=== PATIENT | male | born 1930 | race Caucasian/White ===

== ENCOUNTER 2016-04-02 06:23 | Inpatient (IN) | payer MEDICARE, OTHER ==
[~2016-04-02] VITALS: Ht 175.3 cm; Wt 109.0 kg
[~2016-04-02 06:23] MED LIST: ALLO300T2 PO; ASCO500C7 PO; CALC-67 PO; CARV3.1260 PO; CYAN500T46 PO; DIGO125T19 PO; FURO40TA4 PO; METO2.5T12 PO; POTA20TA96 PO; TAMS-14 PO; TIOT18CA IH; VITA400C15 PO; WARF5TAB72 PO
[2016-04-02] MEDS ORDERED: ALBUTEROL 0.5% (NEB) 2.5 MG/0.5 ML AMP INH STA ×2 (06:37→08:13)
[2016-04-02] MEDS ORDERED: IPRATROPIUM (NEB) 0.5 MG/2.5 ML AMP INH STA (06:37)
--- NOTE | 2016-04-02 06:47 | ERA ---
ER Documentation Chief Complaint Date/Time DATE: 04/02/16 TIME: 06:40 Chief Complaint gen weakness for 5 days. no trauma no headache,no neuro def. 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 Last week he began having nonspecific flu symptoms with increasing cough and body aches and shortness of breath which became severe this morning with orthopnea and exertional dyspnea. Denies chest pain or palpitations. Mild chronic lower extremity swelling which is not worsening. No calf pain. No abdominal pain, nausea or vomiting. Generalized weakness but no focal weakness or numbness. Denies headache or neck pain. No visual changes, focal weakness or numbness. No fevers or chills. ROS All systems reviewed and are negative except as per history of present illness. Medications Home Meds Reported Medications Allopurinol* (Allopurinol*) 300 Mg Tablet, 300 MG PO DAILY, TAB 11/02/14 Carvedilol* (Carvedilol*) 3.125 Mg Tablet, 3.125 MG PO BID, TAB 11/02/14 Vitamin E* (Vitamin E*) 400 Unit Capsule, 400 UNIT PO DAILY, CAP 11/02/14 Tiotropium [place]* (Spiriva*) 18 Mcg Cap.w.dev, 1 INH IH DAILY, EA 11/02/14 Potassium Chloride* (Potassium Chloride*) 20 Meq Tablet.er, 20 MEQ PO BID, TAB.SA 11/02/14 Metolazone* (Metolazone*) 2.5 Mg Tablet, 2.5 MG PO DAILY, TAB 11/02/14 Furosemide* (Furosemide*) 40 Mg Tablet, 40 MG PO BID, TAB 11/02/14 Tamsulosin Hcl* (Flomax*) 0.4 Mg Cap.er.24h, 0.4 MG PO DAILY, CAP 11/02/14 Digoxin* (Digox*) 125 Mcg Tablet, 0.125 MG PO DAILY, TAB 11/02/14 Warfarin Sodium* (Coumadin*) 5 Mg Tablet, 5 MG PO DAILY, TAB 11/02/14 Cyanocobalamin* (Vitamin B12*) 500 Mcg Tab, 500 MCG PO DAILY, TAB 11/02/14 Calcium Carbonate-Vitamin D3 (Calcium 500 + D Caplet) 1 Tab Tablet, 1 TAB PO DAILY, TAB 11/02/14 Ascorbic Acid* (Vitamin C*) 500 Mg Capsule.sa, 1000 MG PO DAILY, CAP 11/02/14 Allergies Allergies: Coded Allergies: Penicillins (Verified Allergy, Unknown, ITCHING, 11/02/14) Msviuij-Kxw-Mbu Reductase Inhibitor (Verified Allergy, Unknown, MUSCLE ACHES, 11/02/14) PMhx/Soc Reviewed in chart. As per HPI. History of Surgery: Yes (LEFT HIP NAILING ) Anesthesia Reaction: No Hx Neurological Disorder: Yes (NEUROPATHY, SCIATICA) Hx Respiratory Disorders: Yes (COPD) Hx Cardiac Disorders: Yes (HTN, CHF, A-FIB, PVD) Hx Psychiatric Problems: No Hx Miscellaneous Medical Probl: No Hx Alcohol Use: Yes Hx Substance Use: No Hx Tobacco Use: Yes ([id number] smoking history quit 15-20 years ago) Smoking Status: Former smoker FmHx Father of a ruptured aortic aneurysm. Mother: Diabetes. Physical Exam Vitals Vital Signs Date Time Temp Pulse Resp B/P Pulse Ox O2 Delivery O2 Flow Rate FiO2 04/02/16 07:57 95 24 151/99 94 Nasal Cannula 2.0 04/02/16 06:52 90 20 93 Nasal Cannula 3.0 04/02/16 06:30 Nasal Cannula 2 04/02/16 06:28 99.1 88 22 120/80 95 Physical Exam GENERAL: Alert, mild -moderate respiratory distress. SKIN: Warm, dry, no rash, No petechiae. No ecchymoses or bruising. HEAD: Atraumatic NECK: Supple, no tenderness, full range of motion. JVD. EYES: Pupils are equal, round and reactive to light, extraocular movements are intact, Conjunctiva, not injected, sclera anicteric. ENT: Mucous membranes are moist. Pharynx is clear without erythema or exudate. CARDIOVASCULAR: Tachycardic, Irregular rate and rhythm, S1, S2, IV/IV systolic ejection murmur. 1+ peripheral edema. RESPIRATORY: Breath sounds are markedly diminished bilaterally with moderate expiratory wheezing and crackles at the bases. CHEST WALL: No tenderness or deformity. No ecchymosis or bruising GASTROINTESTINAL: Bowel sounds present, nondistended. Soft, nontender, no rebound or guarding. No masses or abnormal pulsations. MUSCULOSKELETAL: Normal ROM, no deformity. No calf swelling or tenderness, NEUROLOGIC: Alert and oriented. CN II-XII intact. No focal neurological deficit observed. Normal speech. LYMPHATICS: No lymphadenopathy. 1+ bilateral lower extremity edema. PSYCHIATRIC: Cooperative. Appropriate mood and affect. Patient does not appear anxious or depressed. Result Diagram: 04/02/16 0635 04/02/16 0635 Results 24 hrs Laboratory Tests Test 04/02/16 06:35 04/02/16 07:20 04/02/16 07:22 Alanine Aminotransferase (ALT/SGPT) 45IU/L Albumin 4.0g/dl Albumin/Globulin Ratio 1.05 Alkaline Phosphatase 68IU/L Anion Gap 16 Aspartate Amino Transf (AST/SGOT) 68IU/L B-Type Natriuretic Peptide 587PG/ML Basophils # 0.010^3/ul Basophils % 0.3% Blood Morphology Comment Blood Urea Nitrogen 61mg/dl Calcium Level 8.8mg/dl Carbon Dioxide Level mmol/L Chloride Level 84mmol/L Cholesterol Level 139mg/dl Cholesterol/HDL Ratio 6.6RATIO Creatine Kinase 89IU/L Creatinine 1.63mg/dl Direct Bilirubin 0.00mg/dl Eosinophils # 0.010^3/ul Eosinophils % 0.5% Folate > 20.0ng/ml Globulin 3.80g/dl Glucose Level 116mg/dl HDL Cholesterol 21mg/dl Hematocrit 50.1% Hemoglobin 16.9g/dl Hemoglobin A1c 6.8% Indirect Bilirubin 0.6mg/dl LDL Cholesterol, Calculated 74mg/dl Lymphocytes # 1.110^3/ul Lymphocytes % 13.7% Magnesium Level 2.2mg/dl Mean Corpuscular Hemoglobin 35.2pg Mean Corpuscular Hemoglobin Concent 33.6g/dl Mean Corpuscular Volume 104.7fl Mean Platelet Volume 9.1fl Monocytes # 0.910^3/ul Monocytes % 10.6% Neutrophils # 6.010^3/ul Neutrophils % 74.9% Nucleated Red Blood Cells # 0.010^3/ul Nucleated Red Blood Cells % 0.0/100WBC Platelet Count 6010^3/UL Potassium Level 3.2mmol/L Red Blood Count 4.7910^6/ul Red Cell Distribution Width 15.9% Sodium Level 139mmol/L Thyroid Stimulating Hormone (TSH) 1.820MIU/L Total Bilirubin 0.6mg/dl Total Protein 7.8g/dl Triglycerides Level 220mg/dl Troponin I 0.092ng/ml Vitamin B12 Level 954pg/ml White Blood Count 8.110^3/ul Digoxin Level 1.2ng/ml INR International Normalized Ratio 1.52 Prothrombin Time 18.4Sec Prothrombin Time Ratio 1.4 Current Medications Medications (Trade) Dose Ordered Sig/Jacqueline Route PRN Reason Start Time Stop Time Status Last Admin Dose Admin Albuterol (Proventil 0.5% (Neb)) 15 mg ONCE STAT INH 04/02/16 06:37 04/02/16 06:38 04/02/16 06:50 Ipratropium [place] (Atrovent 0.02% (Neb)) 1 mg ONCE STAT INH 04/02/16 06:37 04/02/16 06:38 04/02/16 06:50 Methylprednisolone Sodium Succinate (Solu-Medrol) 125 mg ONCE STAT IV 04/02/16 06:37 04/02/16 06:38 04/02/16 06:50 Albuterol (Proventil 0.5% (Neb)) 15 mg ONCE STAT INH 04/02/16 08:13 04/02/16 08:14 04/02/16 08:35 RHYTHM STRIP INTERPRETATION: Time: 06: 45. Atrial fibrillation. Rate 92. Indication: Shortness of breath. EKG: TIME: 06: 34. Atrial fibrillation. Ventricular rate 91. Incomplete right bundle branch block. Q waves in leads V1 through V3. No acute ST segment elevation or depression. EP Interpretation: Abnormal EKG. IMAGING: XR Chest. CLINICAL INDICATION: SOB TECHNIQUE: Portable single view of the chest COMPARISON: 11/02/2014 FINDINGS: Again seen is cardiomegaly and ectatic and calcified aorta. Increased interstitial markings of the lungs are seen. Slight subsegmental atelectasis is seen laterally at the left lung base. No definite acute infiltrate, pleural effusion, or overt congestive heart failure. Degenerative change of the spine is seen. Pulmonary vascularity is top normal. IMPRESSION: Cardiomegaly. Top normal pulmonary vascularity and mild interstitial prominence. RPTAT: [facility]BE Physician Olga Lidia Date Time Electronically viewed and signed by Margarette Goetz Physician on 04/02/2016 08 :04 LE/ Procedures/MDM DOCUMENTS REVIEWED: ED nurse, prior ED, prior records, senior care facility records ED COURSE: Nebulized albuterol 15 mg/Atrovent 1 mg over 1 hour. Solu-Medrol 125mg IV. Potassium chloride 40 mg p.o. REEXAMINATION/REEVALUATION: Time: 08:10. Improved but still dyspneic with decreased breath sounds and expiratory wheezing. 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 Presentation consistent with COPD exacerbation mildly improved with nebulized beta agonists and intravenous corticosteroids. Mild underlying congestive heart failure is also a contributing factor. Chronic atrial fibrillation with controlled rate. He is not adequately anticoagulated as INR is 1.4. No chest pain, ischemic EKG changes or other signs of acute coronary syndrome. Doubt pulmonary embolism. No radiographic evidence of pneumonia or pneumothorax. Acute renal insufficiency with BUN 61/creatinine 1.3 as compared to 18/0.7 on . Thrombocytopenia which is new since his previous admission in October when his platelet count was 163,000 today to 60,000. No evidence of bleeding. Generalized weakness but no focal weakness, numbness, headache or indication for neuroimaging. Patient will be admitted to telemetry for further respiratory care, evaluation and management. Counseled patient and daughter regarding diagnosis, diagnostic results and plan for admission. CALLS/CONSULTS: Time 08:20, Dr. Clayton, Recommends telemetry admission. PATIENT CARE TRANSITIONED: Time: 08:30, Dr. Clayton. CRITICAL CARE TIME: Due to the high probability of sudden clinically significant respiratory, hemodynamic and cardiovascular deterioration, this patient with acute dyspnea secondary to COPD exacerbation and congestive heart failure required multiple, frequent reevaluations of vital signs and response to therapy. Additional critical care time was spent in interpretation of relevant clinical data, review of previous medical records, obtaining supplemental history from family and EMS as well as consultation with the admitting physician Dr. Clayton. TOTAL CRITICAL CARE TIME: 35 minutes not including other separately reportable procedures. Departure Diagnosis: Primary Impression: Acute exacerbation of chronic obstructive pulmonary disease (COPD) Additional Impressions: Acute dyspnea Congestive heart failure (CHF) Qualified Code: I50.9 - Acute on chronic congestive heart failure, unspecified congestive heart failure type Acute renal insufficiency Thrombocytopenia Aortic stenosis Qualified Code: I35.0 - Aortic valve stenosis, unspecified etiology Chronic atrial fibrillation Hypertension Qualified Code: I10 - Essential hypertension Condition: Serious NARCISO SILVA MD Apr 02, 2016 06:47
[2016-04-02] MEDS: METHYLPREDNISOLONE 125 MG INJ IV STA ×2 (06:48→06:50)
[2016-04-02 06:55] LABS: BASOPHILS % 0.3 % (0.0-2.0); EOSINOPHILS % 0.5 % (0.0-7.0); HEMATOCRIT 50.1 % (42.0-52.0); HEMOGLOBIN 16.9 g/dl (14.0-18.0); LYMPHOCYTES # 1.1 10^3/ul (0.8-2.9); LYMPHOCYTES % 13.7 % (15.0-51.0); MEAN CORPUSCULAR HEMOGLOBIN 35.2 pg (29.0-33.0); MEAN CORPUSCULAR HGB CONC 33.6 g/dl (32.0-37.0); MEAN CORPUSCULAR VOLUME 104.7 fl (82.0-101.0); MEAN PLATELET VOLUME 9.1 fl (7.4-10.4); MONOCYTE # 0.9 10^3/ul (0.3-0.9); MONOCYTES % 10.6 % (0.0-11.0); NEUTROPHILS % 74.9 % (39.0-77.0); PLATELET COUNT 60 10^3/UL (140-440); RED BLOOD COUNT 4.79 10^6/ul (4.70-6.10); RED CELL DISTRIBUTION WIDTH 15.9 % (11.5-14.5); UNCORRECTED WBC 8.1 10^3/ul (4.8-10.8); WHITE BLOOD COUNT 8.1 10^3/ul (4.8-10.8)
[2016-04-02 06:58] LABS: CONDITION 1; LH ANALYZER COMMENTS 1
[2016-04-02 07:08] LABS: POTASSIUM 3.2 mmol/L (3.5-5.1)
[2016-04-02 07:10] LABS: ALBUMIN/GLOBULIN RATIO 1.05; BILIRUBIN,INDIRECT 0.6 mg/dl (0-1.1); BILIRUBIN,TOTAL 0.6 mg/dl (0.2-1.3); CREATININE 1.63 mg/dl (0.61-1.24); TOTAL PROTEIN 7.8 g/dl (6.1-8.1)
[2016-04-02 07:11] LABS: CALCIUM 8.8 mg/dl (8.4-10.2)
[2016-04-02 07:23] LABS: TROPONIN-I 0.092 ng/ml (0.00-0.12)
[2016-04-02 07:37] LABS: INR 1.52; PROTIME 18.4 Sec (12.2-14.2); PT RATIO 1.4
--- NOTE | 2016-04-02 08:05 | RADRPT ---
PROCEDURE: XR Chest. CLINICAL INDICATION: SOB TECHNIQUE: Portable single view of the chest COMPARISON: 11/02/2014 FINDINGS: Again seen is cardiomegaly and ectatic and calcified aorta. Increased interstitial markings of the lungs are seen. Slight subsegmental atelectasis is seen laterally at the left lung base. No defini te acute infiltrate, pleural effusion, or overt congestive heart failure. Degenerative change of th e spine is seen. Pulmonary vascularity is top normal. IMPRESSION: Cardiomegaly. Top normal pulmonary vascularity and mild interstitial prominence. RPTAT: [facility]BE Physician Olga Lidia Date Time Electronically viewed and signed by Margarette Goetz Physician on 04/02/2016 08:04 LE/
[2016-04-02] MEDS ORDERED: POTASSIUM CHLORIDE (SR) 20 MEQ TAB PO STA (08:24)
[2016-04-02] MEDS ORDERED: NITROGLYCERIN (SL) 0.4 MG TAB SL PRN (08:30)
[2016-04-02] MEDS ORDERED: ACETAMINOPHEN 325 MG TAB PO PRN ×2 (08:30)
[2016-04-02] MEDS ORDERED: LORAZEPAM 2 MG INJ IV PRN (08:30)
[2016-04-02] MEDS ORDERED: ONDANSETRON 4 MG INJ IV PRN ×2 (08:30)
[2016-04-02] MEDS ORDERED: NACL 0.9% 3 ML SYG IV SCH (08:30)
--- NOTE | 2016-04-02 09:44 | CONS ---
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 Last week he began having nonspecific flu symptoms with increasing cough and body aches and shortness of breath which became severe this morning with orthopnea and exertional dyspnea. Denies chest pain or palpitations. Mild chronic lower extremity swelling which is not worsening. No calf pain. No abdominal pain, nausea or vomiting. Generalized weakness but no focal weakness or numbness. Denies headache or neck pain. No visual changes, focal weakness or numbness. No fevers or chills. the patinet is already improving in the ER as symptoms have improved with breathing treatemnts Social History Smoking Status: Former smoker Exam/Review of Systems Vital Signs Vitals Vital Signs Date Time Temp Pulse Resp B/P Pulse Ox O2 Delivery O2 Flow Rate FiO2 04/02/16 08:36 99 18 94 Nasal Cannula 3.0 04/02/16 07:57 151/99 04/02/16 06:28 99.1 Results Result Diagram: 04/02/16 0635 04/02/16 0635 Results 24 hrs Laboratory Tests Test 04/02/16 06:35 04/02/16 07:20 04/02/16 07:22 Alanine Aminotransferase (ALT/SGPT) 45 Albumin 4.0 Albumin/Globulin Ratio 1.05 Alkaline Phosphatase 68 Anion Gap 16 Aspartate Amino Transf (AST/SGOT) 68 H B-Type Natriuretic Peptide 587 H Basophils # 0.0 Basophils % 0.3 Blood Morphology Comment Blood Urea Nitrogen 61 H Calcium Level 8.8 Carbon Dioxide Level Chloride Level 84 L Creatinine 1.63 H Direct Bilirubin 0.00 Eosinophils # 0.0 Eosinophils % 0.5 Globulin 3.80 H Glucose Level 116 Hematocrit 50.1 # Hemoglobin 16.9 # Indirect Bilirubin 0.6 Lymphocytes # 1.1 Lymphocytes % 13.7 L Mean Corpuscular Hemoglobin 35.2 H Mean Corpuscular Hemoglobin Concent 33.6 Mean Corpuscular Volume 104.7 H Mean Platelet Volume 9.1 Monocytes # 0.9 Monocytes % 10.6 Neutrophils # 6.0 Neutrophils % 74.9 Nucleated Red Blood Cells # 0.0 Nucleated Red Blood Cells % 0.0 Platelet Count 60 #L Potassium Level 3.2 L Red Blood Count 4.79 # Red Cell Distribution Width 15.9 H Sodium Level 139 Total Bilirubin 0.6 Total Protein 7.8 Troponin I 0.092 White Blood Count 8.1 Digoxin Level 1.2 INR International Normalized Ratio 1.52 Prothrombin Time 18.4 H Prothrombin Time Ratio 1.4 Medications Medications Current Medications Lorazepam (Ativan) 0.5 mg Q6H PRN IV ANXIETY; Start 04/02/16 at 08:30; Status UNV Ondansetron HCl (Zofran Inj) 4 mg Q6H PRN IV NAUSEA AND/OR VOMITING; Start 01/06 at 08:30; Status UNV Nitroglycerin (Nitroglycerin (Sl Tab) 0.4 Mg) 1 tab Q5M PRN SL CHEST PAIN; Start 04/02/16 at 08:30; Status UNV Acetaminophen (Tylenol Tab) 650 mg Q6H PRN PO PAIN LEVEL 1-3 OR FEVER; Start at 08:30; Status UNV Morphine Sulfate (morphine) 2 mg Q4H PRN IV PAIN LEVEL 7-10; Start 04/02/16 at 08:30; Status UNV Docusate Sodium (Colace) 100 mg Q12H PRN PO CONSTIPATION; Start 04/02/16 at 08: 30; Status UNV Famotidine (Pepcid) 20 mg Q12 PO ; Start 04/02/16 at 09:00; Status UNV Allopurinol (Zyloprim) 300 mg DAILY PO ; Start 04/02/16 at 09:00; Status UNV Ascorbic Acid (Vitamin C) 1,000 mg DAILY PO ; Start 04/02/16 at 09:00; Status UNV Carvedilol (Coreg) 3.125 mg BID PO ; Start 04/02/16 at 09:00; Status UNV Cyanocobalamin (Vitamin B12) 500 mcg DAILY PO ; Start 04/02/16 at 09:00; Status UNV Digoxin (Digoxin) 0.125 mg DAILY PO ; Start 04/02/16 at 09:00; Status UNV Furosemide (Lasix) 40 mg BID PO ; Start 04/02/16 at 09:00; Status UNV Metolazone (Zaroxolyn) 2.5 mg DAILY PO ; Start 04/02/16 at 09:00; Status UNV Potassium Chloride (Klor-Con 20) 20 meq BID PO ; Start 04/02/16 at 09:00; Status UNV Tamsulosin HCl (Flomax) 0.4 mg DAILY PO ; Start 04/02/16 at 09:00; Status UNV Tiotropium [place] (Spiriva) 1 inh DAILY INH ; Start 04/02/16 at 09:00; Status UNV Vitamin E (Vitamin E) 400 units DAILY PO ; Start 04/02/16 at 09:00; Status UNV Warfarin Sodium (Coumadin) 5 mg DAILY PO ; Start 04/02/16 at 09:00; Status UNV Miscellaneous Information 1 tab DAILY PO ; Start 04/02/16 at 09:00; Status UNV MELIDA FRANKLIN MD Apr 02, 2016 09:44
[2016-04-02 10:46] LABS: CHOL/HDL RATIO 6.6 RATIO; MAGNESIUM 2.2 mg/dl (1.7-2.5)
[2016-04-02 11:09] VITALS: Ht 175.3 cm; Wt 109.0 kg
[2016-04-02 11:10] LABS: THYROID STIMULATING HORMONE 1.82 MIU/L (0.465-4.680)
--- NOTE | 2016-04-02 11:27 | HP ---
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 1. Shortness of breath 2/2 to COPD exacerbation with possible CHF exac - will admit the patient to telemetry for observation - IV steroids, breathing treatments, repeat cxr, mucinex for sputum, if worsening leukocytosis - start antibiotics 2. CHF exacerbation - acute on chronic systolic dysfunction - consult cardiology , hold lasix 2/2 to ARF, check ECHO 3. Acute renal failure - renally adjust medications, avoid nephrotoxins, most likely AIN from dehydration 4. Chronic Afib - continue with coumadin - subtherapeutic - no bridging 2/2 #5 5. Thrombocytopenia - hold lovenox - continue with coumadin 6. Severe - outpatient TAVR 7. PVD - wound care - podiatry if worsening 8. Peripheral neuropathy - continue with gabapentin 9. Obesity - morbid - nutrition consult 10. Prostate CA - monitor at this time 11. Essential hypertension - continue with home medications - ACEI hold, coreg continue 12. Subtherapeutic INR - lc/w coumadin 13. Megaloblastic anemia - check folate/b12 levels 14. GI ppx - pepcid 15. DVT ppx - coumadin answered all of his questions. as per clinical course. 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 He currently [facility]. He states that he has a non-productive cough, feels congested and weak. Denies any nausea/vomiting/diarrhea/constipation, chest pain , loss of consciousness, headaches, urinary/bowel irregularities, fevers/chills or other constitutional symptoms. Where he resides, everyone is sick. ED course: KCl, solu-medrol, breathing treatments, tylenol ROS 14 point review of systems completed, please refer to HPI for any positive findings PMH/Family/Social Past Medical History Chronic AF on coumadin, Severe , COPD, peripheral neuropathy, PVD, Chronic back pain, obesity, prostate CA Medical History: congestive heart failure, coronary artery disease, hypertension Past Surgical History left hip IT band repair Family History Significant Family History: diabetes (grandmother), vascular disease (father from ruptured aneurysm) Social History Alcohol Use: none Smoking Status: Former smoker (40 yr ppd hx) Drug Use: none Exam/Review of Systems Vital Signs Vitals Vital Signs Date Time Temp Pulse Resp B/P Pulse Ox O2 Delivery O2 Flow Rate FiO2 04/02/16 08:36 99 18 94 Nasal Cannula 3.0 04/02/16 07:57 151/99 04/02/16 06:28 99.1 Exam Exam Gen Robinson: mild to moderate respiratory distress, AAOx4 HEENT: NC/AT, PERRLA, EOMI, no pharyngeal erythema, no tonsillar exudates, no lymphadenopathy, no JVD, 1+ bilaterally carotid bruits NECK: supple, no thyromegaly THORAX: symmetrical, no obvious deformities CV: S1S2, RRR, III/ systolic murmur best heard at aortic area radiating bilaterally to carotids Lungs: scattered rhonchi, no wheezing, or crackles appreciated Abd: soft, NT/ND, +BS, no rebound, no guarding, neg HSM EXT: 1+ bilaterally lower extremity edema, no ecchymosis, no clubbing, FROM, PVD noted, with ferritin deposits Neuro: CN II-XII grossly intact, decreased proprioception lower extremities bilaterally Psych: good mentation, alert and oriented, good mood and affect Skin: venous stasis changes noted bilaterally lower extremities, wounds on bilateral feet. Labs Result Diagram: 04/02/16 0635 04/02/16 0635 Medications Medications Current Medications Lorazepam (Ativan) 0.5 mg Q6H PRN IV ANXIETY; Start 04/02/16 at 08:30 Ondansetron HCl (Zofran Inj) 4 mg Q6H PRN IV NAUSEA AND/OR VOMITING; Start 01/06 at 08:30 Nitroglycerin (Nitroglycerin (Sl Tab) 0.4 Mg) 1 tab Q5M PRN SL CHEST PAIN; Start 04/02/16 at 08:30 Acetaminophen (Tylenol Tab) 650 mg Q6H PRN PO PAIN LEVEL 1-3 OR FEVER; Start at 08:30 Morphine Sulfate (morphine) 2 mg Q4H PRN IV PAIN LEVEL 7-10; Start 04/02/16 at 08:30 Docusate Sodium (Colace) 100 mg Q12H PRN PO CONSTIPATION; Start 04/02/16 at 08: 30 Famotidine (Pepcid) 20 mg Q12 PO ; Start 04/02/16 at 09:00 Allopurinol (Zyloprim) 300 mg DAILY PO ; Start 04/02/16 at 09:00 Ascorbic Acid (Vitamin C) 1,000 mg DAILY PO ; Start 04/02/16 at 09:00 Carvedilol (Coreg) 3.125 mg BID PO ; Start 04/02/16 at 09:00 Cyanocobalamin (Vitamin B12) 500 mcg DAILY PO ; Start 04/02/16 at 09:00 Digoxin (Digoxin) 0.125 mg DAILY@13 PO ; Start 04/02/16 at 13:00 Metolazone (Zaroxolyn) 2.5 mg DAILY PO ; Start 04/02/16 at 09:00 Potassium Chloride (Klor-Con 20) 20 meq BID PO ; Start 04/02/16 at 09:00 Tamsulosin HCl (Flomax) 0.4 mg HS PO ; Start 04/02/16 at 21:00 Tiotropium [place] (Spiriva) 1 inh DAILY INH ; Start 04/02/16 at 09:00 Vitamin E (Vitamin E) 400 units DAILY PO ; Start 04/02/16 at 09:00 Warfarin Sodium (Coumadin) 5 mg DAILY@17 PO ; Start 04/02/16 at 17:00 Calcium/Vitamin D ([place]/ Vit-D (500/200)) 1 tab DAILY PO ; Start at 11:30 Procedures Procedures CXR IMPRESSION: Cardiomegaly. Top normal pulmonary vascularity and mild interstitial prominence. KWAME SANDOVAL MD Apr 02, 2016 11:18
[2016-04-02 12:06] VITALS: PULSE 98
[2016-04-02] MEDS: METOLAZONE 2.5 MG TAB PO SCH (12:06)
[2016-04-02] MEDS: POTASSIUM CHLORIDE (SR) 20 MEQ TAB PO SCH ×2 (12:07→21:21)
[2016-04-02] MEDS: ALLOPURINOL 300 MG TAB PO SCH (12:08)
[2016-04-02] MEDS: CALCIUM/VITAMIN D (500/200) TAB PO SCH (12:08)
[2016-04-02] MEDS: ASCORBIC ACID 500 MG TAB PO SCH (12:08)
[2016-04-02] MEDS: CYANOCOBALAMIN 500 MCG TAB PO SCH (12:08)
[2016-04-02] MEDS: FAMOTIDINE 20 MG TAB PO SCH ×2 (12:08→21:21)
[2016-04-02] MEDS: VITAMIN E 400 UNITS CAP PO SCH (12:09)
[2016-04-02] MEDS: TIOTROPIUM 18 MCG CAPSULE INHA DEV INH SCH (12:09)
[2016-04-02] MEDS: GUAIFENESIN/DM (SR) TAB PO SCH ×2 (12:09→21:21)
[2016-04-02 12:19] VITALS: BP 124/70; RESP 18
[2016-04-02] MEDS: DIGOXIN 0.125 MG TAB PO SCH (12:24)
[2016-04-02 12:54] LABS: FOLATE > 20.0 ng/ml (2.8-20.0)
[2016-04-02 15:30] LABS: CK-MB 3.03 ng/ml (0.0-2.4)
[2016-04-02 15:32] LABS: TROPONIN-I 0.052 ng/ml (0.00-0.12)
[2016-04-02] MEDS: morphine 2 MG INJ IV PRN (15:40)
[2016-04-02 16:12] VITALS: BP_SYST 132; BP_SYST 147; BP_DIAS 68; BP_DIAS 84; PULSE 96; RESP 16
[2016-04-02] MEDS: WARFARIN 5 MG TAB PO SCH (17:23)
[2016-04-02] MEDS: FUROSEMIDE 40 MG TAB PO SCH (17:23)
[2016-04-02 20:05] VITALS: PULSE 80
[2016-04-02 20:32] VITALS: BP 111/57; RESP 20
[2016-04-02] MEDS ORDERED: ENOXAPARIN 100 MG/ML SYG SC SCH (21:00)
[2016-04-02] MEDS: TAMSULOSIN (SR) 0.4 MG CAP PO SCH (21:21)
[2016-04-03] VITALS (13 sets, daily range): BP systolic 89–144; BP diastolic 50–67; PULSE 69–104; RESP 18–20
[2016-04-03] MEDS: morphine 2 MG INJ IV PRN ×3 (02:37→20:34)
[2016-04-03] MEDS: FUROSEMIDE 40 MG TAB PO SCH (06:18)
[2016-04-03 07:49] LABS: HEMATOCRIT 46.1 % (42.0-52.0); HEMOGLOBIN 15.8 g/dl (14.0-18.0); LYMPHOCYTES # 0.8 10^3/ul (0.8-2.9); LYMPHOCYTES % 8.5 % (15.0-51.0); MEAN CORPUSCULAR HEMOGLOBIN 35.9 pg (29.0-33.0); MEAN CORPUSCULAR HGB CONC 34.2 g/dl (32.0-37.0); MEAN PLATELET VOLUME 8.6 fl (7.4-10.4); MONOCYTE # 0.8 10^3/ul (0.3-0.9); MONOCYTES % 8.8 % (0.0-11.0); NEUTROPHIL # 7.4 10^3/ul (1.6-7.5); NEUTROPHILS % 82.7 % (39.0-77.0); PLATELET COUNT 41 10^3/UL (140-440); RED BLOOD COUNT 4.39 10^6/ul (4.70-6.10); RED CELL DISTRIBUTION WIDTH 15.9 % (11.5-14.5); UNCORRECTED WBC 8.9 10^3/ul (4.8-10.8); WHITE BLOOD COUNT 8.9 10^3/ul (4.8-10.8)
[2016-04-03 07:52] LABS: POTASSIUM 3.4 mmol/L (3.5-5.1)
[2016-04-03 07:54] LABS: CREATININE 1.19 mg/dl (0.61-1.24)
[2016-04-03 07:55] LABS: CALCIUM 8.5 mg/dl (8.4-10.2); INR 1.74; PROTIME 20.5 Sec (12.2-14.2); PT RATIO 1.6
[2016-04-03 07:56] LABS: PARTIAL THROMBOPLASTIN TIME 31.9 Sec (25.0-35.0)
[2016-04-03 08:08] LABS: CONDITION 1; LH ANALYZER COMMENTS 1
--- NOTE | 2016-04-03 10:08 | RADRPT ---
Echocardiogram Report Patient Name: SYLVIA SALMERON Gender: Male Date: 1930 Study Date: 02-Apr-2016 Program Project Manager: [facility] Location: 5540 Ref. Physician: KWAME SANDOVAL Quality: Technically Difficult Study Procedures: Transthoracic echocardiogram with complete 2D, M-Mode, and doppler examination. Indications: COPD. 2D/M Mode Doppler Measurement Value Normal Ranges Measurement Value Normal Ranges LVIDd 2D 5.7 3.5 - 5.6 cm AMBER Vmax 0.6 cm2 LVIDs 2D 4.7 2.1 - 4.1 cm AMBER VTI 0.5 cm2 FS 2D 18.8 % AV Mean Sam 2.0 m/sec LVPWd 2D 1.2 0.6 - 1.1 cm AV Mean PG 21.0 mmHg IVSd 2D 1.1 0.6 - 1.1 cm AV Peak Sam 3.1 m/sec IVS/LVPW 2D 0.9 AV Peak PG 39.0 mmHg AoR Diam 2D 2.5 2.0 - 3.7 cm AV VTI 55.9 cm LA/Ao 2D 2 0 - 1 LVOT Mean Sam 0.5 m/sec EDV 2D 188.0 cm3 LVOT Mean PG 1.0 mmHg ESV 2D 101.0 cm3 LVOT Peak Sam 0.7 m/sec LA Dimen 2D 5.2 2.3 - 4.0 cm LVOT Peak PG 2.0 mmHg LVOT Diam 1.8 cm LVOT VTI 11.4 cm LVOT Area 2.5 cm2 MV E Peak Sam 1.1 m/sec TR Peak Sam 4.0 m/sec TR Peak PG 63.0 mmHg Findings Left Ventricle: Normal left ventricular cavity size. Left ventricular wall thickness upper limits of normal. Moderate global left ventricular systolic dysfunction. Ejection fraction is visually estimated at 45 %. Abnormal Diastolic Function. Right Ventricle: Not well visualized. Left Atrium: There is mild enlargement of left atrium. Right Atrium: There is mild enlargement of right atrium. Mitral Valve: Mild mitral leaflet calcification. Trace mitral regurgitation. Aortic Valve: Severe aortic stenosis. Aortic valve Max velocity 3.14 m/sec. Max PG 39.00 mmHg. Mean PG 21.00 mmHg. Aortic valve area 0.60 cm2. Aortic cusps appear mildly calcified. Tricuspid Valve: Estimated peak PA systolic pressure 71 mmHg. There is mild to moderate tricuspid regurgitation. Pulmonic Valve: There is trace pulmonic regurgitation. Pericardium: Left pleural effusion seen. Aorta: Normal aortic root. IVC: Dilated IVC without respiratory collapse consistent with elevated right atrial pressure. Conclusions 1.Severe aortic stenosis. Aortic valve Max velocity 3.14 m/sec. Max PG 39.00 mmHg. Mean PG 21.00 mmHg. Aortic valve area 0.60 cm2. Aortic cusps appear mildly calcified. 2.Normal left ventricular cavity size. Left ventricular wall thickness upper limits of normal. Moderate global left ventricular systolic dysfunction. Ejection fraction is visually estimated at 45 %. Abnormal Diastolic Function. Electronically Signed By: Oleksandr Carrington 03-Apr-2016 10:07:10 -0800 Patient Name: SYLVIA SALMERON Study Date: 02-Apr-2016 [id number]
[2016-04-03] MEDS: METOLAZONE 2.5 MG TAB PO SCH (10:29)
[2016-04-03] MEDS: ASCORBIC ACID 500 MG TAB PO SCH (10:29)
[2016-04-03] MEDS: POTASSIUM CHLORIDE (SR) 20 MEQ TAB PO SCH ×3 (10:30→20:33)
[2016-04-03] MEDS: CALCIUM/VITAMIN D (500/200) TAB PO SCH (10:30)
[2016-04-03] MEDS: TIOTROPIUM 18 MCG CAPSULE INHA DEV INH SCH (10:30)
[2016-04-03] MEDS: CYANOCOBALAMIN 500 MCG TAB PO SCH (10:30)
[2016-04-03] MEDS: ALLOPURINOL 300 MG TAB PO SCH (10:30)
[2016-04-03] MEDS: GUAIFENESIN/DM (SR) TAB PO SCH ×2 (10:30→20:32)
[2016-04-03] MEDS: VITAMIN E 400 UNITS CAP PO SCH (10:31)
[2016-04-03] MEDS: FAMOTIDINE 20 MG TAB PO SCH ×2 (10:31→20:32)
[2016-04-03] MEDS: ALBUTEROL/IPRATROPIUM (NEB) 3 ML AMP HHN PRN ×2 (10:42→15:23)
--- NOTE | 2016-04-03 11:03 | PN ---
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 1. Shortness of breath 2/2 to COPD exacerbation with possible CHF exac - Ct chest, IV steroids, consult pulm 2. CHF exacerbation - acute on chronic systolic dysfunction - appreciate cardiology, hold lasix 2/2 to ARF, EF 45%, severe 3. Acute renal failure - renally adjust medications, avoid nephrotoxins, most likely AIN from dehydration - improved 4. Chronic Afib - continue with coumadin - subtherapeutic - no bridging 2/2 #5 5. Thrombocytopenia - hold lovenox - continue with coumadin 6. Severe - outpatient TAVR 7. PVD - wound care - podiatry if worsening 8. Peripheral neuropathy - continue with gabapentin 9. Obesity - morbid - nutrition consult 10. Prostate CA - monitor at this time 11. Essential hypertension - continue with home medications - ACEI hold, coreg continue 12. Subtherapeutic INR - c/w coumadin - increasing PT/INR 13. Megaloblastic anemia - b12/folate normal 14. GI ppx - pepcid 15. DVT ppx - coumadin answered all of his questions. as per clinical course. CT chest this progress note took greater than 40 minutes to complete Subjective 24 Hr Interval Summary Free Text/Dictation Patient is doing ok today. Still complains of generalized weakness and debility. Breathing treatments still given. Spoke to him about the care plan. 20 minutes spent. Exam/Review of Systems Vital Signs Vitals Vital Signs Date Time Temp Pulse Resp B/P Pulse Ox O2 Delivery O2 Flow Rate FiO2 04/03/16 10:45 18 96 Nasal Cannula 3.0 04/03/16 08:20 73 04/03/16 07:54 97.6 89/53 Intake and Output 04/02/16 04/02/16 04/03/16 15:00 23:00 07:00 Intake Total 1130 ml 60 ml Output Total 1000 ml 50 ml Balance 130 ml 10 ml Exam Gen Robinson: mild to moderate respiratory distress, AAOx4 HEENT: NC/AT, PERRLA, EOMI, no pharyngeal erythema, no tonsillar exudates, no lymphadenopathy, no JVD, 1+ bilaterally carotid bruits NECK: supple, no thyromegaly THORAX: symmetrical, no obvious deformities CV: S1S2, RRR, III/ systolic murmur best heard at aortic area radiating bilaterally to carotids Lungs: scattered rhonchi, end expiratory wheezing, or crackles appreciated Abd: soft, NT/ND, +BS, no rebound, no guarding, neg HSM EXT: 1+ bilaterally lower extremity edema, no ecchymosis, no clubbing, FROM, PVD noted, with ferritin deposits Neuro: CN II-XII grossly intact, decreased proprioception lower extremities bilaterally Psych: good mentation, alert and oriented, good mood and affect Skin: venous stasis changes noted bilaterally lower extremities, wounds on bilateral feet. Results Result Diagram: 04/03/16 0650 04/03/16 0650 Results 24 hrs Laboratory Tests Test 04/02/16 14:42 04/03/16 06:50 Creatine Kinase 62 Creatine Kinase Index 4.9 Creatinine Kinase MB (Mass) 3.03 H Troponin I 0.052 Activated Partial Thromboplast Time 31.9 Anion Gap 12 Basophils # 0.0 Basophils % 0.0 Blood Morphology Comment Blood Urea Nitrogen 57 H Calcium Level 8.5 Carbon Dioxide Level 40 H Chloride Level 89 L Creatinine 1.19 Eosinophils # 0.0 Eosinophils % 0.0 Glucose Level 148 Hematocrit 46.1 Hemoglobin 15.8 INR International Normalized Ratio 1.74 Lymphocytes # 0.8 Lymphocytes % 8.5 L Mean Corpuscular Hemoglobin 35.9 H Mean Corpuscular Hemoglobin Concent 34.2 Mean Corpuscular Volume 105.0 H Mean Platelet Volume 8.6 Monocytes # 0.8 Monocytes % 8.8 Neutrophils # 7.4 Neutrophils % 82.7 H Nucleated Red Blood Cells # 0.0 Nucleated Red Blood Cells % 0.0 Platelet Count 41 #L Potassium Level 3.4 L Prealbumin 16.3 L Prothrombin Time 20.5 H Prothrombin Time Ratio 1.6 Red Blood Count 4.39 L Red Cell Distribution Width 15.9 H Sodium Level 138 White Blood Count 8.9 Medications Medications Current Medications Lorazepam (Ativan) 0.5 mg Q6H PRN IV ANXIETY; Start 04/02/16 at 08:30 Ondansetron HCl (Zofran Inj) 4 mg Q6H PRN IV NAUSEA AND/OR VOMITING; Start 01/06 at 08:30 Nitroglycerin (Nitroglycerin (Sl Tab) 0.4 Mg) 1 tab Q5M PRN SL CHEST PAIN; Start 04/02/16 at 08:30 Acetaminophen (Tylenol Tab) 650 mg Q6H PRN PO PAIN LEVEL 1-3 OR FEVER; Start at 08:30 Morphine Sulfate (morphine) 2 mg Q4H PRN IV PAIN LEVEL 7-10 Last administered on 04/03/16 02:37; Admin Dose 2 MG; Start 04/02/16 at 08:30 Docusate Sodium (Colace) 100 mg Q12H PRN PO CONSTIPATION; Start 04/02/16 at 08: 30 Famotidine (Pepcid) 20 mg Q12 PO Last administered on 04/03/16 10:31; Admin Dose 20 MG; Start 04/02/16 at 09:00 Allopurinol (Zyloprim) 300 mg DAILY PO Last administered on 04/03/16 10:30; Admin Dose 300 MG; Start 04/02/16 at 09:00 Ascorbic Acid (Vitamin C) 1,000 mg DAILY PO Last administered on 04/03/16 10: 29; Admin Dose 1,000 MG; Start 04/02/16 at 09:00 Carvedilol (Coreg) 3.125 mg BID PO Last administered on 04/03/16 10:30; Admin Dose 3.125 MG; Start 04/02/16 at 09:00 Cyanocobalamin (Vitamin B12) 500 mcg DAILY PO Last administered on 04/03/16 10 :30; Admin Dose 500 MCG; Start 04/02/16 at 09:00 Digoxin (Digoxin) 0.125 mg DAILY@13 PO ; Start 04/02/16 at 13:00 Metolazone (Zaroxolyn) 2.5 mg DAILY PO Last administered on 04/03/16 10:29; Admin Dose 2.5 MG; Start 04/02/16 at 09:00 Potassium Chloride (Klor-Con 20) 20 meq BID PO Last administered on 04/03/16 10:30; Admin Dose 20 MEQ; Start 04/02/16 at 09:00 Tamsulosin HCl (Flomax) 0.4 mg HS PO Last administered on 04/02/16 21:21; Admin Dose 0.4 MG; Start 04/02/16 at 21:00 Tiotropium [place] (Spiriva) 1 inh DAILY INH Last administered on 04/03/16 10: 30; Admin Dose 1 INH; Start 04/02/16 at 09:00 Vitamin E (Vitamin E) 400 units DAILY PO Last administered on 04/03/16 10:31; Admin Dose 400 UNITS; Start 04/02/16 at 09:00 Warfarin Sodium (Coumadin) 5 mg DAILY@17 PO Last administered on 04/02/16 17: 23; Admin Dose 5 MG; Start 04/02/16 at 17:00 Calcium/Vitamin D (Oyster Shell/ Vit-D (500/200)) 1 tab DAILY PO Last administered on 04/03/16 10:30; Admin Dose 1 TAB; Start 04/02/16 at 11:30 Guaifenesin/ Dextromethorphan (Mucinex Dm) 1 tab BID PO Last administered on 10:30; Admin Dose 1 TAB; Start 04/02/16 at 12:30 Enoxaparin Sodium (Lovenox) 110 mg Q12 SC ; Start 04/03/16 at 11:30 Furosemide (Lasix) 20 mg DAILY IV ; Start 04/04/16 at 09:00; Status UNV Methylprednisolone Sodium Succinate (Solu-Medrol) 60 mg Q8 IV ; Start 04/03/16 at 14:00 Procedures Procedures ECHO Conclusions 1. Severe aortic stenosis. Aortic valve Max velocity 3.14 m/sec. Max PG 39.00 mmHg. Mean PG 21.00 mmHg. Aortic valve area 0.60 cm2. Aortic cusps appear mildly calcified. 2. Normal left ventricular cavity size. Left ventricular wall thickness upper limits of normal. Moderate global left ventricular systolic dysfunction. Ejection fraction is visually estimated at 45 %. Abnormal Diastolic Function. KWAME SANDOVAL MD Apr 03, 2016 11:03
[2016-04-03] MEDS: ENOXAPARIN 60 MG/0.6 ML SYG SC SCH ×2 (11:30→20:35)
[2016-04-03] MEDS: DIGOXIN 0.125 MG TAB PO SCH (13:00)
[2016-04-03] MEDS: DOCUSATE SODIUM 100 MG CAP PO PRN (13:48)
[2016-04-03] MEDS ORDERED: METHYLPREDNISOLONE 125 MG INJ IV SCH (14:00)
[2016-04-03] MEDS ORDERED: MAGNESIUM HYDROXIDE 30ML CUP PO PRN (15:00)
--- NOTE | 2016-04-03 15:20 | PN ---
DATE: 04/03/2016 REASON FOR ADMISSION: Shortness of breath. Dr. Gaines reports that he is feeling slightly better but still short of breath. OBJECTIVE: VITAL SIGNS: Temperature 97.6, pulse 75, blood pressure 89/53, oxygen saturation 96% on 3 liters of nasal cannula. PHYSICAL EXAMINATION: NECK: There is mild jugular venous distention. LUNGS: Decreased breath sounds bilaterally. CARDIAC: Regular rate and rhythm. There is a systolic murmur heard at the base. ABDOMEN: Soft. EXTREMITIES: Reveal 1+ edema. CURRENT MEDICATIONS: 1. Solu-Medrol 2. Lovenox. 3. Flomax. 4. Warfarin 5. Digoxin. 6. Famotidine. 7. Allopurinol. 8. Metolazone. 9. Coreg 3.125 10. Spiriva. IMAGING: X-ray report shows normal pulmonary vasculature and mild interstitial prominence. LABORATORY RESULTS: Reviewed. White count 8.9, hematocrit 46. Sodium 130, potassium 3.4, BUN 57, creatinine 1.1. Troponin negative. ASSESSMENT: 1. Shortness of breath. The patient has multiple contributing possible factors including known sev ere aortic stenosis and cardiomyopathy. Dose of Lasix and Zaroxolyn given. Will hold though given his renal insufficiency and hypokalemia and possible chronic obstructive pulmonary disease exacerbat ion. We will hold those tomorrow until further evaluated. 2. The patient has severe aortic stenosis. Will defer consideration for valve replacement to [facility] scalper operator. 3. The patient had atrial fibrillation. He is anticoagulated with Lovenox and Coumadin. Dictated By: BRADLEY MARIEE/GAUTAM Conf#: [id number] DID#: [id number]
[2016-04-03] MEDS: predniSONE 20 MG TAB PO SCH (16:00)
[2016-04-03] MEDS: CARBOXYMETHYLCELLULOSE 0.5% 0.1 ML OPH BOTH EYES SCH ×2 (18:01→20:32)
[2016-04-03] MEDS: WARFARIN 5 MG TAB PO SCH (18:01)
--- NOTE | 2016-04-03 18:41 | CONS ---
DATE OF ADMISSION: 04/02/2016 DATE OF CONSULTATION: 04/03/2016 CONSULTATION: Pulmonary. 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 He denies any other sick contacts. Denies any hemoptysis. PAST MEDICAL HISTORY: As above. MEDICATIONS: Please see MAR. SOCIAL HISTORY: Former 40 pack tobacco use. No alcohol or illicit drug use. FAMILY HISTORY: Noncontributory. ALLERGIES: NONE. REVIEW OF SYSTEMS: As noted in the HPI. PHYSICAL EXAMINATION: VITAL SIGNS: Heart rate is 99, irregular; blood pressure 151/99, oxygen saturation 95% on 3 liters nasal cannula, temperature is 99.1. HEENT: Normocephalic, atraumatic. NECK: Jugular venous pressures are mildly elevated. CARDIOVASCULAR: Irregularly irregular. S1, S2. A II/ systolic murmur. No rubs. CHEST: Some coarse wheezing bilaterally. ABDOMEN: Obese, nontender. EXTREMITIES: No cyanosis, clubbing, or edema. LABORATORY DATA: BUN today is 57, creatinine 1.19, bicarbonate is 40. INR is 1.74. WBC is 8.9, he moglobin is 15, MCV is 105, platelets are 41. IMPRESSION: 1. Chronic obstructive pulmonary disease exacerbation. 2. Mild heart failure secondary to aortic stenosis. 3. Atrial fibrillation. 4. Thrombocytopenia. 5. Macrocytosis. RECOMMENDATIONS: 1. Continue bronchodilators. 2. Reduce Solu-Medrol to prednisone 60 mg daily. 3. Continue gentle diuresis. Follow creatinine closely. 4. Possibility of TAVR procedure for aortic stenosis as per cardiology. 5. PT, OT evaluation. Mobilize out of bed. Dictated By: RAINER GRANT MD NK/NTS Conf#: [id number] DID#: [id number] CC: NILES GRIFFITHS MD; KWAME SANDOVAL MD;*EndCC*
[2016-04-03] MEDS: TAMSULOSIN (SR) 0.4 MG CAP PO SCH (20:33)
[2016-04-04] VITALS (12 sets, daily range): BP systolic 108–122; BP diastolic 56–73; PULSE 69–82; RESP 16–19
--- NOTE | 2016-04-04 01:15 | RADRPT ---
PROCEDURE: CT Chest without contrast. CLINICAL INDICATION: Dyspnea TECHNIQUE: CT scan of the chest without contrast was performed on a multidetector high-resolution CT scanner. Coronal and sagittal reformatted images were obtained from the axial source images. The total exam CTDI equals 15.1 mGy and the total exam DLP equals 601 mGy-cm. COMPARISON: Radiograph dated 04/02/2016 FINDINGS: There are patchy bibasilar infiltrates with the posterior predominant distribution. This finding may indicate acute bacterial pneumonia or chronic micro aspiration. There is mild changes of centrolobular emphysema in the bilateral upper lung zones. There is no pulmonary infiltrate, pulmonary nodules or mass lesion. There is no evidence of pleural effusion, pneumothorax or pulmonary edema. The central tracheobronchial tree is clear. The mediastinum is unremarkable, without evidence of mass or lymphadenopathy. The thyroid gland is heterogeneous and there may be a 1 cm right thyroid nodule. The vascular structures of the mediastinum are normal in course and caliber. Advanced aortic vascular calcifications and coronary artery calcifications are present. The heart size is large, without pericardial thickening or effusion. The axillary regions, subpectoral regions, and supraclavicular regions are unremarkable and without evidence of adenopathy. Limited imaging of the upper abdomen reveals no acute abnormality. The osseous structures are remarkable for degenerative spondylosis of the spine. No osteolytic or osteoblastic lesion is detected. IMPRESSION: 1. Patchy bibasilar infiltrates with posterior predominance. Findings may represent acute bacteria l pneumonia, acute aspiration or chronic micro aspiration. 2. Mild changes of centrolobular emphysema. 3. Advanced atherosclerotic coronary artery and peripheral vascular disease. 4. Cardiomegaly. 5. Heterogeneous thyroid gland with possible 1 cm nodule in the right lobe of thyroid. Findings ca n be further clarified with ultrasound, if clinically indicated. RPTAT: HLDM .Ash Brock MD, MD Date Time Electronically viewed and signed by .Ash Brock MD, on 04/04/2016 01:14 .M/
[2016-04-04] MEDS: morphine 2 MG INJ IV PRN ×2 (04:12→10:07)
[2016-04-04] MEDS: ALBUTEROL/IPRATROPIUM (NEB) 3 ML AMP HHN PRN (05:39)
[2016-04-04 07:20] LABS: HEMATOCRIT 48.4 % (42.0-52.0); HEMOGLOBIN 16.2 g/dl (14.0-18.0); LYMPHOCYTES # 0.8 10^3/ul (0.8-2.9); MEAN CORPUSCULAR HEMOGLOBIN 35.6 pg (29.0-33.0); MEAN CORPUSCULAR HGB CONC 33.5 g/dl (32.0-37.0); MEAN CORPUSCULAR VOLUME 106.2 fl (82.0-101.0); MEAN PLATELET VOLUME 9.1 fl (7.4-10.4); MONOCYTE # 0.7 10^3/ul (0.3-0.9); NEUTROPHIL # 9.6 10^3/ul (1.6-7.5); PLATELET COUNT 51 10^3/UL (140-440); RED BLOOD COUNT 4.56 10^6/ul (4.70-6.10); RED CELL DISTRIBUTION WIDTH 15.2 % (11.5-14.5); UNCORRECTED WBC 11.1 10^3/ul (4.8-10.8); WHITE BLOOD COUNT 11.1 10^3/ul (4.8-10.8)
[2016-04-04 07:23] LABS: CONDITION 1
[2016-04-04 07:23] LABS: INR 2.42; PROTIME 26.6 Sec (12.2-14.2); PT RATIO 2.1
[2016-04-04 07:24] LABS: LH ANALYZER COMMENTS 1
[2016-04-04 07:24] LABS: PARTIAL THROMBOPLASTIN TIME 32.6 Sec (25.0-35.0)
[2016-04-04 07:35] LABS: POTASSIUM 3.5 mmol/L (3.5-5.1)
[2016-04-04 07:38] LABS: CREATININE 1.14 mg/dl (0.61-1.24)
[2016-04-04 07:39] LABS: CALCIUM 8.6 mg/dl (8.4-10.2)
[2016-04-04] MEDS ORDERED: FUROSEMIDE 20 MG INJ IV SCH (09:00)
[2016-04-04] MEDS: CARBOXYMETHYLCELLULOSE 0.5% 0.1 ML OPH BOTH EYES SCH ×4 (09:00→21:54)
[2016-04-04] MEDS: predniSONE 20 MG TAB PO SCH (09:00)
--- NOTE | 2016-04-04 09:31 | PN ---
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 1. Shortness of breath 2/2 to COPD exacerbation with possible CHF exac - slowly improving. CT chest showed: Patchy bibasilar infiltrates with posterior predominance - r/ o PNA - continue PO steroids, Duoneb's Q4 hrs ATC for now - start IV abx, f/u CV and pulm consult rec's - PT consult 2. CHF exacerbation - acute on chronic systolic + diastolic dysfunction , EF 45% , severe - appreciate cardiology consult - continue to hold lasix 2/2 to ARF 3. Acute renal failure - renally adjust medications, avoid nephrotoxins, most likely AIN from dehydration - improved 4. Chronic Afib - continue with coumadin - INR today = 2.42 continue Coumadin 5 mg Qday - f/u daily INR 5. Thrombocytopenia - still present (plt = 51) - no present bleeding. - cautiously continue with coumadin - monitor plt level daily 6. Severe - for possible outpatient TAVR, f/u CV rec's. 7. PVD - wound care - podiatry if worsening 8. Peripheral neuropathy - continue with gabapentin 9. Obesity - morbid - nutrition consult 10. Prostate CA - monitor at this time 11. Essential hypertension - bp stable - continue with home medications - ACEI hold, coreg continue 13. Megaloblastic anemia - b12/folate normal 14. GI ppx - pepcid 15. DVT ppx - coumadin Problems: Subjective 24 Hr Interval Summary Free Text/Dictation Pt had Duobneb tx today, less SOB this AM. Exam/Review of Systems Vital Signs Vitals Vital Signs Date Time Temp Pulse Resp B/P Pulse Ox O2 Delivery O2 Flow Rate FiO2 04/04/16 08:02 79 04/04/16 07:45 97.9 16 109/73 92 04/04/16 07:27 Nasal Cannula 2.0 Intake and Output 04/03/16 04/03/16 04/04/16 15:00 23:00 07:00 Intake Total 700 ml 240 ml Output Total 1200 ml 800 ml Balance -500 ml -560 ml Exam Gen Robinson: NAD, AAOx4 HEENT: NC/AT, PERRLA, EOMI NECK: supple, no thyromegaly THORAX: symmetrical, no obvious deformities CV: S1S2, RRR, III/ systolic murmur best heard at aortic area radiating bilaterally to carotids Lungs: scattered rhonchi, + end expiratory wheezing R>L Abd: soft, NT/ND, +BS, no rebound, no guarding, neg HSM EXT: 1+ bilaterally lower extremity edema, no ecchymosis, no clubbing, FROM, PVD noted, with ferritin deposits Neuro: CN II-XII grossly intact, decreased proprioception lower extremities bilaterally Psych: good mentation, alert and oriented, good mood and affect Skin: venous stasis changes noted bilaterally lower extremities, wounds on bilateral feet. Results Result Diagram: 04/04/16 0551 04/04/16 0551 Results 24 hrs Laboratory Tests Test 04/04/16 05:21 04/04/16 05:51 Activated Partial Thromboplast Time 32.6 INR International Normalized Ratio 2.42 Prothrombin Time 26.6 #H Prothrombin Time Ratio 2.1 Anion Gap 14 Basophils # 0.0 Basophils % 0.0 Blood Morphology Comment Blood Urea Nitrogen 62 H Calcium Level 8.6 Carbon Dioxide Level 42 *H Chloride Level 87 L Creatinine 1.14 Eosinophils # 0.0 Eosinophils % 0.0 Glucose Level 148 Hematocrit 48.4 Hemoglobin 16.2 Lymphocytes # 0.8 Lymphocytes % 7.0 L Mean Corpuscular Hemoglobin 35.6 H Mean Corpuscular Hemoglobin Concent 33.5 Mean Corpuscular Volume 106.2 H Mean Platelet Volume 9.1 Monocytes # 0.7 Monocytes % 6.0 Neutrophils # 9.6 H Neutrophils % 87.0 H Nucleated Red Blood Cells # 0.0 Nucleated Red Blood Cells % 0.0 Platelet Count 51 #L Potassium Level 3.5 Red Blood Count 4.56 L Red Cell Distribution Width 15.2 H Sodium Level 139 White Blood Count 11.1 #H Medications Medications Current Medications Lorazepam (Ativan) 0.5 mg Q6H PRN IV ANXIETY; Start 04/02/16 at 08:30 Ondansetron HCl (Zofran Inj) 4 mg Q6H PRN IV NAUSEA AND/OR VOMITING; Start 01/06 at 08:30 Nitroglycerin (Nitroglycerin (Sl Tab) 0.4 Mg) 1 tab Q5M PRN SL CHEST PAIN; Start 04/02/16 at 08:30 Acetaminophen (Tylenol Tab) 650 mg Q6H PRN PO PAIN LEVEL 1-3 OR FEVER; Start at 08:30 Morphine Sulfate (morphine) 2 mg Q4H PRN IV PAIN LEVEL 7-10 Last administered on 04/04/16 04:12; Admin Dose 2 MG; Start 04/02/16 at 08:30 Docusate Sodium (Colace) 100 mg Q12H PRN PO CONSTIPATION Last administered on 13:48; Admin Dose 100 MG; Start 04/02/16 at 08:30 Famotidine (Pepcid) 20 mg Q12 PO Last administered on 04/03/16 20:32; Admin Dose 20 MG; Start 04/02/16 at 09:00 Allopurinol (Zyloprim) 300 mg DAILY PO Last administered on 04/03/16 10:30; Admin Dose 300 MG; Start 04/02/16 at 09:00 Ascorbic Acid (Vitamin C) 1,000 mg DAILY PO Last administered on 04/03/16 10: 29; Admin Dose 1,000 MG; Start 04/02/16 at 09:00 Carvedilol (Coreg) 3.125 mg BID PO Last administered on 04/03/16 20:35; Admin Dose 3.125 MG; Start 04/02/16 at 09:00 Cyanocobalamin (Vitamin B12) 500 mcg DAILY PO Last administered on 04/03/16 10 :30; Admin Dose 500 MCG; Start 04/02/16 at 09:00 Digoxin (Digoxin) 0.125 mg DAILY@13 PO ; Start 04/02/16 at 13:00 Potassium Chloride (Klor-Con 20) 20 meq BID PO Last administered on 04/03/16 20:33; Admin Dose 20 MEQ; Start 04/02/16 at 09:00 Tamsulosin HCl (Flomax) 0.4 mg HS PO Last administered on 04/03/16 20:33; Admin Dose 0.4 MG; Start 04/02/16 at 21:00 Tiotropium [place] (Spiriva) 1 inh DAILY INH Last administered on 04/03/16 10: 30; Admin Dose 1 INH; Start 04/02/16 at 09:00 Vitamin E (Vitamin E) 400 units DAILY PO Last administered on 04/03/16 10:31; Admin Dose 400 UNITS; Start 04/02/16 at 09:00 Warfarin Sodium (Coumadin) 5 mg DAILY@17 PO Last administered on 04/03/16 18: 01; Admin Dose 5 MG; Start 04/02/16 at 17:00 Calcium/Vitamin D (Oyster Shell/ Vit-D (500/200)) 1 tab DAILY PO Last administered on 04/03/16 10:30; Admin Dose 1 TAB; Start 04/02/16 at 11:30 Guaifenesin/ Dextromethorphan (Mucinex Dm) 1 tab BID PO Last administered on 20:32; Admin Dose 1 TAB; Start 04/02/16 at 12:30 Eye Lubricant (Refresh Plus) 1 drop QID BOTH EYES Last administered on 20:32; Admin Dose 1 DROP; Start 04/03/16 at 17:00 Magnesium Hydroxide (Milk Of Mag) 30 ml BID PRN PO CONSTIPATION Last administered on 04/03/16 18:02; Admin Dose 30 ML; Start 04/03/16 at 15:00 Prednisone 60 mg 60 mg DAILY PO ; Start 04/03/16 at 16:00 Levofloxacin/ Dextrose (Levaquin 750 Mg/ D5W 150 ml (Pmx)) 150 ml @ 100 mls/hr Q24H IVPB ; Start 04/04/16 at 10:30 Procedures Procedures A. 2D ECHO (04/02/16): Conclusions 1. Severe aortic stenosis. Aortic valve Max velocity 3.14 m/sec. Max PG 39.00 mmHg. Mean PG 21.00 mmHg. Aortic valve area 0.60 cm2. Aortic cusps appear mildly calcified. 2. Normal left ventricular cavity size. Left ventricular wall thickness upper limits of normal. Moderate global left ventricular systolic dysfunction. Ejection fraction is visually estimated at 45 %. Abnormal Diastolic Function. B. CT chest (04/03/16): IMPRESSION: 1. Patchy bibasilar infiltrates with posterior predominance. Findings may represent acute bacterial pneumonia, acute aspiration or chronic micro aspiration. 2. Mild changes of centrolobular emphysema. 3. Advanced atherosclerotic coronary artery and peripheral vascular disease. 4. Cardiomegaly. 5. Heterogeneous thyroid gland with possible 1 cm nodule in the right lobe of thyroid. Findings can be further clarified with ultrasound, if clinically indicated. CHINMAY OMALLEY. Apr 04, 2016 09:31
[2016-04-04] MEDS: POTASSIUM CHLORIDE (SR) 20 MEQ TAB PO SCH ×3 (10:03→21:56)
[2016-04-04] MEDS: VITAMIN E 400 UNITS CAP PO SCH (10:03)
[2016-04-04] MEDS: ALLOPURINOL 300 MG TAB PO SCH (10:04)
[2016-04-04] MEDS: ASCORBIC ACID 500 MG TAB PO SCH (10:04)
[2016-04-04] MEDS: CYANOCOBALAMIN 500 MCG TAB PO SCH (10:04)
[2016-04-04] MEDS: FAMOTIDINE 20 MG TAB PO SCH ×2 (10:04→21:55)
[2016-04-04] MEDS: CALCIUM/VITAMIN D (500/200) TAB PO SCH (10:06)
[2016-04-04] MEDS: TIOTROPIUM 18 MCG CAPSULE INHA DEV INH SCH (10:06)
[2016-04-04] MEDS: GUAIFENESIN/DM (SR) TAB PO SCH ×2 (10:22→21:55)
[2016-04-04] MEDS: LEVOFLOXACIN 750MG/D5W (PMX) 150 ML IVPB SCH (11:11)
--- NOTE | 2016-04-04 12:28 | PN ---
DATE: 04/04/2016 SUBJECTIVE: The patient remains stable this morning. He has mild shortness of breath, but denies a ny fever or chills. He is still on 5 L nasal cannula. Normally at a baseline of 3 L. PHYSICAL EXAMINATION: VITAL SIGNS: Temperature 98, pulse 79, blood pressure 109/73, O2 saturation 96% on 2 L nasal cannul a. NECK: Supple. No JVD or lymphadenopathy. CARDIAC: S1, S2, no added sounds or murmurs. CHEST: Diminished air entry bilaterally. ABDOMEN: Soft, nontender. No guarding or rebound. EXTREMITIES: No cyanosis, clubbing, edema. NEUROLOGIC: Generalized weakness, but no focal deficits. LABORATORY DATA: White count 11.1, hemoglobin 16.2, platelets of 51. BUN 62, creatinine 1.14, bica rbonate was 42. IMPRESSION AND PLAN: 1. Chronic obstructive pulmonary disease with exacerbation. 2. Acute hypoxemic respiratory failure. 3. Congestive cardiac failure secondary to significantly severe aortic stenosis. 4. Renal insufficiency. 5. Thrombocytopenia. PLAN: 1. Continue steroid taper. 2. Continue bronchodilators. 3. Continue supplemental O2. 4. Would hold off on diuretics as present given rising BUN and creatinine. 5. Continue anticoagulation as tolerated. 6. Monitor platelet count for now. Dictated By: NILES ROMERO/GAUTAM Conf#: [id number] DID#: [id number]
[2016-04-04] MEDS: DIGOXIN 0.125 MG TAB PO SCH (13:00)
[2016-04-04] MEDS: ALBUTEROL/IPRATROPIUM (NEB) 3 ML AMP HHN SCH ×4 (13:11→20:53)
[2016-04-04] MEDS: WARFARIN 5 MG TAB PO SCH (18:03)
--- NOTE | 2016-04-04 21:33 | PN ---
DATE: 04/04/2016 SUBJECTIVE: Discussed with the staff. Rhythm strip was reviewed. Remains in atrial fibrillation. Heart rate has been remaining stable. Denies any chest pain or pressure to me. He does feel tight ness in his chest though which is improved with a breathing treatment. His breathing is improved wi th breathing treatment only. ____ when lying flat. No PND, orthopnea at this point. MEDICATIONS: Reviewed as per medical reconciliation, personally reviewed. PHYSICAL EXAMINATION: VITAL SIGNS: Temperature 98.1, heart rate of 79, blood pressure 108/58, respiratory rate of 18, sat urating 93%. HEENT: Normocephalic, atraumatic. Pupils are equal. CARDIOVASCULAR: Irregularly irregular and distant heart sounds. Systolic ejection murmur. PULMONARY: Mild rhonchi and wheezes, diffuse. GASTROINTESTINAL: Soft, nontender. EXTREMITIES: Trivial edema. NEUROLOGIC: Awake ____. PSYCHIATRIC: Appeared to be calm and pleasant. LABORATORY: Sodium 139, potassium 3.5, BUN of 62, creatinine 1.14, glucose of 148. TSH 1.8. IMAGIN. Chest x-ray from the was personally reviewed which showed cardiomegaly. 2. CT of the chest from the showed patchy bilateral infiltrates with a posterior prominence, m ay represent a bacterial pneumonia, acute aspiration or chronic microaspiration. ASSESSMENT AND PLAN: 1. Chronic obstructive pulmonary disease exacerbation. 2. Possible pneumonia. 3. Severe aortic stenosis. 4. History of congestive heart failure, appeared to be stable, chronic secondary to diastolic dysfu nction and valvular heart disease. 5. Renal insufficiency. 6. Thrombocytopenia. 7. Atrial fibrillation. RECOMMENDATIONS: INR is currently therapeutic. Coumadin to be adjusted and monitored daily includi ng the INR level. I will discontinue the carvedilol and switch him to Cardizem given his severe pul monary disease. Antibiotic and pulmonary workup as per Internal Medicine and Pulmonary. Will consi porfirio giving him a Diamox dose if more diuresis is needed tomorrow. Dictated By: UZIEL MAGALLANES/GAUTAM Conf#: [id number] DID#: [id number] CC: CHINMAY OMALLEY;*EndCC*
[2016-04-04] MEDS: TAMSULOSIN (SR) 0.4 MG CAP PO SCH (21:55)
[2016-04-04] MEDS: DILTIAZEM 30 MG TAB PO SCH (21:57)
[2016-04-05] VITALS (12 sets, daily range): BP systolic 107–115; BP diastolic 55–59; PULSE 90–105; RESP 16–18
[2016-04-05] MEDS: morphine 2 MG INJ IV PRN (00:32)
[2016-04-05] MEDS: ALBUTEROL/IPRATROPIUM (NEB) 3 ML AMP HHN SCH ×6 (00:43→21:17)
[2016-04-05 07:59] LABS: EOSINOPHILS % 0.3 % (0.0-7.0); HEMATOCRIT 49.1 % (42.0-52.0); HEMOGLOBIN 16.5 g/dl (14.0-18.0); LYMPHOCYTES # 1.1 10^3/ul (0.8-2.9); LYMPHOCYTES % 7.8 % (15.0-51.0); MEAN CORPUSCULAR HEMOGLOBIN 35.4 pg (29.0-33.0); MEAN CORPUSCULAR HGB CONC 33.6 g/dl (32.0-37.0); MEAN CORPUSCULAR VOLUME 105.3 fl (82.0-101.0); MEAN PLATELET VOLUME 9.1 fl (7.4-10.4); MONOCYTE # 1.2 10^3/ul (0.3-0.9); MONOCYTES % 8.5 % (0.0-11.0); NEUTROPHIL # 11.8 10^3/ul (1.6-7.5); NEUTROPHILS % 83.4 % (39.0-77.0); RED BLOOD COUNT 4.67 10^6/ul (4.70-6.10); RED CELL DISTRIBUTION WIDTH 15.6 % (11.5-14.5); UNCORRECTED WBC 14.2 10^3/ul (4.8-10.8); WHITE BLOOD COUNT 14.2 10^3/ul (4.8-10.8)
[2016-04-05 08:06] LABS: CONDITION 1; LH ANALYZER COMMENTS 1; MAGNESIUM 2.2 mg/dl (1.7-2.5); PLATELET COUNT 68 10^3/UL (140-440)
[2016-04-05 08:07] LABS: INR 3.06; PARTIAL THROMBOPLASTIN TIME 33.7 Sec (25.0-35.0); PROTIME 32.1 Sec (12.2-14.2); PT RATIO 2.5
[2016-04-05 08:12] LABS: ALBUMIN 3.2 g/dl (3.3-4.9)
[2016-04-05 08:15] LABS: BILIRUBIN,INDIRECT 0.7 mg/dl (0-1.1); BILIRUBIN,TOTAL 0.7 mg/dl (0.2-1.3); CREATININE 0.9 mg/dl (0.61-1.24)
[2016-04-05 08:16] LABS: ALBUMIN/GLOBULIN RATIO 0.96; CALCIUM 8.6 mg/dl (8.4-10.2); TOTAL PROTEIN 6.5 g/dl (6.1-8.1)
[2016-04-05 08:36] LABS: THYROID STIMULATING HORMONE 1.12 MIU/L (0.465-4.680)
[2016-04-05] MEDS: FAMOTIDINE 20 MG TAB PO SCH ×2 (09:00→10:14)
[2016-04-05] MEDS: VITAMIN E 400 UNITS CAP PO SCH ×2 (09:00→10:15)
[2016-04-05] MEDS: ASCORBIC ACID 500 MG TAB PO SCH ×2 (09:00→10:14)
[2016-04-05] MEDS: predniSONE 20 MG TAB PO SCH ×2 (09:00→10:14)
[2016-04-05] MEDS: ALLOPURINOL 300 MG TAB PO SCH ×2 (09:00→10:14)
[2016-04-05] MEDS: GUAIFENESIN/DM (SR) TAB PO SCH ×3 (09:00→20:47)
[2016-04-05] MEDS: CARBOXYMETHYLCELLULOSE 0.5% 0.1 ML OPH BOTH EYES SCH ×4 (09:00→20:44)
[2016-04-05] MEDS: POTASSIUM CHLORIDE (SR) 20 MEQ TAB PO SCH ×3 (09:00→20:48)
[2016-04-05] MEDS: CYANOCOBALAMIN 500 MCG TAB PO SCH ×2 (09:00→10:15)
[2016-04-05] MEDS: CALCIUM/VITAMIN D (500/200) TAB PO SCH ×2 (09:00→10:15)
[2016-04-05] MEDS: TIOTROPIUM 18 MCG CAPSULE INHA DEV INH SCH (10:16)
[2016-04-05] MEDS: DILTIAZEM 30 MG TAB PO SCH ×3 (10:16→20:46)
[2016-04-05] MEDS: LEVOFLOXACIN 750MG/D5W (PMX) 150 ML IVPB SCH (10:23)
[2016-04-05] MEDS ORDERED: ONDANSETRON 4 MG INJ IV PRN (13:00)
[2016-04-05] MEDS: DIGOXIN 0.125 MG TAB PO SCH (13:00)
[2016-04-05] MEDS ORDERED: POTASSIUM CHLORIDE (SR) 20 MEQ TAB PO STA (13:40)
[2016-04-05] MEDS ORDERED: TRIMETHOBENZAMIDE 100 MG/ML VIAL IM PRN (14:00)
--- NOTE | 2016-04-05 14:10 | PN ---
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 1. Shortness of breath 2/2 to COPD exacerbation with possible CHF exac - slowly improving. CT chest showed: Patchy bibasilar infiltrates with posterior predominance - r/o PNA - continue PO steroids, Duoneb's Q4 hrs ATC for now - continue IV abx (Levaquin), f/u CV and pulm consult rec's - PT consult 2. CHF exacerbation - acute on chronic systolic + diastolic dysfunction , EF 45% , severe - appreciate cardiology consult BNP = 1600 today. - continue to hold lasix 2/2 to ARF - per CV, continue Digoxin, Cardizem PO meds for now. - consider diamox? 3. Acute renal failure - renally adjust medications, avoid nephrotoxins, most likely AIN from dehydration - improved 4. Chronic Afib - continue with coumadin - INR today = 3.06 continue Coumadin 4 mg Qday - f/u daily INR 5. Thrombocytopenia - still present (plt = 51 -> 68) - no present bleeding. - cautiously continue with coumadin - monitor plt level daily 6. Severe - for possible outpatient TAVR, f/u CV rec's. 7. PVD - wound care - podiatry if worsening 8. Peripheral neuropathy - continue with gabapentin 9. Obesity - morbid - nutrition consult 10. Prostate CA - monitor at this time 11. Essential hypertension - bp stable - continue with home medications - ACEI hold, coreg continue 13. Megaloblastic anemia - b12/folate normal 14. GI ppx - pepcid 15. DVT ppx - coumadin 14. n/v - will get GI consult, and increase zofran freq, add Tigan prn. Problems: Subjective 24 Hr Interval Summary Free Text/Dictation Pt with nausea this AM. Exam/Review of Systems Vital Signs Vitals Vital Signs Date Time Temp Pulse Resp B/P Pulse Ox O2 Delivery O2 Flow Rate FiO2 04/05/16 13:26 109 18 89 Nasal Cannula 3.0 04/05/16 11:45 98.3 107/59 Intake and Output 04/04/16 04/04/16 04/05/16 15:00 23:00 07:00 Intake Total 840 ml Output Total 1200 ml Balance -360 ml Exam Gen Robinson: NAD, AAOx4 HEENT: NC/AT, PERRLA, EOMI NECK: supple, no thyromegaly THORAX: symmetrical, no obvious deformities CV: S1S2, RRR, III/ systolic murmur best heard at aortic area radiating bilaterally to carotids Lungs: scattered rhonchi, + end expiratory wheezing R>L Abd: soft, NT/ND, +BS, no rebound, no guarding, neg HSM EXT: 1+ bilaterally lower extremity edema, no ecchymosis, no clubbing, FROM, PVD noted, with ferritin deposits Neuro: CN II-XII grossly intact, decreased proprioception lower extremities bilaterally Psych: good mentation, alert and oriented, good mood and affect Skin: venous stasis changes noted bilaterally lower extremities, wounds on bilateral feet. Results Result Diagram: 04/05/16 0650 04/05/16 0650 Results 24 hrs Laboratory Tests Test 04/05/16 06:50 Activated Partial Thromboplast Time 33.7 Alanine Aminotransferase (ALT/SGPT) 45 Albumin 3.2 L Albumin/Globulin Ratio 0.96 Alkaline Phosphatase 62 Anion Gap 12 Aspartate Amino Transf (AST/SGOT) 43 B-Type Natriuretic Peptide 1630 H Basophils # 0.0 Basophils % 0.0 Blood Morphology Comment Blood Urea Nitrogen 43 #H Calcium Level 8.6 Carbon Dioxide Level 42 *H Chloride Level 87 L Creatinine 0.90 Digoxin Level 0.7 L Direct Bilirubin 0.00 Eosinophils # 0.0 Eosinophils % 0.3 Free Thyroxine 1.69 Globulin 3.30 H Glucose Level 103 # Hematocrit 49.1 Hemoglobin 16.5 INR International Normalized Ratio 3.06 Indirect Bilirubin 0.7 Lymphocytes # 1.1 Lymphocytes % 7.8 L Magnesium Level 2.2 Mean Corpuscular Hemoglobin 35.4 H Mean Corpuscular Hemoglobin Concent 33.6 Mean Corpuscular Volume 105.3 H Mean Platelet Volume 9.1 Monocytes # 1.2 H Monocytes % 8.5 Neutrophils # 11.8 H Neutrophils % 83.4 H Nucleated Red Blood Cells # 0.0 Nucleated Red Blood Cells % 0.0 Platelet Count 68 #L Potassium Level 3.0 L Prothrombin Time 32.1 #H Prothrombin Time Ratio 2.5 Red Blood Count 4.67 L Red Cell Distribution Width 15.6 H Sodium Level 138 Thyroid Stimulating Hormone (TSH) 1.120 Total Bilirubin 0.7 Total Protein 6.5 White Blood Count 14.2 #H Medications Medications Current Medications Lorazepam (Ativan) 0.5 mg Q6H PRN IV ANXIETY; Start 04/02/16 at 08:30 Nitroglycerin (Nitroglycerin (Sl Tab) 0.4 Mg) 1 tab Q5M PRN SL CHEST PAIN; Start 04/02/16 at 08:30 Acetaminophen (Tylenol Tab) 650 mg Q6H PRN PO PAIN LEVEL 1-3 OR FEVER; Start at 08:30 Morphine Sulfate (morphine) 2 mg Q4H PRN IV PAIN LEVEL 7-10 Last administered on 04/05/16 00:32; Admin Dose 2 MG; Start 04/02/16 at 08:30 Docusate Sodium (Colace) 100 mg Q12H PRN PO CONSTIPATION Last administered on 13:48; Admin Dose 100 MG; Start 04/02/16 at 08:30 Allopurinol (Zyloprim) 300 mg DAILY PO Last administered on 04/04/16 10:04; Admin Dose 300 MG; Start 04/02/16 at 09:00 Ascorbic Acid (Vitamin C) 1,000 mg DAILY PO Last administered on 04/04/16 10: 04; Admin Dose 1,000 MG; Start 04/02/16 at 09:00 Cyanocobalamin (Vitamin B12) 500 mcg DAILY PO Last administered on 04/04/16 10 :04; Admin Dose 500 MCG; Start 04/02/16 at 09:00 Digoxin (Digoxin) 0.125 mg DAILY@13 PO ; Start 04/02/16 at 13:00 Potassium Chloride (Klor-Con 20) 20 meq BID PO Last administered on 04/04/16 21:56; Admin Dose 20 MEQ; Start 04/02/16 at 09:00 Tamsulosin HCl (Flomax) 0.4 mg HS PO Last administered on 04/04/16 21:55; Admin Dose 0.4 MG; Start 04/02/16 at 21:00 Tiotropium [place] (Spiriva) 1 inh DAILY INH Last administered on 04/05/16 10: 16; Admin Dose 1 INH; Start 04/02/16 at 09:00 Vitamin E (Vitamin E) 400 units DAILY PO Last administered on 04/04/16 10:03; Admin Dose 400 UNITS; Start 04/02/16 at 09:00 Warfarin Sodium (Coumadin) 5 mg DAILY@17 PO Last administered on 04/04/16 18: 03; Admin Dose 5 MG; Start 04/02/16 at 17:00; Status Future hold Calcium/Vitamin D (Oyster [place]/ Vit-D (500/200)) 1 tab DAILY PO Last administered on 04/04/16 10:06; Admin Dose 1 TAB; Start 04/02/16 at 11:30 Guaifenesin/ Dextromethorphan (Mucinex Dm) 1 tab BID PO Last administered on 21:55; Admin Dose 1 TAB; Start 04/02/16 at 12:30 Eye Lubricant (Refresh Plus) 1 drop QID BOTH EYES Last administered on 12:39; Admin Dose 1 DROP; Start 04/03/16 at 17:00 Prednisone 60 mg 60 mg DAILY PO ; Start 04/03/16 at 16:00 Levofloxacin/ Dextrose (Levaquin 750 Mg/ D5W 150 ml (Pmx)) 150 ml @ 100 mls/hr Q24H IVPB Last administered on 04/05/16 10:23; Admin Dose 100 MLS/HR; Start at 10:30 Diltiazem HCl (Cardizem) 30 mg TID PO Last administered on 04/05/16 10:16; Admin Dose 30 MG; Start 04/04/16 at 21:00 Ondansetron HCl (Zofran Inj) 4 mg Q4H PRN IV NAUSEA AND/OR VOMITING Last administered on 04/05/16 12:47; Admin Dose 4 MG; Start 04/05/16 at 13:00 Trimethobenzamide HCl 200 mg 200 mg Q6H PRN IM NAUSEA AND/OR VOMITING; Start at 14:00 Potassium Chloride (KCl 40 MEQ/250 ML NS) 250 ml @ 62.5 mls/hr Q4H IVPB ; Start 04/05/16 at 14:30; Stop 04/05/16 at 22:29 Pantoprazole (Protonix Iv) 40 mg BID@06,18 IV ; Start 04/05/16 at 18:00 Magnesium Hydroxide (Milk Of Mag) 30 ml BID PO ; Start 04/05/16 at 14:00 Fenofibrate (Tricor) 48 mg DAILY PO ; Start 04/06/16 at 09:00; Status UNCHINMAY MOYER Apr 05, 2016 14:10
[2016-04-05] MEDS: MAGNESIUM HYDROXIDE 30ML CUP PO SCH ×2 (14:13→20:45)
[2016-04-05 14:40] LABS: AADO2 Arterial 95.4 mmHg (7.0-24.0); Allen Test ACCEPTAB; Arterial Base Excess 10.3 mmol/L (-3.0-3); Arterial COHb 0.9 % (0.0-3.0); Arterial Fraction of Oxyhgb 90.1 % (93.0-99.0); Arterial HCO3 36.4 mmol/L (22.0-26.0); Arterial MetHb 0.2 % (0.0-1.5); Arterial Total Hemglobin 17.5 g/dl (12.0-18.0); MODE NASAL CANNULA
--- NOTE | 2016-04-05 14:43 | RADRPT ---
Vent Rate: 112 bpm RR Interval: 0 msec NC Interval: 0 msec QRS Duration: 94 msec QT Interval: 324 msec QTC Interval: 442 msec P-R-T [place]: 0 - 23 - 93 degrees Atrial fibrillation with rapid ventricular response Low voltage QRS Incomplete right bundle branch block Cannot rule out Anterior infarct , age undetermined Marked ST abnormality, possible inferior subendocardial injury Abnormal ECG Electronically Signed By: Allan Arias [id number]
--- NOTE | 2016-04-05 15:14 | PN ---
DATE: 04/05/2016 SUBJECTIVE: The patient overall remains stable. Still has some shortness of breath on exertion, O2 sats hovering around 90% on 3 L nasal cannula. NECK: Supple. No JVD or lymphadenopathy. CARDIAC: S1, S2, no added sounds or murmurs. CHEST: Diminished air entry bilaterally. ABDOMEN: Soft, nontender. No guarding or rebound. EXTREMITIES: No cyanosis, clubbing, edema. NEUROLOGIC: Generalized weakness. LABORATORY DATA: White count 13.2, hemoglobin 16.5, platelets of 68. BUN 43, creatinine 0.9. INR 2.06. IMPRESSION AND PLAN: 1. Chronic obstructive pulmonary disease with exacerbation. 2. Acute on chronic hypoxemic respiratory failure. 3. Thrombocytopenia. 4. Severe aortic stenosis. PLAN: 1. Continue bronchodilators. 2. Continue steroids. 3. Continue physical therapy. 4. Decrease FIO2 as tolerated. 5. Consider [place] and/or acute rehabilitation evaluation. Dictated By: NILES ROMERO/GAUTAM Conf#: [id number] DID#: [id number]
[2016-04-05] MEDS: POTASSIUM CHLORIDE 250 ML IVPB SCH ×2 (15:31→22:26)
[2016-04-05 17:00] LABS: ADD UMIC YES; URINE BILIRUBIN (Dip) NEGATIVE (NEGATIVE); URINE BLOOD (Dip) NEGATIVE (NEGATIVE); URINE COLOR YELLOW (YELLOW); URINE GLUCOSE (Dip) NEGATIVE (NEGATIVE); URINE KETONES (Dip) NEGATIVE (NEGATIVE); URINE LEUKOCYTE ESTERASE (Dip) NEGATIVE (NEGATIVE); URINE NITRITE (Dip) NEGATIVE (NEGATIVE); URINE TOTAL PROTEIN (Dip) TRACE (NEGATIVE); URINE UROBILINOGEN (Dip) 0.2 E.U./dL (0.1-1.0)
[2016-04-05] MEDS ORDERED: DIGOXIN 500 MCG INJ IV ONE (17:00)
[2016-04-05] MEDS ORDERED: WARFARIN 2 MG TAB PO SCH (17:00)
[2016-04-05 17:14] LABS: SQUAMOUS EPITHELIAL CELL,UR RARE; URINE RBCS 0-2 /HPF (0)
--- NOTE | 2016-04-05 17:25 | PN ---
DATE: 04/05/2016 CARDIOLOGY FOLLOWUP SUBJECTIVE: Discussed with the staff. Rhythm strip was reviewed. The patient remains in atrial fi brillation. Heart rate has remained stable. The patient has nausea, vomiting, has been refusing al l his medication including digoxin. His breathing has improved though. MEDICATIONS: Reviewed. PHYSICAL EXAMINATION: VITAL SIGNS: Temperature 98.2, heart rate of 83 to 109, blood pressure 107/59, respiration rate of 16, saturating 89%. HEENT: Normocephalic, atraumatic. Pupils are equal. CARDIOVASCULAR: Irregularly irregular. Systolic ejection murmur. PULMONARY: With mild rhonchi, diffuse. GASTROINTESTINAL: Soft, nontender. EXTREMITIES: Trivial edema. NEUROLOGIC: Awake, responds appropriately. PSYCHIATRIC: Appears to be calm. LABORATORY: Sodium 138, potassium 3, BUN of 43, creatinine 0.9, glucose of 103. Troponin 0.034. A lbumin is 3.2. I's and O's shows 840 in and 1200 out. ASSESSMENT AND PLAN: 1. Chronic obstructive pulmonary disease. 2. Possible pneumonia. 3. Aortic stenosis. 4. Atrial fibrillation. 5. Congestive heart failure. 6. Renal insufficiency. 7. Thrombocytopenia. RECOMMENDATIONS: ____ Coumadin is being adjusted. INR is currently therapeutic. Will continue wit h the Cardizem. I will give one dose of IV digoxin now the patient is unable to take p.o. Digoxin. Continue to monitor on telemetry. Pulmonary care to be continued. Dictated By: UZIEL STOKES MD AV/NTS Conf#: [id number] DID#: [id number] CC: CHINMAY OMALLEY; KWAME SANDOVAL MD;*End*
[2016-04-05] MEDS: PANTOPRAZOLE 40 MG INJ IV SCH (17:32)
[2016-04-05] MEDS ORDERED: SALINE 0.65% 45 ML NAS SPRAY NASAL PRN (18:00)
[2016-04-05] MEDS: TAMSULOSIN (SR) 0.4 MG CAP PO SCH (20:47)
[2016-04-06] VITALS (12 sets, daily range): BP systolic 114–131; BP diastolic 57–72; PULSE 74–105; RESP 18
[2016-04-06] MEDS: ALBUTEROL/IPRATROPIUM (NEB) 3 ML AMP HHN SCH ×6 (01:06→21:45)
[2016-04-06] MEDS: PANTOPRAZOLE 40 MG INJ IV SCH (05:21)
[2016-04-06 07:24] LABS: BASOPHILS % 0.1 % (0.0-2.0); EOSINOPHILS % 0.3 % (0.0-7.0); HEMATOCRIT 46.6 % (42.0-52.0); HEMOGLOBIN 15.7 g/dl (14.0-18.0); LYMPHOCYTES # 0.7 10^3/ul (0.8-2.9); LYMPHOCYTES % 4.5 % (15.0-51.0); MEAN CORPUSCULAR HEMOGLOBIN 35.6 pg (29.0-33.0); MEAN CORPUSCULAR HGB CONC 33.7 g/dl (32.0-37.0); MEAN CORPUSCULAR VOLUME 105.5 fl (82.0-101.0); MEAN PLATELET VOLUME 9.3 fl (7.4-10.4); MONOCYTE # 1.4 10^3/ul (0.3-0.9); MONOCYTES % 8.3 % (0.0-11.0); NEUTROPHIL # 14.1 10^3/ul (1.6-7.5); NEUTROPHILS % 86.8 % (39.0-77.0); PLATELET COUNT 88 10^3/UL (140-440); RED BLOOD COUNT 4.42 10^6/ul (4.70-6.10); RED CELL DISTRIBUTION WIDTH 15.9 % (11.5-14.5); UNCORRECTED WBC 16.3 10^3/ul (4.8-10.8); WHITE BLOOD COUNT 16.3 10^3/ul (4.8-10.8)
[2016-04-06 07:29] LABS: CONDITION 1; LH ANALYZER COMMENTS 1
[2016-04-06 07:38] LABS: INR 3.2; PROTIME 33.2 Sec (12.2-14.2); PT RATIO 2.6
[2016-04-06 07:46] LABS: POTASSIUM 3.7 mmol/L (3.5-5.1)
[2016-04-06 07:49] LABS: ALBUMIN/GLOBULIN RATIO 0.93; BILIRUBIN,INDIRECT 1.1 mg/dl (0-1.1); BILIRUBIN,TOTAL 1.1 mg/dl (0.2-1.3); CALCIUM 8.5 mg/dl (8.4-10.2); CREATININE 1.02 mg/dl (0.61-1.24); TOTAL PROTEIN 6.2 g/dl (6.1-8.1)
[2016-04-06 07:54] LABS: AADO2 Arterial 99.6 mmHg (7.0-24.0); Allen Test ACCEPTAB; Arterial Base Excess 13.8 mmol/L (-3.0-3); Arterial COHb 1.3 % (0.0-3.0); Arterial Fraction of Oxyhgb 89.4 % (93.0-99.0); Arterial HCO3 39.3 mmol/L (22.0-26.0); Arterial MetHb 0.1 % (0.0-1.5); Arterial Total Hemglobin 16.3 g/dl (12.0-18.0); MODE NASAL CANNULA
[2016-04-06] MEDS: predniSONE 20 MG TAB PO SCH (08:53)
[2016-04-06] MEDS: ASCORBIC ACID 500 MG TAB PO SCH (08:54)
[2016-04-06] MEDS: CYANOCOBALAMIN 500 MCG TAB PO SCH (08:54)
[2016-04-06] MEDS: GUAIFENESIN/DM (SR) TAB PO SCH ×2 (08:54→21:34)
[2016-04-06] MEDS: DILTIAZEM 30 MG TAB PO SCH ×4 (08:54→21:34)
[2016-04-06] MEDS: TIOTROPIUM 18 MCG CAPSULE INHA DEV INH SCH (08:54)
[2016-04-06] MEDS: VITAMIN E 400 UNITS CAP PO SCH (08:54)
[2016-04-06] MEDS: MAGNESIUM HYDROXIDE 30ML CUP PO SCH ×2 (08:55→21:34)
[2016-04-06] MEDS: POTASSIUM CHLORIDE (SR) 20 MEQ TAB PO SCH ×2 (08:55→21:33)
[2016-04-06] MEDS: CALCIUM/VITAMIN D (500/200) TAB PO SCH (08:55)
[2016-04-06] MEDS: FENOFIBRATE 48 MG TAB PO SCH (08:55)
--- NOTE | 2016-04-06 10:17 | PN ---
DATE: 04/06/2016 CARDIOLOGY FOLLOWUP SUBJECTIVE: Discussed with the staff. Rhythm strip was reviewed. The patient remains in atrial fi brillation. Heart rate is under good control. His nausea and vomiting has improved. Denies any ch est pain or pressure. The patient's breathing is worse today, appeared to be of congestion of his nasopharynx. No palpitation. MEDICATIONS: As per medical reconciliation, personally reviewed. PHYSICAL EXAMINATION: VITAL SIGNS: Temperature 98.7, heart rate of 70 to 84 after ranging about 70 to 110, respiratory ra te of 20, saturating 96% now, ranging from 80 to 96. Blood pressure 116/57. HEENT: Normocephalic, atraumatic. Pupils are equal. CARDIOVASCULAR: Irregularly irregular. Systolic ejection murmur. PULMONARY: With mild rhonchi and wheezes. GASTROINTESTINAL: Soft, nontender. EXTREMITIES: Trivial edema. NEUROLOGIC: Awake, responds appropriately. PSYCHIATRIC: Appears to be calm now. LABORATORY DATA: WBC of 16.3, hemoglobin 15.7, platelets of 88. Sodium 140, potassium 3.7, BUN of 28, creatinine of 1.02, CO2 is 36. ProBNP of 1640. I's and O's: 12 in, 2550 out. ASSESSMENT AND PLAN: 1. Chronic obstructive pulmonary disease exacerbation, possible pneumonia. 2. Congestive heart failure. 3. Valvular heart disease. 4. Renal insufficiency. 5. Thrombocytopenia. RECOMMENDATIONS: Coumadin is being adjusted by internal medicine. INR is somewhat currently suprat herapeutic. To be adjusted. I will give a dose of Diamox to the patient. Cardizem will be continu ed. Digoxin will be continued for the heart rate control. Follow with pulmonary recommendations. Dictated By: UZIEL STOKES MD AV/NTS Conf#: [id number] DID#: [id number] CC: NILES GRIFFITHS MD;*[facility]*
[2016-04-06] MEDS ORDERED: ACETAZOLAMIDE 500 MG INJ IV ONE (10:30)
[2016-04-06] MEDS: LEVOFLOXACIN 750MG/D5W (PMX) 150 ML IVPB SCH (10:45)
[2016-04-06] MEDS: CARBOXYMETHYLCELLULOSE 0.5% 0.1 ML OPH BOTH EYES SCH ×4 (10:45→21:34)
--- NOTE | 2016-04-06 11:13 | PN ---
DATE: 04/06/2016 SUBJECTIVE: The patient remains stable this morning, awake, alert, comfortable, sitting up in bed. PHYSICAL EXAMINATION: VITAL SIGNS: Temperature 98, pulse is 93, blood pressure 116/57, O2 saturation 96% on 3 L nasal can nula. NECK: Supple. No JVD or lymphadenopathy. CARDIAC: S1, S2, II/ systolic ejection murmur. CHEST: Diminished air entry bilaterally. ABDOMEN: Soft, nontender. No guarding or rebound. EXTREMITIES: No cyanosis, clubbing, edema. NEUROLOGIC: Generalized weakness. LABORATORY DATA: ABG: pH 7.5, pCO2 of 50, PaO2 of 55 on 3 L nasal cannula. White count was 16.3, hemoglobin 15.7, platelets of 88, BUN 28, creatinine 1.02, bicarbonate 36, BNP 1640, INR 3.2. IMPRESSION AND PLAN: 1. Hypoxemic respiratory failure secondary to congestive cardiac failure and chronic obstructive pu lmonary disease exacerbation. 2. 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 3. Significant deconditioning. 4. Congestive cardiac failure in a patient with history of atrial fibrillation. The patient will require: 1. Continue cardiac recommendations. 2. Adjust Coumadin as it is currently supratherapeutic. 3. Continue bronchodilators. 4. Continue steroids at 60 mg daily. 5. Evaluation for acute rehabilitation. Discussed with the patient, who agrees. Dictated By: NILES ROMERO/GAUTAM Conf#: [id number] DID#: [id number]
--- NOTE | 2016-04-06 12:07 | RADRPT ---
PROCEDURE: XR Chest. CLINICAL INDICATION: Shortness of breath. TECHNIQUE: Single frontal view. COMPARISON: 04/02/2016. FINDINGS: There is interstitial disease bilaterally consistent with pulmonary edema, slightly worse than seen previously. Mild atelectasis at the lung bases is also worse than seen previously. The lungs are o therwise clear. The heart is enlarged. There is calcification in the aorta consistent with atherosclerosis. There is no pleural effusion. There is no pneumothorax. IMPRESSION: 1. Worse pulmonary edema and bibasilar atelectasis. 2. Cardiomegaly and atherosclerosis. RPTAT: QQ .Lorenzo Sanford MD, MD Date Time Electronically viewed and signed by .Lorenzo Sanford MD, MD on 04/06/2016 12:06 .R/
[2016-04-06] MEDS: DIGOXIN 0.125 MG TAB PO SCH ×2 (13:00→15:25)
--- NOTE | 2016-04-06 14:44 | PN ---
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 1. Shortness of breath 2/2 to COPD exacerbation with possible CHF exac - slowly improving. CT chest showed: Patchy bibasilar infiltrates with posterior predominance - r/o PNA - continue PO steroids, Duoneb's Q4 hrs ATC for now - continue IV abx (Levaquin), f/u CV and pulm consult rec's - PT consult, goal O2 sats = 88-92% 2. CHF exacerbation - acute on chronic systolic + diastolic dysfunction , EF 45% , severe - appreciate cardiology consult. - continue to hold lasix 2/2 to ARF - per CV, continue Digoxin, Cardizem PO meds for now. - x 1diamox today 3. Acute renal failure - renally adjust medications, avoid nephrotoxins, most likely AIN from dehydration - improved 4. Chronic Afib - on coumadin - INR today = 3.2 - hold Coumadin 5 mg again today - f/u daily INR 5. Thrombocytopenia - still present, but slightly trending up the last 48 hrs ( plt = 51 -> 68 -> 88) - no present bleeding. - monitor plt level daily 6. Severe - seen on ECHO - for possible outpatient TAVR, f/u CV rec's. 7. PVD - wound care - podiatry if worsening 8. Peripheral neuropathy - continue with gabapentin 9. Obesity - morbid - nutrition consult 10. Prostate CA - monitor at this time 11. Essential hypertension - bp stable - continue with home medications - ACEI hold, coreg continue 13. Megaloblastic anemia - b12/folate normal 14. GI ppx - pepcid 15. DVT ppx - SCD's for now 14. n/v -seen by GI, smpts resolved now, refusing EGD now. - continue zofran prn, Tigan prn. Problems: Subjective 24 Hr Interval Summary Free Text/Dictation Less nausea today, seen by GI, pulm, and CV teams, awaiting possible EGD later today. Exam/Review of Systems Vital Signs Vitals Vital Signs Date Time Temp Pulse Resp B/P Pulse Ox O2 Delivery O2 Flow Rate FiO2 04/06/16 14:04 101 24 92 Nasal Cannula 3.0 04/06/16 12:08 98.6 128/57 04/06/16 04:41 21 Intake and Output 04/05/16 04/05/16 04/06/16 15:00 23:00 07:00 Intake Total 750 ml 500 ml Output Total 1350 ml 1200 ml Balance -600 ml -700 ml Exam Gen Robinson: NAD, AAOx4 HEENT: NC/AT, PERRLA, EOMI NECK: supple, no thyromegaly THORAX: symmetrical, no obvious deformities CV: S1S2, RRR, III/ systolic murmur best heard at aortic area radiating bilaterally to carotids Lungs: less rhonchi, less end expiratory wheezing B/L Abd: soft, NT/ND, +BS, no rebound, no guarding, neg HSM EXT: 1+ bilaterally lower extremity edema, no ecchymosis, no clubbing, FROM, PVD noted, with ferritin deposits Neuro: CN II-XII grossly intact, decreased proprioception lower extremities bilaterally Psych: good mentation, alert and oriented, good mood and affect Skin: venous stasis changes noted bilaterally lower extremities, wounds on bilateral feet. Results Result Diagram: 04/06/1663004/06/16 0631 Results 24 hrs Laboratory Tests Test 04/05/16 16:00 04/06/16 06:31 04/06/16 07:00 Urine Bilirubin NEGATIVE Urine Clarity CLEAR Urine Color YELLOW Urine Glucose NEGATIVE Urine Hemoglobin NEGATIVE Urine Ketones NEGATIVE Urine Leukocyte Esterase NEGATIVE Urine Microscopic RBC 0-2 Urine Microscopic WBC 0-2 Urine Nitrite NEGATIVE Urine Specific [place] <=1.005 L Urine Squamous Epithelial Cells RARE Urine Total Protein TRACE Urine Urobilinogen 0.2 E.U./dL Urine pH 6.5 Activated Partial Thromboplast Time 44.0 H Alanine Aminotransferase (ALT/SGPT) 49 Albumin 3.0 L Albumin/Globulin Ratio 0.93 Alkaline Phosphatase 61 Anion Gap 15 Aspartate Amino Transf (AST/SGOT) 37 B-Type Natriuretic Peptide 1640 H Basophils # 0.0 Basophils % 0.1 Blood Morphology Comment Blood Urea Nitrogen 28 #H Calcium Level 8.5 Carbon Dioxide Level 36 H Chloride Level 93 L Creatinine 1.02 Direct Bilirubin 0.00 Eosinophils # 0.0 Eosinophils % 0.3 Globulin 3.20 Glucose Level 136 Hematocrit 46.6 Hemoglobin 15.7 INR International Normalized Ratio 3.20 Indirect Bilirubin 1.1 Lymphocytes # 0.7 L Lymphocytes % 4.5 L Mean Corpuscular Hemoglobin 35.6 H Mean Corpuscular Hemoglobin Concent 33.7 Mean Corpuscular Volume 105.5 H Mean Platelet Volume 9.3 Monocytes # 1.4 H Monocytes % 8.3 Neutrophils # 14.1 H Neutrophils % 86.8 H Nucleated Red Blood Cells # 0.0 Nucleated Red Blood Cells % 0.0 Platelet Count 88 #L Potassium Level 3.7 Prothrombin Time 33.2 H Prothrombin Time Ratio 2.6 Red Blood Count 4.42 L Red Cell Distribution Width 15.9 H Sodium Level 140 Total Bilirubin 1.1 Total Protein 6.2 White Blood Count 16.3 H Arterial Blood HCO3 39.3 H Arterial Blood Base Excess 13.8 H Arterial Blood Oxygen Saturation 90.7 L Corby Test ACCEPTAB Arterial Blood Gas Puncture Site Right Radial Arterial Blood Carboxyhemoglobin 1.3 Arterial Blood Date Drawn 04/06/2016 7:37:02 AM Arterial Blood Methemoglobin 0.1 Arterial Blood pCO2 (Temp correct) 50.5 H Arterial Blood pH (Temp corrected) 7.509 H Arterial Blood pO2 (Temp corrected) 55.0 L Blood Gas A-a O2 Differential 99.6 H Blood Gas Modality NASAL CANNULA Blood Gas Notified Time 04/06/2016 7:54:45 AM Blood Gas Notified Whom JLD Blood Gas Specimen Source Blood arterial Blood Gas Temperature 37.0 FiO2 30.0 Oxyhemoglobin Percent 89.4 L Total Hemoglobin 16.3 Medications Medications Current Medications Lorazepam (Ativan) 0.5 mg Q6H PRN IV ANXIETY; Start 04/02/16 at 08:30 Nitroglycerin (Nitroglycerin (Sl Tab) 0.4 Mg) 1 tab Q5M PRN SL CHEST PAIN; Start 04/02/16 at 08:30 Acetaminophen (Tylenol Tab) 650 mg Q6H PRN PO PAIN LEVEL 1-3 OR FEVER; Start at 08:30 Morphine Sulfate (morphine) 2 mg Q4H PRN IV PAIN LEVEL 7-10 Last administered on 04/05/16 00:32; Admin Dose 2 MG; Start 04/02/16 at 08:30 Docusate Sodium (Colace) 100 mg Q12H PRN PO CONSTIPATION Last administered on 13:48; Admin Dose 100 MG; Start 04/02/16 at 08:30 Allopurinol (Zyloprim) 300 mg DAILY PO Last administered on 04/04/16 10:04; Admin Dose 300 MG; Start 04/02/16 at 09:00; Status Future Hold Ascorbic Acid (Vitamin C) 1,000 mg DAILY PO Last administered on 04/06/16 08: 54; Admin Dose 1,000 MG; Start 04/02/16 at 09:00 Cyanocobalamin (Vitamin B12) 500 mcg DAILY PO Last administered on 04/06/16 08 :54; Admin Dose 500 MCG; Start 04/02/16 at 09:00 Digoxin (Digoxin) 0.125 mg DAILY@13 PO ; Start 04/02/16 at 13:00 Potassium Chloride (Klor-Con 20) 20 meq BID PO Last administered on 04/06/16 08:55; Admin Dose 20 MEQ; Start 04/02/16 at 09:00 Tamsulosin HCl (Flomax) 0.4 mg HS PO Last administered on 04/05/16 20:47; Admin Dose 0.4 MG; Start 04/02/16 at 21:00 Tiotropium [place] (Spiriva) 1 inh DAILY INH Last administered on 04/06/16 08: 54; Admin Dose 1 INH; Start 04/02/16 at 09:00 Vitamin E (Vitamin E) 400 units DAILY PO Last administered on 04/06/16 08:54; Admin Dose 400 UNITS; Start 04/02/16 at 09:00 Calcium/Vitamin D (Oyster Shell/ Vit-D (500/200)) 1 tab DAILY PO Last administered on 04/06/16 08:55; Admin Dose 1 TAB; Start 04/02/16 at 11:30 Guaifenesin/ Dextromethorphan (Mucinex Dm) 1 tab BID PO Last administered on 08:54; Admin Dose 1 TAB; Start 04/02/16 at 12:30 Eye Lubricant (Refresh Plus) 1 drop QID BOTH EYES Last administered on 10:45; Admin Dose 1 DROP; Start 04/03/16 at 17:00 Prednisone 60 mg 60 mg DAILY PO Last administered on 04/06/16 08:53; Admin Dose 60 MG; Start 04/03/16 at 16:00 Levofloxacin/ Dextrose (Levaquin 750 Mg/ D5W 150 ml (Pmx)) 150 ml @ 100 mls/hr Q24H IVPB Last administered on 04/06/16 10:45; Admin Dose 100 MLS/HR; Start at 10:30 Diltiazem HCl (Cardizem) 30 mg TID PO Last administered on 04/06/16 08:54; Admin Dose 30 MG; Start 04/04/16 at 21:00 Ondansetron HCl (Zofran Inj) 4 mg Q4H PRN IV NAUSEA AND/OR VOMITING Last administered on 04/05/16 12:47; Admin Dose 4 MG; Start 04/05/16 at 13:00 Trimethobenzamide HCl (Tigan) 200 mg Q6H PRN IM NAUSEA AND/OR VOMITING; Start 04/05/16 at 14:00 Pantoprazole (Protonix Iv) 40 mg BID@06,18 IV Last administered on 04/06/16 05 :21; Admin Dose 40 MG; Start 04/05/16 at 18:00 Magnesium Hydroxide (Milk Of Mag) 30 ml BID PO Last administered on 04/06/16 08:55; Admin Dose 30 ML; Start 04/05/16 at 14:00 Fenofibrate (Tricor) 48 mg DAILY PO Last administered on 04/06/16 08:55; Admin Dose 48 MG; Start 04/06/16 at 09:00 Warfarin Sodium (Coumadin) 4 mg DAILY@17 PO ; Start 04/05/16 at 17:00; Status Future Hold Sodium Chloride (Deep Sea) 1 spray Q4H PRN NASAL NASAL CONGESTION Last administered on 04/05/16 20:45; Admin Dose 1 SPRAY; Start 04/05/16 at 18:00 CHINMAY OMALLEY Apr 06, 2016 14:44
--- NOTE | 2016-04-06 14:56 | CONS ---
Date/Time of Note Date/Time of Note DATE: 04/06/16 TIME: 14:40 Assessment/Plan Assessment/Plan Additional Assessment/Plan Nausea/Acid reflux * Resolved * Pt declines EGD * GI sign off, available prn Hypertension/congestive heart failure/chronic atrial fibrillation on Coumadin/ severe aortic stenosis * Cardiology following COPD * On 2L NC Peripheral neuropathy Chronic back pain History of prostate CA Consultation Date/Type/Reason Admit Date/Time 04/02/2016, 11:08 am Type of Consultation: GI Reason for Consultation Nausea Hx of Present Illness 85 YO M that was transferred to ED from [facility] facility with complaints of shortness of breath and generalized weakness. During course of hospitalization, pt was experiencing marked abdominal discomfort, nausea and acid reflux. At bedside, pt denies GI complaints and declines EGD evaluation. He feels that symptoms were one time occurrence and he is feeling fine presently. Pt denies abdominal pain, nausea, vomiting, acid reflux, diarrhea, fever and chills. Advised pt that if symptoms return to advise hospitalist. Pt demonstrates understanding. Past Medical History Medical History: congestive heart failure, coronary artery disease, hypertension Social History Alcohol Use: none Smoking Status: Former smoker (40 yr ppd hx) Drug Use: none Exam/Review of Systems Vital Signs Vitals Vital Signs Date Time Temp Pulse Resp B/P Pulse Ox O2 Delivery O2 Flow Rate FiO2 04/06/16 14:04 101 24 92 Nasal Cannula 3.0 04/06/16 12:08 98.6 128/57 04/06/16 04:41 21 Intake and Output 04/05/16 04/05/16 04/06/16 15:00 23:00 07:00 Intake Total 750 ml 500 ml Output Total 1350 ml 1200 ml Balance -600 ml -700 ml Exam Constitutional: alert, obese, oriented, well developed Psych: nl mood/affect Head: normocephalic Eyes: EOMI, nl conjunctiva, nl lids, nl sclera ENMT: nl external ears & nose, nl lips & teeth, nl nasal mucosa & septum Respiratory: normal air movement Cardiovascular: regular rate and rhythm Gastrointestinal: soft Musculoskeletal: nl extremities to inspection Neurological: BUSINESS 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 II-XII intact Results Result Diagram: 04/06/16 0631 04/06/16 0631 Results 24 hrs Laboratory Tests Test 04/05/16 16:00 04/06/16 06:31 04/06/16 07:00 Urine Bilirubin NEGATIVE Urine Clarity CLEAR Urine Color YELLOW Urine Glucose NEGATIVE Urine Hemoglobin NEGATIVE Urine Ketones NEGATIVE Urine Leukocyte Esterase NEGATIVE Urine Microscopic RBC 0-2 Urine Microscopic WBC 0-2 Urine Nitrite NEGATIVE Urine Specific [place] <=1.005 L Urine Squamous Epithelial Cells RARE Urine Total Protein TRACE Urine Urobilinogen 0.2 E.U./dL Urine pH 6.5 Activated Partial Thromboplast Time 44.0 H Alanine Aminotransferase (ALT/SGPT) 49 Albumin 3.0 L Albumin/Globulin Ratio 0.93 Alkaline Phosphatase 61 Anion Gap 15 Aspartate Amino Transf (AST/SGOT) 37 B-Type Natriuretic Peptide 1640 H Basophils # 0.0 Basophils % 0.1 Blood Morphology Comment Blood Urea Nitrogen 28 #H Calcium Level 8.5 Carbon Dioxide Level 36 H Chloride Level 93 L Creatinine 1.02 Direct Bilirubin 0.00 Eosinophils # 0.0 Eosinophils % 0.3 Globulin 3.20 Glucose Level 136 Hematocrit 46.6 Hemoglobin 15.7 INR International Normalized Ratio 3.20 Indirect Bilirubin 1.1 Lymphocytes # 0.7 L Lymphocytes % 4.5 L Mean Corpuscular Hemoglobin 35.6 H Mean Corpuscular Hemoglobin Concent 33.7 Mean Corpuscular Volume 105.5 H Mean Platelet Volume 9.3 Monocytes # 1.4 H Monocytes % 8.3 Neutrophils # 14.1 H Neutrophils % 86.8 H Nucleated Red Blood Cells # 0.0 Nucleated Red Blood Cells % 0.0 Platelet Count 88 #L Potassium Level 3.7 Prothrombin Time 33.2 H Prothrombin Time Ratio 2.6 Red Blood Count 4.42 L Red Cell Distribution Width 15.9 H Sodium Level 140 Total Bilirubin 1.1 Total Protein 6.2 White Blood Count 16.3 H Arterial Blood HCO3 39.3 H Arterial Blood Base Excess 13.8 H Arterial Blood Oxygen Saturation 90.7 L Corby Test ACCEPTAB Arterial Blood Gas Puncture Site Right Radial Arterial Blood Carboxyhemoglobin 1.3 Arterial Blood Date Drawn 04/06/2016 7:37:02 AM Arterial Blood Methemoglobin 0.1 Arterial Blood pCO2 (Temp correct) 50.5 H Arterial Blood pH (Temp corrected) 7.509 H Arterial Blood pO2 (Temp corrected) 55.0 L Blood Gas A-a O2 Differential 99.6 H Blood Gas Modality NASAL CANNULA Blood Gas Notified Time 04/06/2016 7:54:45 AM Blood Gas Notified Whom JLD Blood Gas Specimen Source Blood arterial Blood Gas Temperature 37.0 FiO2 30.0 Oxyhemoglobin Percent 89.4 L Total Hemoglobin 16.3 Medications Medications Current Medications Lorazepam (Ativan) 0.5 mg Q6H PRN IV ANXIETY; Start 04/02/16 at 08:30 Nitroglycerin (Nitroglycerin (Sl Tab) 0.4 Mg) 1 tab Q5M PRN SL CHEST PAIN; Start 04/02/16 at 08:30 Acetaminophen (Tylenol Tab) 650 mg Q6H PRN PO PAIN LEVEL 1-3 OR FEVER; Start at 08:30 Morphine Sulfate (morphine) 2 mg Q4H PRN IV PAIN LEVEL 7-10 Last administered on 04/05/16 00:32; Admin Dose 2 MG; Start 04/02/16 at 08:30 Docusate Sodium (Colace) 100 mg Q12H PRN PO CONSTIPATION Last administered on 13:48; Admin Dose 100 MG; Start 04/02/16 at 08:30 Allopurinol (Zyloprim) 300 mg DAILY PO Last administered on 04/04/16 10:04; Admin Dose 300 MG; Start 04/02/16 at 09:00; Status Future Hold Ascorbic Acid (Vitamin C) 1,000 mg DAILY PO Last administered on 04/06/16 08: 54; Admin Dose 1,000 MG; Start 04/02/16 at 09:00 Cyanocobalamin (Vitamin B12) 500 mcg DAILY PO Last administered on 04/06/16 08 :54; Admin Dose 500 MCG; Start 04/02/16 at 09:00 Digoxin (Digoxin) 0.125 mg DAILY@13 PO ; Start 04/02/16 at 13:00 Potassium Chloride (Klor-Con 20) 20 meq BID PO Last administered on 04/06/16 08:55; Admin Dose 20 MEQ; Start 04/02/16 at 09:00 Tamsulosin HCl (Flomax) 0.4 mg HS PO Last administered on 04/05/16 20:47; Admin Dose 0.4 MG; Start 04/02/16 at 21:00 Tiotropium [place] (Spiriva) 1 inh DAILY INH Last administered on 04/06/16 08: 54; Admin Dose 1 INH; Start 04/02/16 at 09:00 Vitamin E (Vitamin E) 400 units DAILY PO Last administered on 04/06/16 08:54; Admin Dose 400 UNITS; Start 04/02/16 at 09:00 Calcium/Vitamin D (Oyster Shell/ Vit-D (500/200)) 1 tab DAILY PO Last administered on 04/06/16 08:55; Admin Dose 1 TAB; Start 04/02/16 at 11:30 Guaifenesin/ Dextromethorphan (Mucinex Dm) 1 tab BID PO Last administered on 08:54; Admin Dose 1 TAB; Start 04/02/16 at 12:30 Eye Lubricant (Refresh Plus) 1 drop QID BOTH EYES Last administered on 10:45; Admin Dose 1 DROP; Start 04/03/16 at 17:00 Prednisone 60 mg 60 mg DAILY PO Last administered on 04/06/16 08:53; Admin Dose 60 MG; Start 04/03/16 at 16:00 Levofloxacin/ Dextrose (Levaquin 750 Mg/ D5W 150 ml (Pmx)) 150 ml @ 100 mls/hr Q24H IVPB Last administered on 04/06/16 10:45; Admin Dose 100 MLS/HR; Start at 10:30 Diltiazem HCl (Cardizem) 30 mg TID PO Last administered on 04/06/16 08:54; Admin Dose 30 MG; Start 04/04/16 at 21:00 Ondansetron HCl (Zofran Inj) 4 mg Q4H PRN IV NAUSEA AND/OR VOMITING Last administered on 04/05/16 12:47; Admin Dose 4 MG; Start 04/05/16 at 13:00 Trimethobenzamide HCl (Tigan) 200 mg Q6H PRN IM NAUSEA AND/OR VOMITING; Start 04/05/16 at 14:00 Pantoprazole (Protonix Iv) 40 mg BID@06,18 IV Last administered on 04/06/16 05 :21; Admin Dose 40 MG; Start 04/05/16 at 18:00 Magnesium Hydroxide (Milk Of Mag) 30 ml BID PO Last administered on 04/06/16 08:55; Admin Dose 30 ML; Start 04/05/16 at 14:00 Fenofibrate (Tricor) 48 mg DAILY PO Last administered on 04/06/16 08:55; Admin Dose 48 MG; Start 04/06/16 at 09:00 Warfarin Sodium (Coumadin) 4 mg DAILY@17 PO ; Start 04/05/16 at 17:00; Status Future Hold Sodium Chloride ([place]) 1 spray Q4H PRN NASAL NASAL CONGESTION Last administered on 04/05/16 20:45; Admin Dose 1 SPRAY; Start 04/05/16 at 18:00 JAELYN PAGAN MD Apr 06, 2016 14:53
[2016-04-06] MEDS: PANTOPRAZOLE (EC) 40 MG TAB PO SCH (17:27)
[2016-04-06] MEDS: TAMSULOSIN (SR) 0.4 MG CAP PO SCH (21:33)
[2016-04-07] VITALS (11 sets, daily range): BP systolic 101–125; BP diastolic 58–69; PULSE 67–84; RESP 16–21
[2016-04-07] MEDS: ALBUTEROL/IPRATROPIUM (NEB) 3 ML AMP HHN SCH ×6 (00:33→21:01)
[2016-04-07] MEDS: PANTOPRAZOLE (EC) 40 MG TAB PO SCH ×2 (07:01→17:45)
[2016-04-07 08:20] LABS: BASOPHILS % 0.2 % (0.0-2.0); EOSINOPHILS # 0.1 10^3/ul (0.0-0.5); EOSINOPHILS % 0.5 % (0.0-7.0); HEMATOCRIT 44.3 % (42.0-52.0); HEMOGLOBIN 14.7 g/dl (14.0-18.0); LYMPHOCYTES # 0.8 10^3/ul (0.8-2.9); LYMPHOCYTES % 4.9 % (15.0-51.0); MEAN CORPUSCULAR HEMOGLOBIN 35.1 pg (29.0-33.0); MEAN CORPUSCULAR HGB CONC 33.2 g/dl (32.0-37.0); MEAN PLATELET VOLUME 9.3 fl (7.4-10.4); MONOCYTE # 1.2 10^3/ul (0.3-0.9); MONOCYTES % 7.8 % (0.0-11.0); NEUTROPHIL # 13.5 10^3/ul (1.6-7.5); NEUTROPHILS % 86.6 % (39.0-77.0); PLATELET COUNT 132 10^3/UL (140-440); RED BLOOD COUNT 4.18 10^6/ul (4.70-6.10); RED CELL DISTRIBUTION WIDTH 15.9 % (11.5-14.5); UNCORRECTED WBC 15.6 10^3/ul (4.8-10.8); WHITE BLOOD COUNT 15.6 10^3/ul (4.8-10.8)
[2016-04-07 08:21] LABS: CONDITION 1; LH ANALYZER COMMENTS 1
[2016-04-07 08:26] LABS: ALBUMIN 2.9 g/dl (3.3-4.9)
[2016-04-07 08:27] LABS: POTASSIUM 3.2 mmol/L (3.5-5.1)
[2016-04-07 08:29] LABS: ALBUMIN/GLOBULIN RATIO 0.85; BILIRUBIN,INDIRECT 0.8 mg/dl (0-1.1); BILIRUBIN,TOTAL 0.8 mg/dl (0.2-1.3); CALCIUM 8.4 mg/dl (8.4-10.2); CREATININE 1.2 mg/dl (0.61-1.24); TOTAL PROTEIN 6.3 g/dl (6.1-8.1)
[2016-04-07 08:30] LABS: INR 2.87; MAGNESIUM 2.9 mg/dl (1.7-2.5); PROTIME 30.5 Sec (12.2-14.2); PT RATIO 2.4
[2016-04-07 08:31] LABS: PARTIAL THROMBOPLASTIN TIME 51.5 Sec (25.0-35.0)
[2016-04-07] MEDS: TIOTROPIUM 18 MCG CAPSULE INHA DEV INH SCH (09:00)
--- NOTE | 2016-04-07 09:19 | PN ---
DATE: 04/07/2016 CARDIOLOGY FOLLOWUP PROGRESS NOTE SUBJECTIVE: Discussed with the staff. Rhythm strip was reviewed. The patient remains in atrial fi brillation. Heart rate is much better controlled. No chest pain or pressure. Breathing has improv ed now. MEDICATIONS: Reviewed as per medical reconciliation, was personally reviewed. PHYSICAL EXAMINATION: VITAL SIGNS: Temperature 97.4, heart rate of 84, blood pressure of 103/58, respiratory rate of 16. HEENT: Normocephalic, atraumatic. Pupils are equal. CARDIOVASCULAR: Irregularly irregular. Systolic murmur. PULMONARY: With no wheezes heard. GASTROINTESTINAL: Soft, nontender. EXTREMITIES: Trivial edema. NEUROLOGIC: Awake, responds appropriately. PSYCHIATRIC: Appears to be calm. LABORATORY: WBC of 15.6, hemoglobin 14.7, platelets of 132. Chemistry is still pending. Chest x-r ay showed increased pulmonary vascular congestion. I's and O's shows 1150 in and 1700 out. ASSESSMENT AND PLAN: 1. Chronic obstructive pulmonary disease exacerbation, possible pneumonia. 2. Congestive heart failure. 3. Renal failure. 4. Atrial fibrillation, chronic. 5. Thrombocytopenia. 6. Aortic stenosis. 7. Peripheral vascular disease. 8. Obesity. 9. History of prostate carcinoma. 10. Hypertension, under control. 11. Anemia. 12. Nausea and vomiting which has improved now. RECOMMENDATIONS: I will follow up the labs including a PT/INR and adjust the Coumadin. I will give another dose of Diamox today. Mild electrolytes, heart rate under good control. Digoxin level emely l be checked tomorrow as well. Follow up on the chemistry and correct electrolytes as needed. Dictated By: UZIEL MAGALLANES/GAUTAM Conf#: [id number] DID#: [id number] CC: CHINMAY OMALLEY;*EndCC*
[2016-04-07] MEDS: VITAMIN E 400 UNITS CAP PO SCH (09:53)
[2016-04-07] MEDS: CARBOXYMETHYLCELLULOSE 0.5% 0.1 ML OPH BOTH EYES SCH ×4 (09:53→21:00)
[2016-04-07] MEDS: predniSONE 20 MG TAB PO SCH (09:54)
[2016-04-07] MEDS: CALCIUM/VITAMIN D (500/200) TAB PO SCH (09:54)
[2016-04-07] MEDS: POTASSIUM CHLORIDE (SR) 20 MEQ TAB PO SCH (09:54)
[2016-04-07] MEDS: FENOFIBRATE 48 MG TAB PO SCH (09:54)
[2016-04-07] MEDS: ASCORBIC ACID 500 MG TAB PO SCH (09:54)
[2016-04-07] MEDS: MAGNESIUM HYDROXIDE 30ML CUP PO SCH ×2 (09:54→22:51)
[2016-04-07] MEDS: GUAIFENESIN/DM (SR) TAB PO SCH ×2 (09:54→22:51)
[2016-04-07] MEDS: CYANOCOBALAMIN 500 MCG TAB PO SCH (09:54)
[2016-04-07] MEDS: DILTIAZEM 30 MG TAB PO SCH ×3 (09:55→22:51)
[2016-04-07] MEDS ORDERED: ACETAZOLAMIDE 500 MG INJ IV ONE (10:00)
[2016-04-07] MEDS: LEVOFLOXACIN 750MG/D5W (PMX) 150 ML IVPB SCH (10:41)
--- NOTE | 2016-04-07 12:44 | PN ---
DATE: 04/07/2016 SUBJECTIVE: The patient remains stable this morning, mild shortness of breath on exertion, still flynn s limited mobility. VITAL SIGNS: Temperature 97, pulse 94, blood pressure 125/68, O2 saturation 96% on 4 liters. NECK: Supple. No JVD or lymphadenopathy. CARDIAC: S1, S2, no added sounds or murmurs. CHEST: Diminished air entry bilaterally. ABDOMEN: Soft, nontender. No guarding or rebound. EXTREMITIES: No cyanosis, clubbing, edema. NEUROLOGIC: Grossly intact. No focal deficits. LABORATORY DATA: White count 15.6, hemoglobin 14.7, platelets of 132. BUN 26, creatinine 1.2. INR was 2.87. IMPRESSION AND PLAN: 1. Congestive cardiac failure, slowly improving. 2. Chronic obstructive pulmonary disease with acute exacerbation. 3. Gastroesophageal reflux, treated with PPI. 4. Decreased mobility, continues physical therapy. 5. History of chronic atrial fibrillation, therapeutic with anticoagulation. PLAN: 1. Continue physical therapy. 2. Continue to decrease steroids. . 3. Continue O2. 4. Consider transfer to correction facility for continuing therapy, if patient is not a candid ate for acute rehabilitation unit. Dictated By: NILES ROMERO/GAUTAM Conf#: [id number] DID#: [id number]
[2016-04-07] MEDS: DIGOXIN 0.125 MG TAB PO SCH (12:58)
[2016-04-07] MEDS ORDERED: POTASSIUM CHLORIDE (SR) 20 MEQ TAB PO STA (13:36)
[2016-04-07] MEDS ORDERED: FUROSEMIDE 40 MG INJ IM ONE (14:00)
[2016-04-07] MEDS ORDERED: FUROSEMIDE 20 MG INJ IV ONE (14:00)
[2016-04-07] MEDS ORDERED: POTASSIUM CHLORIDE 20 MEQ POWDER FOR ORAL SOLN PO ONE (14:15)
--- NOTE | 2016-04-07 14:18 | PN ---
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 1. Shortness of breath 2/2 to COPD exacerbation with possible CHF exac - slowly improving, although slightly increased today. CT chest showed: Patchy bibasilar infiltrates with posterior predominance - r/o PNA - continue PO steroids (taper down), Duoneb's Q4 hrs ATC for now - continue IV abx (Levaquin), f/u CV and pulm consult rec's - PT consult, goal O2 sats = 88-92% - Lasix 20 mg IV x 1 dose 2. CHF exacerbation - acute on chronic systolic + diastolic dysfunction , EF 45% , severe - appreciate cardiology consult. - again, will give lasix 20 mg IV x 1 cautiously today - per CV, continue Digoxin, Cardizem PO meds for now. - x 1diamox today 3. Acute renal failure - renally adjust medications, avoid nephrotoxins, most likely AIN from dehydration - improved 4. Chronic Afib - on coumadin - INR today = 2.87 - hold Coumadin 5 mg again today, may resume tomorrow. - f/u daily INR 5. Thrombocytopenia - still present, but slightly trending up the last 72 hrs ( plt = 51 -> 68 -> 88 -> 130) - no present bleeding. - monitor plt level daily 6. Severe - seen on ECHO - for possible outpatient TAVR, f/u CV rec's. 7. PVD - wound care - podiatry if worsening 8. Peripheral neuropathy - continue with gabapentin 9. Obesity - morbid - nutrition consult 10. Prostate CA - monitor at this time 11. Essential hypertension - bp stable - continue with home medications - ACEI hold, coreg continue 13. Megaloblastic anemia - b12/folate normal 14. GI ppx - pepcid 15. DVT ppx - SCD's for now 14. n/v -seen by GI, smpts resolved now, refusing EGD now. - continue zofran prn, Tigan prn. Problems: Subjective 24 Hr Interval Summary Free Text/Dictation Pt having some SOB. Worked with PT yesterday. Seen by pulm and CV team today. Exam/Review of Systems Vital Signs Vitals Vital Signs Date Time Temp Pulse Resp B/P Pulse Ox O2 Delivery O2 Flow Rate FiO2 04/07/16 12:39 97.7 83 18 116/69 90 04/07/16 10:04 Nasal Cannula 4.0 04/06/16 04:41 21 Intake and Output 04/06/16 04/06/16 04/07/16 15:00 23:00 07:00 Intake Total 150 ml 700 ml 300 ml Output Total 900 ml 800 ml Balance 150 ml -200 ml -500 ml Exam Gen Robinson: NAD, AAOx4 HEENT: NC/AT, PERRLA, EOMI NECK: supple, no thyromegaly THORAX: symmetrical, no obvious deformities CV: S1S2, RRR, III/ systolic murmur best heard at aortic area radiating bilaterally to carotids Lungs: less rhonchi, less end expiratory wheezing B/L Abd: soft, NT/ND, +BS, no rebound, no guarding, neg HSM EXT: trace bilaterally lower extremity edema, no ecchymosis, no clubbing, FROM, PVD noted, with ferritin deposits Neuro: CN II-XII grossly intact, decreased proprioception lower extremities bilaterally Psych: good mentation, alert and oriented, good mood and affect Skin: venous stasis changes noted bilaterally lower extremities, wounds on bilateral feet. Results Result Diagram: 04/07/1665404/07/16 06 Results 24 hrs Laboratory Tests Test 04/07/16 06:55 Activated Partial Thromboplast Time 51.5 H Alanine Aminotransferase (ALT/SGPT) 39 Albumin 2.9 L Albumin/Globulin Ratio 0.85 Alkaline Phosphatase 66 Anion Gap 11 Aspartate Amino Transf (AST/SGOT) 26 B-Type Natriuretic Peptide 3280 H Basophils # 0.0 Basophils % 0.2 Blood Morphology Comment Blood Urea Nitrogen 26 H Calcium Level 8.4 Carbon Dioxide Level 37 H Chloride Level 94 L Creatinine 1.20 Digoxin Level 0.9 L Direct Bilirubin 0.00 Eosinophils # 0.1 Eosinophils % 0.5 Globulin 3.40 H Glucose Level 116 Hematocrit 44.3 Hemoglobin 14.7 INR International Normalized Ratio 2.87 Indirect Bilirubin 0.8 Lymphocytes # 0.8 Lymphocytes % 4.9 L Magnesium Level 2.9 H Mean Corpuscular Hemoglobin 35.1 H Mean Corpuscular Hemoglobin Concent 33.2 Mean Corpuscular Volume 106.0 H Mean Platelet Volume 9.3 Monocytes # 1.2 H Monocytes % 7.8 Neutrophils # 13.5 H Neutrophils % 86.6 H Nucleated Red Blood Cells # 0.0 Nucleated Red Blood Cells % 0.0 Platelet Count 132 #L Potassium Level 3.2 L Prothrombin Time 30.5 H Prothrombin Time Ratio 2.4 Red Blood Count 4.18 L Red Cell Distribution Width 15.9 H Sodium Level 139 Total Bilirubin 0.8 Total Protein 6.3 White Blood Count 15.6 H Medications Medications Current Medications Lorazepam (Ativan) 0.5 mg Q6H PRN IV ANXIETY; Start 04/02/16 at 08:30 Nitroglycerin (Nitroglycerin (Sl Tab) 0.4 Mg) 1 tab Q5M PRN SL CHEST PAIN; Start 04/02/16 at 08:30 Acetaminophen (Tylenol Tab) 650 mg Q6H PRN PO PAIN LEVEL 1-3 OR FEVER; Start at 08:30 Morphine Sulfate (morphine) 2 mg Q4H PRN IV PAIN LEVEL 7-10 Last administered on 04/05/16 00:32; Admin Dose 2 MG; Start 04/02/16 at 08:30 Docusate Sodium (Colace) 100 mg Q12H PRN PO CONSTIPATION Last administered on 13:48; Admin Dose 100 MG; Start 04/02/16 at 08:30 Allopurinol (Zyloprim) 300 mg DAILY PO Last administered on 04/04/16 10:04; Admin Dose 300 MG; Start 04/02/16 at 09:00; Status Future Hold Ascorbic Acid (Vitamin C) 1,000 mg DAILY PO Last administered on 04/07/16 09: 54; Admin Dose 1,000 MG; Start 04/02/16 at 09:00 Cyanocobalamin (Vitamin B12) 500 mcg DAILY PO Last administered on 04/07/16 09 :54; Admin Dose 500 MCG; Start 04/02/16 at 09:00 Digoxin (Digoxin) 0.125 mg DAILY@13 PO Last administered on 04/07/16 12:58; Admin Dose 0.125 MG; Start 04/02/16 at 13:00 Tamsulosin HCl (Flomax) 0.4 mg HS PO Last administered on 04/06/16 21:33; Admin Dose 0.4 MG; Start 04/02/16 at 21:00 Tiotropium [place] (Spiriva) 1 inh DAILY INH Last administered on 04/06/16 08: 54; Admin Dose 1 INH; Start 04/02/16 at 09:00 Vitamin E (Vitamin E) 400 units DAILY PO Last administered on 04/07/16 09:53; Admin Dose 400 UNITS; Start 04/02/16 at 09:00 Calcium/Vitamin D (Oyster Shell/ Vit-D (500/200)) 1 tab DAILY PO Last administered on 04/07/16 09:54; Admin Dose 1 TAB; Start 04/02/16 at 11:30 Guaifenesin/ Dextromethorphan (Mucinex Dm) 1 tab BID PO Last administered on 09:54; Admin Dose 1 TAB; Start 04/02/16 at 12:30 Eye Lubricant 1 drop 1 drop QID BOTH EYES Last administered on 04/07/16 09:53 ; Admin Dose 1 DROP; Start 04/03/16 at 17:00 Levofloxacin/ Dextrose (Levaquin 750 Mg/ D5W 150 ml (Pmx)) 150 ml @ 100 mls/hr Q24H IVPB Last administered on 04/07/16 10:41; Admin Dose 100 MLS/HR; Start at 10:30 Diltiazem HCl (Cardizem) 30 mg TID PO Last administered on 04/07/16 12:58; Admin Dose 30 MG; Start 04/04/16 at 21:00 Ondansetron HCl (Zofran Inj) 4 mg Q4H PRN IV NAUSEA AND/OR VOMITING Last administered on 04/05/16 12:47; Admin Dose 4 MG; Start 04/05/16 at 13:00 Trimethobenzamide HCl (Tigan) 200 mg Q6H PRN IM NAUSEA AND/OR VOMITING; Start 04/05/16 at 14:00 Magnesium Hydroxide (Milk Of Mag) 30 ml BID PO Last administered on 04/07/16 09:54; Admin Dose 30 ML; Start 04/05/16 at 14:00 Fenofibrate (Tricor) 48 mg DAILY PO Last administered on 04/07/16 09:54; Admin Dose 48 MG; Start 04/06/16 at 09:00 Warfarin Sodium (Coumadin) 4 mg DAILY@17 PO ; Start 04/05/16 at 17:00; Status Future Hold Sodium Chloride (Deep Sea) 1 spray Q4H PRN NASAL NASAL CONGESTION Last administered on 04/05/16 20:45; Admin Dose 1 SPRAY; Start 04/05/16 at 18:00 Pantoprazole (Protonix Tab) 40 mg BID@06,18 PO Last administered on 04/07/16 07:01; Admin Dose 40 MG; Start 04/06/16 at 18:00 Prednisone (Prednisone) 40 mg DAILY PO ; Start 04/08/16 at 09:00 Potassium Chloride (Potassium Chloride Pwd/Soln) 40 meq ONCE ONCE PO ; Start at 14:00; Stop 04/07/16 at 14:01; Status UNV Potassium Chloride (Potassium Chloride Pwd/Soln) 20 meq BID PO ; Start 04/07/16 at 21:00; Status UNV CHINMAY OMALLEY Apr 07, 2016 14:18
[2016-04-07] MEDS: TAMSULOSIN (SR) 0.4 MG CAP PO SCH (22:51)
[2016-04-07] MEDS: POTASSIUM CHLORIDE 20 MEQ POWDER FOR ORAL SOLN PO SCH (22:52)
[2016-04-08] VITALS (12 sets, daily range): BP systolic 99–112; BP diastolic 55–68; PULSE 72–95; RESP 16–18
[2016-04-08] MEDS: ALBUTEROL/IPRATROPIUM (NEB) 3 ML AMP HHN SCH ×6 (00:11→21:21)
[2016-04-08] MEDS: PANTOPRAZOLE (EC) 40 MG TAB PO SCH ×2 (06:41→18:12)
--- NOTE | 2016-04-08 07:46 | RADRPT ---
PROCEDURE: XR Chest. CLINICAL INDICATION: Congestive heart failure and shortness of breath TECHNIQUE: Portable single view of the chest COMPARISON: 04/06 FINDINGS: Cardiomegaly and ectatic and calcified aorta are again seen. Stable mild pulmonary vascular congest ion and slight bibasilar atelectasis. No definite infiltrate or effusion. Degenerative change of t he spine. IMPRESSION: No significant interval change. Bibasilar atelectasis. Cardiomegaly. Aortic atherosclerosis. . RPTAT: HLBE Margarette Goetz Physician Date Time Electronically viewed and signed by Margarette Goetz, Physician on 04/08/2016 07:45 LE/
[2016-04-08 08:02] LABS: INR 2.24
[2016-04-08 08:07] LABS: BASOPHILS % 0.2 % (0.0-2.0); EOSINOPHILS % 0.3 % (0.0-7.0); HEMATOCRIT 45.6 % (42.0-52.0); HEMOGLOBIN 15.2 g/dl (14.0-18.0); LYMPHOCYTES # 0.6 10^3/ul (0.8-2.9); LYMPHOCYTES % 3.3 % (15.0-51.0); MEAN CORPUSCULAR HEMOGLOBIN 35.1 pg (29.0-33.0); MEAN CORPUSCULAR HGB CONC 33.3 g/dl (32.0-37.0); MEAN CORPUSCULAR VOLUME 105.6 fl (82.0-101.0); MEAN PLATELET VOLUME 8.6 fl (7.4-10.4); MONOCYTE # 1.5 10^3/ul (0.3-0.9); MONOCYTES % 8.2 % (0.0-11.0); NEUTROPHIL # 15.7 10^3/ul (1.6-7.5); PLATELET COUNT 212 10^3/UL (140-440); RED BLOOD COUNT 4.32 10^6/ul (4.70-6.10); RED CELL DISTRIBUTION WIDTH 15.9 % (11.5-14.5); UNCORRECTED WBC 17.8 10^3/ul (4.8-10.8); WHITE BLOOD COUNT 17.8 10^3/ul (4.8-10.8)
[2016-04-08 08:12] LABS: ALBUMIN 3.1 g/dl (3.3-4.9)
[2016-04-08 08:13] LABS: POTASSIUM 3.4 mmol/L (3.5-5.1)
[2016-04-08 08:15] LABS: BILIRUBIN,INDIRECT 0.7 mg/dl (0-1.1); BILIRUBIN,TOTAL 0.7 mg/dl (0.2-1.3); CREATININE 1.22 mg/dl (0.61-1.24)
[2016-04-08 08:16] LABS: ALBUMIN/GLOBULIN RATIO 0.83; CALCIUM 8.5 mg/dl (8.4-10.2); MAGNESIUM 2.8 mg/dl (1.7-2.5); TOTAL PROTEIN 6.8 g/dl (6.1-8.1)
[2016-04-08 08:22] LABS: CONDITION 1; LH ANALYZER COMMENTS 1
[2016-04-08] MEDS: MAGNESIUM HYDROXIDE 30ML CUP PO SCH ×2 (09:00→20:52)
[2016-04-08] MEDS: CARBOXYMETHYLCELLULOSE 0.5% 0.1 ML OPH BOTH EYES SCH ×4 (09:00→20:55)
[2016-04-08] MEDS ORDERED: predniSONE 20 MG TAB PO SCH (09:00)
[2016-04-08] MEDS: GUAIFENESIN/DM (SR) TAB PO SCH ×2 (09:22→20:50)
[2016-04-08] MEDS: ASCORBIC ACID 500 MG TAB PO SCH (09:23)
[2016-04-08] MEDS: CYANOCOBALAMIN 500 MCG TAB PO SCH (09:23)
[2016-04-08] MEDS: TIOTROPIUM 18 MCG CAPSULE INHA DEV INH SCH (09:23)
[2016-04-08] MEDS: VITAMIN E 400 UNITS CAP PO SCH (09:23)
[2016-04-08] MEDS: FENOFIBRATE 48 MG TAB PO SCH (09:31)
[2016-04-08] MEDS: POTASSIUM CHLORIDE 20 MEQ POWDER FOR ORAL SOLN PO SCH ×2 (09:31→20:51)
[2016-04-08] MEDS: DILTIAZEM 30 MG TAB PO SCH ×3 (09:32→20:52)
[2016-04-08] MEDS: CALCIUM/VITAMIN D (500/200) TAB PO SCH (09:40)
[2016-04-08] MEDS: LEVOFLOXACIN 750MG/D5W (PMX) 150 ML IVPB SCH (10:37)
[2016-04-08] MEDS ORDERED: NA PHOSPHATE/BIPHOS 133 ML ENEMA PR ONE (11:00)
--- NOTE | 2016-04-08 12:23 | CONS ---
Date/Time of Note Date/Time of Note DATE: 04/08/16 TIME: 12:21 Assessment/Plan Assessment/Plan Additional Assessment/Plan Chest x-ray was reviewed from today which is showing bibasilar changes which appear chronic in nature. Next Assessment and recommendations; next 1. Patient admitted for COPD and CHF exacerbation with improved clinical improvement. Next 2. Mild epigastric discomfort possibly steroid-induced. 3. Chronic atrial fibrillation. Patient on anticoagulation. 4. Obesity. 5. Likely underlying sleep apnea. Decrease prednisone to 10 mg twice daily. Continue current treatment. Patient is going to have a KUB x-ray for evaluation of epigastric discomfort. Sleep study is recommended on outpatient basis. Consultation Date/Type/Reason Admit Date/Time Apr 03, 2016 at 18:49 Initial Consult Date Type of Consultation: Pulmonary 24 HR Interval Summary Free Text/Dictation Patient condition is stable. But does complain of indigestion and epigastric discomfort. Denies any nausea vomiting. According him shortness of breath is markedly improved. Denies any wheezing, cough, chest pain. General examination; elderly male currently in no distress. Exam/Review of Systems Vital Signs Vitals Vital Signs Date Time Temp Pulse Resp B/P Pulse Ox O2 Delivery O2 Flow Rate FiO2 04/08/16 11:57 98.0 90 17 111/61 93 04/08/16 08:37 Nasal Cannula 3.0 04/06/16 04:41 21 Intake and Output 04/07/16 04/07/16 04/08/16 15:00 23:00 07:00 Intake Total 900 ml 300 ml Output Total 300 ml 250 ml 250 ml Balance -300 ml 650 ml 50 ml Exam HEENT examination; supple neck, no JVD. No lymphadenopathy. No thyromegaly. Pupils are small bilaterally. Pharynx is clear. Chest examination; diminished breath sounds bilaterally without any added sounds. S1-S2 audible, irregular rhythm. No murmurs. Abdomen examination; there is mild epigastric tenderness. No masses felt abdomen is protuberant. Extremity examination trace peripheral edema. GROOVER AND TURNER examination; no focal deficit. Results Result Diagram: 04/08/16 0713 04/08/16 0713 Results 24 hrs Laboratory Tests Test 04/08/16 07:13 Alanine Aminotransferase (ALT/SGPT) 43 Albumin 3.1 L Albumin/Globulin Ratio 0.83 Alkaline Phosphatase 67 Anion Gap 13 Aspartate Amino Transf (AST/SGOT) 30 Basophils # 0.0 Basophils % 0.2 Blood Morphology Comment Blood Urea Nitrogen 31 H Calcium Level 8.5 Carbon Dioxide Level 31 Chloride Level 97 Creatinine 1.22 Digoxin Level 0.8 L Direct Bilirubin 0.00 Eosinophils # 0.0 Eosinophils % 0.3 Globulin 3.70 H Glucose Level 134 Hematocrit 45.6 Hemoglobin 15.2 INR International Normalized Ratio 2.24 Indirect Bilirubin 0.7 Lymphocytes # 0.6 L Lymphocytes % 3.3 L Magnesium Level 2.8 H Mean Corpuscular Hemoglobin 35.1 H Mean Corpuscular Hemoglobin Concent 33.3 Mean Corpuscular Volume 105.6 H Mean Platelet Volume 8.6 Monocytes # 1.5 H Monocytes % 8.2 Neutrophils # 15.7 H Neutrophils % 88.0 H Nucleated Red Blood Cells # 0.0 Nucleated Red Blood Cells % 0.0 Platelet Count 212 # Potassium Level 3.4 L Prothrombin Time 25.0 H Prothrombin Time Ratio 2.0 Red Blood Count 4.32 L Red Cell Distribution Width 15.9 H Sodium Level 138 Total Bilirubin 0.7 Total Protein 6.8 White Blood Count 17.8 H Medications Medications Current Medications Lorazepam (Ativan) 0.5 mg Q6H PRN IV ANXIETY; Start 04/02/16 at 08:30 Nitroglycerin (Nitroglycerin (Sl Tab) 0.4 Mg) 1 tab Q5M PRN SL CHEST PAIN; Start 04/02/16 at 08:30 Acetaminophen (Tylenol Tab) 650 mg Q6H PRN PO PAIN LEVEL 1-3 OR FEVER; Start at 08:30 Morphine Sulfate (morphine) 2 mg Q4H PRN IV PAIN LEVEL 7-10 Last administered on 04/05/16 00:32; Admin Dose 2 MG; Start 04/02/16 at 08:30 Docusate Sodium (Colace) 100 mg Q12H PRN PO CONSTIPATION Last administered on 13:48; Admin Dose 100 MG; Start 04/02/16 at 08:30 Allopurinol (Zyloprim) 300 mg DAILY PO Last administered on 04/04/16 10:04; Admin Dose 300 MG; Start 04/02/16 at 09:00; Status Future Hold Ascorbic Acid (Vitamin C) 1,000 mg DAILY PO Last administered on 04/08/16 09: 23; Admin Dose 1,000 MG; Start 04/02/16 at 09:00 Cyanocobalamin (Vitamin B12) 500 mcg DAILY PO Last administered on 04/08/16 09 :23; Admin Dose 500 MCG; Start 04/02/16 at 09:00 Digoxin (Digoxin) 0.125 mg DAILY@13 PO Last administered on 04/07/16 12:58; Admin Dose 0.125 MG; Start 04/02/16 at 13:00 Tamsulosin HCl (Flomax) 0.4 mg HS PO Last administered on 04/07/16 22:51; Admin Dose 0.4 MG; Start 04/02/16 at 21:00 Tiotropium [place] (Spiriva) 1 inh DAILY INH Last administered on 04/08/16 09: 23; Admin Dose 1 INH; Start 04/02/16 at 09:00 Vitamin E (Vitamin E) 400 units DAILY PO Last administered on 04/08/16 09:23; Admin Dose 400 UNITS; Start 04/02/16 at 09:00 Calcium/Vitamin D (Oyster Shell/ Vit-D (500/200)) 1 tab DAILY PO Last administered on 04/08/16 09:40; Admin Dose 1 TAB; Start 04/02/16 at 11:30 Guaifenesin/ Dextromethorphan (Mucinex Dm) 1 tab BID PO Last administered on 09:22; Admin Dose 1 TAB; Start 04/02/16 at 12:30 Eye Lubricant 1 drop 1 drop QID BOTH EYES Last administered on 04/07/16 21:00 ; Admin Dose 1 DROP; Start 04/03/16 at 17:00 Levofloxacin/ Dextrose (Levaquin 750 Mg/ D5W 150 ml (Pmx)) 150 ml @ 100 mls/hr Q24H IVPB Last administered on 04/08/16 10:37; Admin Dose 100 MLS/HR; Start at 10:30 Diltiazem HCl (Cardizem) 30 mg TID PO Last administered on 04/08/16 09:32; Admin Dose 30 MG; Start 04/04/16 at 21:00 Ondansetron HCl (Zofran Inj) 4 mg Q4H PRN IV NAUSEA AND/OR VOMITING Last administered on 04/05/16 12:47; Admin Dose 4 MG; Start 04/05/16 at 13:00 Trimethobenzamide HCl (Tigan) 200 mg Q6H PRN IM NAUSEA AND/OR VOMITING; Start 04/05/16 at 14:00 Magnesium Hydroxide (Milk Of Mag) 30 ml BID PO Last administered on 04/07/16 22:51; Admin Dose 30 ML; Start 04/05/16 at 14:00 Fenofibrate (Tricor) 48 mg DAILY PO Last administered on 04/08/16 09:31; Admin Dose 48 MG; Start 04/06/16 at 09:00 Warfarin Sodium (Coumadin) 4 mg DAILY@17 PO ; Start 04/05/16 at 17:00; Status Future Hold Sodium Chloride (Deep Sea) 1 spray Q4H PRN NASAL NASAL CONGESTION Last administered on 04/05/16 20:45; Admin Dose 1 SPRAY; Start 04/05/16 at 18:00 Pantoprazole (Protonix Tab) 40 mg BID@06,18 PO Last administered on 04/08/16 06:41; Admin Dose 40 MG; Start 04/06/16 at 18:00 Prednisone (Prednisone) 40 mg DAILY PO Last administered on 04/08/16 09:33; Admin Dose 40 MG; Start 04/08/16 at 09:00 Potassium Chloride (Potassium Chloride Pwd/Soln) 20 meq BID PO Last administered on 04/08/16 09:31; Admin Dose 20 MEQ; Start 04/07/16 at 21:00 Warfarin Sodium (Coumadin) 5 mg DAILY@17 PO ; Start 04/08/16 at 17:00; Status DYLAN BEAL Apr 08, 2016 12:23
--- NOTE | 2016-04-08 12:37 | PN ---
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 1. Shortness of breath 2/2 to COPD exacerbation with possible CHF exac - slowly improving, although slightly increased today. CT chest showed: Patchy bibasilar infiltrates with posterior predominance - r/o PNA - continue PO steroids (taper down), Duoneb's Q4 hrs ATC for now - continue IV abx (Levaquin), f/u CV and pulm consult rec's - PT consult, goal O2 sats = 88-92% 2. CHF exacerbation - acute on chronic systolic + diastolic dysfunction , EF 45% , severe - appreciate cardiology consult. - per CV, continue Digoxin, Cardizem PO meds for now. 3. Acute renal failure - renally adjust medications, avoid nephrotoxins, most likely AIN from dehydration - improved 4. Chronic Afib - on coumadin - INR today = 2.42 - restart Coumadin 5 mg today - f/u daily INR 5. Thrombocytopenia - still present, but slightly trending up the last 72 hrs ( plt = 51 -> 68 -> 88 -> 130 -> 200)) - no present bleeding. - monitor plt level daily 6. Severe - seen on ECHO - for possible outpatient TAVR, f/u CV rec's. 7. PVD - wound care - podiatry if worsening 8. Peripheral neuropathy - continue with gabapentin 9. Obesity - morbid - nutrition consult 10. Prostate CA - monitor at this time 11. Essential hypertension - bp stable - continue with home medications - ACEI hold, coreg continue 13. Megaloblastic anemia - b12/folate normal 14. GI ppx - pepcid 15. DVT ppx - SCD's for now 14. n/v -seen by GI, smpts resolved now, refusing EGD now. - continue zofran prn, Tigan prn. 15. Dispo: to SNF in 24 hrs if KUB nL. Problems: Subjective 24 Hr Interval Summary Free Text/Dictation Pt has some complaints of indigestion. Less SOB. Exam/Review of Systems Vital Signs Vitals Vital Signs Date Time Temp Pulse Resp B/P Pulse Ox O2 Delivery O2 Flow Rate FiO2 04/08/16 11:57 98.0 90 17 111/61 93 04/08/16 08:37 Nasal Cannula 3.0 04/06/16 04:41 21 Intake and Output 04/07/16 04/07/16 04/08/16 14:59 22:59 06:59 Intake Total 900 ml 300 ml Output Total 300 ml 250 ml 250 ml Balance -300 ml 650 ml 50 ml Exam Gen Robinson: NAD, AAOx4 HEENT: NC/AT, PERRLA, EOMI NECK: supple, no thyromegaly THORAX: symmetrical, no obvious deformities CV: S1S2, RRR, III/ systolic murmur best heard at aortic area radiating bilaterally to carotids Lungs: less rhonchi, less end expiratory wheezing B/L Abd: soft, NT/ND, +BS, no rebound, no guarding, neg HSM EXT: trace bilaterally lower extremity edema, no ecchymosis, no clubbing, FROM, PVD noted, with ferritin deposits Neuro: CN II-XII grossly intact, decreased proprioception lower extremities bilaterally Psych: good mentation, alert and oriented, good mood and affect Skin: venous stasis changes noted bilaterally lower extremities, wounds on bilateral feet. Results Result Diagram: 04/08/1671204/08/16712 Results 24 hrs Laboratory Tests Test 04/08/16 07:13 Alanine Aminotransferase (ALT/SGPT) 43 Albumin 3.1 L Albumin/Globulin Ratio 0.83 Alkaline Phosphatase 67 Anion Gap 13 Aspartate Amino Transf (AST/SGOT) 30 Basophils # 0.0 Basophils % 0.2 Blood Morphology Comment Blood Urea Nitrogen 31 H Calcium Level 8.5 Carbon Dioxide Level 31 Chloride Level 97 Creatinine 1.22 Digoxin Level 0.8 L Direct Bilirubin 0.00 Eosinophils # 0.0 Eosinophils % 0.3 Globulin 3.70 H Glucose Level 134 Hematocrit 45.6 Hemoglobin 15.2 INR International Normalized Ratio 2.24 Indirect Bilirubin 0.7 Lymphocytes # 0.6 L Lymphocytes % 3.3 L Magnesium Level 2.8 H Mean Corpuscular Hemoglobin 35.1 H Mean Corpuscular Hemoglobin Concent 33.3 Mean Corpuscular Volume 105.6 H Mean Platelet Volume 8.6 Monocytes # 1.5 H Monocytes % 8.2 Neutrophils # 15.7 H Neutrophils % 88.0 H Nucleated Red Blood Cells # 0.0 Nucleated Red Blood Cells % 0.0 Platelet Count 212 # Potassium Level 3.4 L Prothrombin Time 25.0 H Prothrombin Time Ratio 2.0 Red Blood Count 4.32 L Red Cell Distribution Width 15.9 H Sodium Level 138 Total Bilirubin 0.7 Total Protein 6.8 White Blood Count 17.8 H Medications Medications Current Medications Lorazepam (Ativan) 0.5 mg Q6H PRN IV ANXIETY; Start 04/02/16 at 08:30 Nitroglycerin (Nitroglycerin (Sl Tab) 0.4 Mg) 1 tab Q5M PRN SL CHEST PAIN; Start 04/02/16 at 08:30 Acetaminophen (Tylenol Tab) 650 mg Q6H PRN PO PAIN LEVEL 1-3 OR FEVER; Start at 08:30 Morphine Sulfate (morphine) 2 mg Q4H PRN IV PAIN LEVEL 7-10 Last administered on 04/05/16 00:32; Admin Dose 2 MG; Start 04/02/16 at 08:30 Docusate Sodium (Colace) 100 mg Q12H PRN PO CONSTIPATION Last administered on 13:48; Admin Dose 100 MG; Start 04/02/16 at 08:30 Allopurinol (Zyloprim) 300 mg DAILY PO Last administered on 04/04/16 10:04; Admin Dose 300 MG; Start 04/02/16 at 09:00; Status Future Hold Ascorbic Acid (Vitamin C) 1,000 mg DAILY PO Last administered on 04/08/16 09: 23; Admin Dose 1,000 MG; Start 04/02/16 at 09:00 Cyanocobalamin (Vitamin B12) 500 mcg DAILY PO Last administered on 04/08/16 09 :23; Admin Dose 500 MCG; Start 04/02/16 at 09:00 Digoxin (Digoxin) 0.125 mg DAILY@13 PO Last administered on 04/07/16 12:58; Admin Dose 0.125 MG; Start 04/02/16 at 13:00 Tamsulosin HCl (Flomax) 0.4 mg HS PO Last administered on 04/07/16 22:51; Admin Dose 0.4 MG; Start 04/02/16 at 21:00 Tiotropium [place] (Spiriva) 1 inh DAILY INH Last administered on 04/08/16 09: 23; Admin Dose 1 INH; Start 04/02/16 at 09:00 Vitamin E (Vitamin E) 400 units DAILY PO Last administered on 04/08/16 09:23; Admin Dose 400 UNITS; Start 04/02/16 at 09:00 Calcium/Vitamin D (Oyster Shell/ Vit-D (500/200)) 1 tab DAILY PO Last administered on 04/08/16 09:40; Admin Dose 1 TAB; Start 04/02/16 at 11:30 Guaifenesin/ Dextromethorphan (Mucinex Dm) 1 tab BID PO Last administered on 09:22; Admin Dose 1 TAB; Start 04/02/16 at 12:30 Eye Lubricant 1 drop 1 drop QID BOTH EYES Last administered on 04/07/16 21:00 ; Admin Dose 1 DROP; Start 04/03/16 at 17:00 Levofloxacin/ Dextrose (Levaquin 750 Mg/ D5W 150 ml (Pmx)) 150 ml @ 100 mls/hr Q24H IVPB Last administered on 04/08/16 10:37; Admin Dose 100 MLS/HR; Start at 10:30 Diltiazem HCl (Cardizem) 30 mg TID PO Last administered on 04/08/16 09:32; Admin Dose 30 MG; Start 04/04/16 at 21:00 Ondansetron HCl (Zofran Inj) 4 mg Q4H PRN IV NAUSEA AND/OR VOMITING Last administered on 04/05/16 12:47; Admin Dose 4 MG; Start 04/05/16 at 13:00 Trimethobenzamide HCl (Tigan) 200 mg Q6H PRN IM NAUSEA AND/OR VOMITING; Start 04/05/16 at 14:00 Magnesium Hydroxide (Milk Of Mag) 30 ml BID PO Last administered on 04/07/16 22:51; Admin Dose 30 ML; Start 04/05/16 at 14:00 Fenofibrate (Tricor) 48 mg DAILY PO Last administered on 04/08/16 09:31; Admin Dose 48 MG; Start 04/06/16 at 09:00 Warfarin Sodium (Coumadin) 4 mg DAILY@17 PO ; Start 04/05/16 at 17:00; Status Future Hold Sodium Chloride (Deep Sea) 1 spray Q4H PRN NASAL NASAL CONGESTION Last administered on 04/05/16 20:45; Admin Dose 1 SPRAY; Start 04/05/16 at 18:00 Pantoprazole (Protonix Tab) 40 mg BID@,18 PO Last administered on 04/08/16 06:41; Admin Dose 40 MG; Start 04/06/16 at 18:00 Prednisone (Prednisone) 40 mg DAILY PO Last administered on 04/08/16 09:33; Admin Dose 40 MG; Start 04/08/16 at 09:00 Potassium Chloride (Potassium Chloride Pwd/Soln) 20 meq BID PO Last administered on 04/08/16 09:31; Admin Dose 20 MEQ; Start 04/07/16 at 21:00 Warfarin Sodium (Coumadin) 5 mg DAILY@17 PO ; Start 04/08/16 at 17:00; Status CHINMAY MARTINEZ Apr 08, 2016 12:20
[2016-04-08] MEDS: DIGOXIN 0.125 MG TAB PO SCH (13:00)
[2016-04-08] MEDS: WARFARIN 5 MG TAB PO SCH (18:12)
--- NOTE | 2016-04-08 20:00 | RADRPT ---
PROCEDURE: XR Abdomen. CLINICAL INDICATION: Rule out impaction TECHNIQUE: Two views of the abdomen are available for review. COMPARISON: None. FINDINGS: There is moderate to marked gastric distension with air. No significant of stool is seen. No air dilated bowel loops are seen. Intramedullary elizabeth and screw in the visualized upper left femur. Concepcion vation of left hemidiaphragm with left lower lung volume loss and possible infiltrate. Likely right basilar atelectasis. Degenerative changes in thoracolumbar spine. Arterial calcification left upp er and mid abdomen. Calcification in abdominal aorta. IMPRESSION: Moderate to marked gastric distension with air. Please see above. RPTAT: HJES .Arias Galvan MD, MD Date Time Electronically viewed and signed by .Arias Galvan MD, on 04/08/2016 20:00 .S/
[2016-04-08] MEDS: TAMSULOSIN (SR) 0.4 MG CAP PO SCH (20:50)
[2016-04-09] VITALS (12 sets, daily range): BP systolic 95–117; BP diastolic 58–86; PULSE 88–102; RESP 16–19
[2016-04-09] MEDS: ALBUTEROL/IPRATROPIUM (NEB) 3 ML AMP HHN SCH ×6 (00:47→20:15)
[2016-04-09] MEDS: PANTOPRAZOLE (EC) 40 MG TAB PO SCH ×2 (05:34→18:24)
[2016-04-09 07:11] LABS: BASOPHILS % 0.3 % (0.0-2.0); EOSINOPHILS # 0.1 10^3/ul (0.0-0.5); EOSINOPHILS % 0.3 % (0.0-7.0); HEMATOCRIT 47.1 % (42.0-52.0); HEMOGLOBIN 15.8 g/dl (14.0-18.0); LYMPHOCYTES # 0.8 10^3/ul (0.8-2.9); LYMPHOCYTES % 4.1 % (15.0-51.0); MEAN CORPUSCULAR HEMOGLOBIN 35.1 pg (29.0-33.0); MEAN CORPUSCULAR HGB CONC 33.5 g/dl (32.0-37.0); MEAN PLATELET VOLUME 8.8 fl (7.4-10.4); MONOCYTE # 2.3 10^3/ul (0.3-0.9); MONOCYTES % 12.1 % (0.0-11.0); NEUTROPHIL # 15.7 10^3/ul (1.6-7.5); NEUTROPHILS % 83.2 % (39.0-77.0); PLATELET COUNT 231 10^3/UL (140-440); RED BLOOD COUNT 4.49 10^6/ul (4.70-6.10); RED CELL DISTRIBUTION WIDTH 15.9 % (11.5-14.5); UNCORRECTED WBC 18.9 10^3/ul (4.8-10.8); WHITE BLOOD COUNT 18.9 10^3/ul (4.8-10.8)
[2016-04-09 07:14] LABS: CONDITION 1; LH ANALYZER COMMENTS 1
[2016-04-09 07:25] LABS: INR 2.05; PARTIAL THROMBOPLASTIN TIME 31.1 Sec (25.0-35.0); PROTIME 23.3 Sec (12.2-14.2); PT RATIO 1.8
[2016-04-09 07:30] LABS: POTASSIUM 3.2 mmol/L (3.5-5.1)
[2016-04-09 07:33] LABS: CREATININE 1.09 mg/dl (0.61-1.24)
[2016-04-09 07:34] LABS: CALCIUM 8.9 mg/dl (8.4-10.2); MAGNESIUM 2.6 mg/dl (1.7-2.5); PHOSPHORUS 2.3 mg/dl (2.5-4.9)
[2016-04-09] MEDS: FENOFIBRATE 48 MG TAB PO SCH (09:00)
[2016-04-09] MEDS: CYANOCOBALAMIN 500 MCG TAB PO SCH (09:00)
[2016-04-09] MEDS: ASCORBIC ACID 500 MG TAB PO SCH (09:00)
[2016-04-09] MEDS: DILTIAZEM 30 MG TAB PO SCH ×3 (09:00→22:38)
[2016-04-09] MEDS: MAGNESIUM HYDROXIDE 30ML CUP PO SCH ×2 (09:00→22:36)
[2016-04-09] MEDS: TIOTROPIUM 18 MCG CAPSULE INHA DEV INH SCH (09:00)
[2016-04-09] MEDS: VITAMIN E 400 UNITS CAP PO SCH (09:00)
[2016-04-09] MEDS: CALCIUM/VITAMIN D (500/200) TAB PO SCH (09:00)
[2016-04-09] MEDS: predniSONE 20 MG TAB PO SCH (09:00)
[2016-04-09] MEDS: CARBOXYMETHYLCELLULOSE 0.5% 0.1 ML OPH BOTH EYES SCH ×4 (09:00→22:36)
[2016-04-09] MEDS: GUAIFENESIN/DM (SR) TAB PO SCH ×2 (09:00→21:00)
[2016-04-09] MEDS: POTASSIUM CHLORIDE 20 MEQ POWDER FOR ORAL SOLN PO SCH ×2 (09:00→22:37)
--- NOTE | 2016-04-09 09:57 | PN ---
DATE: 04/08/2016 CARDIOLOGY FOLLOWUP SUBJECTIVE: Discussed with the patient's daughter, discussed with Dr. Omalley. Discussed with the sta ff. Rhythm strip was reviewed. The patient remains in atrial fibrillation, heart rate under good c ontrol. shortness of breath. No chest pain or pressure. No palpitation. He complains of abd ominal pain his reflux. MEDICATIONS: Reviewed, which include: 1. Prednisone. 2. Coumadin. 3. Potassium. 4. Protonix. 5. Tricor. 6. . 7. Milk of magnesia. 8. Zofran p.r.n. 9. Cardizem, refused. 10. Digoxin which patient refused again. PHYSICAL EXAMINATION: VITAL SIGNS: Temperature 98, heart rate of 79, blood pressure , respiration rate of 18, satura ting 92%. HEENT: Normocephalic, atraumatic. Pupils are equal. CARDIOVASCULAR: Irregularly irregular. Systolic ejection murmur. PULMONARY: With crackles at the base. GASTROINTESTINAL: Soft, nontender. EXTREMITIES: Positive edema. NEUROLOGIC: Awake and alert. PSYCHIATRIC: Anxious. . LABORATORY: WBC of 17.8, hemoglobin of 15.2, platelets of 220. Digoxin level is 0.8. Sodium 138, potassium 3.4, BUN of 31, creatinine 1.22, glucose 134. Albumin is 3.1. INR is 2.24. Chest x-ray shows no significant change. Bilateral atelectasis. There is mild pulmonary vascular congestion. I 's and O's is in and 800 out. ASSESSMENT AND PLAN: 1. Congestive heart failure. 2. Aortic stenosis. 3. Severe chronic obstructive pulmonary disease. 4. Pneumonia. 5. Thrombocytopenia. 6. Peripheral vascular disease. 7. History of prostate carcinoma. 8. Hypertension. 9. Abdominal discomfort. 10. Anemia. RECOMMENDATIONS: We will continue with the current cardiac care. The patient is over the pas t days. I will decrease the digoxin to every other day now that his heart rate has remained s table. Dictated By: UZIEL STOKES MD AV/GAUTAM Conf#: [id number] DID#: [id number] CC: CHINMAY OMALLEY;*[facility]*
[2016-04-09] MEDS: LEVOFLOXACIN 750MG/D5W (PMX) 150 ML IVPB SCH (10:30)
--- NOTE | 2016-04-09 13:42 | PN ---
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 1. Shortness of breath 2/2 to COPD exacerbation with possible CHF exac - slowly improving, although slightly increased today. CT chest showed: Patchy bibasilar infiltrates with posterior predominance - r/o PNA - continue PO steroids (taper down), Duoneb's Q4 hrs ATC for now - continue IV abx (Levaquin), f/u CV and pulm consult rec's - PT consult, goal O2 sats = 88-92% 2. CHF exacerbation - acute on chronic systolic + diastolic dysfunction , EF 45% , severe - appreciate cardiology consult. - per CV, continue Digoxin, Cardizem PO meds for now. 3. Acute renal failure - renally adjust medications, avoid nephrotoxins, most likely AIN from dehydration - improved 4. Chronic Afib - on coumadin - INR today = 2.05 - continue Coumadin 5 mg today - f/u daily INR 5. Thrombocytopenia - still present, but slightly trending up the last 72 hrs ( plt = 51 -> 68 -> 88 -> 130 -> 200 -> 212) - no present bleeding. - monitor plt level daily 6. Severe - seen on ECHO - for possible outpatient TAVR, f/u CV rec's. 7. PVD - wound care - podiatry if worsening 8. Peripheral neuropathy - continue with gabapentin 9. Obesity - morbid - nutrition consult 10. Prostate CA - monitor at this time 11. Essential hypertension - bp stable - continue with home medications - ACEI hold, coreg continue 13. Megaloblastic anemia - b12/folate normal 14. GI ppx - pepcid 15. DVT ppx - SCD's for now 14. n/v -seen by GI, smpts resolved now, refusing EGD now. - continue zofran prn, Tigan prn. 15. Dispo: to SNF in 24 hrs if no arrythmias and SOb improved Problems: Subjective 24 Hr Interval Summary Free Text/Dictation Pt has less SOB and nausea. Exam/Review of Systems Vital Signs Vitals Vital Signs Date Time Temp Pulse Resp B/P Pulse Ox O2 Delivery O2 Flow Rate FiO2 04/09/16 12:49 101 18 95 Nasal Cannula 3.0 04/09/16 11:56 97.5 95/60 04/06/16 04:41 21 Intake and Output 04/08/16 04/08/16 04/09/16 15:00 23:00 07:00 Intake Total 420 ml 300 ml Output Total 450 ml 1200 ml Balance -30 ml -900 ml Exam Gen Robinson: NAD, AAOx4 HEENT: NC/AT, PERRLA, EOMI NECK: supple, no thyromegaly THORAX: symmetrical, no obvious deformities CV: S1S2, RRR, III/ systolic murmur best heard at aortic area radiating bilaterally to carotids Lungs: less rhonchi, less end expiratory wheezing B/L Abd: soft, NT/ND, +BS, no rebound, no guarding, neg HSM EXT: trace bilaterally lower extremity edema, no ecchymosis, no clubbing, FROM, PVD noted, with ferritin deposits Neuro: CN II-XII grossly intact, decreased proprioception lower extremities bilaterally Psych: good mentation, alert and oriented, good mood and affect Skin: venous stasis changes noted bilaterally lower extremities, wounds on bilateral feet. Results Result Diagram: 04/09/1644 04/09/16 0544 Results 24 hrs Laboratory Tests Test 04/09/16 05:44 Activated Partial Thromboplast Time 31.1 Anion Gap 14 Basophils # 0.0 Basophils % 0.3 Blood Morphology Comment Blood Urea Nitrogen 29 H Calcium Level 8.9 Carbon Dioxide Level 28 Chloride Level 101 Creatinine 1.09 Eosinophils # 0.1 Eosinophils % 0.3 Glucose Level 130 Hematocrit 47.1 Hemoglobin 15.8 INR International Normalized Ratio 2.05 Lymphocytes # 0.8 Lymphocytes % 4.1 L Magnesium Level 2.6 H Mean Corpuscular Hemoglobin 35.1 H Mean Corpuscular Hemoglobin Concent 33.5 Mean Corpuscular Volume 105.0 H Mean Platelet Volume 8.8 Monocytes # 2.3 H Monocytes % 12.1 H Neutrophils # 15.7 H Neutrophils % 83.2 H Nucleated Red Blood Cells # 0.0 Nucleated Red Blood Cells % 0.0 Phosphorus Level 2.3 L Platelet Count 231 Potassium Level 3.2 L Prothrombin Time 23.3 H Prothrombin Time Ratio 1.8 Red Blood Count 4.49 L Red Cell Distribution Width 15.9 H Sodium Level 140 White Blood Count 18.9 H Medications Medications Current Medications Lorazepam (Ativan) 0.5 mg Q6H PRN IV ANXIETY; Start 04/02/16 at 08:30 Nitroglycerin (Nitroglycerin (Sl Tab) 0.4 Mg) 1 tab Q5M PRN SL CHEST PAIN; Start 04/02/16 at 08:30 Acetaminophen (Tylenol Tab) 650 mg Q6H PRN PO PAIN LEVEL 1-3 OR FEVER; Start at 08:30 Morphine Sulfate (morphine) 2 mg Q4H PRN IV PAIN LEVEL 7-10 Last administered on 04/05/16 00:32; Admin Dose 2 MG; Start 04/02/16 at 08:30 Docusate Sodium (Colace) 100 mg Q12H PRN PO CONSTIPATION Last administered on 13:48; Admin Dose 100 MG; Start 04/02/16 at 08:30 Allopurinol (Zyloprim) 300 mg DAILY PO Last administered on 04/04/16 10:04; Admin Dose 300 MG; Start 04/02/16 at 09:00; Status Future Hold Ascorbic Acid (Vitamin C) 1,000 mg DAILY PO Last administered on 04/09/16 09: 00; Admin Dose 1,000 MG; Start 04/02/16 at 09:00 Cyanocobalamin (Vitamin B12) 500 mcg DAILY PO Last administered on 04/09/16 09 :00; Admin Dose 500 MCG; Start 04/02/16 at 09:00 Tamsulosin HCl (Flomax) 0.4 mg HS PO Last administered on 04/08/16 20:50; Admin Dose 0.4 MG; Start 04/02/16 at 21:00 Tiotropium [place] (Spiriva) 1 inh DAILY INH Last administered on 04/09/16 09: 00; Admin Dose 1 INH; Start 04/02/16 at 09:00 Vitamin E (Vitamin E) 400 units DAILY PO Last administered on 04/09/16 09:00; Admin Dose 400 UNITS; Start 04/02/16 at 09:00 Calcium/Vitamin D (Oyster Shell/ Vit-D (500/200)) 1 tab DAILY PO Last administered on 04/09/16 09:00; Admin Dose 1 TAB; Start 04/02/16 at 11:30 Guaifenesin/ Dextromethorphan (Mucinex Dm) 1 tab BID PO Last administered on 09:00; Admin Dose 1 TAB; Start 04/02/16 at 12:30 Eye Lubricant 1 drop 1 drop QID BOTH EYES Last administered on 04/09/16 09:00 ; Admin Dose 1 DROP; Start 04/03/16 at 17:00 Levofloxacin/ Dextrose (Levaquin 750 Mg/ D5W 150 ml (Pmx)) 150 ml @ 100 mls/hr Q24H IVPB Last administered on 04/08/16 10:37; Admin Dose 100 MLS/HR; Start at 10:30 Diltiazem HCl (Cardizem) 30 mg TID PO Last administered on 04/08/16 09:32; Admin Dose 30 MG; Start 04/04/16 at 21:00 Ondansetron HCl (Zofran Inj) 4 mg Q4H PRN IV NAUSEA AND/OR VOMITING Last administered on 04/05/16 12:47; Admin Dose 4 MG; Start 04/05/16 at 13:00 Trimethobenzamide HCl (Tigan) 200 mg Q6H PRN IM NAUSEA AND/OR VOMITING; Start 04/05/16 at 14:00 Magnesium Hydroxide (Milk Of Mag) 30 ml BID PO Last administered on 04/09/16 09:00; Admin Dose 30 ML; Start 04/05/16 at 14:00 Fenofibrate (Tricor) 48 mg DAILY PO Last administered on 04/09/16 09:00; Admin Dose 48 MG; Start 04/06/16 at 09:00 Sodium Chloride (Deep Sea) 1 spray Q4H PRN NASAL NASAL CONGESTION Last administered on 04/05/16 20:45; Admin Dose 1 SPRAY; Start 04/05/16 at 18:00 Pantoprazole (Protonix Tab) 40 mg BID@06,18 PO Last administered on 04/09/16 05:34; Admin Dose 40 MG; Start 04/06/16 at 18:00 Potassium Chloride (Potassium Chloride Pwd/Soln) 20 meq BID PO Last administered on 04/09/16 09:00; Admin Dose 20 MEQ; Start 04/07/16 at 21:00 Warfarin Sodium (Coumadin) 5 mg DAILY@17 PO Last administered on 04/08/16 18: 12; Admin Dose 5 MG; Start 04/08/16 at 17:00 Prednisone (Prednisone) 20 mg DAILY PO Last administered on 04/09/16 09:00; Admin Dose 20 MG; Start 04/09/16 at 09:00 Digoxin 0.125 mg 0.125 mg Q2D PO ; Start 04/09/16 at 13:00 Potassium Phosphate/Sodium Chloride (K Phos (Meq)/NS) 254.5455 ml @ 63.636 m... ONCE ONCE IVPB ; Start 04/09/16 at 14:00; Stop 04/09/16 at 17:59 CHINMAY OMALLEY Apr 09, 2016 13:42
[2016-04-09] MEDS ORDERED: FUROSEMIDE 20 MG INJ IV ONE (14:00)
[2016-04-09] MEDS ORDERED: POTASSIUM PHOSPHATE 20 MEQ in SOD CHLORIDE 0.9% 250 ML IVPB ONE (14:00)
[2016-04-09] MEDS: DIGOXIN 0.125 MG TAB PO SCH (15:15)
[2016-04-09] MEDS: WARFARIN 5 MG TAB PO SCH (17:00)
--- NOTE | 2016-04-09 17:30 | PN ---
DATE: 04/09/2016 CARDIOLOGY FOLLOWUP SUBJECTIVE: Discussed with the staff. Rhythm strip was reviewed. The patient remains in atrial fi brillation. Heart rate overall has been stable. He had a run of nonsustained VT; apparently, he di d not feel it. Denies any palpitations to me. His breathing has remained stable. MEDICATIONS: Reviewed, include: 1. Digoxin 0.125 every other day. 2. Prednisone. 3. Coumadin. 4. Potassium 20 b.i.d. 5. Zofran. 6. Cardizem 30 t.i.d. PHYSICAL EXAMINATION: VITAL SIGNS: Temperature 97.5, heart rate of 100, blood pressure 96/60, respiration rate of 18, sat urating 95%. HEENT: Normocephalic, atraumatic. Pupils equal, round. CARDIOVASCULAR: Irregularly irregular. Systolic ejection murmur. PULMONARY: With minimal rhonchi at the base, no wheezes. GASTROINTESTINAL: Soft, nontender. EXTREMITIES: Positive edema lower extremity. NEUROLOGIC: Awake, responds appropriately. PSYCHIATRIC: Appears to be calm. LABORATORY: WBC of 18.9, hemoglobin 15.8, platelets of 231. Sodium 140, potassium 3.2, BUN of 29, creatinine 1.09, glucose 130. Mag is 2.6. INR is 2.05. I's and O's shows 720 in and ____ out. ASSESSMENT AND PLAN: 1. Chronic obstructive pulmonary disease exacerbation. 2. Congestive heart failure secondary to diastolic dysfunction and aortic stenosis. 3. Aortic stenosis, appeared to be severe. 4. Renal failure. 5. Atrial fibrillation, chronic. 6. Thrombocytopenia. 7. Peripheral vascular disease. 8. Nonsustained ventricular tachycardia. RECOMMENDATIONS: We will continue with the current cardiac care. Coumadin will be continued and ad justed as needed. Heart rate currently stable on the current regimen. Dictated By: UZIEL MAGALLANES/GAUTAM Conf#: [id number] DID#: [id number] CC: CHINMAY OMALLEY;*[facility]*
--- NOTE | 2016-04-09 19:10 | CONS ---
Date/Time of Note Date/Time of Note DATE: 04/09/16 TIME: 19:09 Consult Date/Type/Reason Admit Date/Time Apr 03, 2016 at 18:49 Initial Consult Date Type of Consultation: Pulmonary Subjective No events. Objective Vital Signs Date Time Temp Pulse Resp B/P Pulse Ox O2 Delivery O2 Flow Rate FiO2 04/09/16 16:52 100 20 96 Nasal Cannula 3.0 04/09/16 16:22 98.4 104/58 04/06/16 04:41 21 Intake and Output 04/08/16 04/08/16 04/09/16 15:00 23:00 07:00 Intake Total 420 ml 300 ml Output Total 450 ml 1200 ml Balance -30 ml -900 ml HEENT: Normocephalic, atraumatic. NECK: Jugular venous pressures are mildly elevated. CARDIOVASCULAR: Irregularly irregular. S1, S2. A II/ systolic murmur. No rubs. CHEST: Some coarse wheezing bilaterally. ABDOMEN: Obese, nontender. EXTREMITIES: No cyanosis, clubbing, or edema. Results/Medications Result Diagram: 04/09/16 0544 04/09/16 0544 Results 24 hrs Laboratory Tests Test 04/09/16 05:44 Activated Partial Thromboplast Time 31.1 Anion Gap 14 Basophils # 0.0 Basophils % 0.3 Blood Morphology Comment Blood Urea Nitrogen 29 H Calcium Level 8.9 Carbon Dioxide Level 28 Chloride Level 101 Creatinine 1.09 Eosinophils # 0.1 Eosinophils % 0.3 Glucose Level 130 Hematocrit 47.1 Hemoglobin 15.8 INR International Normalized Ratio 2.05 Lymphocytes # 0.8 Lymphocytes % 4.1 L Magnesium Level 2.6 H Mean Corpuscular Hemoglobin 35.1 H Mean Corpuscular Hemoglobin Concent 33.5 Mean Corpuscular Volume 105.0 H Mean Platelet Volume 8.8 Monocytes # 2.3 H Monocytes % 12.1 H Neutrophils # 15.7 H Neutrophils % 83.2 H Nucleated Red Blood Cells # 0.0 Nucleated Red Blood Cells % 0.0 Phosphorus Level 2.3 L Platelet Count 231 Potassium Level 3.2 L Prothrombin Time 23.3 H Prothrombin Time Ratio 1.8 Red Blood Count 4.49 L Red Cell Distribution Width 15.9 H Sodium Level 140 White Blood Count 18.9 H Medications Current Medications Lorazepam (Ativan) 0.5 mg Q6H PRN IV ANXIETY; Start 04/02/16 at 08:30 Nitroglycerin (Nitroglycerin (Sl Tab) 0.4 Mg) 1 tab Q5M PRN SL CHEST PAIN; Start 04/02/16 at 08:30 Acetaminophen (Tylenol Tab) 650 mg Q6H PRN PO PAIN LEVEL 1-3 OR FEVER; Start at 08:30 Morphine Sulfate (morphine) 2 mg Q4H PRN IV PAIN LEVEL 7-10 Last administered on 04/05/16 00:32; Admin Dose 2 MG; Start 04/02/16 at 08:30 Docusate Sodium (Colace) 100 mg Q12H PRN PO CONSTIPATION Last administered on 13:48; Admin Dose 100 MG; Start 04/02/16 at 08:30 Allopurinol (Zyloprim) 300 mg DAILY PO Last administered on 04/04/16 10:04; Admin Dose 300 MG; Start 04/02/16 at 09:00; Status Future Hold Ascorbic Acid (Vitamin C) 1,000 mg DAILY PO Last administered on 04/09/16 09: 00; Admin Dose 1,000 MG; Start 04/02/16 at 09:00 Cyanocobalamin (Vitamin B12) 500 mcg DAILY PO Last administered on 04/09/16 09 :00; Admin Dose 500 MCG; Start 04/02/16 at 09:00 Tamsulosin HCl (Flomax) 0.4 mg HS PO Last administered on 04/08/16 20:50; Admin Dose 0.4 MG; Start 04/02/16 at 21:00 Tiotropium [place] (Spiriva) 1 inh DAILY INH Last administered on 04/09/16 09: 00; Admin Dose 1 INH; Start 04/02/16 at 09:00 Vitamin E (Vitamin E) 400 units DAILY PO Last administered on 04/09/16 09:00; Admin Dose 400 UNITS; Start 04/02/16 at 09:00 Calcium/Vitamin D (Oyster Shell/ Vit-D (500/200)) 1 tab DAILY PO Last administered on 04/09/16 09:00; Admin Dose 1 TAB; Start 04/02/16 at 11:30 Guaifenesin/ Dextromethorphan (Mucinex Dm) 1 tab BID PO Last administered on 09:00; Admin Dose 1 TAB; Start 04/02/16 at 12:30 Eye Lubricant 1 drop 1 drop QID BOTH EYES Last administered on 04/09/16 17:00 ; Admin Dose 1 DROP; Start 04/03/16 at 17:00 Levofloxacin/ Dextrose (Levaquin 750 Mg/ D5W 150 ml (Pmx)) 150 ml @ 100 mls/hr Q24H IVPB Last administered on 04/09/16 10:30; Admin Dose 100 MLS/HR; Start at 10:30 Diltiazem HCl (Cardizem) 30 mg TID PO Last administered on 04/09/16 15:16; Admin Dose 30 MG; Start 04/04/16 at 21:00 Ondansetron HCl (Zofran Inj) 4 mg Q4H PRN IV NAUSEA AND/OR VOMITING Last administered on 04/05/16 12:47; Admin Dose 4 MG; Start 04/05/16 at 13:00 Trimethobenzamide HCl (Tigan) 200 mg Q6H PRN IM NAUSEA AND/OR VOMITING; Start 04/05/16 at 14:00 Magnesium Hydroxide (Milk Of Mag) 30 ml BID PO Last administered on 04/09/16 09:00; Admin Dose 30 ML; Start 04/05/16 at 14:00 Fenofibrate (Tricor) 48 mg DAILY PO Last administered on 04/09/16 09:00; Admin Dose 48 MG; Start 04/06/16 at 09:00 Sodium Chloride (Deep Sea) 1 spray Q4H PRN NASAL NASAL CONGESTION Last administered on 04/05/16 20:45; Admin Dose 1 SPRAY; Start 04/05/16 at 18:00 Pantoprazole (Protonix Tab) 40 mg BID@06,18 PO Last administered on 04/09/16 18:24; Admin Dose 40 MG; Start 04/06/16 at 18:00 Potassium Chloride (Potassium Chloride Pwd/Soln) 20 meq BID PO Last administered on 04/09/16 09:00; Admin Dose 20 MEQ; Start 04/07/16 at 21:00 Warfarin Sodium (Coumadin) 5 mg DAILY@17 PO Last administered on 04/09/16 17: 00; Admin Dose 5 MG; Start 04/08/16 at 17:00 Prednisone (Prednisone) 20 mg DAILY PO Last administered on 04/09/16 09:00; Admin Dose 20 MG; Start 04/09/16 at 09:00 Digoxin (Digoxin) 0.125 mg Q2D PO Last administered on 04/09/16 15:15; Admin Dose 0.125 MG; Start 04/09/16 at 13:00 Assessment/Plan Additional Assessment/Plan IMPRESSION: 1. Chronic obstructive pulmonary disease exacerbation. 2. 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 3. Atrial fibrillation. 4. Thrombocytopenia. 5. Macrocytosis. RECOMMENDATIONS: 1. Continue bronchodilators. 2. CS taper 3. Continue gentle diuresis 4. PT/OT RAINER GRANT MD Apr 09, 2016 19:10
[2016-04-09] MEDS: TAMSULOSIN (SR) 0.4 MG CAP PO SCH (22:36)
[2016-04-10] VITALS (12 sets, daily range): BP systolic 94–114; BP diastolic 53–67; PULSE 75–100; RESP 17–19
[2016-04-10] MEDS: ALBUTEROL/IPRATROPIUM (NEB) 3 ML AMP HHN SCH ×6 (00:44→22:26)
[2016-04-10] MEDS: PANTOPRAZOLE (EC) 40 MG TAB PO SCH ×2 (05:30→17:31)
[2016-04-10] MEDS: MAGNESIUM HYDROXIDE 30ML CUP PO SCH ×2 (09:00→21:13)
[2016-04-10] MEDS: predniSONE 20 MG TAB PO SCH (09:24)
[2016-04-10] MEDS: ASCORBIC ACID 500 MG TAB PO SCH (09:24)
[2016-04-10] MEDS: TIOTROPIUM 18 MCG CAPSULE INHA DEV INH SCH (09:24)
[2016-04-10] MEDS: POTASSIUM CHLORIDE 20 MEQ POWDER FOR ORAL SOLN PO SCH ×2 (09:24→21:13)
[2016-04-10] MEDS: GUAIFENESIN/DM (SR) TAB PO SCH ×2 (09:25→21:12)
[2016-04-10] MEDS: FENOFIBRATE 48 MG TAB PO SCH (09:25)
[2016-04-10] MEDS: CARBOXYMETHYLCELLULOSE 0.5% 0.1 ML OPH BOTH EYES SCH ×4 (09:25→21:13)
[2016-04-10] MEDS: CALCIUM/VITAMIN D (500/200) TAB PO SCH (09:25)
[2016-04-10] MEDS: DILTIAZEM 30 MG TAB PO SCH ×3 (09:25→21:13)
[2016-04-10] MEDS: CYANOCOBALAMIN 500 MCG TAB PO SCH (09:26)
[2016-04-10] MEDS: DOCUSATE SODIUM 100 MG CAP PO PRN (09:30)
[2016-04-10] MEDS: LEVOFLOXACIN 750MG/D5W (PMX) 150 ML IVPB SCH (09:30)
[2016-04-10] MEDS: VITAMIN E 400 UNITS CAP PO SCH (09:42)
--- NOTE | 2016-04-10 10:27 | RADRPT ---
PROCEDURE: XR Chest AP portable CLINICAL INDICATION: Short of breath, CHF TECHNIQUE: An AP portable radiograph of the chest was submitted. COMPARISON: 04/08/2016 FINDINGS: Support Hardware: None Cardiovascular: The heart remains mildly enlarged and aorta appears atherosclerotic while the pirifo rm plantar vasculature is upper normal. Lung George: Subsegmental atelectasis is again seen at both lung bases. Pleural Spaces: The left costophrenic angle is blunted suspicious for a small left pleural fluid acc umulation. Osseous Structures: The osseous structures appear intact. Soft Tissues: The soft tissues appear generous. IMPRESSION: 1. Mild cardiomegaly with atherosclerotic changes to the aorta but the pulmonary vasculature upper normal. 2. Subsegmental atelectasis is again seen at both lung bases with suspicion of a small left pleural fluid accumulation. Physician Esmer Date Time Electronically viewed and signed by Edouard Huston Physician on 04/10/2016 10:27 /
--- NOTE | 2016-04-10 14:30 | PN ---
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 1. Shortness of breath 2/2 to COPD exacerbation with possible CHF exac - slowly improving,. CT chest earlier this admission showed: Patchy bibasilar infiltrates with posterior predominance - r/o PNA - continue PO steroids (taper down), Duoneb's Q4 hrs ATC for now - continue IV abx (Levaquin), f/u CV and pulm consult rec's - PT consult, goal O2 sats = 88-92% 2. CHF exacerbation - acute on chronic systolic + diastolic dysfunction , EF 45% , severe - appreciate cardiology consult. - per CV, continue Digoxin, Cardizem PO meds for now. 3. Acute renal failure - renally adjust medications, avoid nephrotoxins, most likely AIN from dehydration - improved 4. Chronic Afib - on coumadin - INR yesterday = 2.05, today's is pending - continue Coumadin 5 mg - f/u daily INR today 5. Thrombocytopenia - trending up the last 96 hrs (plt = 51 -> 68 -> 88 -> 130 - > 200 -> 212) - no present bleeding. - monitor plt level daily 6. Severe - seen on ECHO - for possible outpatient TAVR, f/u CV rec's. 7. PVD - wound care - podiatry if worsening 8. Peripheral neuropathy - continue with gabapentin 9. Obesity - morbid - nutrition consult 10. Prostate CA - monitor at this time 11. Essential hypertension - bp stable - continue with home medications - ACEI hold, coreg continue 13. Megaloblastic anemia - b12/folate normal 14. GI ppx - pepcid 15. DVT ppx - SCD's for now 14. n/v - no symptoms presently, pt was seen by GI earlier, refusing EGD now. - continue zofran prn, Tigan prn. 15. Dispo: to SNF in 24 hrs if no arrythmias and SOB improved Problems: Subjective 24 Hr Interval Summary Free Text/Dictation Pt still feels weak overall, but no new SOB or nausea. Pt had a brief episode of afib w/RVR last night, but asymptomatic, resolved. Exam/Review of Systems Vital Signs Vitals Vital Signs Date Time Temp Pulse Resp B/P Pulse Ox O2 Delivery O2 Flow Rate FiO2 04/10/16 12:10 92 04/10/16 11:47 98.3 19 104/60 93 04/10/16 10:00 Nasal Cannula 2.0 Intake and Output 04/09/16 04/09/16 04/10/16 15:00 23:00 07:00 Intake Total 100 ml 800 ml 350 ml Output Total 1800 ml 300 ml Balance 100 ml -1000 ml 50 ml Exam Gen Robinson: NAD, AAOx4 HEENT: NC/AT, PERRLA, EOMI NECK: supple, no thyromegaly THORAX: symmetrical, no obvious deformities CV: S1S2, RRR, III/ systolic murmur best heard at aortic area radiating bilaterally to carotids Lungs: less rhonchi, less end expiratory wheezing B/L Abd: soft, NT/ND, +BS, no rebound, no guarding, neg HSM EXT: trace bilaterally lower extremity edema, no ecchymosis, no clubbing, FROM, PVD noted, with ferritin deposits Neuro: CN II-XII grossly intact, decreased proprioception lower extremities bilaterally Psych: good mentation, alert and oriented, good mood and affect Skin: venous stasis changes noted bilaterally lower extremities, wounds on bilateral feet. Results Result Diagram: 04/09/1644 04/09/1644 Medications Medications Current Medications Lorazepam (Ativan) 0.5 mg Q6H PRN IV ANXIETY; Start 04/02/16 at 08:30 Nitroglycerin (Nitroglycerin (Sl Tab) 0.4 Mg) 1 tab Q5M PRN SL CHEST PAIN; Start 04/02/16 at 08:30 Acetaminophen (Tylenol Tab) 650 mg Q6H PRN PO PAIN LEVEL 1-3 OR FEVER; Start at 08:30 Morphine Sulfate (morphine) 2 mg Q4H PRN IV PAIN LEVEL 7-10 Last administered on 04/05/16 00:32; Admin Dose 2 MG; Start 04/02/16 at 08:30 Docusate Sodium (Colace) 100 mg Q12H PRN PO CONSTIPATION Last administered on 09:30; Admin Dose 100 MG; Start 04/02/16 at 08:30 Allopurinol (Zyloprim) 300 mg DAILY PO Last administered on 04/04/16 10:04; Admin Dose 300 MG; Start 04/02/16 at 09:00; Status Future Hold Ascorbic Acid (Vitamin C) 1,000 mg DAILY PO Last administered on 04/10/16 09: 24; Admin Dose 1,000 MG; Start 04/02/16 at 09:00 Cyanocobalamin (Vitamin B12) 500 mcg DAILY PO Last administered on 04/10/16 09 :26; Admin Dose 500 MCG; Start 04/02/16 at 09:00 Tamsulosin HCl (Flomax) 0.4 mg HS PO Last administered on 04/09/16 22:36; Admin Dose 0.4 MG; Start 04/02/16 at 21:00 Tiotropium [place] (Spiriva) 1 inh DAILY INH Last administered on 04/10/16 09: 24; Admin Dose 1 INH; Start 04/02/16 at 09:00 Vitamin E (Vitamin E) 400 units DAILY PO Last administered on 04/10/16 09:42; Admin Dose 400 UNITS; Start 04/02/16 at 09:00 Calcium/Vitamin D (Oyster Shell/ Vit-D (500/200)) 1 tab DAILY PO Last administered on 04/10/16 09:25; Admin Dose 1 TAB; Start 04/02/16 at 11:30 Guaifenesin/ Dextromethorphan (Mucinex Dm) 1 tab BID PO Last administered on 09:25; Admin Dose 1 TAB; Start 04/02/16 at 12:30 Eye Lubricant 1 drop 1 drop QID BOTH EYES Last administered on 04/10/16 09:25 ; Admin Dose 1 DROP; Start 04/03/16 at 17:00 Levofloxacin/ Dextrose (Levaquin 750 Mg/ D5W 150 ml (Pmx)) 150 ml @ 100 mls/hr Q24H IVPB Last administered on 04/10/16 09:30; Admin Dose 100 MLS/HR; Start at 10:30 Diltiazem HCl (Cardizem) 30 mg TID PO Last administered on 04/10/16 09:25; Admin Dose 30 MG; Start 04/04/16 at 21:00 Ondansetron HCl (Zofran Inj) 4 mg Q4H PRN IV NAUSEA AND/OR VOMITING Last administered on 04/05/16 12:47; Admin Dose 4 MG; Start 04/05/16 at 13:00 Trimethobenzamide HCl (Tigan) 200 mg Q6H PRN IM NAUSEA AND/OR VOMITING; Start 04/05/16 at 14:00 Magnesium Hydroxide (Milk Of Mag) 30 ml BID PO Last administered on 04/09/16 22:36; Admin Dose 30 ML; Start 04/05/16 at 14:00 Fenofibrate (Tricor) 48 mg DAILY PO Last administered on 04/10/16 09:25; Admin Dose 48 MG; Start 04/06/16 at 09:00 Sodium Chloride (Deep Sea) 1 spray Q4H PRN NASAL NASAL CONGESTION Last administered on 04/05/16 20:45; Admin Dose 1 SPRAY; Start 04/05/16 at 18:00 Pantoprazole (Protonix Tab) 40 mg BID@,18 PO Last administered on 04/10/16 05:30; Admin Dose 40 MG; Start 04/06/16 at 18:00 Potassium Chloride (Potassium Chloride Pwd/Soln) 20 meq BID PO Last administered on 04/10/16 09:24; Admin Dose 20 MEQ; Start 04/07/16 at 21:00 Warfarin Sodium (Coumadin) 5 mg DAILY@17 PO Last administered on 04/09/16 17: 00; Admin Dose 5 MG; Start 04/08/16 at 17:00 Digoxin (Digoxin) 0.125 mg Q2D PO Last administered on 04/09/16 15:15; Admin Dose 0.125 MG; Start 04/09/16 at 13:00 Prednisone (Prednisone) 10 mg DAILY PO ; Start 04/11/16 at 09:00; Stop 04/12/16 at 09:05 CHINMAY OMALLEY Apr 10, 2016 14:30
[2016-04-10 14:33] LABS: HEMATOCRIT 45.4 % (42.0-52.0); HEMOGLOBIN 15.2 g/dl (14.0-18.0); MEAN CORPUSCULAR HEMOGLOBIN 35.1 pg (29.0-33.0); MEAN CORPUSCULAR HGB CONC 33.4 g/dl (32.0-37.0); MEAN CORPUSCULAR VOLUME 104.9 fl (82.0-101.0); PLATELET COUNT 225 10^3/UL (140-440); RED BLOOD COUNT 4.32 10^6/ul (4.70-6.10); RED CELL DISTRIBUTION WIDTH 15.7 % (11.5-14.5); UNCORRECTED WBC 17.5 10^3/ul (4.8-10.8); WHITE BLOOD COUNT 17.5 10^3/ul (4.8-10.8)
[2016-04-10 14:39] LABS: CONDITION 1; LH ANALYZER COMMENTS 1; SUSPECT 1
[2016-04-10 14:41] LABS: INR 2.26; PROTIME 25.2 Sec (12.2-14.2)
[2016-04-10 14:43] LABS: POTASSIUM 4.2 mmol/L (3.5-5.1)
[2016-04-10 14:45] LABS: CREATININE 0.93 mg/dl (0.61-1.24)
[2016-04-10 14:46] LABS: CALCIUM 8.6 mg/dl (8.4-10.2)
[2016-04-10] MEDS: WARFARIN 5 MG TAB PO SCH (17:31)
--- NOTE | 2016-04-10 18:03 | CONS ---
Date/Time of Note Date/Time of Note DATE: 04/10/16 TIME: 18:01 Consult Date/Type/Reason Admit Date/Time Apr 03, 2016 at 18:49 Type of Consultation: Pulmonary Subjective Run of afib with RVR overnight. Weak in general. Objective Vital Signs Date Time Temp Pulse Resp B/P Pulse Ox O2 Delivery O2 Flow Rate FiO2 04/10/16 16:11 87 04/10/16 16:00 98.4 17 114/59 93 04/10/16 10:00 Nasal Cannula 2.0 Intake and Output 04/09/16 04/09/16 04/10/16 15:00 23:00 07:00 Intake Total 100 ml 800 ml 350 ml Output Total 1800 ml 300 ml Balance 100 ml -1000 ml 50 ml NECK: Jugular venous pressures are mildly elevated. CARDIOVASCULAR: Irregularly irregular. S1, S2. A II/ systolic murmur. No rubs. CHEST: Some coarse wheezing bilaterally. ABDOMEN: Obese, nontender. EXTREMITIES: No cyanosis, clubbing, or edema. Results/Medications Result Diagram: 04/10/16 1420 04/10/16 1420 Results 24 hrs Laboratory Tests Test 04/10/16 14:20 Anion Gap 11 Basophils # Pending Basophils % Pending Blood Morphology Comment Blood Urea Nitrogen 33 H Calcium Level 8.6 Carbon Dioxide Level 29 Chloride Level 101 Creatinine 0.93 Eosinophils # Pending Eosinophils % Pending Glucose Level 155 Hematocrit 45.4 Hemoglobin 15.2 INR International Normalized Ratio 2.26 Lymphocytes # Pending Lymphocytes % Pending Mean Corpuscular Hemoglobin 35.1 H Mean Corpuscular Hemoglobin Concent 33.4 Mean Corpuscular Volume 104.9 H Mean Platelet Volume 8.0 Monocytes # Pending Monocytes % Pending Neutrophils # Pending Neutrophils % Pending Nucleated Red Blood Cells # Pending Nucleated Red Blood Cells % Pending Platelet Count 225 Potassium Level 4.2 Prothrombin Time 25.2 H Prothrombin Time Ratio 2.0 Red Blood Count 4.32 L Red Cell Distribution Width 15.7 H Sodium Level 137 White Blood Count 17.5 H Medications Current Medications Lorazepam (Ativan) 0.5 mg Q6H PRN IV ANXIETY; Start 04/02/16 at 08:30 Nitroglycerin (Nitroglycerin (Sl Tab) 0.4 Mg) 1 tab Q5M PRN SL CHEST PAIN; Start 04/02/16 at 08:30 Acetaminophen (Tylenol Tab) 650 mg Q6H PRN PO PAIN LEVEL 1-3 OR FEVER; Start at 08:30 Morphine Sulfate (morphine) 2 mg Q4H PRN IV PAIN LEVEL 7-10 Last administered on 04/05/16 00:32; Admin Dose 2 MG; Start 04/02/16 at 08:30 Docusate Sodium (Colace) 100 mg Q12H PRN PO CONSTIPATION Last administered on 09:30; Admin Dose 100 MG; Start 04/02/16 at 08:30 Allopurinol (Zyloprim) 300 mg DAILY PO Last administered on 04/04/16 10:04; Admin Dose 300 MG; Start 04/02/16 at 09:00; Status Future Hold Ascorbic Acid (Vitamin C) 1,000 mg DAILY PO Last administered on 04/10/16 09: 24; Admin Dose 1,000 MG; Start 04/02/16 at 09:00 Cyanocobalamin (Vitamin B12) 500 mcg DAILY PO Last administered on 04/10/16 09 :26; Admin Dose 500 MCG; Start 04/02/16 at 09:00 Tamsulosin HCl (Flomax) 0.4 mg HS PO Last administered on 04/09/16 22:36; Admin Dose 0.4 MG; Start 04/02/16 at 21:00 Tiotropium [place] (Spiriva) 1 inh DAILY INH Last administered on 04/10/16 09: 24; Admin Dose 1 INH; Start 04/02/16 at 09:00 Vitamin E (Vitamin E) 400 units DAILY PO Last administered on 04/10/16 09:42; Admin Dose 400 UNITS; Start 04/02/16 at 09:00 Calcium/Vitamin D (Oyster Shell/ Vit-D (500/200)) 1 tab DAILY PO Last administered on 04/10/16 09:25; Admin Dose 1 TAB; Start 04/02/16 at 11:30 Guaifenesin/ Dextromethorphan (Mucinex Dm) 1 tab BID PO Last administered on 09:25; Admin Dose 1 TAB; Start 04/02/16 at 12:30 Eye Lubricant 1 drop 1 drop QID BOTH EYES Last administered on 04/10/16 17:31 ; Admin Dose 1 DROP; Start 04/03/16 at 17:00 Levofloxacin/ Dextrose (Levaquin 750 Mg/ D5W 150 ml (Pmx)) 150 ml @ 100 mls/hr Q24H IVPB Last administered on 04/10/16 09:30; Admin Dose 100 MLS/HR; Start at 10:30 Diltiazem HCl (Cardizem) 30 mg TID PO Last administered on 04/10/16 14:37; Admin Dose 30 MG; Start 04/04/16 at 21:00 Ondansetron HCl (Zofran Inj) 4 mg Q4H PRN IV NAUSEA AND/OR VOMITING Last administered on 04/05/16 12:47; Admin Dose 4 MG; Start 04/05/16 at 13:00 Trimethobenzamide HCl (Tigan) 200 mg Q6H PRN IM NAUSEA AND/OR VOMITING; Start 04/05/16 at 14:00 Magnesium Hydroxide (Milk Of Mag) 30 ml BID PO Last administered on 04/09/16 22:36; Admin Dose 30 ML; Start 04/05/16 at 14:00 Fenofibrate (Tricor) 48 mg DAILY PO Last administered on 04/10/16 09:25; Admin Dose 48 MG; Start 04/06/16 at 09:00 Sodium Chloride (Deep Sea) 1 spray Q4H PRN NASAL NASAL CONGESTION Last administered on 04/05/16 20:45; Admin Dose 1 SPRAY; Start 04/05/16 at 18:00 Pantoprazole (Protonix Tab) 40 mg BID@06,18 PO Last administered on 04/10/16 17:31; Admin Dose 40 MG; Start 04/06/16 at 18:00 Potassium Chloride (Potassium Chloride Pwd/Soln) 20 meq BID PO Last administered on 04/10/16 09:24; Admin Dose 20 MEQ; Start 04/07/16 at 21:00 Warfarin Sodium (Coumadin) 5 mg DAILY@17 PO Last administered on 04/10/16 17: 31; Admin Dose 5 MG; Start 04/08/16 at 17:00 Digoxin (Digoxin) 0.125 mg Q2D PO Last administered on 04/09/16 15:15; Admin Dose 0.125 MG; Start 04/09/16 at 13:00 Prednisone (Prednisone) 10 mg DAILY PO ; Start 04/11/16 at 09:00; Stop 04/12/16 at 09:05 Furosemide (Lasix) 20 mg ONCE ONCE IV ; Start 04/11/16 at 05:00; Stop 04/11/16 at 05:01 Assessment/Plan Additional Assessment/Plan IMPRESSION: 1. Chronic obstructive pulmonary disease exacerbation. 2. 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 3. Atrial fibrillation. 4. Thrombocytopenia. 5. Macrocytosis. RECOMMENDATIONS: 1. Continue bronchodilators. 2. CS taper 2. PT/OT/Rehab RAINER GRANT MD Apr 10, 2016 18:03
[2016-04-10 20:29] LABS: LYMPHOCYTES # 1.2 10^3/ul (0.8-2.9); MONOCYTE # 1.4 10^3/ul (0.3-0.9); NEUTROPHIL # 14.7 10^3/ul (1.6-7.5)
[2016-04-10] MEDS: TAMSULOSIN (SR) 0.4 MG CAP PO SCH (21:12)
[2016-04-11] VITALS (9 sets, daily range): BP systolic 93–113; BP diastolic 54–89; PULSE 83–92; RESP 17–19
[2016-04-11] MEDS: ALBUTEROL/IPRATROPIUM (NEB) 3 ML AMP HHN SCH ×4 (02:55→12:15)
[2016-04-11] MEDS ORDERED: FUROSEMIDE 20 MG INJ IV ONE (05:00)
[2016-04-11] MEDS: PANTOPRAZOLE (EC) 40 MG TAB PO SCH (05:54)
--- NOTE | 2016-04-11 06:43 | PN ---
DATE: CARDIOLOGY FOLLOWUP SUBJECTIVE: Discussed with the staff. Rhythm strip was reviewed. The patient ____ shortness of b reath. Remains in atrial fibrillation. Heart rate remained stable. No more V-tach noted. MEDICATIONS: Reviewed. PHYSICAL EXAMINATION: VITAL SIGNS: Temperature 98.4, heart rate of 80, blood pressure 140/59, respiration 17. HEENT: Normocephalic, atraumatic. Pupils are equal. CARDIOVASCULAR: Regular ____ , systolic ejection murmur. PULMONARY: With crackles at the base. GASTROINTESTINAL: Soft, obese, nontender. EXTREMITIES: Positive edema. NEUROLOGIC: Awake and alert. PSYCHIATRIC: Appears to be calm and pleasant. LABORATORY: WBC of 13.15, hemoglobin of 15.2, platelets of 225. Sodium 137, potassium 4.2, BUN of 33, creatinine 0.192, glucose 155. INR is 2.26. Chest x-ray from today shows mild cardiomegaly ____ changes, ____ normal. ASSESSMENT AND PLAN: 1. Atrial fibrillation, heart rate controlled. 2. Chronic obstructive pulmonary disease. 3. Congestive heart failure secondary to aortic stenosis. 4. ____ . 5. Thrombocytopenia. RECOMMENDATIONS: We will continue with physical therapy as tolerated. Coumadin will be continued a nd adjusted as needed. Digoxin at a low dose will be continued. Heart rate currently stable. Diur etics will be given p.r.n. as well. ____ pulmonary recommendations. Dictated By: UZIEL MAGALLANES/GAUTAM Conf#: [id number] DID#: [id number] CC: CHINMAY OMALLEY;*End*
[2016-04-11 06:56] LABS: INR 2.33; PROTIME 25.8 Sec (12.2-14.2)
[2016-04-11 07:09] LABS: POTASSIUM 3.7 mmol/L (3.5-5.1)
[2016-04-11 07:10] LABS: BASOPHIL # 0.1 10^3/ul (0.0-0.1); BASOPHILS % 0.3 % (0.0-2.0); EOSINOPHILS # 0.1 10^3/ul (0.0-0.5); EOSINOPHILS % 0.8 % (0.0-7.0); HEMATOCRIT 42.8 % (42.0-52.0); HEMOGLOBIN 14.6 g/dl (14.0-18.0); LYMPHOCYTES # 1.9 10^3/ul (0.8-2.9); MEAN CORPUSCULAR HEMOGLOBIN 35.9 pg (29.0-33.0); MEAN CORPUSCULAR HGB CONC 34.2 g/dl (32.0-37.0); MEAN CORPUSCULAR VOLUME 105.2 fl (82.0-101.0); MEAN PLATELET VOLUME 8.2 fl (7.4-10.4); MONOCYTE # 1.7 10^3/ul (0.3-0.9); MONOCYTES % 11.5 % (0.0-11.0); NEUTROPHIL # 10.9 10^3/ul (1.6-7.5); NEUTROPHILS % 74.4 % (39.0-77.0); PLATELET COUNT 246 10^3/UL (140-440); RED BLOOD COUNT 4.07 10^6/ul (4.70-6.10); RED CELL DISTRIBUTION WIDTH 16.1 % (11.5-14.5); UNCORRECTED WBC 14.6 10^3/ul (4.8-10.8); WHITE BLOOD COUNT 14.6 10^3/ul (4.8-10.8)
[2016-04-11 07:12] LABS: CALCIUM 8.5 mg/dl (8.4-10.2); CONDITION 1; CREATININE 0.96 mg/dl (0.61-1.24); LH ANALYZER COMMENTS 1
[2016-04-11] MEDS: POTASSIUM CHLORIDE 20 MEQ POWDER FOR ORAL SOLN PO SCH (08:45)
[2016-04-11] MEDS: MAGNESIUM HYDROXIDE 30ML CUP PO SCH (08:45)
[2016-04-11] MEDS: TIOTROPIUM 18 MCG CAPSULE INHA DEV INH SCH (08:46)
[2016-04-11] MEDS: VITAMIN E 400 UNITS CAP PO SCH (08:46)
[2016-04-11] MEDS: DILTIAZEM 30 MG TAB PO SCH ×2 (08:46→12:52)
[2016-04-11] MEDS: CYANOCOBALAMIN 500 MCG TAB PO SCH (08:46)
[2016-04-11] MEDS: ASCORBIC ACID 500 MG TAB PO SCH (08:46)
[2016-04-11] MEDS: FENOFIBRATE 48 MG TAB PO SCH (08:46)
[2016-04-11] MEDS: GUAIFENESIN/DM (SR) TAB PO SCH (08:46)
[2016-04-11] MEDS: CALCIUM/VITAMIN D (500/200) TAB PO SCH (08:46)
[2016-04-11] MEDS: CARBOXYMETHYLCELLULOSE 0.5% 0.1 ML OPH BOTH EYES SCH ×2 (08:49→13:04)
[2016-04-11] MEDS ORDERED: predniSONE 10 MG TAB PO SCH (09:00)
[2016-04-11] MEDS: LEVOFLOXACIN 750MG/D5W (PMX) 150 ML IVPB SCH (10:48)
[2016-04-11] MEDS: DIGOXIN 0.125 MG TAB PO SCH (13:04)
[2016-04-11] MEDS ORDERED: DIGO125T19 PO (14:14)
[2016-04-11] MEDS ORDERED: DILT30TA30 PO (14:14)
[2016-04-11] MEDS ORDERED: PRED10TA PO (14:14)
[2016-04-11] MEDS ORDERED: POTA20TA96 PO (14:14)
[2016-04-11] MEDS ORDERED: FENO48TA4 PO (14:14)
[2016-04-11] MEDS ORDERED: LEVO750T25 PO (14:14)
[2016-04-11] MEDS ORDERED: DOCU-216 PO (14:14)
[2016-04-11] MEDS ORDERED: FURO40TA4 PO (14:14)
--- NOTE | 2016-04-11 14:15 | PDOCDIS ---
Discharge Instructions DIAGNOSIS Discharge Diagnosis: COPD / CHF CONDITION Patient Condition: Stable HOME CARE INSTRUCTIONS: Special Diet: cardiac OTHER ORDERS: Other Orders: * Please note Medication changes * Closely monitor potassium levels and renal function. CARO GASTELUM Apr 11, 2016 14:15
--- NOTE | 2016-04-11 14:26 | CONS ---
Date/Time of Note Date/Time of Note DATE: 04/11/16 TIME: 14:24 Assessment/Plan Assessment/Plan Additional Assessment/Plan Assessment recommendations; 1. Patient admitted for COPD exacerbation with clinical improvement. 2. Chronic atrial fibrillation. Continue current treatment patient responding well to the current treatment regimen. Consultation Date/Type/Reason Admit Date/Time Apr 03, 2016 at 18:49 Type of Consultation: Pulmonary 24 HR Interval Summary Free Text/Dictation Patient condition is stable. Patient is resting comfortably. Denies any further epigastric pain. Denies any chest pain. Has any shortness of breath. Any cough or sputum production. General examination; elderly male currently in no distress. Awake and alert. Exam/Review of Systems Vital Signs Vitals Vital Signs Date Time Temp Pulse Resp B/P Pulse Ox O2 Delivery O2 Flow Rate FiO2 04/11/16 12:24 83 04/11/16 12:16 18 96 Nasal Cannula 2.0 04/11/16 12:01 98.1 95/62 Intake and Output 04/10/16 04/10/16 04/11/16 15:00 23:00 07:00 Intake Total 800 ml 650 ml Output Total 1100 ml 600 ml Balance -300 ml 50 ml Exam HEENT examination; supple neck, no JVD. No lymphadenopathy. Pharynx is clear. Pupils are small bilaterally. Chest examination; diminished but clear breath sounds bilaterally. S1-S2 audible. Irregular rhythm. Abdomen examination; soft, no organomegaly. Nontender. Bowel sounds audible. Extremity examination; no peripheral edema. [employer] examination; no focal deficit Results Result Diagram: 04/11/16 0630 04/11/16 0630 Results 24 hrs Laboratory Tests Test 04/11/16 06:30 Anion Gap 11 Basophils # 0.1 Basophils % 0.3 Blood Morphology Comment Blood Urea Nitrogen 31 H Calcium Level 8.5 Carbon Dioxide Level 31 Chloride Level 100 Creatinine 0.96 Eosinophils # 0.1 Eosinophils % 0.8 Glucose Level 101 # Hematocrit 42.8 Hemoglobin 14.6 INR International Normalized Ratio 2.33 Lymphocytes # 1.9 Lymphocytes % 13.0 L Mean Corpuscular Hemoglobin 35.9 H Mean Corpuscular Hemoglobin Concent 34.2 Mean Corpuscular Volume 105.2 H Mean Platelet Volume 8.2 Monocytes # 1.7 H Monocytes % 11.5 H Neutrophils # 10.9 H Neutrophils % 74.4 Nucleated Red Blood Cells # 0.0 Nucleated Red Blood Cells % 0.0 Platelet Count 246 Potassium Level 3.7 Prothrombin Time 25.8 H Prothrombin Time Ratio 2.0 Red Blood Count 4.07 L Red Cell Distribution Width 16.1 H Sodium Level 138 White Blood Count 14.6 H Medications Medications Current Medications Lorazepam (Ativan) 0.5 mg Q6H PRN IV ANXIETY; Start 04/02/16 at 08:30 Nitroglycerin (Nitroglycerin (Sl Tab) 0.4 Mg) 1 tab Q5M PRN SL CHEST PAIN; Start 04/02/16 at 08:30 Acetaminophen (Tylenol Tab) 650 mg Q6H PRN PO PAIN LEVEL 1-3 OR FEVER; Start at 08:30 Morphine Sulfate (morphine) 2 mg Q4H PRN IV PAIN LEVEL 7-10 Last administered on 04/05/16 00:32; Admin Dose 2 MG; Start 04/02/16 at 08:30 Docusate Sodium (Colace) 100 mg Q12H PRN PO CONSTIPATION Last administered on 09:30; Admin Dose 100 MG; Start 04/02/16 at 08:30 Allopurinol (Zyloprim) 300 mg DAILY PO Last administered on 04/04/16 10:04; Admin Dose 300 MG; Start 04/02/16 at 09:00; Status Future Hold Ascorbic Acid (Vitamin C) 1,000 mg DAILY PO Last administered on 04/11/16 08: 46; Admin Dose 1,000 MG; Start 04/02/16 at 09:00 Cyanocobalamin (Vitamin B12) 500 mcg DAILY PO Last administered on 04/11/16 08 :46; Admin Dose 500 MCG; Start 04/02/16 at 09:00 Tamsulosin HCl (Flomax) 0.4 mg HS PO Last administered on 04/10/16 21:12; Admin Dose 0.4 MG; Start 04/02/16 at 21:00 Tiotropium [place] (Spiriva) 1 inh DAILY INH Last administered on 04/11/16 08: 46; Admin Dose 1 INH; Start 04/02/16 at 09:00 Vitamin E (Vitamin E) 400 units DAILY PO Last administered on 04/11/16 08:46; Admin Dose 400 UNITS; Start 04/02/16 at 09:00 Calcium/Vitamin D (Oyster Shell/ Vit-D (500/200)) 1 tab DAILY PO Last administered on 04/11/16 08:46; Admin Dose 1 TAB; Start 04/02/16 at 11:30 Guaifenesin/ Dextromethorphan (Mucinex Dm) 1 tab BID PO Last administered on 08:46; Admin Dose 1 TAB; Start 04/02/16 at 12:30 Eye Lubricant 1 drop 1 drop QID BOTH EYES Last administered on 04/11/16 13:04 ; Admin Dose 1 DROP; Start 04/03/16 at 17:00 Levofloxacin/ Dextrose (Levaquin 750 Mg/ D5W 150 ml (Pmx)) 150 ml @ 100 mls/hr Q24H IVPB Last administered on 04/11/16 10:48; Admin Dose 100 MLS/HR; Start at 10:30 Diltiazem HCl (Cardizem) 30 mg TID PO Last administered on 04/11/16 08:46; Admin Dose 30 MG; Start 04/04/16 at 21:00 Ondansetron HCl (Zofran Inj) 4 mg Q4H PRN IV NAUSEA AND/OR VOMITING Last administered on 04/05/16 12:47; Admin Dose 4 MG; Start 04/05/16 at 13:00 Trimethobenzamide HCl (Tigan) 200 mg Q6H PRN IM NAUSEA AND/OR VOMITING; Start 04/05/16 at 14:00 Magnesium Hydroxide (Milk Of Mag) 30 ml BID PO Last administered on 04/11/16 08:45; Admin Dose 30 ML; Start 04/05/16 at 14:00 Fenofibrate (Tricor) 48 mg DAILY PO Last administered on 04/11/16 08:46; Admin Dose 48 MG; Start 04/06/16 at 09:00 Sodium Chloride (Deep Sea) 1 spray Q4H PRN NASAL NASAL CONGESTION Last administered on 04/05/16 20:45; Admin Dose 1 SPRAY; Start 04/05/16 at 18:00 Pantoprazole (Protonix Tab) 40 mg BID@06,18 PO Last administered on 04/11/16 05:54; Admin Dose 40 MG; Start 04/06/16 at 18:00 Potassium Chloride (Potassium Chloride Pwd/Soln) 20 meq BID PO Last administered on 04/11/16 08:45; Admin Dose 20 MEQ; Start 04/07/16 at 21:00 Warfarin Sodium (Coumadin) 5 mg DAILY@17 PO Last administered on 04/10/16 17: 31; Admin Dose 5 MG; Start 04/08/16 at 17:00 Digoxin (Digoxin) 0.125 mg Q2D PO Last administered on 04/11/16 13:04; Admin Dose 0.125 MG; Start 04/09/16 at 13:00 Prednisone (Prednisone) 10 mg DAILY PO Last administered on 04/11/16 08:46; Admin Dose 10 MG; Start 04/11/16 at 09:00; Stop 04/12/16 at 09:05 DYLAN FARR Apr 11, 2016 14:26
--- NOTE | 2016-04-12 05:18 | DS ---
DATE OF ADMISSION: 04/03/2016 DATE OF DISCHARGE: 04/11/2016 PRESENTING COMPLAINT: Shortness of breath x1 week. ADMISSION DIAGNOSES 1. Shortness of breath secondary to chronic obstructive pulmonary disease exacerbation with possibl e congestive heart failure exacerbation. 2. Acute renal failure. 3. Chronic atrial fibrillation with subtherapeutic INR. 4. Thrombocytopenia. 5. Severe aortic stenosis. 6. Peripheral vascular disease. 7. Peripheral neuropathy. 8. Obesity. 9. Prostate cancer. 10. Essential hypertension. 11. Megaloblastic anemia. CONSULTS ON THE CASE: 1. Dr. Oleksandr Carrington. 2. Dr. Darell Gant. 3. Dr. Alex Heredia. INTERVENTIONS: 1. 2D echo was done 04/02/2016 showed severe aortic stenosis with ejection fraction of 45% and abno rmal diastolic dysfunction as well as a moderate global left ventricular systolic dysfunction. The patient also underwent chest x-ray 04/02/2016 showed cardiomegaly with upper limit of normal pulmona ry vascularity and mild interstitial prominence. 2. He had a CT of the chest 04/03/2016 showed patchy bibasilar infiltrates which could represent ac cassy bacterial pneumonia, aspiration versus chronic micro aspiration with mild changes of centrolobul ar emphysema, advanced atherosclerosis, peripheral vascular disease, cardiomegaly, a thyroid g land with possible 1 cm nodule in the right lobe of the thyroid. The patient also had further chest x-ray as well as an abdominal x-ray that all of which showed similar findings, but no new acute con cerning finding. HOSPITALIZATION COURSE: Full details are available in chart for review. In summary, this patient w as [facility] a [facility] because of shortness of breath and was admitted with t he diagnosis summarized above. He was managed with cardiology as well as pulmonary assistance and w as started on intravenous steroids and bronchodilator therapy as well as gentle diuresis. Cardiolog y was following throughout his hospitalization. 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 There was concern for probable underlying sleep apnea as well and the patient was recommended to have an outpatient stress test. He did well over time with combination of antibiotic therapy, stero id therapy, bronchodilator as well as gentle diuresis. As of today, he has been cleared from the [facility]. He continues to have reduced air entry, but clear breath sounds withou t crackles or wheezes. He is stable on oxygen via nasal cannula at 2 liters a minute and is going t o be discharged back to the [facility] for further care. Again, outpatient recommenda tions include 1. Sleep study. 2. Probable cardiothoracic surgical evaluation for valvular replacement, FINAL DIAGNOSES: An 85-year-old male status post 1. Required, with shortness of breath and managed for congestive heart failure exacerbation, diasto lic and systolic, acute on chronic, now resolved. 2. Chronic obstructive pulmonary disease exacerbation, significantly improved. 3. Severe aortic stenosis, likely contributing to #1. 4. Outpatient management for chronic atrial fibrillation, rate controlled and therapeutic on Coumad in therapy. 5. Acute renal failure likely secondary to resolved, medication induced. 6. Chronic peripheral vascular disease with atherosclerosis and associated peripheral neuropathy, s table on gabapentin therapy. 7. Morbid obesity status post nutrition review. 8. History of prostate cancer, stable at this time. 9. Essential hypertension, controlled. 10. 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 DISPOSITION: Back to [facility] facility. ACTIVITY: As tolerated. 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 DISCHARGE MEDICATIONS: 1. Cardizem 30 p.o. t.i.d. 2. Colace 100 p.o. q.12. 3. Fenofibrate 48 mg p.o. daily in the place of a statin as THE PATIENT IS ALLERGIC TO PENICILLIN A ND STATIN. 4. Levaquin 750 daily for 5 days. 5. Potassium chloride 20 mEq p.o. daily. 6. Prednisone 10 mg daily for 7 days. 7. Allopurinol 300 daily. 8. Vitamin C 1 gram daily. 9. Calcium with vitamin D 1 tab daily. 10. Vitamin B12 500 mcg daily. 11. Metolazone 2.5 mg daily. 12. Flomax 0.4 daily. 13. Spiriva 18 mcg daily. 14. Vitamin E 400 daily. 15. Coumadin 5 mg daily. 16. Digoxin 0.125 mg daily. 17. Lasix 40 p.o. daily. 18. Coreg was stopped because of the propensity to cause COPD exacerbation. Overall time spent on discharge coordination and planning has been more than half an hour. Dictated By: CARO GASTELUM MD BA/NTS Conf#: [id number] DID#: [id number] CC: KWAME SANDOVAL MD;*EndCC*
== END 2016-04-11 15:50 | DRG 291 ==
LOC: E/R 06:23 → MS4 08:23 → OBSVTOIN 04-03 18:49
PROVIDERS: ADMIT Student in an Organized Health Care Education/Training Program; ATTEND Student in an Organized Health Care Education/Training Program
DX: I11.0 Hypertensive heart disease with heart failure (principal); J18.9 Pneumonia, unspecified organism; J96.21 Acute and chronic respiratory failure with hypoxia; N17.9 Acute kidney failure, unspecified; D69.6 Thrombocytopenia, unspecified; D53.1 Other megaloblastic anemias, not elsewhere classified; I48.91 Unspecified atrial fibrillation; I35.0 Nonrheumatic aortic (valve) stenosis; I47.1 Supraventricular tachycardia; J43.2 Centrilobular emphysema; I50.43 Acute on chronic combined systolic (congestive) and diastolic (congestive) heart failure; Z79.02 Long term (current) use of antithrombotics/antiplatelets; Z87.891 Personal history of nicotine dependence; I45.10 Unspecified right bundle-branch block; Z85.46 Personal history of malignant neoplasm of prostate; I73.9 Peripheral vascular disease, unspecified; E66.9 Obesity, unspecified; Z68.35 Body mass index [BMI] 35.0-35.9, adult; R79.1 Abnormal coagulation profile; K21.9 Gastro-esophageal reflux disease without esophagitis
CPT/HCPCS: 36415; 36600; 71010; 71250; 74000; 80048; 80053; 80061; 80162; 81001; 81003; 82550; 82553; 82607; 82746; 82803; 83036; 83735; 83880; 83921; 84100; 84134; 84439; 84443; 84484; 85025; 85610; 85730; 87040; 87081; 87086; 87400; 93005; 93306; 94640; 94644; 94645; 96374; 97116; 97163; 97530; G0378; J1120; J1940; C9113; J1650; J1956; J2270; J2405; J2930; J3480; J7050; J7512

== ENCOUNTER 2017-01-03 20:49 | Inpatient (IN) | payer MEDICARE, OTHER ==
[~2017-01-03] VITALS: Ht 175.3 cm; Wt 122.7 kg
[~2017-01-03 20:49] MED LIST changes: -CARV3.1260 PO; +DILT30TA30 PO; +DOCU-216 PO; +FENO48TA4 PO; +LEVO750T25 PO; +PRED10TA PO
[2017-01-03] MEDS ORDERED: VANCOMYCIN 1 GM (PMX) 250 ML IVPB STA (21:32)
[2017-01-03] MEDS ORDERED: CEFEPIME 2GM/50 ML (PMX) 50 ML IVPB STA (21:32)
[2017-01-03] MEDS ORDERED: SODIUM CHLORIDE 0.9% 1L BAG IV* STA (21:32)
[2017-01-03] MEDS ORDERED: IPRATROPIUM (NEB) 0.5 MG/2.5 ML AMP NEB STA (21:32)
[2017-01-03] MEDS ORDERED: ALBUTEROL 0.5% (NEB) 2.5 MG/0.5 ML AMP INH STA (21:32)
[2017-01-03] MEDS ORDERED: METHYLPREDNISOLONE 125 MG INJ IV STA (21:32)
[2017-01-03] MEDS ORDERED: LORAZEPAM 2 MG INJ ONE (21:43)
[2017-01-03] MEDS ORDERED: LORAZEPAM 2 MG INJ IV ONE (22:00)
[2017-01-03 22:15] LABS: ABNORMAL IP MESSAGE 1; BASOPHIL # 0.1 10^3/ul (0.0-0.1); BASOPHILS % 0.4 % (0.0-2.0); EOSINOPHILS # 0.1 10^3/ul (0.0-0.5); EOSINOPHILS % 0.6 % (0.0-7.0); HEMOGLOBIN 14.8 g/dl (14.0-18.0); LYMPHOCYTES # 1.3 10^3/ul (0.8-2.9); LYMPHOCYTES % 7.1 % (15.0-51.0); MEAN CORPUSCULAR HEMOGLOBIN 33.6 pg (29.0-33.0); MEAN CORPUSCULAR HGB CONC 32.9 g/dl (32.0-37.0); MEAN PLATELET VOLUME 9.6 fl (7.4-10.4); MONOCYTES % 10.5 % (0.0-11.0); NEUTROPHIL # 15.2 10^3/ul (1.6-7.5); NEUTROPHILS % 80.7 % (39.0-77.0); PLATELET COUNT 144 10^3/UL (140-415); POSITIVE DIFF @See below; RED BLOOD COUNT 4.41 10^6/ul (4.70-6.10); RED CELL DISTRIBUTION WIDTH 15.3 % (11.5-14.5); WHITE BLOOD COUNT 18.8 10^3/ul (4.8-10.8)
--- NOTE | 2017-01-03 22:23 | RADRPT ---
PROCEDURE: XR Chest. CLINICAL INDICATION: Possible Sepsis, respiratory failure TECHNIQUE: Single frontal view of the chest was obtained. COMPARISON: 04/10/2016 FINDINGS: The cardiomediastinal silhouette is moderately enlarged. Pulmonary vasculature is prominent and mil dly indistinct. There is moderate aortic calcification.. There is no focal consolidation identified . The patients chin partially obscures the lung apices.. No signs of pleural fluid or pneumothorax are seen. The osseous structures and soft tissues are unre markable. IMPRESSION: 1. Moderate cardiomegaly. 2. Pulmonary vascular congestion and probable mild edema. 3. Moderate aortic calcification. RPTAT: HBST .Efra Macdonald MD, MD Date Time Electronically viewed and signed by .Efra aMcdonald MD, on 01/03/2017 22:22 .T/
[2017-01-03 22:24] LABS: AADO2 Arterial 191.4 mmHg (7.0-24.0); Allen Test ACCEPTAB; Arterial Base Excess 11.2 mmol/L (-3.0-3); Arterial COHb 1.5 % (0.0-3.0); Arterial Fraction of Oxyhgb 96.3 % (93.0-99.0); Arterial HCO3 38.9 mmol/L (22.0-26.0); Arterial MetHb 0.1 % (0.0-1.5); Arterial Total Hemglobin 15.8 g/dl (12.0-18.0); MODE AEROSOL MASK
[2017-01-03 22:31] LABS: INR 1.87; PROTIME 21.7 Sec (12.2-14.2); PT RATIO 1.7
[2017-01-03 22:57] LABS: ALBUMIN 3.9 g/dl (3.3-4.9); ALBUMIN/GLOBULIN RATIO 1.02; BILIRUBIN,INDIRECT 0.9 mg/dl (0-1.1); BILIRUBIN,TOTAL 0.9 mg/dl (0.2-1.3); CALCIUM 9.2 mg/dl (8.4-10.2); CREATININE 1.26 mg/dl (0.61-1.24); POTASSIUM 3.8 mmol/L (3.5-5.1); TOTAL PROTEIN 7.7 g/dl (6.1-8.1)
[2017-01-03 23:09] LABS: TROPONIN-I 0.043 ng/ml (0.00-0.12)
--- NOTE | 2017-01-03 23:27 | ERD ---
ER Documentation Chief Complaint Chief Complaint WORSENING SOB TODAY; + FLU LIKE SX'S X "DAYS" HPI 86 year old male with a history of HTN, CHF, CPD, AFib on Digoxin and coumadin presenting to the ED with worsening dyspnea over the past week. He states he recently had his flu shot, then started to feel ill afterwards. Symptoms started as cold like symtpoms 1 week ago, but have progressively worsened. He denies fevers, but endorses chills. No worsening leg swelling from his baseline. Otherwise history is limited due to respiratory distress. ROS Limited due to respiratory distress. Medications Home Meds Active Scripts Levofloxacin* (Levaquin*) 750 Mg Tablet, 750 MG PO DAILY for 5 Days, TAB Prov:CARO GASTELUM . 04/11/16 Prednisone* (Prednisone*) 10 Mg Tab, 10 MG PO DAILY for 7 Days, TAB Prov:[facility] . 04/11/16 Fenofibrate Nanocrystallized* (Fenofibrate*) 48 Mg Tablet, 48 MG PO DAILY for 30 Days, TAB Prov:[facility] . 04/11/16 Docusate Sodium (Dok) 100 Mg Capsule, 100 MG PO Q12H for 30 Days, CAP Prov:[facility] . 04/11/16 Diltiazem Hcl* (Cardizem*) 30 Mg Tablet, 30 MG PO TID for 30 Days, TAB Prov:[facility] . 04/11/16 Potassium Chloride* (Potassium Chloride*) 20 Meq Tablet.er, 20 MEQ PO DAILY for 30 Days, TAB.SA Prov:CARO GASTELUM . 04/11/16 Potassium Chloride* (Potassium Chloride*) 20 Meq Tablet.er, 20 MEQ PO DAILY for 30 Days, TAB.SA Prov:CARO GASTELUM . 04/11/16 Furosemide* (Furosemide*) 40 Mg Tablet, 40 MG PO DAILY for 30 Days, TAB Prov:[facility] . 04/11/16 Digoxin* (Digox*) 125 Mcg Tablet, 0.125 MG PO Q48H for 30 Days, TAB Prov:NIRAVCARO . 04/11/16 Reported Medications Folic Acid* (Folic Acid*) 1 Mg Tablet, 1 MG PO DAILY, TAB 01/04/17 Cranberry Extract (Cranberry) 500 Mg Capsule, 500 MG PO BID, CAP 01/04/17 Carvedilol* (Carvedilol*) 3.125 Mg Tablet, 3.125 MG PO Q12H, #60 TAB 01/04/17 Allopurinol* (Allopurinol*) 300 Mg Tablet, 300 MG PO DAILY, TAB 11/02/14 Vitamin E* (Vitamin E*) 400 Unit Capsule, 400 UNIT PO DAILY, CAP 11/02/14 Tiotropium [place]* (Spiriva*) 18 Mcg Cap.w.dev, 1 INH IH DAILY, EA 11/02/14 Metolazone* (Metolazone*) 2.5 Mg Tablet, 2.5 MG PO DAILY, TAB 11/02/14 Tamsulosin Hcl* (Flomax*) 0.4 Mg Cap.er.24h, 0.4 MG PO DAILY, CAP 11/02/14 Warfarin Sodium* (Coumadin*) 5 Mg Tablet, 5 MG PO DAILY, TAB 11/02/14 Cyanocobalamin* (Vitamin B12*) 500 Mcg Tab, 500 MCG PO DAILY, TAB 11/02/14 Calcium Carbonate-Vitamin D3 (Calcium 500 + D Caplet) 1 Tab Tablet, 1 TAB PO DAILY, TAB 11/02/14 Ascorbic Acid* (Vitamin C*) 500 Mg Capsule.sa, 1000 MG PO DAILY, CAP 11/02/14 Allergies Allergies: Coded Allergies: Penicillins (Unverified Allergy, Unknown, ITCHING, 01/03/17) Rraatdl-Eqa-Vnb Reductase Inhibitor (Unverified Allergy, Unknown, MUSCLE ACHES, 01/03/17) PMhx/Soc History of Surgery: No Anesthesia Reaction: No Hx Neurological Disorder: No Hx Respiratory Disorders: Yes (COPD) Hx Cardiac Disorders: Yes (HTN) Hx Psychiatric Problems: Yes Hx Miscellaneous Medical Probl: Yes (htn, CHF,severe ,COPD,neuropathy,PVD, prostate ca,obesity) Hx Alcohol Use: No Hx Substance Use: No Hx Tobacco Use: No Smoking Status: Former smoker FmHx Family History: No coronary disease Physical Exam Vitals Vital Signs Date Time Temp Pulse Resp B/P Pulse Ox O2 Delivery O2 Flow Rate FiO2 01/03/17 22:59 92 18 121/74 97 01/03/17 21:54 86 24 96 Nasal Cannula 3.0 01/03/17 21:10 Nasal Cannula 3.0 01/03/17 21:01 98.4 99 23 134/78 94 Physical Exam Const: Appears very uncomfortable, speaking in short 2 word sentences, not diaphoretic, ill appearing Head: Atraumatic Eyes: Normal Conjunctiva ENT: Normal External Ears, Nose and Mouth. Dry mucous membranes Neck: Full range of motion..~ No meningismus. No JVD Resp: Diminished breath sounds bilaterally with mild end expiratory wheezing, no crackles or rhonchi Cardio: Regular rate, irregular rhythm, no murmurs Abd: Soft, non tender, distended. Normal bowel sounds Skin: No petechiae or rashes. Back: No midline or flank tenderness Ext: No cyanosis, 1+ bilateral lower extremity edema, chronic Neur: Awake and alert Psych: Normal Mood and Affect Result Diagram: 01/03/17220501/03/172205 Results 24 hrs Laboratory Tests Test 01/03/17 21:32 01/03/17 22:05 01/03/17 22:06 01/04/17 00:04 Blood Gas Specimen Source Blood arterial Arterial Blood Date Drawn 01/03/2017 10:10:34 PM Arterial Blood pH (Temp corrected) 7.411 Arterial Blood pCO2 (Temp correct) 62.6mmhg Arterial Blood pO2 (Temp corrected) 116.5mmHG Arterial Blood HCO3 38.9mmol/L Arterial Blood Base Excess 11.2mmol/L Arterial Blood Oxygen Saturation 97.9mmHG Corby Test ACCEPTAB Arterial Blood Gas Puncture Site Right Radial Arterial Blood Carboxyhemoglobin 1.5% Arterial Blood Methemoglobin 0.1% Blood Gas A-a O2 Differential 191.4mmHg Oxyhemoglobin Percent 96.3% Total Hemoglobin 15.8g/dl Blood Gas Temperature 37.0C Blood Gas Modality AEROSOL MASK FiO2 53.0% Blood Gas Notified Whom AA Blood Gas Notified Time 01/03/2017 10:23:38 PM Prothrombin Time 21.7Sec Prothrombin Time Ratio 1.7 INR International Normalized Ratio 1.87 Activated Partial Thromboplast Time 34.0Sec Lactic Acid Level 1.8mmol/L 1.2mmol/L White Blood Count 18.810^3/ul Red Blood Count 4.4110^6/ul Hemoglobin 14.8g/dl Hematocrit 45.0% Mean Corpuscular Volume 102.0fl Mean Corpuscular Hemoglobin 33.6pg Mean Corpuscular Hemoglobin Concent 32.9g/dl Red Cell Distribution Width 15.3% Platelet Count 00819^3/UL Mean Platelet Volume 9.6fl Neutrophils % 80.7% Lymphocytes % 7.1% Monocytes % 10.5% Eosinophils % 0.6% Basophils % 0.4% Nucleated Red Blood Cells % 0.0/100WBC Neutrophils # 15.210^3/ul Lymphocytes # 1.310^3/ul Monocytes # 2.010^3/ul Eosinophils # 0.110^3/ul Basophils # 0.110^3/ul Nucleated Red Blood Cells # 0.010^3/ul Sodium Level 139mmol/L Potassium Level 3.8mmol/L Chloride Level 94mmol/L Carbon Dioxide Level 35mmol/L Anion Gap 14 Blood Urea Nitrogen 29mg/dl Creatinine 1.26mg/dl Glucose Level 145mg/dl Calcium Level 9.2mg/dl Total Bilirubin 0.9mg/dl Direct Bilirubin 0.00mg/dl Indirect Bilirubin 0.9mg/dl Aspartate Amino Transf (AST/SGOT) 23IU/L Alanine Aminotransferase (ALT/SGPT) 20IU/L Alkaline Phosphatase 57IU/L Troponin I 0.043ng/ml Pending Total Protein 7.7g/dl Albumin 3.9g/dl Globulin 3.80g/dl Albumin/Globulin Ratio 1.02 Creatine Kinase 32IU/L Creatine Kinase Index Pending Creatinine Kinase MB (Mass) Pending B-Type Natriuretic Peptide 1830PG/ML Current Medications Medications (Trade) Dose Ordered Sig/Jacqueline Route PRN Reason Start Time Stop Time Status Last Admin Dose Admin Lorazepam (Ativan) 0.5 mg ONCE ONCE IV 01/03/17 22:00 01/03/17 22:01 DC 01/03/17 21:46 Lorazepam (Ativan) 2 mg STK-MED ONCE .ROUTE 01/03/17 21:43 01/03/17 21:44 DC Sodium Chloride 500 ml 500 ml BOLUS OVER 2 HOURS STAT IV* 01/03/17 21:32 01/03/17 21:45 DC 01/03/17 22:11 Vancomycin HCl 250 ml @ 125 mls/hr ONCE STAT IVPB 01/03/17 21:32 01/03/17 23:31 DC 01/04/17 00:20 Cefepime HCl (Maxipime 2gm/50 ml (Pmx)) 50 ml @ 100 mls/hr ONCE STAT IVPB 01/03/17 21:32 01/03/17 22:01 DC 01/03/17 22:11 Ipratropium [place] (Atrovent 0.02% (Neb)) 0.5 mg ONCE STAT NEB 01/03/17 21:32 01/03/17 21:46 DC 01/03/17 21:54 Albuterol (Proventil 0.5% (Neb)) 10 mg ONCE STAT INH 01/03/17 21:32 01/03/17 21:46 DC 01/03/17 21:54 Methylprednisolone Sodium Succinate (Solu-Medrol) 125 mg ONCE STAT IV 01/03/17 21:32 01/03/17 21:46 DC 01/03/17 21:56 Ondansetron HCl (Zofran Inj) 4 mg ER BRIDGE PRN IV NAUSEA AND/OR VOMITING 01/04/17 00:00 01/04/17 23:59 Acetaminophen (Tylenol Tab) 650 mg ER BRIDGE PRN PO MILD PAIN/FEVER 01/04/17 00:00 01/04/17 23:59 IV Flush (NS 3 ml) 3 ml PER PROTOCOL IV 01/04/17 00:00 Ondansetron HCl (Zofran Inj) 4 mg Q6H PRN IV NAUSEA AND/OR VOMITING 01/04/17 00:00 Allopurinol (Zyloprim) 300 mg DAILY PO 01/04/17 09:00 UNV Digoxin (Digoxin) 0.125 mg Q48H PO 01/04/17 00:00 01/04/17 00:33 Diltiazem HCl (Cardizem) 30 mg TID PO 01/04/17 09:00 UNV Docusate Sodium (Colace) 100 mg Q12H PO 01/04/17 00:00 01/04/17 00:32 Fenofibrate (Tricor) 48 mg DAILY PO 01/04/17 09:00 UNV Furosemide (Lasix) 40 mg DAILY PO 01/04/17 09:00 UNV Metolazone (Zaroxolyn) 2.5 mg DAILY PO 01/04/17 09:00 UNV Potassium Chloride (Klor-Con 20) 20 meq DAILY PO 01/04/17 09:00 UNV Tamsulosin HCl (Flomax) 0.4 mg DAILY PO 01/04/17 09:00 UNV Tiotropium [place] (Spiriva) 1 inh DAILY INH 01/04/17 09:00 UNV Warfarin Sodium (Coumadin) 5 mg DAILY PO 01/04/17 09:00 UNV Miscellaneous Information 1 tab DAILY PO 01/04/17 09:00 UNV Warfarin Sodium (Coumadin) 10 mg NOW ONCE PO 01/04/17 00:00 01/04/17 00:13 DC 01/04/17 00:32 Albuterol/ Ipratropium (Duoneb) 3 ml Q4H RESP THERAPY PRN HHN SHORTNESS OF BREATH 01/04/17 00:00 Procedures/MDM Patient is presenting with acute respiratory failure with hypoxia on room air Rate/Rhythm: A. fib at 80 bpm QRS, ST, T-waves: [No changes consistent w/ acute ischemia] Impression: [No evidence of ischemia or arrhythmia] Imaging Chest x-ray IMPRESSION: 1. Moderate cardiomegaly. 2. Pulmonary vascular congestion and probable mild edema. 3. Moderate aortic calcification. .Efra Macdonald MD, MD Date Time Electronically viewed and signed by .Efra Macdonald MD, MD on 01/03/2017 22:22 Labs CBC: Leukocytosis BMP: elevated BUN and creatinine, elevated CO2 Liver function tests normal Lactate within normal limits Troponin within normal limits INR 1.8 [facility] Patient is presenting with signs of sepsis and acute respiratory failure with hypoxia on room air. Given his history, I have a concern for possible pneumonia versus flu. Also the differential is acute CHF exacerbation and COPD exacerbation. I have a lower suspicion for acute coronary syndrome, however this remains on the differential. Albuterol Med-Neb was given with mild improvement of his symptoms. Septic workup was initiated and broad-spectrum antibiotics were given. I have a low risk for pulmonary embolism. Patient's infectious symptoms have not stabilized and the patient is at risk of rapid decompensation. The patient will be admitted for careful hydration, antibiotic therapy, and infectious source control. Severe Sepsis Assessment: Infectious Source: Pulmonary End organ damage indicated by: Acute Resp Failure (sat < 92% w/o oxygen) INR > 1.5 Severe Sepsis Managment: Blood Cultures X 2 before broad spectrum antibiotics initiated within 3 hours of recognition. 30 ml/kg NS bolus full bolus not given as the patient appears fluid overloaded and this would likely worsen his condition Initial Lactate: normal Repeat Lactate not indicated as initial < 2.0 Critical Care: Time: 35 bili 0. minutes Treatments/Evaluations: Emergent fluid management, while maintaining close respiratory support. Immediate broad spectrum antibiotic therapy. Simultaneous assessment for possible sources in order to direct therapy. Consideration for invasive and chemical support to prevent respiratory or cardiac collapse. Septic Shock Assessment: No SI Hypotension (SBP < 90 or 40 mmHg drop, MAP < 65): No Lactic acid > 4.0 No Accepting Care Team: Current data and ongoing care discussed. Time: Time of admission Primary Provider: Raymond Consulting: none Outstanding Data: none Departure Diagnosis: Primary Impression: Acute respiratory failure with hypoxia Additional Impressions: Flu-like symptoms Sepsis Sepsis type: sepsis due to unspecified organism Qualified Code: A41.9 - Sepsis, due to unspecified organism COPD exacerbation FIDEL (acute kidney injury) Condition: Serious MARILU UBTLER MD Jan 03, 2017 23:27
[2017-01-04] VITALS (7 sets, daily range): BP systolic 98–122; BP diastolic 54–84; PULSE 88–103; RESP 22–24; TEMP 98.4; Ht 175.3 cm; Wt 122.7 kg
[2017-01-04] MEDS ORDERED: WARFARIN 10 MG TAB PO ONE
[2017-01-04] MEDS ORDERED: NACL 0.9% 3 ML SYG IV SCH
[2017-01-04] MEDS ORDERED: ALBUTEROL/IPRATROPIUM (NEB) 3 ML AMP HHN PRN
[2017-01-04] MEDS ORDERED: ACETAMINOPHEN 325 MG TAB PO PRN
[2017-01-04] MEDS ORDERED: ONDANSETRON 4 MG INJ IV PRN ×2
[2017-01-04] MEDS ORDERED: DIGOXIN 0.125 MG TAB PO SCH
[2017-01-04] MEDS ORDERED: CRAN500C5 PO (00:07)
[2017-01-04] MEDS ORDERED: FOLI-49 PO (00:07)
[2017-01-04] MEDS ORDERED: CARV3.1260 PO (00:07)
[2017-01-04] MEDS: DOCUSATE SODIUM 100 MG CAP PO SCH ×3 (00:32→23:45)
[2017-01-04 01:06] LABS: TROPONIN-I 0.051 ng/ml (0.00-0.12)
[2017-01-04 01:18] LABS: CK-MB 1.52 ng/ml (0.0-2.4)
[2017-01-04 05:53] LABS: BASOPHIL # 0.1 10^3/ul (0.0-0.1); BASOPHILS % 0.3 % (0.0-2.0); HEMATOCRIT 43.1 % (42.0-52.0); HEMOGLOBIN 14.3 g/dl (14.0-18.0); LYMPHOCYTES # 0.7 10^3/ul (0.8-2.9); LYMPHOCYTES % 3.6 % (15.0-51.0); MEAN CORPUSCULAR HGB CONC 33.2 g/dl (32.0-37.0); MEAN CORPUSCULAR VOLUME 102.4 fl (82.0-101.0); MEAN PLATELET VOLUME 10.1 fl (7.4-10.4); MONOCYTE # 0.5 10^3/ul (0.3-0.9); MONOCYTES % 2.7 % (0.0-11.0); NEUTROPHIL # 17.7 10^3/ul (1.6-7.5); NEUTROPHILS % 92.7 % (39.0-77.0); PLATELET COUNT 156 10^3/UL (140-415); RED BLOOD COUNT 4.21 10^6/ul (4.70-6.10); RED CELL DISTRIBUTION WIDTH 15.4 % (11.5-14.5); WHITE BLOOD COUNT 19.1 10^3/ul (4.8-10.8)
[2017-01-04 06:05] LABS: INR 1.89; PROTIME 21.9 Sec (12.2-14.2); PT RATIO 1.7
[2017-01-04 06:29] LABS: ALBUMIN 3.2 g/dl (3.3-4.9); ALBUMIN/GLOBULIN RATIO 0.88; BILIRUBIN,INDIRECT 0.6 mg/dl (0-1.1); BILIRUBIN,TOTAL 0.6 mg/dl (0.2-1.3); CALCIUM 8.8 mg/dl (8.4-10.2); CREATININE 1.23 mg/dl (0.61-1.24); MAGNESIUM 1.9 mg/dl (1.7-2.5); POTASSIUM 3.8 mmol/L (3.5-5.1); TOTAL PROTEIN 6.8 g/dl (6.1-8.1)
[2017-01-04 06:44] LABS: TROPONIN-I 0.035 ng/ml (0.00-0.12)
[2017-01-04 06:47] LABS: CK-MB 1.74 ng/ml (0.0-2.4)
[2017-01-04 06:55] LABS: THYROID STIMULATING HORMONE 0.897 MIU/L (0.465-4.680)
[2017-01-04] MEDS ORDERED: FUROSEMIDE 40 MG INJ IV ONE (09:00)
[2017-01-04] MEDS ORDERED: FUROSEMIDE 40 MG TAB PO SCH (09:00)
--- NOTE | 2017-01-04 09:04 | HP ---
Date/Time of Note Date/Time of Note DATE: 01/04/17 TIME: 08:42 Assessment/Plan VTE Prophylaxis VTE Prophylaxis Intervention: other (Coumadin) Lines/Catheters Urinary Cath still in place: Yes Reason Cath still needed: other (indicate) (Clinical illness) Assessment/Plan Chief Complaint/Hosp Course This is a 86 female being admitted to the telemetry floor for: #1 shortness of breath: likely multifactorial, secondary to respiratory infection versus COPD versus CHF exacerbation. The current time chest x-ray does show evidence of vascular congestion and he does have rales on his exam. Patient however also has an elevated white blood cell count which I am unsure of at this time if it is a true elevated white blood cell count or secondary to possible prednisone use which the patient does not know why he is on, he is also afebrile. Will check a CRP level. Will give a dose of Lasix 40 mg IV 1. Will check an echocardiogram and a BNP. As he is currently afebrile I will hold off on continue antibiotics at this time though he did receive vancomycin cefepime in the ED and Levaquin was on his med rec as he may have been on that as an outpatient. Will provide as needed breathing treatments. Will order a chest CT to further assist in evaluation and to assess for any underlying respiratory infection such as pneumonia. Fluid restriction of 800 cc strict I' s and O's. #2 CHF: patient may be an exacerbation at this time secondary to his pulmonary vascular congestion, will continue patient's home medications and provide Lasix and check an echocardiogram. Check BMP level. Consider cardiology consultation. #3 chronic atrial fibrillation: EKG shows A. fib. At the current time patient' s INR level appears to be slightly subtherapeutic. Will double his dose of Coumadin today by giving him 10 mg. And check his INR daily. If he does not achieve therapeutic levels fast enough he may need Lovenox bridging, though the patient is currently thrombocytopenic. #4 acute renal failure - renally adjust medications, avoid nephrotoxins, continue monitor renal function. #5 COPD: We will continue patient's home inhalers as well as prn breathing nebs. #6 thrombocytopenia - hold lovenox - continue with coumadin #7 severe -check echocardiogram. #8 PVD - wound care - podiatry if worsening #9 peripheral neuropathy - continue with gabapentin #10 obesity - morbid, check hemoglobin A1c #11 Prostate CA - monitor at this time #12 essential hypertension -resume patient's home medications #13 subtherapeutic INR -continue with Coumadin for now we will double the dose today to 10 mg. Check INR daily and adjust dosage accordingly. #14 prediabetes: Patient's hemoglobin A1c during his previous admission was 6.8. Will repeat hemoglobin A1c. DVT GI prophylaxis: Coumadin, Protonix Further treatment strategy will be implemented as per the clinical course Patient does state that he has an advanced directive and his CODE STATUS is DNR. Problems: HPI/ROS Admit Date/Time Admit Date/Time Jan 03, 2017 at 23:46 Hx of Present Illness Chief complaint: Shortness of breath 3 days This is a 86 year old male with a history of HTN, CHF, CPD, AFib on Digoxin and coumadin is in a assisted living facility presenting to the ED with worsening dyspnea over the past 3 days. He states he recently had his flu shot, then started to feel ill afterwards. Symptoms started as cold like symtpoms 3 days ago, but have progressively worsened. He denies fevers, but endorses chills. No worsening leg swelling from his baseline. Otherwise history is limited due to respiratory distress. He does state that he is around people who are always sick at the assisted living facility. Patient has bilateral lower extremities wrapped in Yahir bandages and he states that if he does not do that than the lower extremity swelling. Of note patient did discuss his CODE STATUS with me and he states that he is a DNR and he has advanced directives. Allergies: Penicillin, statin Medications: See FEDERICO MAGUIRE Const: As per HPI Eyes : No pain discharge or redness or change in visual acuity ENT: No pain, sore throat, congestion, congestion, dysphagia or discharge Respiratory: As per HPI Cardiovascular: No chest pain, palpitation, PND, or edema GI : no change in appetite, abdominal pain, nausea, vomiting, diarrhea, constipation, or change in the color his stool Genitourinary: No dysuria, hematuria, flank pain , discharge or CVA tenderness Musculoskeletal: No joint pain, back pain, neck pain, restricted range of motion in neck or joints Skin: No rash, bruising or hives Neuro: No headache, dizziness, syncope, seizure, focal weakness Endocrine: No polyuria, polydipsia, temperature intolerance Psych: No hallucination, depression, anxiety or suicidal ideation PMH/Family/Social Past Medical History Chronic AF on coumadin, Severe , COPD, peripheral neuropathy, PVD, Chronic back pain, obesity, prostate CA coronary artery disease, hypertension Past Surgical History eft hip IT band repair Family History Significant Family History: other ( diabetes (grandmother), vascular disease ( father from ruptured aneurysm)) Social History Alcohol Use: none Smoking Status: Former smoker Drug Use: none Exam/Review of Systems Vital Signs Vitals Vital Signs Date Time Temp Pulse Resp B/P Pulse Ox O2 Delivery O2 Flow Rate FiO2 01/04/17 06:30 97.8 88 22 122/84 91 Nasal Cannula 01/04/17 06:30 3.0 Exam Exam General: Patient is sitting in bed in no acute distress HEENT: Atraumatic, normocephalic. The pupils are equal, round and reactive. Extraocular motor are intact Neck: Supple with full range of motion. No rigidity or meningismus Chest: Nontender Lungs: Coarse breath sounds bilaterally, mild rails at the lung bases Heart: Normal S1-S2, Regular rhythm and rate. No murmur, S3, or S4 Abdomen: Soft , nontender, nondistended , bowel sounds are present. No guarding no rebound tenderness , No masses or organomegaly. No costovertebral temporal angle mass Extremities: Lateral lower extremities and Yahir bandage wrap Neurologic: Normal mental status, speech normal, cranial nerves II through XII are intact, motor and sensory are intact, no focal weakness Additional Comments PROCEDURE: XR Chest. CLINICAL INDICATION: Possible Sepsis, respiratory failure TECHNIQUE: Single frontal view of the chest was obtained. COMPARISON: 04/10/2016 FINDINGS: The cardiomediastinal silhouette is moderately enlarged. Pulmonary vasculature is prominent and mildly indistinct. There is moderate aortic calcification.. There is no focal consolidation identified. The patients chin partially obscures the lung apices.. No signs of pleural fluid or pneumothorax are seen. The osseous structures and soft tissues are unremarkable. IMPRESSION: 1. Moderate cardiomegaly. 2. Pulmonary vascular congestion and probable mild edema. 3. Moderate aortic calcification. RPTAT: HBST .Efra Macdonald MD, Date Time Electronically viewed and signed by .Efra Macdonald MD, on 01/03/2017 22:22 .T/ CC: MARILU BUTLER MD Rate/Rhythm: A. fib at 80 bpm QRS, ST, T-waves: [No changes consistent w/ acute ischemia] Impression: [No evidence of ischemia or arrhythmia] Labs Result Diagram: 01/04/1752801/04/17529 Medications Medications Current Medications Ondansetron HCl (Zofran Inj) 4 mg Q6H PRN IV NAUSEA AND/OR VOMITING; Start at 00:00 Allopurinol (Zyloprim) 300 mg DAILY PO ; Start 01/04/17 at 09:00 Digoxin (Digoxin) 0.125 mg Q48H PO Last administered on 01/04/17 00:33; Admin Dose 0.125 MG; Start 01/04/17 at 00:00 Diltiazem HCl (Cardizem) 30 mg TID PO ; Start 01/04/17 at 09:00 Docusate Sodium (Colace) 100 mg Q12H PO Last administered on 01/04/17 00:32; Admin Dose 100 MG; Start 01/04/17 at 00:00 Fenofibrate (Tricor) 48 mg DAILY PO ; Start 01/04/17 at 09:00 Furosemide (Lasix) 40 mg DAILY PO ; Start 01/04/17 at 09:00 Metolazone (Zaroxolyn) 2.5 mg DAILY PO ; Start 01/04/17 at 09:00 Potassium Chloride (Klor-Con 20) 20 meq DAILY PO ; Start 01/04/17 at 09:00 Tamsulosin HCl (Flomax) 0.4 mg DAILY@21 PO ; Start 01/04/17 at 21:00 Tiotropium [place] (Spiriva) 1 inh DAILY INH ; Start 01/04/17 at 09:00 Warfarin Sodium (Coumadin) 5 mg DAILY@17 PO ; Start 01/04/17 at 17:00 Calcium/Vitamin D (Oyster Shell/ Vit-D (500/200)) 1 tab DAILY PO ; Start at 09:00 ANN GRIGSBY Jan 04, 2017 08:57
--- NOTE | 2017-01-04 09:50 | RADRPT ---
PROCEDURE: US Lower extremity Venous. CLINICAL INDICATION: Shortness of breath. TECHNIQUE: Multiple sonographic images of the bilateral lower extremity deep venous system was obt ained utilizing grayscale, color-flow, compressive sonography and doppler imaging with augmentation. The images were reviewed on a PACS workstation. COMPARISON: None. FINDINGS: There is normal compressibility and flow within the bilateral common femoral, femoral , calf and pop liteal veins. RPTAT: KK IMPRESSION: No sonographic evidence for deep venous thrombosis. Carla Fenton Physician Date Time Electronically viewed and signed by Carla Fenton Physician on 01/04/2017 09:50 [place]/
--- NOTE | 2017-01-04 10:19 | RADRPT ---
PROCEDURE: CT Chest without contrast. CLINICAL INDICATION: Shortness of breath TECHNIQUE: CT scan of the chest without contrast was performed on a multidetector high-resolution CT scanner. Coronal and sagittal reformatted images were obtained from the axial source images. The total exam CTDI equals 17 mGy and the total exam DLP equals 685 mGy-cm. One or more of the followi ng dose reduction techniques were used: Automated exposure control, Adjustment of the mA and/or kV a ccording to patient size, and/or use of iterative reconstruction technique. DICOM images are availab le. COMPARISON: Chest CT 04/03/2016 FINDINGS: Multinodular thyroid gland extending substernally is similar in appearance to 04/03/2016 Lung emphysematous changes. Patchy bibasilar opacities with peripheral interlobular septal thickening is increased in the right lower lobe and decreased in the left lower lobe when compared to prior. Now seen is a right posterio r lung base 1.5 x 2.2 cm pulmonary nodule. Coronary arterial and aortic atherosclerosis. Cardiomegaly. No mediastinal or hilar lymphadenopathy. No significant pleural or pericardial effusion. Hypoattenuation of the liver. Degenerative changes to the thoracic spine are seen. IMPRESSION: Emphysema. Patchy bibasilar opacities with peripheral interlobular septal thickening is increased in the right lower lobe and decreased in the left lower lobe when compared to prior which could be due to post in fection/post inflammatory change. Now seen is a right posterior lung base 1.5 x 2.2 cm pulmonary nod ule. Recommend 3 month follow-up imaging as warranted. RPTAT: AA .Celestine Hayes MD, Date Time Electronically viewed and signed by .Celestine Hayes MD, MD on 01/04/2017 10:18 .T/
[2017-01-04] MEDS: POTASSIUM CHLORIDE (SR) 20 MEQ TAB PO SCH (11:01)
[2017-01-04] MEDS: TIOTROPIUM 18 MCG CAPSULE INHA DEV INH SCH (11:03)
[2017-01-04] MEDS: ALLOPURINOL 300 MG TAB PO SCH (11:04)
[2017-01-04] MEDS: DILTIAZEM 30 MG TAB PO SCH ×3 (11:05→21:32)
[2017-01-04] MEDS: METOLAZONE 2.5 MG TAB PO SCH (11:05)
[2017-01-04] MEDS: FENOFIBRATE 48 MG TAB PO SCH (11:06)
[2017-01-04 13:50] LABS: ADD UMIC YES; UR ASCORBIC ACID 40 mg/dL (NEGATIVE); UR BACTERIA FEW /HPF (NONE SEEN); UR BILIRUBIN (Dip) NEGATIVE (NEGATIVE); UR BLOOD (Dip) 2+ mg/dL (NEGATIVE); UR CLARITY CLEAR (CLEAR); UR COLOR YELLOW (YELLOW); UR GLUCOSE (Dip) 1+ mg/dL (NEGATIVE); UR KETONES (Dip) NEGATIVE (NEGATIVE); UR LEUKOCYTE ESTERASE (Dip) NEGATIVE Leu/ul (NEGATIVE); UR NITRITE (Dip) NEGATIVE (NEGATIVE); UR RBC 110 /HPF (0-5); UR SPECIFIC GRAVITY (Dip) 1.016 (1.003-1.030); UR TOTAL PROTEIN (Dip) 1+ mg/dl (NEGATIVE); UR UROBILINOGEN (Dip) NEGATIVE (NEGATIVE)
[2017-01-04] MEDS ORDERED: VANCOMYCIN IV PER PHARMACY XX SCH (14:00)
[2017-01-04] MEDS: ALBUTEROL/IPRATROPIUM (NEB) 3 ML AMP HHN SCH ×2 (14:11→20:52)
[2017-01-04] MEDS ORDERED: VANCOMYCIN 1.25 GM in SOD CHLORIDE 0.9% 250 ML IVPB SCH (15:30)
--- NOTE | 2017-01-04 15:31 | RADRPT ---
Echocardiogram Report Patient Name: SYLVIA SALMERON Gender: Male Date: 1930 Study Date: 04-Jan-2017 Developmental Mathematics Instructor: Ramesh Grey [facility] Location: [facility] Ref. Physician: ANN GRIGSBY Quality: Adequate Procedures: Transthoracic echocardiogram with complete 2D, M-Mode, and doppler examination. Indications: Hypoxia. 2D/M Mode Doppler Measurement Value Normal Ranges Measurement Value Normal Ranges LVIDd 2D 4.6 3.5 - 5.6 cm AMBER Vmax 0.8 cm2 LVIDs 2D 3.3 2.1 - 4.1 cm AMBER VTI 0.8 cm2 LVPWd 2D 1.2 0.6 - 1.1 cm AV Mean Sam 3.1 m/sec IVSd 2D 1.1 0.6 - 1.1 cm AV Mean PG 44.3 mmHg AoR Diam 2D 2.8 2.0 - 3.7 cm AV Peak Sam 4.2 m/sec EDV 2D 99.5 cm3 AV Peak PG 71.2 mmHg ESV 2D 35.9 cm3 AV VTI 86.8 cm LA Dimen 2D 4.6 2.3 - 4.0 cm LVOT Mean Sam 0.7 m/sec LVOT Diam 2.1 cm LVOT Mean PG 2.3 mmHg LVOT Peak Sam 1.0 m/sec LVOT Peak PG 4.3 mmHg LVOT VTI 17.4 cm TR Peak Sam 3.9 m/sec TR Peak PG 61.8 mmHg RVSP 72.0 mmHg Findings Left Ventricle: Lower limits of normal systolic function. Normal left ventricular cavity size. Mild concentric left ventricular hypertrophy. Ejection fraction is visually estimated at 50 %. Right Ventricle: Moderate enlargement of right ventricle. Mild right ventricular hypokinesis. Left Atrium: There is moderate enlargement of left atrium. Right Atrium: There is severe enlargement of right atrium. Mitral Valve: Mitral valve leaflets appear mildly thickened. Mild mitral annular calcification. Trace mitral regurgitation. Aortic Valve: Severe aortic stenosis. Aortic valve Max velocity 4.22 m/sec. Max PG 71.20 mmHg. Mean PG 44.30 mmHg. Aortic valve area 0.70 cm2. Aortic cusps appear severely calcified. Mild aortic valve regurgitation. Tricuspid Valve: Right ventricular systolic pressure is consistent with severe pulmonary hypertension. Estimated peak PA systolic pressure 76 mmHg. Tricuspid valve appears mildly thickened. There is moderate tricuspid regurgitation. Pulmonic Valve: Normal pulmonic valve appearance. Pericardium: Normal pericardium with no significant pericardial effusion. Aorta: Normal aortic root. IVC: Dilated IVC without respiratory collapse consistent with elevated right atrial pressure. Conclusions 1.Lower limits of normal systolic function. Normal left ventricular cavity size. Mild concentric left ventricular hypertrophy. Ejection fraction is visually estimated at 50 %. 2.Moderate enlargement of right ventricle. Mild right ventricular hypokinesis. 3.Severe aortic stenosis. Aortic valve Max velocity 4.22 m/sec. Max PG 71.20 mmHg. Mean PG 44.30 mmHg. Aortic valve area 0.70 cm2. Aortic cusps appear severely calcified. Mild aortic valve regurgitation. 4.Moderate tricuspid regurgitation. 5.Moderate left and severe right atrial enlargement. 6.Right ventricular systolic pressure is consistent with severe pulmonary hypertension. Estimated peak PA systolic pressure 76 mmHg based on RA pressure of 15 mmHg. Electronically Signed By: Joe Sagastume 04-Jan-2017 15:30:33 -0800 Patient Name: SYLVIA SALMERON Study Date: 04-Jan-2017 [id number]
--- NOTE | 2017-01-04 15:58 | CONS ---
Date/Time of Note Date/Time of Note DATE: 01/04/17 TIME: 15:50 Assessment/Plan Assessment/Plan Chief Complaint/Hosp Course Acute on chronic respiratory failure: Likely multifactorial. 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 Needs gentle diuresis Chronic afib: rates controlled. 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 The pt notes that one week ago he received a flu shot and thinks that he may have a viral illness since. He has chronic severe orthopnea and generally sleeps sitting up. Does not know if he has worsening leg edema. No chest pain. He has been presented options in the past including TAVR for his but is not interested. per HPI Past Medical History per HPI Social History Alcohol Use: none Smoking Status: Former smoker Drug Use: none Exam/Review of Systems Vital Signs Vitals Vital Signs Date Time Temp Pulse Resp B/P Pulse Ox O2 Delivery O2 Flow Rate FiO2 01/04/17 14:13 89 20 96 Nasal Cannula 3.0 01/04/17 06:30 97.8 122/84 Exam Constitutional: alert, oriented Psych: nl mood/affect, no complaints Head: atraumatic, normocephalic Eyes: nl conjunctiva ENMT: nl external ears & nose Neck: jvd (10cm) Respiratory: crackles/rales, diminished breath sounds, No clear to auscultation Cardiovascular: edema (1+), irregular rhythm, systolic murmur (3/6 late peaking EB), No regular rate and rhythm (IRIR) Gastrointestinal: non-tender, soft, No distended Extremities: other (venous stasis disease ) Neurological: nl mental status, nl speech Skin: other (wounds ) Results Result Diagram: 01/04/17 0529 01/04/17 0530 Results 24 hrs Laboratory Tests Test 01/03/17 21:32 01/03/17 22:05 01/03/17 22:06 01/04/17 00:04 Blood Gas Specimen Source Blood arterial Arterial Blood Date Drawn 01/03/2017 10:10:34 PM Arterial Blood pH (Temp corrected) 7.411 Arterial Blood pCO2 (Temp correct) 62.6 H Arterial Blood pO2 (Temp corrected) 116.5 H Arterial Blood HCO3 38.9 H Arterial Blood Base Excess 11.2 H Arterial Blood Oxygen Saturation 97.9 [place]by Test ACCEPTAB Arterial Blood Gas Puncture Site Right Radial Arterial Blood Carboxyhemoglobin 1.5 Arterial Blood Methemoglobin 0.1 Blood Gas A-a O2 Differential 191.4 H Oxyhemoglobin Percent 96.3 Total Hemoglobin 15.8 Blood Gas Temperature 37.0 Blood Gas Modality AEROSOL MASK FiO2 53.0 Blood Gas Notified Whom AA Blood Gas Notified Time 01/03/2017 10:23:38 PM Prothrombin Time 21.7 H Prothrombin Time Ratio 1.7 INR International Normalized Ratio 1.87 Activated Partial Thromboplast Time 34.0 Lactic Acid Level 1.8 1.2 White Blood Count 18.8 #H Red Blood Count 4.41 L Hemoglobin 14.8 Hematocrit 45.0 Mean Corpuscular Volume 102.0 H Mean Corpuscular Hemoglobin 33.6 H Mean Corpuscular Hemoglobin Concent 32.9 Red Cell Distribution Width 15.3 H Platelet Count 144 Mean Platelet Volume 9.6 Neutrophils % 80.7 H Lymphocytes % 7.1 L Monocytes % 10.5 Eosinophils % 0.6 Basophils % 0.4 Nucleated Red Blood Cells % 0.0 Neutrophils # 15.2 H Lymphocytes # 1.3 Monocytes # 2.0 H Eosinophils # 0.1 Basophils # 0.1 Nucleated Red Blood Cells # 0.0 Sodium Level 139 Potassium Level 3.8 Chloride Level 94 L Carbon Dioxide Level 35 H Anion Gap 14 Blood Urea Nitrogen 29 H Creatinine 1.26 H Glucose Level 145 Calcium Level 9.2 Total Bilirubin 0.9 Direct Bilirubin 0.00 Indirect Bilirubin 0.9 Aspartate Amino Transf (AST/SGOT) 23 Alanine Aminotransferase (ALT/SGPT) 20 Alkaline Phosphatase 57 Troponin I 0.043 0.051 Total Protein 7.7 Albumin 3.9 Globulin 3.80 H Albumin/Globulin Ratio 1.02 Creatine Kinase 32 Creatine Kinase Index 4.8 Creatinine Kinase MB (Mass) 1.52 B-Type Natriuretic Peptide 1830 H Test 01/04/17 03:30 01/04/17 04:32 01/04/17 05:29 01/04/17 05:30 Lactic Acid Level 1.3 Bedside Glucose 189 White Blood Count 19.1 H Red Blood Count 4.21 L Hemoglobin 14.3 Hematocrit 43.1 Mean Corpuscular Volume 102.4 H Mean Corpuscular Hemoglobin 34.0 H Mean Corpuscular Hemoglobin Concent 33.2 Red Cell Distribution Width 15.4 H Platelet Count 156 Mean Platelet Volume 10.1 Neutrophils % 92.7 H Lymphocytes % 3.6 L Monocytes % 2.7 Eosinophils % 0.0 Basophils % 0.3 Nucleated Red Blood Cells % 0.0 Neutrophils # 17.7 H Lymphocytes # 0.7 L Monocytes # 0.5 Eosinophils # 0.0 Basophils # 0.1 Nucleated Red Blood Cells # 0.0 Prothrombin Time 21.9 H Prothrombin Time Ratio 1.7 INR International Normalized Ratio 1.89 Sodium Level 141 Potassium Level 3.8 Chloride Level 97 Carbon Dioxide Level 36 H Anion Gap 12 Blood Urea Nitrogen 32 H Creatinine 1.23 Glucose Level 194 Calcium Level 8.8 Magnesium Level 1.9 Total Bilirubin 0.6 Direct Bilirubin 0.00 Indirect Bilirubin 0.6 Aspartate Amino Transf (AST/SGOT) 21 Alanine Aminotransferase (ALT/SGPT) 28 Alkaline Phosphatase 54 Creatine Kinase 27 Creatine Kinase Index 6.4 Creatinine Kinase MB (Mass) 1.74 Troponin I 0.035 Total Protein 6.8 Albumin 3.2 L Globulin 3.60 H Albumin/Globulin Ratio 0.88 Thyroid Stimulating Hormone (TSH) 0.897 Test 01/04/17 07:12 01/04/17 10:27 01/04/17 12:20 01/04/17 13:50 Bedside Glucose 189 194 Hemoglobin A1c 6.4 H C-Reactive Protein 22.5 H Thyroid Stimulating Hormone (TSH) 1.180 Urine Color YELLOW Urine Clarity CLEAR Urine pH 6.0 Urine Specific [place] 1.016 Urine Ketones NEGATIVE Urine Nitrite NEGATIVE Urine Bilirubin NEGATIVE Urine Urobilinogen NEGATIVE Urine Leukocyte Esterase NEGATIVE Urine Microscopic RBC 110 H Urine Microscopic WBC 5 Urine Bacteria FEW A Urine Hemoglobin 2+ H Urine Glucose 1+ H Urine Total Protein 1+ H Medications Medications Current Medications Ondansetron HCl (Zofran Inj) 4 mg Q6H PRN IV NAUSEA AND/OR VOMITING; Start at 00:00 Allopurinol (Zyloprim) 300 mg DAILY PO Last administered on 01/04/17 11:04; Admin Dose 300 MG; Start 01/04/17 at 09:00 Digoxin (Digoxin) 0.125 mg Q48H PO Last administered on 01/04/17 00:33; Admin Dose 0.125 MG; Start 01/04/17 at 00:00 Diltiazem HCl (Cardizem) 30 mg TID PO Last administered on 01/04/17 11:05; Admin Dose 30 MG; Start 01/04/17 at 09:00 Docusate Sodium (Colace) 100 mg Q12H PO Last administered on 01/04/17 00:32; Admin Dose 100 MG; Start 01/04/17 at 00:00 Fenofibrate (Tricor) 48 mg DAILY PO Last administered on 01/04/17 11:06; Admin Dose 48 MG; Start 01/04/17 at 09:00 Furosemide (Lasix) 40 mg DAILY PO ; Start 01/04/17 at 09:00 Metolazone (Zaroxolyn) 2.5 mg DAILY PO Last administered on 01/04/17 11:05; Admin Dose 2.5 MG; Start 01/04/17 at 09:00 Potassium Chloride (Klor-Con 20) 20 meq DAILY PO Last administered on 11:01; Admin Dose 20 MEQ; Start 01/04/17 at 09:00 Tamsulosin HCl (Flomax) 0.4 mg DAILY@21 PO ; Start 01/04/17 at 21:00 Tiotropium [place] (Spiriva) 1 inh DAILY INH Last administered on 01/04/17 11 :03; Admin Dose 1 INH; Start 01/04/17 at 09:00 Calcium/Vitamin D 1 tab 1 tab DAILY PO ; Start 01/04/17 at 09:00 Cefepime HCl 50 ml @ 100 mls/hr Q12 IVPB ; Start 01/04/17 at 14:00 Vancomycin HCl 1.25 gm/Sodium Chloride 250 ml @ 83.333 mls/ hr ONCE IVPB ; Start 01/04/17 at 15:30; Stop 01/04/17 at 18:29 Vancomycin HCl/ Sodium Chloride (Vancocin/NS) 250 ml @ 83.333 mls/ hr Q24H IVPB ; Start 01/05/17 at 16:00 CASH DAVALOS Jan 04, 2017 15:58
[2017-01-04] MEDS: CEFEPIME 2GM/50 ML (PMX) 50 ML IVPB SCH ×2 (16:09→21:32)
--- NOTE | 2017-01-04 16:16 | PN ---
Date/Time of Note Date/Time of Note DATE: 01/04/17 TIME: 15:52 Assessment/Plan VTE Prophylaxis VTE Prophylaxis Intervention: other Lines/Catheters IV Catheter Type (from Nrs): Saline Lock Urinary Cath still in place: Yes Reason Cath still needed: skin wounds contaminated by urine Assessment/Plan Assessment/Plan 1. SOB secondary to pneumonia vs CHF exacerbation. - CXR shows evidence of vascular congestion and given IV Lasix in ED - CT scan chest performed this am showed no pleural effusions but does show patchy bibasilar opacities with peripheral interlobular septal thickening is increased in the right lower lobe and decreased in the left lower lobe when compared to prior. Now seen is a right posterior lung base 1.5 x 2.2 cm pulmonary nodule. - IV antibiotics started - ECHO performed and shows EF 60%, severe pulmonary hypertension, severe - Continue on empiric antibiotics - Pulmonology consultation placed and recommendations appreciated. 2. Acute on chronic diastolic HF - Cardiology consulted and appreciated recommendations - Lasix on board - BNP 1800s 3. Pneumonia - Bronchodilators - Antiobitcs on board 4. Chronic atrial fibrillation - Continue on Coumadin. INR subtherapeutic - Rate controlled 5. Aortic Stenosis - most likely contributing to SOB 6. acute renal failure- resolving - Renally adjust medications, avoid nephrotoxins, continue monitor renal function. 7. COPD - bronchodilators - no wheezing appreciated 8. PVD - wound care - podiatry if worsening 9. peripheral neuropathy - continue with gabapentin 10. obesity 11. Prostate CA 12. HTN - stable - continue home medications 13. Pulmonary nodule - Will need follow up in 3 months 14. Disposition - Continue monitoring - Patient agreed to BIPAP if needed but remains DNR/DNI Subjective 24 Hr Interval Summary Free Text/Dictation Patient still experiencing shortness of breath but denies any chest pain, palpitations, nausea, vomiting, or abdominal issues. Exam/Review of Systems Vital Signs Vitals Vital Signs Date Time Temp Pulse Resp B/P Pulse Ox O2 Delivery O2 Flow Rate FiO2 01/04/17 15:49 103 24 98/54 92 Nasal Cannula 01/04/17 14:13 3.0 01/04/17 06:30 97.8 Exam General: Mild respiratory distress, awake and alert HEENT: NC/AT, EOM intact, PERRL, cyanosis of bottom lip Neck: Supple with full range of motion. Lungs: Coarse breath sounds bilaterally, mild rails at the lung bases Heart: Normal S1-S2, Regular rhythm and rate. No murmur, S3, or S4 Abdomen: Soft , nontender, nondistended , bowel sounds are present. No guarding no rebound tenderness , Extremities: Lateral lower extremities with wrapping bilaterally, pedal edema Neurologic: Normal mental status, speech normal, cranial nerves II through XII are intact, motor and sensory are intact, no focal weakness Skin: dry skin lower extremities, pulses intact Results Result Diagram: 01/04/17 0529 01/04/17 0530 Results 24 hrs Laboratory Tests Test 01/03/17 21:32 01/03/17 22:05 01/03/17 22:06 01/04/17 00:04 Blood Gas Specimen Source Blood arterial Arterial Blood Date Drawn 01/03/2017 10:10:34 PM Arterial Blood pH (Temp corrected) 7.411 Arterial Blood pCO2 (Temp correct) 62.6 H Arterial Blood pO2 (Temp corrected) 116.5 H Arterial Blood HCO3 38.9 H Arterial Blood Base Excess 11.2 H Arterial Blood Oxygen Saturation 97.9 [place] Test ACCEPTAB Arterial Blood Gas Puncture Site Right Radial Arterial Blood Carboxyhemoglobin 1.5 Arterial Blood Methemoglobin 0.1 Blood Gas A-a O2 Differential 191.4 H Oxyhemoglobin Percent 96.3 Total Hemoglobin 15.8 Blood Gas Temperature 37.0 Blood Gas Modality AEROSOL MASK FiO2 53.0 Blood Gas Notified Whom AA Blood Gas Notified Time 01/03/2017 10:23:38 PM Prothrombin Time 21.7 H Prothrombin Time Ratio 1.7 INR International Normalized Ratio 1.87 Activated Partial Thromboplast Time 34.0 Lactic Acid Level 1.8 1.2 White Blood Count 18.8 #H Red Blood Count 4.41 L Hemoglobin 14.8 Hematocrit 45.0 Mean Corpuscular Volume 102.0 H Mean Corpuscular Hemoglobin 33.6 H Mean Corpuscular Hemoglobin Concent 32.9 Red Cell Distribution Width 15.3 H Platelet Count 144 Mean Platelet Volume 9.6 Neutrophils % 80.7 H Lymphocytes % 7.1 L Monocytes % 10.5 Eosinophils % 0.6 Basophils % 0.4 Nucleated Red Blood Cells % 0.0 Neutrophils # 15.2 H Lymphocytes # 1.3 Monocytes # 2.0 H Eosinophils # 0.1 Basophils # 0.1 Nucleated Red Blood Cells # 0.0 Sodium Level 139 Potassium Level 3.8 Chloride Level 94 L Carbon Dioxide Level 35 H Anion Gap 14 Blood Urea Nitrogen 29 H Creatinine 1.26 H Glucose Level 145 Calcium Level 9.2 Total Bilirubin 0.9 Direct Bilirubin 0.00 Indirect Bilirubin 0.9 Aspartate Amino Transf (AST/SGOT) 23 Alanine Aminotransferase (ALT/SGPT) 20 Alkaline Phosphatase 57 Troponin I 0.043 0.051 Total Protein 7.7 Albumin 3.9 Globulin 3.80 H Albumin/Globulin Ratio 1.02 Creatine Kinase 32 Creatine Kinase Index 4.8 Creatinine Kinase MB (Mass) 1.52 B-Type Natriuretic Peptide 1830 H Test 01/04/17 03:30 01/04/17 04:32 01/04/17 05:29 01/04/17 05:30 Lactic Acid Level 1.3 Bedside Glucose 189 White Blood Count 19.1 H Red Blood Count 4.21 L Hemoglobin 14.3 Hematocrit 43.1 Mean Corpuscular Volume 102.4 H Mean Corpuscular Hemoglobin 34.0 H Mean Corpuscular Hemoglobin Concent 33.2 Red Cell Distribution Width 15.4 H Platelet Count 156 Mean Platelet Volume 10.1 Neutrophils % 92.7 H Lymphocytes % 3.6 L Monocytes % 2.7 Eosinophils % 0.0 Basophils % 0.3 Nucleated Red Blood Cells % 0.0 Neutrophils # 17.7 H Lymphocytes # 0.7 L Monocytes # 0.5 Eosinophils # 0.0 Basophils # 0.1 Nucleated Red Blood Cells # 0.0 Prothrombin Time 21.9 H Prothrombin Time Ratio 1.7 INR International Normalized Ratio 1.89 Sodium Level 141 Potassium Level 3.8 Chloride Level 97 Carbon Dioxide Level 36 H Anion Gap 12 Blood Urea Nitrogen 32 H Creatinine 1.23 Glucose Level 194 Calcium Level 8.8 Magnesium Level 1.9 Total Bilirubin 0.6 Direct Bilirubin 0.00 Indirect Bilirubin 0.6 Aspartate Amino Transf (AST/SGOT) 21 Alanine Aminotransferase (ALT/SGPT) 28 Alkaline Phosphatase 54 Creatine Kinase 27 Creatine Kinase Index 6.4 Creatinine Kinase MB (Mass) 1.74 Troponin I 0.035 Total Protein 6.8 Albumin 3.2 L Globulin 3.60 H Albumin/Globulin Ratio 0.88 Thyroid Stimulating Hormone (TSH) 0.897 Test 01/04/17 07:12 01/04/17 10:27 01/04/17 12:20 01/04/17 13:50 Bedside Glucose 189 194 Hemoglobin A1c 6.4 H C-Reactive Protein 22.5 H Thyroid Stimulating Hormone (TSH) 1.180 Urine Color YELLOW Urine Clarity CLEAR Urine pH 6.0 Urine Specific [place] 1.016 Urine Ketones NEGATIVE Urine Nitrite NEGATIVE Urine Bilirubin NEGATIVE Urine Urobilinogen NEGATIVE Urine Leukocyte Esterase NEGATIVE Urine Microscopic RBC 110 H Urine Microscopic WBC 5 Urine Bacteria FEW A Urine Hemoglobin 2+ H Urine Glucose 1+ H Urine Total Protein 1+ H Medications Medications Current Medications Ondansetron HCl (Zofran Inj) 4 mg Q6H PRN IV NAUSEA AND/OR VOMITING; Start at 00:00 Allopurinol (Zyloprim) 300 mg DAILY PO Last administered on 01/04/17 11:04; Admin Dose 300 MG; Start 01/04/17 at 09:00 Diltiazem HCl (Cardizem) 30 mg TID PO Last administered on 01/04/17 11:05; Admin Dose 30 MG; Start 01/04/17 at 09:00 Docusate Sodium (Colace) 100 mg Q12H PO Last administered on 01/04/17 00:32; Admin Dose 100 MG; Start 01/04/17 at 00:00 Fenofibrate (Tricor) 48 mg DAILY PO Last administered on 01/04/17 11:06; Admin Dose 48 MG; Start 01/04/17 at 09:00 Metolazone (Zaroxolyn) 2.5 mg DAILY PO Last administered on 01/04/17 11:05; Admin Dose 2.5 MG; Start 01/04/17 at 09:00 Potassium Chloride (Klor-Con 20) 20 meq DAILY PO Last administered on 11:01; Admin Dose 20 MEQ; Start 01/04/17 at 09:00 Tamsulosin HCl (Flomax) 0.4 mg DAILY@21 PO ; Start 01/04/17 at 21:00 Tiotropium [place] (Spiriva) 1 inh DAILY INH Last administered on 01/04/17 11 :03; Admin Dose 1 INH; Start 01/04/17 at 09:00 Calcium/Vitamin D 1 tab 1 tab DAILY PO ; Start 01/04/17 at 09:00 Cefepime HCl 50 ml @ 100 mls/hr Q12 IVPB ; Start 11/15/17 at 14:00 Vancomycin HCl 1.25 gm/Sodium Chloride 250 ml @ 83.333 mls/ hr ONCE IVPB ; Start 01/04/17 at 15:30; Stop 01/04/17 at 18:29 Vancomycin HCl/ Sodium Chloride (Vancocin/NS) 250 ml @ 83.333 mls/ hr Q24H IVPB ; Start 01/05/17 at 16:00 Digoxin (Digoxin) 0.125 mg DAILY PO ; Start 01/05/17 at 09:00; Status UNV FERNANDO COSTA MD Jan 04, 2017 16:16
[2017-01-04] MEDS ORDERED: WARFARIN 5 MG TAB PO SCH (17:00)
[2017-01-04] MEDS: ALBUTEROL 0.083% (NEB) 2.5 MG/3 ML AMP HHN PRN (17:08)
[2017-01-04] MEDS: CALCIUM/VITAMIN D (500/200) TAB PO SCH (17:46)
[2017-01-04] MEDS: FUROSEMIDE 40 MG INJ IV SCH (21:31)
[2017-01-04] MEDS: TAMSULOSIN (SR) 0.4 MG CAP PO SCH (21:32)
[2017-01-05] VITALS (11 sets, daily range): BP systolic 110–131; BP diastolic 56–80; PULSE 74–134; RESP 17–21
[2017-01-05] MEDS: ALBUTEROL/IPRATROPIUM (NEB) 3 ML AMP HHN SCH ×6 (01:58→20:00)
[2017-01-05] MEDS ORDERED: PENDING SANTYL ORDER FOR WOUND CARE XX PRN (04:30)
[2017-01-05] MEDS: FUROSEMIDE 40 MG INJ IV SCH (06:07)
[2017-01-05 07:21] LABS: ABNORMAL IP MESSAGE 1; BASOPHILS % 0.1 % (0.0-2.0); EOSINOPHILS % 0.1 % (0.0-7.0); HEMATOCRIT 42.2 % (42.0-52.0); HEMOGLOBIN 14.1 g/dl (14.0-18.0); LYMPHOCYTES % 5.1 % (15.0-51.0); MEAN CORPUSCULAR HEMOGLOBIN 33.7 pg (29.0-33.0); MEAN CORPUSCULAR HGB CONC 33.4 g/dl (32.0-37.0); MEAN PLATELET VOLUME 10.3 fl (7.4-10.4); MONOCYTE # 1.6 10^3/ul (0.3-0.9); MONOCYTES % 7.9 % (0.0-11.0); NEUTROPHIL # 17.1 10^3/ul (1.6-7.5); NEUTROPHILS % 85.6 % (39.0-77.0); PLATELET COUNT 180 10^3/UL (140-415); POSITIVE DIFF @See below; RED BLOOD COUNT 4.18 10^6/ul (4.70-6.10); RED CELL DISTRIBUTION WIDTH 15.3 % (11.5-14.5)
[2017-01-05 07:47] LABS: INR 2.94; PROTIME 31.1 Sec (12.2-14.2); PT RATIO 2.4
[2017-01-05 08:20] LABS: ALBUMIN 3.4 g/dl (3.3-4.9); CALCIUM 9.2 mg/dl (8.4-10.2); CREATININE 1.6 mg/dl (0.61-1.24); MAGNESIUM 1.9 mg/dl (1.7-2.5); PHOSPHORUS 3.6 mg/dl (2.5-4.9)
[2017-01-05 08:27] LABS: POTASSIUM 2.9 mmol/L (3.5-5.1)
[2017-01-05] MEDS: DILTIAZEM 30 MG TAB PO SCH ×3 (09:18→21:34)
[2017-01-05] MEDS: FENOFIBRATE 48 MG TAB PO SCH (09:19)
[2017-01-05] MEDS: METOLAZONE 2.5 MG TAB PO SCH (09:19)
[2017-01-05] MEDS: ALLOPURINOL 300 MG TAB PO SCH (09:19)
[2017-01-05] MEDS: POTASSIUM CHLORIDE (SR) 20 MEQ TAB PO SCH (09:19)
[2017-01-05] MEDS: CALCIUM/VITAMIN D (500/200) TAB PO SCH (09:19)
[2017-01-05] MEDS ORDERED: POTASSIUM CHLORIDE (SR) 20 MEQ TAB PO STA (09:49)
--- NOTE | 2017-01-05 10:49 | PN ---
Date/Time of Note Date/Time of Note DATE: 01/05/17 TIME: 10:49 Assessment/Plan VTE Prophylaxis VTE Prophylaxis Intervention: other Lines/Catheters IV [facility] Type [facility]from [facility] Saline Lock Urinary Cath still in place: No Assessment/Plan Assessment/Plan 1. SOB secondary to pneumonia vs CHF exacerbation- improving - Patient continued on IV antibiotics and bronchodilators - Pulmonology on board and recommendations appreciated. Patient has tracheobronchitis and will need to follow up as outpatient once discharged - Cardiology on board and appreciate consultation. Adjustments made to diuretics - CT scan chest performed this am showed no pleural effusions but does show patchy bibasilar opacities with peripheral interlobular septal thickening is increased in the right lower lobe and decreased in the left lower lobe when compared to prior. Now seen is a right posterior lung base 1.5 x 2.2 cm pulmonary nodule. - ECHO performed and shows EF 60%, severe pulmonary hypertension, severe 2. Acute on chronic diastolic HF - Cardiology consulted and appreciated recommendations - On Bumex BID - BNP 1800s 3. Tracheobronchitis - Bronchodilators - Antibiotics on board 4. Chronic atrial fibrillation - On digoxin and Cardizem - Rate controlled - INR therapeutic 5. Aortic Stenosis - most likely contributing to SOB 6. acute renal failure- stable - Renally adjust medications, avoid nephrotoxins, continue monitor renal function. 7. COPD - bronchodilators - no wheezing appreciated 8. PVD - wound care 9. peripheral neuropathy - continue with gabapentin 10. obesity 11. Prostate CA 12. HTN - stable - continue home medications 13. Pulmonary nodule - Will need follow up in 3 months 14. Disposition - Continue current management and will discharge in next 24-48 hours when medically stable Subjective 24 Hr Interval Summary Free Text/Dictation Patient states hes doing okay this am and still experiencing coughing with no sputum productive. No acute overnight events and no new complaints. On home O2 Exam/Review of Systems Vital Signs Vitals Vital Signs Date Time Temp Pulse Resp B/P Pulse Ox O2 Delivery O2 Flow Rate FiO2 01/05/17 08:38 108 18 92 Nasal Cannula 3.5 01/05/17 07:36 98.2 120/67 01/05/17 01:59 21 Intake and Output 01/04/17 01/04/17 01/05/17 15:00 23:00 07:00 Intake Total 240 ml Output Total 800 ml 700 ml 1000 ml Balance -800 ml -700 ml -760 ml Exam General: Awake and alert. No acute distress but having coughing spells after deep inspiration HEENT: NC/AT, EOM intact, PERRL, cyanosis of bottom lip Neck: Supple with full range of motion. Lungs: Coarse breath sounds bilaterally, mild rails at the lung bases Heart: Normal S1-S2, Regular rhythm and rate. No murmur, S3, or S4 Abdomen: Soft , nontender, nondistended , bowel sounds are present. No guarding no rebound tenderness , Extremities: Lateral lower extremities with wrapping bilaterally, pedal edema Neurologic: Normal mental status, speech normal, cranial nerves II through XII are intact, motor and sensory are intact, no focal weakness Skin: dry skin lower extremities, pulses intact Results Result Diagram: 01/05/17 0632 01/05/17 0631 Results 24 hrs Laboratory Tests Test 01/04/17 12:20 01/04/17 13:50 01/04/17 17:43 01/05/17 06:31 Urine Color YELLOW Urine Clarity CLEAR Urine pH 6.0 Urine Specific [place] 1.016 Urine Ketones NEGATIVE Urine Nitrite NEGATIVE Urine Bilirubin NEGATIVE Urine Urobilinogen NEGATIVE Urine Leukocyte Esterase NEGATIVE Urine Microscopic RBC 110 H Urine Microscopic WBC 5 Urine Bacteria FEW A Urine Hemoglobin 2+ H Urine Glucose 1+ H Urine Total Protein 1+ H Bedside Glucose 194 183 Prothrombin Time 31.1 #H Prothrombin Time Ratio 2.4 INR International Normalized Ratio 2.94 Sodium Level 141 Potassium Level 2.9 *L Chloride Level 96 L Carbon Dioxide Level 37 H Anion Gap 11 Blood Urea Nitrogen 56 H Creatinine 1.60 H Glucose Level 153 Calcium Level 9.2 Phosphorus Level 3.6 Magnesium Level 1.9 Albumin 3.4 Digoxin Level 0.6 L Test 01/05/17 06:32 White Blood Count 20.0 H Red Blood Count 4.18 L Hemoglobin 14.1 Hematocrit 42.2 Mean Corpuscular Volume 101.0 Mean Corpuscular Hemoglobin 33.7 H Mean Corpuscular Hemoglobin Concent 33.4 Red Cell Distribution Width 15.3 H Platelet Count 180 Mean Platelet Volume 10.3 Neutrophils % 85.6 H Lymphocytes % 5.1 L Monocytes % 7.9 Eosinophils % 0.1 Basophils % 0.1 Nucleated Red Blood Cells % 0.0 Neutrophils # 17.1 H Lymphocytes # 1.0 Monocytes # 1.6 H Eosinophils # 0.0 Basophils # 0.0 Nucleated Red Blood Cells # 0.0 Medications Medications Current Medications Ondansetron HCl (Zofran Inj) 4 mg Q6H PRN IV NAUSEA AND/OR VOMITING; Start at 00:00 Allopurinol (Zyloprim) 300 mg DAILY PO Last administered on 01/05/17 09:19; Admin Dose 300 MG; Start 01/04/17 at 09:00 Diltiazem HCl (Cardizem) 30 mg TID PO Last administered on 01/05/17 09:18; Admin Dose 30 MG; Start 01/04/17 at 09:00 Docusate Sodium (Colace) 100 mg Q12H PO Last administered on 01/04/17 16:10; Admin Dose 100 MG; Start 01/04/17 at 00:00 Fenofibrate (Tricor) 48 mg DAILY PO Last administered on 01/05/17 09:19; Admin Dose 48 MG; Start 01/04/17 at 09:00 Metolazone (Zaroxolyn) 2.5 mg DAILY PO Last administered on 01/05/17 09:19; Admin Dose 2.5 MG; Start 01/04/17 at 09:00 Potassium Chloride (Klor-Con 20) 20 meq DAILY PO Last administered on 09:19; Admin Dose 20 MEQ; Start 01/04/17 at 09:00 Tamsulosin HCl (Flomax) 0.4 mg DAILY@21 PO Last administered on 01/04/17 21: 32; Admin Dose 0.4 MG; Start 01/04/17 at 21:00 Tiotropium [place] (Spiriva) 1 inh DAILY INH Last administered on 01/04/17 11 :03; Admin Dose 1 INH; Start 01/04/17 at 09:00 Calcium/Vitamin D (Oyster Shell/ Vit-D (500/200)) 1 tab DAILY PO Last administered on 01/05/17 09:19; Admin Dose 1 TAB; Start 01/04/17 at 09:00 Digoxin (Digoxin) 0.125 mg DAILY@13 PO ; Start 01/05/17 at 13:00 Miscellaneous Information This patient flynn... PRN PRN XX WOUND CARE; Start at 04:30 Vancomycin HCl 250 ml @ 125 mls/hr Q24H IVPB ; Start 01/05/17 at 22:00 Cefepime HCl (Maxipime 2gm/50 ml (Pmx)) 50 ml @ 100 mls/hr Q24H IVPB ; Start 01/05/17 at 21:00 Potassium Chloride (Klor-Con 20) 40 meq 1300 ONCE PO ; Start 01/05/17 at 13:00 ; Stop 01/05/17 at 13:01 Warfarin Sodium (Coumadin) 5 mg DAILY@17 PO ; Start 01/05/17 at 17:00 Sodium Chloride ([place]) 2 spray BID NASAL ; Start 01/05/17 at 11:00 FERNANDO COSTA MD Jan 05, 2017 10:49
[2017-01-05] MEDS: DIGOXIN 0.125 MG TAB PO SCH (12:07)
[2017-01-05] MEDS: DOCUSATE SODIUM 100 MG CAP PO SCH (12:09)
--- NOTE | 2017-01-05 12:30 | CONS ---
Date/Time of Note Date/Time of Note DATE: 01/05/17 TIME: 12:28 Assessment/Plan Assessment/Plan Chief Complaint/Hosp Course Acute on chronic respiratory failure: Likely multifactorial. 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 Improved with diuresis but Cr worse today Chronic afib: rates controlled. On coumadin Severe : not interested in anything invasive Severe pulm HTN with right heart failure: PAP 70s by echo COPD with possible exacerbation Neuropathy/functional quadriplegia -change to bumex 1mg PO BID for better absorption with right heart failure/TR -digoxin 125mcg daily -continue diltiazem -continue coumadin -COPD management per primary Problems: Consultation Date/Type/Reason Admit Date/Time Jan 03, 2017 at 23:46 Initial Consult Date 01/04/17 Type of Consultation: Cardiology Referring Provider: FERNANDO COSTA MD 24 HR Interval Summary Free Text/Dictation No o/n events. Feels better but still SOB. Exam/Review of Systems Vital Signs Vitals Vital Signs Date Time Temp Pulse Resp B/P Pulse Ox O2 Delivery O2 Flow Rate FiO2 01/05/17 12:07 122 01/05/17 11:54 98.0 18 110/56 94 01/05/17 08:38 Nasal Cannula 3.5 01/05/17 01:59 21 Intake and Output 01/04/17 01/04/17 01/05/17 15:00 23:00 07:00 Intake Total 240 ml Output Total 800 ml 700 ml 1000 ml Balance -800 ml -700 ml -760 ml Exam Constitutional: alert, oriented Psych: nl mood/affect, no complaints Head: atraumatic, normocephalic Neck: jvd (8cm, V-wave) Respiratory: crackles/rales, wheezing, No clear to auscultation Cardiovascular: edema (trace), No regular rate and rhythm (IRIR) Neurological: nl mental status, nl speech Results Result Diagram: 01/05/17 0632 01/05/17 0631 Results 24 hrs Laboratory Tests Test 01/04/17 13:50 01/04/17 17:43 01/05/17 06:31 01/05/17 06:32 Bedside Glucose 194 183 Prothrombin Time 31.1 #H Prothrombin Time Ratio 2.4 INR International Normalized Ratio 2.94 Sodium Level 141 Potassium Level 2.9 *L Chloride Level 96 L Carbon Dioxide Level 37 H Anion Gap 11 Blood Urea Nitrogen 56 H Creatinine 1.60 H Glucose Level 153 Calcium Level 9.2 Phosphorus Level 3.6 Magnesium Level 1.9 Albumin 3.4 Digoxin Level 0.6 L White Blood Count 20.0 H Red Blood Count 4.18 L Hemoglobin 14.1 Hematocrit 42.2 Mean Corpuscular Volume 101.0 Mean Corpuscular Hemoglobin 33.7 H Mean Corpuscular Hemoglobin Concent 33.4 Red Cell Distribution Width 15.3 H Platelet Count 180 Mean Platelet Volume 10.3 Neutrophils % 85.6 H Lymphocytes % 5.1 L Monocytes % 7.9 Eosinophils % 0.1 Basophils % 0.1 Nucleated Red Blood Cells % 0.0 Neutrophils # 17.1 H Lymphocytes # 1.0 Monocytes # 1.6 H Eosinophils # 0.0 Basophils # 0.0 Nucleated Red Blood Cells # 0.0 Medications Medications Current Medications Ondansetron HCl (Zofran Inj) 4 mg Q6H PRN IV NAUSEA AND/OR VOMITING; Start at 00:00 Allopurinol (Zyloprim) 300 mg DAILY PO Last administered on 01/05/17 09:19; Admin Dose 300 MG; Start 01/04/17 at 09:00 Diltiazem HCl (Cardizem) 30 mg TID PO Last administered on 01/05/17 12:09; Admin Dose 30 MG; Start 01/04/17 at 09:00 Docusate Sodium (Colace) 100 mg Q12H PO Last administered on 01/05/17 12:09; Admin Dose 100 MG; Start 01/04/17 at 00:00 Fenofibrate (Tricor) 48 mg DAILY PO Last administered on 01/05/17 09:19; Admin Dose 48 MG; Start 01/04/17 at 09:00 Metolazone (Zaroxolyn) 2.5 mg DAILY PO Last administered on 01/05/17 09:19; Admin Dose 2.5 MG; Start 01/04/17 at 09:00 Potassium Chloride (Klor-Con 20) 20 meq DAILY PO Last administered on 09:19; Admin Dose 20 MEQ; Start 01/04/17 at 09:00 Tamsulosin HCl (Flomax) 0.4 mg DAILY@21 PO Last administered on 01/04/17 21: 32; Admin Dose 0.4 MG; Start 01/04/17 at 21:00 Tiotropium [place] (Spiriva) 1 inh DAILY INH Last administered on 01/04/17 11 :03; Admin Dose 1 INH; Start 01/04/17 at 09:00 Calcium/Vitamin D (Oyster Shell/ Vit-D (500/200)) 1 tab DAILY PO Last administered on 01/05/17 09:19; Admin Dose 1 TAB; Start 01/04/17 at 09:00 Digoxin (Digoxin) 0.125 mg DAILY@13 PO Last administered on 01/05/17 12:07; Admin Dose 0.125 MG; Start 01/05/17 at 13:00 Miscellaneous Information This patient flynn... PRN PRN XX WOUND CARE; Start at 04:30 Vancomycin HCl 250 ml @ 125 mls/hr Q24H IVPB ; Start 01/05/17 at 22:00 Cefepime HCl (Maxipime 2gm/50 ml (Pmx)) 50 ml @ 100 mls/hr Q24H IVPB ; Start 01/05/17 at 21:00 Potassium Chloride (Klor-Con 20) 40 meq 1300 ONCE PO Last administered on 12:08; Admin Dose 40 MEQ; Start 01/05/17 at 13:00; Stop 01/05/17 at 13 :01 Warfarin Sodium (Coumadin) 5 mg DAILY@17 PO ; Start 01/05/17 at 17:00 Sodium Chloride ([place]) 2 spray BID NASAL ; Start 01/05/17 at 11:00 CASH DAVALOS Jan 05, 2017 12:30
[2017-01-05] MEDS ORDERED: POTASSIUM CHLORIDE (SR) 20 MEQ TAB PO ONE (13:00)
--- NOTE | 2017-01-05 14:10 | CONS ---
DATE OF ADMISSION: 01/03/2017 DATE OF CONSULTATION: 01/05/2017 CONSULTATION: Pulmonary. REASON FOR CONSULTATION: Respiratory distress. Thank you, Dr. Parada, for this consultation. HISTORY OF PRESENT ILLNESS: This is an 86-year-old gentleman with history of COPD on home O2, admit dusty with several-day history of increasing cough, congestion, shortness of breath, no orthopnea, no PND, no fever, no chills. No hemoptysis or hematemesis. No sick contacts. On admission, CT chest was performed demonstrated patchy bilateral infiltrates, small nodule right lung base. Lower extrem ity Dopplers were negative for deep vein thrombosis. The patient states he is normally on 2 to 3 li ters supplemental O2 at all times, and has an extensive prior tobacco history. PAST MEDICAL HISTORY: 1. Home O2 dependent COPD. 2. Chronic venous stasis. 3. Severe aortic stenosis on echocardiogram. 4. Pulmonary hypertension. 5. Chronic atrial fibrillation. MEDICATIONS: Per chart. ALLERGIES: NONE. SOCIAL HISTORY: Ex-smoker, no alcohol, no history of drug use. FAMILY HISTORY: Noncontributory. SYSTEMS REVIEW: A 14-point review of systems was negative other than that mentioned above. PHYSICAL EXAMINATION: GENERAL: Elderly-appearing gentleman, awake, alert, oriented, comfortable at rest, talking in full and complete sentences. VITAL SIGNS: Currently afebrile. Pulse is 112, blood pressure 110/56, O2 saturation 96% on 3 L nestor al cannula. NECK: Supple. No JVD or lymphadenopathy. CARDIAC: S1, S2, 2/6 systolic ejection murmur. CHEST: Diminished air entry bilaterally. ABDOMEN: Obese, soft, nontender, no guarding, no rebound. EXTREMITIES: No cyanosis, clubbing or edema. NEUROLOGIC: Generalized weakness. LABORATORY DATA: White count 20, hemoglobin 14.1 and platelets 280. BUN 56, creatinine 1.6, ABG: pH 7.4, pCO2 of 62, PaO2 of 116, bicarbonate was 38. DIAGNOSTIC DATA: EKG shows no acute ischemic changes. IMPRESSION: Acute on chronic hypoxemic respiratory failure, likely secondary to combination of: 1. Mild congestive cardiac failure. 2. Possible tracheobronchitis. 3. Probable chronic obstructive pulmonary disease exacerbation. 4. Healthcare-associated pneumonia. 5. History of severe aortic stenosis. The patient will require 1. Continued bronchodilators. 2. Supplemental O2. 3. Continue anticoagulation. 4. Gentle diuresis. 5. Broad-spectrum antibiotics pending cultures. 6. Deep venous thrombosis and gastrointestinal prophylaxis. Dictated By: NILES ROMERO/GAUTAM Conf#: [id number] DID#: [id number] CC: ANN GRIGSBY MD;*EndCC*
[2017-01-05] MEDS: TIOTROPIUM 18 MCG CAPSULE INHA DEV INH SCH (14:34)
[2017-01-05] MEDS: SALINE 0.65% 45 ML NAS SPRAY NASAL SCH ×2 (14:36→21:58)
[2017-01-05] MEDS ORDERED: VANCOMYCIN 1.5 GM in SOD CHLORIDE 0.9% 250 ML IVPB SCH (16:00)
[2017-01-05] MEDS: WARFARIN 5 MG TAB PO SCH (17:38)
[2017-01-05] MEDS ORDERED: CEFEPIME 2GM/50 ML (PMX) 50 ML IVPB SCH (21:00)
[2017-01-05] MEDS: TAMSULOSIN (SR) 0.4 MG CAP PO SCH (21:34)
[2017-01-05] MEDS ORDERED: VANCOMYCIN 1 GM in NS 250 ML IVPB SCH (22:00)
[2017-01-05] MEDS: ALBUTEROL 0.083% (NEB) 2.5 MG/3 ML AMP HHN PRN (23:31)
[2017-01-06] VITALS (17 sets, daily range): BP systolic 106–136; BP diastolic 56–76; PULSE 98–192; RESP 20–22
[2017-01-06] MEDS: DOCUSATE SODIUM 100 MG CAP PO SCH ×2 (00:19→12:51)
[2017-01-06] MEDS: ALBUTEROL 0.083% (NEB) 2.5 MG/3 ML AMP HHN PRN (04:06)
[2017-01-06] MEDS ORDERED: BUMETANIDE 1 MG TAB PO SCH (06:00)
[2017-01-06 07:53] LABS: ABNORMAL IP MESSAGE 1; BASOPHIL # 0.1 10^3/ul (0.0-0.1); BASOPHILS % 0.3 % (0.0-2.0); EOSINOPHILS # 0.2 10^3/ul (0.0-0.5); EOSINOPHILS % 1.3 % (0.0-7.0); HEMATOCRIT 42.1 % (42.0-52.0); HEMOGLOBIN 13.9 g/dl (14.0-18.0); LYMPHOCYTES # 1.3 10^3/ul (0.8-2.9); LYMPHOCYTES % 8.2 % (15.0-51.0); MEAN CORPUSCULAR HEMOGLOBIN 33.7 pg (29.0-33.0); MEAN CORPUSCULAR VOLUME 101.9 fl (82.0-101.0); MEAN PLATELET VOLUME 10.1 fl (7.4-10.4); MONOCYTE # 1.8 10^3/ul (0.3-0.9); MONOCYTES % 11.3 % (0.0-11.0); NEUTROPHIL # 12.5 10^3/ul (1.6-7.5); NEUTROPHILS % 77.8 % (39.0-77.0); PLATELET COUNT 223 10^3/UL (140-415); POSITIVE DIFF @See below; RED BLOOD COUNT 4.13 10^6/ul (4.70-6.10); RED CELL DISTRIBUTION WIDTH 15.4 % (11.5-14.5)
[2017-01-06] MEDS: ALBUTEROL/IPRATROPIUM (NEB) 3 ML AMP HHN SCH ×4 (08:12→20:20)
[2017-01-06 08:28] LABS: INR 3.33; PROTIME 34.3 Sec (12.2-14.2); PT RATIO 2.7
[2017-01-06 08:36] LABS: ALBUMIN 3.4 g/dl (3.3-4.9); CALCIUM 9.5 mg/dl (8.4-10.2); CREATININE 1.52 mg/dl (0.61-1.24); MAGNESIUM 2.1 mg/dl (1.7-2.5)
--- NOTE | 2017-01-06 08:58 | RADRPT ---
PROCEDURE: XR Chest. CLINICAL INDICATION: Chest pain TECHNIQUE: Single frontal view of the chest was obtained. COMPARISON: CT CHEST 01/04/2017; CR CHEST 04/10/2016 FINDINGS: The heart is within normal limits. The thoracic aorta is calcified. There are bibasilar atelectatic changes. The right lower lobe lung nodule is not well seen on the pl ain film radiograph. There is no pleural effusion or pneumothorax. RPTAT: AA IMPRESSION: Bibasilar atelectatic changes. Right lower lobe lung nodule is not well seen on the plain film radiograph. Calcified aorta consistent with atherosclerotic disease. .Gino Cedeño MD, MD Date Time Electronically viewed and signed by .Gino Cedeño MD, on 01/06/2017 08:57 .S/
[2017-01-06] MEDS: POTASSIUM CHLORIDE (SR) 20 MEQ TAB PO SCH (10:10)
[2017-01-06] MEDS: METOLAZONE 2.5 MG TAB PO SCH (10:10)
[2017-01-06] MEDS: FENOFIBRATE 48 MG TAB PO SCH (10:11)
[2017-01-06] MEDS: TIOTROPIUM 18 MCG CAPSULE INHA DEV INH SCH (10:11)
[2017-01-06] MEDS: DILTIAZEM 30 MG TAB PO SCH ×3 (10:11→21:58)
[2017-01-06] MEDS: SALINE 0.65% 45 ML NAS SPRAY NASAL SCH ×2 (10:11→21:58)
[2017-01-06] MEDS: CALCIUM/VITAMIN D (500/200) TAB PO SCH (10:11)
[2017-01-06] MEDS: ALLOPURINOL 300 MG TAB PO SCH (10:11)
--- NOTE | 2017-01-06 11:00 | CONS ---
Date/Time of Note Date/Time of Note DATE: 01/06/17 TIME: 10:58 Assessment/Plan Assessment/Plan Chief Complaint/Hosp Course Acute on chronic respiratory failure: Likely multifactorial. 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 Improved with diuresis and close to euvolemic Chronic afib: rates controlled. 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 SOB improved. Exam/Review of Systems Vital Signs Vitals Vital Signs Date Time Temp Pulse Resp B/P Pulse Ox O2 Delivery O2 Flow Rate FiO2 01/06/17 08:12 86 20 90 Nasal Cannula 3.0 01/06/17 07:50 97.9 134/69 01/05/17 01:59 21 Intake and Output 01/05/17 01/05/17 01/06/17 15:00 23:00 07:00 Intake Total 450 ml 250 ml Output Total 1650 ml 1450 ml Balance -1200 ml -1200 ml Exam Constitutional: alert, oriented Psych: nl mood/affect, no complaints Head: atraumatic, normocephalic Neck: jvd (8cm), supple Respiratory: crackles/rales, diminished breath sounds, No clear to auscultation Cardiovascular: systolic murmur (3/6 EB), No edema, No regular rate and rhythm Gastrointestinal: non-tender, soft Neurological: nl mental status, nl speech Results Result Diagram: 01/06/1770401/06/17704 Results 24 hrs Laboratory Tests Test 01/06/17 07:05 White Blood Count 16.0 H Red Blood Count 4.13 L Hemoglobin 13.9 L Hematocrit 42.1 Mean Corpuscular Volume 101.9 H Mean Corpuscular Hemoglobin 33.7 H Mean Corpuscular Hemoglobin Concent 33.0 Red Cell Distribution Width 15.4 H Platelet Count 223 # Mean Platelet Volume 10.1 Neutrophils % 77.8 H Lymphocytes % 8.2 L Monocytes % 11.3 H Eosinophils % 1.3 Basophils % 0.3 Nucleated Red Blood Cells % 0.0 Neutrophils # 12.5 H Lymphocytes # 1.3 Monocytes # 1.8 H Eosinophils # 0.2 Basophils # 0.1 Nucleated Red Blood Cells # 0.0 Prothrombin Time 34.3 H Prothrombin Time Ratio 2.7 INR International Normalized Ratio 3.33 Sodium Level 142 Potassium Level 3.0 L Chloride Level 96 L Carbon Dioxide Level Anion Gap 10 Blood Urea Nitrogen 65 H Creatinine 1.52 H Glucose Level 124 Calcium Level 9.5 Phosphorus Level 3.0 Magnesium Level 2.1 Albumin 3.4 Medications Medications Current Medications Ondansetron HCl (Zofran Inj) 4 mg Q6H PRN IV NAUSEA AND/OR VOMITING; Start at 00:00 Allopurinol (Zyloprim) 300 mg DAILY PO Last administered on 01/06/17 10:11; Admin Dose 300 MG; Start 01/04/17 at 09:00 Diltiazem HCl (Cardizem) 30 mg TID PO Last administered on 01/06/17 10:11; Admin Dose 30 MG; Start 01/04/17 at 09:00 Docusate Sodium (Colace) 100 mg Q12H PO Last administered on 01/06/17 00:19; Admin Dose 100 MG; Start 01/04/17 at 00:00 Fenofibrate (Tricor) 48 mg DAILY PO Last administered on 01/06/17 10:11; Admin Dose 48 MG; Start 01/04/17 at 09:00 Metolazone (Zaroxolyn) 2.5 mg DAILY PO Last administered on 01/06/17 10:10; Admin Dose 2.5 MG; Start 01/04/17 at 09:00 Potassium Chloride (Klor-Con 20) 20 meq DAILY PO Last administered on 10:10; Admin Dose 20 MEQ; Start 01/04/17 at 09:00 Tamsulosin HCl (Flomax) 0.4 mg DAILY@21 PO Last administered on 11/16/17at 21: 34; Admin Dose 0.4 MG; Start 01/04/17 at 21:00 Tiotropium [place] (Spiriva) 1 inh DAILY INH Last administered on 01/06/17 10 :11; Admin Dose 1 INH; Start 01/04/17 at 09:00 Calcium/Vitamin D (Oyster Shell/ Vit-D (500/200)) 1 tab DAILY PO Last administered on 01/06/17 10:11; Admin Dose 1 TAB; Start 01/04/17 at 09:00 Digoxin (Digoxin) 0.125 mg DAILY@13 PO Last administered on 01/05/17 12:07; Admin Dose 0.125 MG; Start 01/05/17 at 13:00 Miscellaneous Information (Pending [facility] Order For Wound Care) This patient flynn... PRN PRN XX WOUND CARE; Start 01/05/17 at 04:30 Warfarin Sodium (Coumadin) 5 mg DAILY@17 PO Last administered on 01/05/17 17: 38; Admin Dose 5 MG; Start 01/05/17 at 17:00 Sodium Chloride (Deep Sea) 2 spray BID NASAL Last administered on 01/06/17 10 :11; Admin Dose 2 SPRAY; Start 01/05/17 at 11:00 Potassium Chloride (Klor-Con 20) 40 meq ONCE ONCE PO ; Start 01/06/17 at 12:00 ; Stop 01/06/17 at 12:01 CASH DAVALOS Jan 06, 2017 11:00
[2017-01-06] MEDS ORDERED: HYDROCODONE/APAP (10/325) TAB PO PRN (12:00)
[2017-01-06] MEDS ORDERED: POTASSIUM CHLORIDE (SR) 20 MEQ TAB PO ONE (12:00)
[2017-01-06] MEDS: DIGOXIN 0.125 MG TAB PO SCH (12:53)
[2017-01-06] MEDS ORDERED: GELATIN COMPRESSED 100CM SPONGE TOP ONE (14:00)
--- NOTE | 2017-01-06 16:14 | CONS ---
Date/Time of Note Date/Time of Note DATE: 01/06/17 TIME: 16:11 Consult Date/Type/Reason Admit Date/Time Jan 03, 2017 at 23:46 Initial Consult Date 01/04/17 Type of Consultation: Pulm Ordering Provider: FERNANDO COSTA MD Subjective Patient comfortable this morning. Objective Vital Signs Date Time Temp Pulse Resp B/P Pulse Ox O2 Delivery O2 Flow Rate FiO2 01/06/17 16:04 98.2 116 20 106/64 94 01/06/17 13:29 Nasal Cannula 3.0 01/05/17 01:59 21 Intake and Output 01/05/17 01/05/17 01/06/17 14:59 22:59 06:59 Intake Total 450 ml Output Total 1650 ml Balance -1200 ml Exam PHYSICAL EXAMINATION: GENERAL: Elderly-appearing gentleman, awake, alert, oriented, comfortable at rest, talking in full and complete sentences. VITAL SIGNS: NECK: Supple. No JVD or lymphadenopathy. CARDIAC: S1, S2, 2/6 systolic ejection murmur. CHEST: Diminished air entry bilaterally. ABDOMEN: Obese, soft, nontender, no guarding, no rebound. EXTREMITIES: No cyanosis, clubbing or edema. NEUROLOGIC: Generalized weakness. Results/Medications Result Diagram: 01/06/17 0705 01/06/17 0705 Results 24 hrs Laboratory Tests Test 01/06/17 07:05 White Blood Count 16.0 H Red Blood Count 4.13 L Hemoglobin 13.9 L Hematocrit 42.1 Mean Corpuscular Volume 101.9 H Mean Corpuscular Hemoglobin 33.7 H Mean Corpuscular Hemoglobin Concent 33.0 Red Cell Distribution Width 15.4 H Platelet Count 223 # Mean Platelet Volume 10.1 Neutrophils % 77.8 H Lymphocytes % 8.2 L Monocytes % 11.3 H Eosinophils % 1.3 Basophils % 0.3 Nucleated Red Blood Cells % 0.0 Neutrophils # 12.5 H Lymphocytes # 1.3 Monocytes # 1.8 H Eosinophils # 0.2 Basophils # 0.1 Nucleated Red Blood Cells # 0.0 Prothrombin Time 34.3 H Prothrombin Time Ratio 2.7 INR International Normalized Ratio 3.33 Sodium Level 142 Potassium Level 3.0 L Chloride Level 96 L Carbon Dioxide Level Anion Gap 10 Blood Urea Nitrogen 65 H Creatinine 1.52 H Glucose Level 124 Calcium Level 9.5 Phosphorus Level 3.0 Magnesium Level 2.1 Albumin 3.4 Medications Current Medications Ondansetron HCl (Zofran Inj) 4 mg Q6H PRN IV NAUSEA AND/OR VOMITING; Start at 00:00 Allopurinol (Zyloprim) 300 mg DAILY PO Last administered on 01/06/17 10:11; Admin Dose 300 MG; Start 01/04/17 at 09:00 Diltiazem HCl (Cardizem) 30 mg TID PO Last administered on 01/06/17 12:54; Admin Dose 30 MG; Start 01/04/17 at 09:00 Docusate Sodium (Colace) 100 mg Q12H PO Last administered on 01/06/17 12:51; Admin Dose 100 MG; Start 01/04/17 at 00:00 Fenofibrate (Tricor) 48 mg DAILY PO Last administered on 01/06/17 10:11; Admin Dose 48 MG; Start 01/04/17 at 09:00 Metolazone (Zaroxolyn) 2.5 mg DAILY PO Last administered on 01/06/17 10:10; Admin Dose 2.5 MG; Start 01/04/17 at 09:00 Potassium Chloride (Klor-Con 20) 20 meq DAILY PO Last administered on 10:10; Admin Dose 20 MEQ; Start 01/04/17 at 09:00 Tamsulosin HCl (Flomax) 0.4 mg DAILY@21 PO Last administered on 01/05/17 21: 34; Admin Dose 0.4 MG; Start 01/04/17 at 21:00 Tiotropium [place] (Spiriva) 1 inh DAILY INH Last administered on 01/06/17 10 :11; Admin Dose 1 INH; Start 01/04/17 at 09:00 Calcium/Vitamin D (Oyster Shell/ Vit-D (500/200)) 1 tab DAILY PO Last administered on 01/06/17 10:11; Admin Dose 1 TAB; Start 01/04/17 at 09:00 Digoxin (Digoxin) 0.125 mg DAILY@13 PO Last administered on 01/06/17 12:53; Admin Dose 0.125 MG; Start 01/05/17 at 13:00 [facility]iscellaneous Information [facility] This patient flynn... PRN PRN XX WOUND CARE; Start 01/05/17 at 04:30 Warfarin Sodium (Coumadin) 5 mg DAILY@17 PO Last administered on 01/05/17t 17: 38; Admin Dose 5 MG; Start 01/05/17 at 17:00 Sodium Chloride (Deep Sea) 2 spray BID NASAL Last administered on 01/06/17t 10 :11; Admin Dose 2 SPRAY; Start 01/05/17 at 11:00 Bumetanide (Bumex) 1 mg DAILY PO ; Start 01/07/17 at 09:00 Acetaminophen/ Hydrocodone Bitart ([place] (5/325)) 1 tab Q4H PRN PO PAIN LEVEL 4 -6; Start 01/06/17 at 12:00 Acetaminophen/ Hydrocodone Bitart ([place] (10/325)) 1 tab Q4H PRN PO SEVERE PAIN LEVEL 7-10; Start 01/06/17 at 12:00 Trazodone HCl (Desyrel) 50 mg HS PO ; Start 01/06/17 at 21:00 Assessment/Plan Chief Complaint/Hosp Course IMPRESSION: Acute on chronic hypoxemic respiratory failure, likely secondary to combination of: 1. Mild congestive cardiac failure. 2. Possible tracheobronchitis. 3. Probable chronic obstructive pulmonary disease exacerbation. 4. Healthcare-associated pneumonia. 5. History of severe aortic stenosis. The patient will require 1. Continued bronchodilators. 2. Supplemental O2. 3. Continue anticoagulation. 4. Gentle diuresis. 5. Broad-spectrum antibiotics pending cultures. 6. Deep venous thrombosis and gastrointestinal prophylaxis. Continue current level of care Problems: NIL[facility] GRIFFITHS [facility] Jan 06, 2017 16:14
[2017-01-06] MEDS: HYDROCODONE/APAP (5/325) TAB PO PRN (17:12)
[2017-01-06] MEDS: SALINE 0.65% NAS 14.1 GM TUBE NASAL SCH ×3 (18:00→21:58)
--- NOTE | 2017-01-06 19:17 | PN ---
Date/Time of Note Date/Time of Note DATE: 01/06/17 TIME: 19:13 Assessment/Plan VTE Prophylaxis VTE Prophylaxis Intervention: other Lines/Catheters IV Catheter Type (from Nrs): Saline Lock Urinary Cath still in place: Yes Reason Cath still needed: other (indicate) (respiratory distress) Assessment/Plan Assessment/Plan 1. SOB secondary to pneumonia vs CHF exacerbation- improving - Patient continued on IV antibiotics and bronchodilators - Pulmonology on board and recommendations appreciated. Patient has tracheobronchitis and will need to follow up as outpatient once discharged - Cardiology on board and appreciate consultation. Adjustments made to diuretics - CT scan chest performed this am showed no pleural effusions but does show patchy bibasilar opacities with peripheral interlobular septal thickening is increased in the right lower lobe and decreased in the left lower lobe when compared to prior. Now seen is a right posterior lung base 1.5 x 2.2 cm pulmonary nodule. - ECHO performed and shows EF 60%, severe pulmonary hypertension, severe 2. Acute on chronic diastolic HF - Cardiology consulted and appreciated recommendations - On Bumex PO daily - BNP 1800s 3. Tracheobronchitis - Bronchodilators - Antibiotics on board 4. Chronic atrial fibrillation - On digoxin and Cardizem - Rate controlled - INR supratherapeutic and will hold dose tonight. Check INR in am 5. Aortic Stenosis - most likely contributing to SOB 6. acute renal failure- stable - Renally adjust medications, avoid nephrotoxins, continue monitor renal function. 7. COPD - bronchodilators - no wheezing appreciated 8. PVD - wound care 9. peripheral neuropathy - continue with gabapentin 10. obesity 11. Prostate CA 12. HTN - stable - continue home medications 13. Pulmonary nodule - Will need follow up in 3 months 14. Insomnia - Will try Trazodone and titrate up dose as needed 15. Disposition - Once respiratory status back to baseline d/c back to SNF Subjective 24 Hr Interval Summary Free Text/Dictation Patient still experiencing respiratory distress but slightly improved since admission. Also complaining about nasal dryness. Exam/Review of Systems Vital Signs Vitals Vital Signs Date Time Temp Pulse Resp B/P Pulse Ox O2 Delivery O2 Flow Rate FiO2 01/06/17 17:38 114 20 93 Nasal Cannula 3.0 01/06/17 16:04 98.2 106/64 01/05/17 01:59 21 Intake and Output 01/05/17 01/05/17 01/06/17 15:00 23:00 07:00 Intake Total 450 ml 250 ml Output Total 1650 ml 1450 ml Balance -1200 ml -1200 ml Exam General: Awake and alert. No acute distress HEENT: NC/AT, EOM intact, PERRL, cyanosis of bottom lip Neck: Supple with full range of motion. Lungs: Diminished breath sounds, mild rails at the lung bases Heart: Normal S1-S2, Regular rhythm and rate. No murmur, S3, or S4 Abdomen: Soft , nontender, nondistended , bowel sounds are present. No guarding no rebound tenderness , Extremities: Lateral lower extremities with wrapping bilaterally, pedal edema Neurologic: Normal mental status, speech normal, cranial nerves II through XII are intact, motor and sensory are intact, no focal weakness Skin: dry skin lower extremities, pulses intact Results Result Diagram: 01/06/1770401/06/17 07 Results 24 hrs Laboratory Tests Test 01/06/17 07:05 White Blood Count 16.0 H Red Blood Count 4.13 L Hemoglobin 13.9 L Hematocrit 42.1 Mean Corpuscular Volume 101.9 H Mean Corpuscular Hemoglobin 33.7 H Mean Corpuscular Hemoglobin Concent 33.0 Red Cell Distribution Width 15.4 H Platelet Count 223 # Mean Platelet Volume 10.1 Neutrophils % 77.8 H Lymphocytes % 8.2 L Monocytes % 11.3 H Eosinophils % 1.3 Basophils % 0.3 Nucleated Red Blood Cells % 0.0 Neutrophils # 12.5 H Lymphocytes # 1.3 Monocytes # 1.8 H Eosinophils # 0.2 Basophils # 0.1 Nucleated Red Blood Cells # 0.0 Prothrombin Time 34.3 H Prothrombin Time Ratio 2.7 INR International Normalized Ratio 3.33 Sodium Level 142 Potassium Level 3.0 L Chloride Level 96 L Carbon Dioxide Level Anion Gap 10 Blood Urea Nitrogen 65 H Creatinine 1.52 H Glucose Level 124 Calcium Level 9.5 Phosphorus Level 3.0 Magnesium Level 2.1 Albumin 3.4 Medications Medications Current Medications Ondansetron HCl (Zofran Inj) 4 mg Q6H PRN IV NAUSEA AND/OR VOMITING; Start at 00:00 Allopurinol (Zyloprim) 300 mg DAILY PO Last administered on 01/06/17t 10:11; Admin Dose 300 MG; Start 01/04/17 at 09:00 Diltiazem HCl (Cardizem) 30 mg TID PO Last administered on 01/06/17 12:54; Admin Dose 30 MG; Start 01/04/17 at 09:00 Docusate Sodium (Colace) 100 mg Q12H PO Last administered on 01/06/17 12:51; Admin Dose 100 MG; Start 01/04/17 at 00:00 Fenofibrate (Tricor) 48 mg DAILY PO Last administered on 01/06/17 10:11; Admin Dose 48 MG; Start 01/04/17 at 09:00 Metolazone (Zaroxolyn) 2.5 mg DAILY PO Last administered on 01/06/17 10:10; Admin Dose 2.5 MG; Start 01/04/17 at 09:00 Potassium Chloride (Klor-Con 20) 20 meq DAILY PO Last administered on 10:10; Admin Dose 20 MEQ; Start 01/04/17 at 09:00 Tamsulosin HCl (Flomax) 0.4 mg DAILY@21 PO Last administered on 01/05/17 21: 34; Admin Dose 0.4 MG; Start 01/04/17 at 21:00 Tiotropium [place] (Spiriva) 1 inh DAILY INH Last administered on 01/06/17 10 :11; Admin Dose 1 INH; Start 01/04/17 at 09:00 Calcium/Vitamin D (Oyster Shell/ Vit-D (500/200)) 1 tab DAILY PO Last administered on 01/06/17 10:11; Admin Dose 1 TAB; Start 01/04/17 at 09:00 Digoxin (Digoxin) 0.125 mg DAILY@13 PO Last administered on 01/06/17 12:53; Admin Dose 0.125 MG; Start 01/05/17 at 13:00 Miscellaneous Information (Pending [facility] Order For Wound Care) This patient flynn... PRN PRN XX WOUND CARE; Start 01/05/17 at 04:30 Warfarin Sodium (Coumadin) 5 mg DAILY@17 PO Last administered on 01/05/17 17: 38; Admin Dose 5 MG; Start 01/05/17 at 17:00; Status Future Hold Sodium Chloride (Deep Sea) 2 spray BID NASAL Last administered on 01/06/17 10 :11; Admin Dose 2 SPRAY; Start 01/05/17 at 11:00 Bumetanide (Bumex) 1 mg DAILY PO ; Start 01/07/17 at 09:00 Acetaminophen/ Hydrocodone Bitart ([place] (5/325)) 1 tab Q4H PRN PO PAIN LEVEL 4 -6 Last administered on 01/06/17 17:12; Admin Dose 1 TAB; Start 01/06/17 at 12:00 Acetaminophen/ Hydrocodone Bitart ([place] (10/325)) 1 tab Q4H PRN PO SEVERE PAIN LEVEL 7-10; Start 01/06/17 at 12:00 Trazodone HCl (Desyrel) 50 mg HS PO ; Start 01/06/17 at 21:00 FERNANDO COSTA MD Jan 06, 2017 19:17
[2017-01-06] MEDS: TAMSULOSIN (SR) 0.4 MG CAP PO SCH (21:57)
[2017-01-06] MEDS: traZODone 50 MG TAB PO SCH (21:58)
[2017-01-07] VITALS (12 sets, daily range): BP systolic 102–134; BP diastolic 58–85; PULSE 85–110; RESP 17–20
[2017-01-07] MEDS: ALBUTEROL 0.083% (NEB) 2.5 MG/3 ML AMP HHN PRN ×2 (00:31→04:33)
[2017-01-07] MEDS: DOCUSATE SODIUM 100 MG CAP PO SCH ×3 (01:18→20:59)
[2017-01-07 08:14] LABS: ABNORMAL IP MESSAGE 1; BASOPHIL # 0.1 10^3/ul (0.0-0.1); BASOPHILS % 0.6 % (0.0-2.0); EOSINOPHILS # 0.4 10^3/ul (0.0-0.5); EOSINOPHILS % 2.7 % (0.0-7.0); HEMATOCRIT 42.7 % (42.0-52.0); HEMOGLOBIN 14.1 g/dl (14.0-18.0); LYMPHOCYTES # 1.5 10^3/ul (0.8-2.9); LYMPHOCYTES % 10.2 % (15.0-51.0); MEAN CORPUSCULAR HEMOGLOBIN 33.7 pg (29.0-33.0); MEAN CORPUSCULAR VOLUME 102.2 fl (82.0-101.0); MEAN PLATELET VOLUME 10.2 fl (7.4-10.4); MONOCYTE # 1.8 10^3/ul (0.3-0.9); MONOCYTES % 12.5 % (0.0-11.0); NEUTROPHIL # 10.2 10^3/ul (1.6-7.5); NEUTROPHILS % 71.6 % (39.0-77.0); PLATELET COUNT 225 10^3/UL (140-415); POSITIVE DIFF @See below; RED BLOOD COUNT 4.18 10^6/ul (4.70-6.10); RED CELL DISTRIBUTION WIDTH 15.6 % (11.5-14.5); WHITE BLOOD COUNT 14.2 10^3/ul (4.8-10.8)
[2017-01-07] MEDS: ALBUTEROL/IPRATROPIUM (NEB) 3 ML AMP HHN SCH ×4 (08:14→20:27)
[2017-01-07 08:43] LABS: INR 2.85; PROTIME 30.3 Sec (12.2-14.2); PT RATIO 2.4
[2017-01-07 08:44] LABS: ALBUMIN 3.3 g/dl (3.3-4.9); CALCIUM 9.8 mg/dl (8.4-10.2); CREATININE 1.43 mg/dl (0.61-1.24); MAGNESIUM 2.1 mg/dl (1.7-2.5); POTASSIUM 3.2 mmol/L (3.5-5.1)
[2017-01-07] MEDS: BUMETANIDE 1 MG TAB PO SCH (09:33)
[2017-01-07] MEDS: METOLAZONE 2.5 MG TAB PO SCH (09:33)
[2017-01-07] MEDS: DILTIAZEM 30 MG TAB PO SCH ×3 (09:33→20:48)
[2017-01-07] MEDS: ALLOPURINOL 300 MG TAB PO SCH (09:34)
[2017-01-07] MEDS: TIOTROPIUM 18 MCG CAPSULE INHA DEV INH SCH (09:34)
[2017-01-07] MEDS: FENOFIBRATE 48 MG TAB PO SCH (09:34)
[2017-01-07] MEDS: CALCIUM/VITAMIN D (500/200) TAB PO SCH (09:34)
[2017-01-07] MEDS: POTASSIUM CHLORIDE (SR) 20 MEQ TAB PO SCH ×2 (09:34→13:02)
[2017-01-07] MEDS: SALINE 0.65% 45 ML NAS SPRAY NASAL SCH ×2 (09:35→20:49)
[2017-01-07] MEDS: SALINE 0.65% NAS 14.1 GM TUBE NASAL SCH ×5 (09:35→20:48)
--- NOTE | 2017-01-07 09:52 | CONS ---
Date/Time of Note Date/Time of Note DATE: 01/07/17 TIME: 09:50 Assessment/Plan Assessment/Plan Additional Assessment/Plan Assessment and recommendations; 1. Patient admitted with CHF exacerbation with interval improvement. 2. Underlying severe aortic stenosis. 3. Morbid obesity. 4. BPH. 5. COPD. 6. Possibly some element of tracheal bronchitis, clinically improved. Continue current treatment. Consider removing Bernstein catheter. Consultation Date/Type/Reason Admit Date/Time Jan 03, 2017 at 23:46 Initial Consult Date 01/04/17 Type of Consultation: Pulm Referring Provider: FERNANDO COSTA MD 24 HR Interval Summary Free Text/Dictation Patient's condition is stable. Sitting on the edge of the bed eating breakfast. Denies any chest pain. Complains of dyspnea on exertion. General exam; elderly male, morbidly obese, awake and alert. Currently in no distress. Exam/Review of Systems Vital Signs Vitals Vital Signs Date Time Temp Pulse Resp B/P Pulse Ox O2 Delivery O2 Flow Rate FiO2 01/07/17 08:37 95 01/07/17 08:24 Nasal Cannula 4.0 01/07/17 08:19 19 93 01/07/17 07:33 98.2 120/70 01/05/17 01:59 21 Intake and Output 01/06/17 01/06/17 01/07/17 15:00 23:00 07:00 Intake Total 400 ml 550 ml Output Total 2400 ml 950 ml Balance -2000 ml -400 ml Exam HEENT exam; supple neck. No lymphadenopathy. Midline trachea. No thyromegaly. Patient has fair dentition. Pupils are small bilaterally. Chest exam; diminished breath sounds bilaterally. Grade 2/6 murmur best heard at aortic area. Regular rhythm. Abdomen exam; soft, protuberant. No organomegaly. Bowel sounds audible. Nontender. Extremity exam; trace peripheral edema. 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 Results Result Diagram: 01/07/17 0652 01/07/17 0652 Results 24 hrs Laboratory Tests Test 01/07/17 06:52 White Blood Count 14.2 H Red Blood Count 4.18 L Hemoglobin 14.1 Hematocrit 42.7 Mean Corpuscular Volume 102.2 H Mean Corpuscular Hemoglobin 33.7 H Mean Corpuscular Hemoglobin Concent 33.0 Red Cell Distribution Width 15.6 H Platelet Count 225 Mean Platelet Volume 10.2 Neutrophils % 71.6 Lymphocytes % 10.2 L Monocytes % 12.5 H Eosinophils % 2.7 Basophils % 0.6 Nucleated Red Blood Cells % 0.0 Neutrophils # 10.2 H Lymphocytes # 1.5 Monocytes # 1.8 H Eosinophils # 0.4 Basophils # 0.1 Nucleated Red Blood Cells # 0.0 Prothrombin Time 30.3 H Prothrombin Time Ratio 2.4 INR International Normalized Ratio 2.85 Sodium Level 145 H Potassium Level 3.2 L Chloride Level 97 Carbon Dioxide Level Pending Anion Gap 11 Blood Urea Nitrogen 57 H Creatinine 1.43 H Glucose Level 129 Calcium Level 9.8 Phosphorus Level 3.0 Magnesium Level 2.1 Albumin 3.3 Medications Medications Current Medications Ondansetron HCl (Zofran Inj) 4 mg Q6H PRN IV NAUSEA AND/OR VOMITING; Start at 00:00 Allopurinol (Zyloprim) 300 mg DAILY PO Last administered on 01/07/17 09:34; Admin Dose 300 MG; Start 01/04/17 at 09:00 Diltiazem HCl (Cardizem) 30 mg TID PO Last administered on 01/07/17 09:33; Admin Dose 30 MG; Start 01/04/17 at 09:00 Docusate Sodium (Colace) 100 mg Q12H PO Last administered on 01/07/17 01:18; Admin Dose 100 MG; Start 01/04/17 at 00:00 Fenofibrate (Tricor) 48 mg DAILY PO Last administered on 01/07/17 09:34; Admin Dose 48 MG; Start 01/04/17 at 09:00 Metolazone (Zaroxolyn) 2.5 mg DAILY PO Last administered on 01/07/17 09:33; Admin Dose 2.5 MG; Start 01/04/17 at 09:00 Potassium Chloride (Klor-Con 20) 20 meq DAILY PO Last administered on 09:34; Admin Dose 20 MEQ; Start 01/04/17 at 09:00 Tamsulosin HCl (Flomax) 0.4 mg DAILY@21 PO Last administered on 01/06/17 21: 57; Admin Dose 0.4 MG; Start 01/04/17 at 21:00 Tiotropium [place] (Spiriva) 1 inh DAILY INH Last administered on 01/07/17 09 :34; Admin Dose 1 INH; Start 01/04/17 at 09:00 Calcium/Vitamin D ([place]yster Shell/ Vit-D (500/200)) 1 tab DAILY PO Last administered on 01/07/17 09:34; Admin Dose 1 TAB; Start 01/04/17 at 09:00 Digoxin (Digoxin) 0.125 mg DAILY@13 PO Last administered on 01/06/17 12:53; Admin Dose 0.125 MG; Start 01/05/17 at 13:00 Miscellaneous Information ([facility] This patient flynn... PRN PRN XX WOUND CARE; Start 01/05/17 at 04:30 Warfarin Sodium (Coumadin) 5 mg DAILY@17 PO Last administered on 01/05/17 17: 38; Admin Dose 5 MG; Start 01/05/17 at 17:00; Status Future Hold Sodium Chloride ([place]) 2 spray BID NASAL Last administered on 01/07/17 09 :35; Admin Dose 2 SPRAY; Start 01/05/17 at 11:00 Bumetanide (Bumex) 1 mg DAILY PO Last administered on 01/07/17 09:33; Admin Dose 1 MG; Start 01/07/17 at 09:00 Acetaminophen/ Hydrocodone Bitart ([place] (5/325)) 1 tab Q4H PRN PO PAIN LEVEL 4 -6 Last administered on 01/06/17 17:12; Admin Dose 1 TAB; Start 01/06/17 at 12:00 Acetaminophen/ Hydrocodone Bitart ([place] (10/325)) 1 tab Q4H PRN PO SEVERE PAIN LEVEL 7-10; Start 01/06/17 at 12:00 Trazodone HCl (Desyrel) 50 mg HS PO Last administered on 01/06/17 21:58; Admin Dose 50 MG; Start 01/06/17 at 21:00 DYLAN FARR Jan 07, 2017 09:52
--- NOTE | 2017-01-07 10:32 | CONS ---
Date/Time of Note Date/Time of Note DATE: 01/07/17 TIME: : Assessment/Plan Assessment/Plan Chief Complaint/Hosp Course renal consult This is a 86 year old male with a history of HTN, CHF, CPD, AFib on Digoxin and coumadin is in a assisted living facility presenting to the ED with worsening dyspnea over the past 3 days. He states he recently had his flu shot, then started to feel ill afterwards. No worsening leg swelling from his baseline. Otherwise history is limited due to respiratory distress. He does state that he is around people who are always sick at the assisted living facility. Patient has bilateral lower extremities wrapped in Yahir bandages. He has history of severe and chf. since admission he has been on bumex and metolozone with good uop He has renal failure, multiple electrolyte abnormalities and contraction alkalemia Allergies: Penicillin, statin Medications: See FEDERICO MAGUIRE Const: As per HPI Eyes : No pain discharge or redness or change in visual acuity ENT: No pain, sore throat, congestion, congestion, dysphagia or discharge Respiratory: As per HPI Cardiovascular: No chest pain, palpitation, PND, or edema GI : no change in appetite, abdominal pain, nausea, vomiting, diarrhea, constipation, or change in the color his stool Genitourinary: No dysuria, hematuria, flank pain , discharge or CVA tenderness Musculoskeletal: No joint pain, back pain, neck pain, restricted range of motion in neck or joints Skin: No rash, bruising or hives Neuro: No headache, dizziness, syncope, seizure, focal weakness Endocrine: No polyuria, polydipsia, temperature intolerance Psych: No hallucination, depression, anxiety or suicidal ideation PMH/Family/Social Past Medical History Chronic AF on coumadin, Severe , COPD, peripheral neuropathy, PVD, Chronic back pain, obesity, prostate CA coronary artery disease, hypertension Past Surgical History eft hip IT band repair Family History Significant Family History: other ( diabetes (grandmother), vascular disease ( father from ruptured aneurysm)) Social History Alcohol Use: none Smoking Status: Former smoker Drug Use: none Exam General: Patient is sitting in bed in no acute distress HEENT: Atraumatic, normocephalic. The pupils are equal, round and reactive. Extraocular motor are intact Neck: Supple with full range of motion. No rigidity or meningismus Chest: Nontender Lungs: Coarse breath sounds bilaterally, mild rails at the lung bases Heart: Normal S1-S2, Regular rhythm and rate. No murmur, S3, or S4 Abdomen: Soft , nontender, nondistended , bowel sounds are present. No guarding no rebound tenderness , No masses or organomegaly. No costovertebral temporal angle mass Extremities: Lateral lower extremities and Yahir bandage wrap Neurologic: Normal mental status, speech normal, cranial nerves II through XII are intact, motor and sensory are intact, no focal weakness Impression and plan: #1 Renal failure: due to hemodynamic effects of diuresis and renal hypoperfusion due to . he also has hypernatremia and contraction alkalosis. will send off urine studies. will hold metolozone for now. continue bumex. will give kcl for alkalosis and hypok #2 shortness of breath: likely multifactorial, secondary to respiratory infection versus COPD versus CHF exacerbation. chest ct and cxr reviewed. s/p diuresis. levoquin iv per IM (starting today) #3 heart failure: will benefit from acei or arb once his renal function is stable #3 chronic atrial fibrillation: EKG shows A. fib. continue AC #5 COPD: We will continue patient's home inhalers as well as prn breathing nebs. #6 thrombocytopenia - #7 severe - #8 PVD - wound care - #9 peripheral neuropathy - continue with gabapentin #10 obesity - #11 Prostate CA - monitor at this time #12 essential hypertension Problems: Consultation Date/Type/Reason Admit Date/Time Jan 03, 2017 at 23:46 Psychological: nl mood/affect, no complaints Social History Alcohol Use: none Smoking Status: Former smoker Drug Use: none Exam/Review of Systems Vital Signs Vitals Vital Signs Date Time Temp Pulse Resp B/P Pulse Ox O2 Delivery O2 Flow Rate FiO2 01/07/17 08:37 95 01/07/17 08:24 Nasal Cannula 4.0 01/07/17 08:19 19 93 01/07/17 07:33 98.2 120/70 01/05/17 01:59 21 Intake and Output 01/06/17 01/06/17 01/07/17 15:00 23:00 07:00 Intake Total 400 ml 550 ml Output Total 2400 ml 950 ml Balance -2000 ml -400 ml Results Result Diagram: 01/07/17 0652 01/07/17 0652 Results 24 hrs Laboratory Tests Test 01/07/17 06:52 White Blood Count 14.2 H Red Blood Count 4.18 L Hemoglobin 14.1 Hematocrit 42.7 Mean Corpuscular Volume 102.2 H Mean Corpuscular Hemoglobin 33.7 H Mean Corpuscular Hemoglobin Concent 33.0 Red Cell Distribution Width 15.6 H Platelet Count 225 Mean Platelet Volume 10.2 Neutrophils % 71.6 Lymphocytes % 10.2 L Monocytes % 12.5 H Eosinophils % 2.7 Basophils % 0.6 Nucleated Red Blood Cells % 0.0 Neutrophils # 10.2 H Lymphocytes # 1.5 Monocytes # 1.8 H Eosinophils # 0.4 Basophils # 0.1 Nucleated Red Blood Cells # 0.0 Prothrombin Time 30.3 H Prothrombin Time Ratio 2.4 INR International Normalized Ratio 2.85 Sodium Level 145 H Potassium Level 3.2 L Chloride Level 97 Carbon Dioxide Level 39 H Anion Gap 11 Blood Urea Nitrogen 57 H Creatinine 1.43 H Glucose Level 129 Calcium Level 9.8 Phosphorus Level 3.0 Magnesium Level 2.1 Albumin 3.3 Medications Medications Current Medications Ondansetron HCl (Zofran Inj) 4 mg Q6H PRN IV NAUSEA AND/OR VOMITING; Start at 00:00 Allopurinol (Zyloprim) 300 mg DAILY PO Last administered on 01/07/17 09:34; Admin Dose 300 MG; Start 01/04/17 at 09:00 Diltiazem HCl (Cardizem) 30 mg TID PO Last administered on 01/07/17 09:33; Admin Dose 30 MG; Start 01/04/17 at 09:00 Docusate Sodium (Colace) 100 mg Q12H PO Last administered on 01/07/17 01:18; Admin Dose 100 MG; Start 01/04/17 at 00:00 Fenofibrate (Tricor) 48 mg DAILY PO Last administered on 01/07/17 09:34; Admin Dose 48 MG; Start 01/04/17 at 09:00 Metolazone (Zaroxolyn) 2.5 mg DAILY PO Last administered on 01/07/17 09:33; Admin Dose 2.5 MG; Start 01/04/17 at 09:00 Potassium Chloride (Klor-Con 20) 20 meq DAILY PO Last administered on 09:34; Admin Dose 20 MEQ; Start 01/04/17 at 09:00 Tamsulosin HCl (Flomax) 0.4 mg DAILY@21 PO Last administered on 01/06/17 21: 57; Admin Dose 0.4 MG; Start 01/04/17 at 21:00 Tiotropium [place] (Spiriva) 1 inh DAILY INH Last administered on 01/07/17 09 :34; Admin Dose 1 INH; Start 01/04/17 at 09:00 Calcium/Vitamin D (Oyster Shell/ Vit-D (500/200)) 1 tab DAILY PO Last administered on 01/07/17 09:34; Admin Dose 1 TAB; Start 01/04/17 at 09:00 Digoxin (Digoxin) 0.125 mg DAILY@13 PO Last administered on 01/06/17 12:53; Admin Dose 0.125 MG; Start 01/05/17 at 13:00 Miscellaneous Information ([facility]) This patient flynn... PRN PRN XX WOUND CARE; Start 01/05/17 at 04:30 Warfarin Sodium (Coumadin) 5 mg DAILY@17 PO Last administered on 01/05/17 17: 38; Admin Dose 5 MG; Start 01/05/17 at 17:00; Status Future Hold Sodium Chloride (Deep Sea) 2 spray BID NASAL Last administered on 01/07/17 09 :35; Admin Dose 2 SPRAY; Start 01/05/17 at 11:00 Bumetanide (Bumex) 1 mg DAILY PO Last administered on 01/07/17 09:33; Admin Dose 1 MG; Start 01/07/17 at 09:00 Acetaminophen/ Hydrocodone Bitart ([place] (5/325)) 1 tab Q4H PRN PO PAIN LEVEL 4 -6 Last administered on 01/06/17 17:12; Admin Dose 1 TAB; Start 01/06/17 at 12:00 Acetaminophen/ Hydrocodone Bitart ([place] (10/325)) 1 tab Q4H PRN PO SEVERE PAIN LEVEL 7-10; Start 01/06/17 at 12:00 Trazodone HCl (Desyrel) 50 mg HS PO Last administered on 01/06/17 21:58; Admin Dose 50 MG; Start 01/06/17 at 21:00 FRANKI POWER DO Jan 07, 2017 10:32
--- NOTE | 2017-01-07 12:53 | CONS ---
Date/Time of Note Date/Time of Note DATE: 01/07/17 TIME: 12:52 Assessment/Plan Assessment/Plan Chief Complaint/Hosp Course Acute on chronic respiratory failure: Likely multifactorial. 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 Improved with diuresis and now euvolemic Chronic afib: rates controlled. 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 Feels about the same. Exam/Review of Systems Vital Signs Vitals Vital Signs Date Time Temp Pulse Resp B/P Pulse Ox O2 Delivery O2 Flow Rate FiO2 01/07/17 12:40 110 01/07/17 12:02 98.0 17 102/58 95 01/07/17 11:52 Nasal Cannula 4.0 01/05/17 01:59 21 Intake and Output 01/06/17 01/06/17 01/07/17 15:00 23:00 07:00 Intake Total 400 ml 550 ml Output Total 2400 ml 950 ml Balance -2000 ml -400 ml Exam Constitutional: alert, oriented Psych: nl mood/affect, no complaints Head: atraumatic, normocephalic Neck: No jvd (v wave noted) Respiratory: diminished breath sounds, No clear to auscultation Cardiovascular: systolic murmur (3/6 EB), No regular rate and rhythm Gastrointestinal: non-tender, soft Neurological: nl mental status, nl speech Results Result Diagram: 01/07/17 0652 01/07/17 0652 Results 24 hrs Laboratory Tests Test 01/07/17 06:52 White Blood Count 14.2 H Red Blood Count 4.18 L Hemoglobin 14.1 Hematocrit 42.7 Mean Corpuscular Volume 102.2 H Mean Corpuscular Hemoglobin 33.7 H Mean Corpuscular Hemoglobin Concent 33.0 Red Cell Distribution Width 15.6 H Platelet Count 225 Mean Platelet Volume 10.2 Neutrophils % 71.6 Lymphocytes % 10.2 L Monocytes % 12.5 H Eosinophils % 2.7 Basophils % 0.6 Nucleated Red Blood Cells % 0.0 Neutrophils # 10.2 H Lymphocytes # 1.5 Monocytes # 1.8 H Eosinophils # 0.4 Basophils # 0.1 Nucleated Red Blood Cells # 0.0 Prothrombin Time 30.3 H Prothrombin Time Ratio 2.4 INR International Normalized Ratio 2.85 Sodium Level 145 H Potassium Level 3.2 L Chloride Level 97 Carbon Dioxide Level 39 H Anion Gap 11 Blood Urea Nitrogen 57 H Creatinine 1.43 H Glucose Level 129 Calcium Level 9.8 Phosphorus Level 3.0 Magnesium Level 2.1 Albumin 3.3 Medications Medications Current Medications Ondansetron HCl (Zofran Inj) 4 mg Q6H PRN IV NAUSEA AND/OR VOMITING; Start at 00:00 Allopurinol (Zyloprim) 300 mg DAILY PO Last administered on 01/07/17 09:34; Admin Dose 300 MG; Start 01/04/17 at 09:00 Diltiazem HCl (Cardizem) 30 mg TID PO Last administered on 01/07/17 09:33; Admin Dose 30 MG; Start 01/04/17 at 09:00 Docusate Sodium (Colace) 100 mg Q12H PO Last administered on 01/07/17 01:18; Admin Dose 100 MG; Start 01/04/17 at 00:00 Fenofibrate (Tricor) 48 mg DAILY PO Last administered on 01/07/17 09:34; Admin Dose 48 MG; Start 01/04/17 at 09:00 Tamsulosin HCl (Flomax) 0.4 mg DAILY@21 PO Last administered on 01/06/17 21: 57; Admin Dose 0.4 MG; Start 01/04/17 at 21:00 Tiotropium [place] (Spiriva) 1 inh DAILY INH Last administered on 01/07/17 09 :34; Admin Dose 1 INH; Start 01/04/17 at 09:00 Calcium/Vitamin D (Oyster Shell/ Vit-D (500/200)) 1 tab DAILY PO Last administered on 01/07/17 09:34; Admin Dose 1 TAB; Start 01/04/17 at 09:00 Digoxin (Digoxin) 0.125 mg DAILY@13 PO Last administered on 01/06/17 12:53; Admin Dose 0.125 MG; Start 01/05/17 at 13:00 Miscellaneous Information (Pending [facility] Order For Wound Care) This patient flynn... PRN PRN XX WOUND CARE; Start 01/05/17 at 04:30 Warfarin Sodium (Coumadin) 5 mg DAILY@17 PO Last administered on 01/05/17 17: 38; Admin Dose 5 MG; Start 01/05/17 at 17:00; Status Future Hold Sodium Chloride (Deep Sea) 2 spray BID NASAL Last administered on 01/07/17 09 :35; Admin Dose 2 SPRAY; Start 01/05/17 at 11:00 Bumetanide (Bumex) 1 mg DAILY PO Last administered on 01/07/17 09:33; Admin Dose 1 MG; Start 01/07/17 at 09:00 Acetaminophen/ Hydrocodone Bitart ([place] (5/325)) 1 tab Q4H PRN PO PAIN LEVEL 4 -6 Last administered on 01/06/17 17:12; Admin Dose 1 TAB; Start 01/06/17 at 12:00 Acetaminophen/ Hydrocodone Bitart ([place] (10/325)) 1 tab Q4H PRN PO SEVERE PAIN LEVEL 7-10; Start 01/06/17 at 12:00 Trazodone HCl (Desyrel) 50 mg HS PO Last administered on 01/06/17 21:58; Admin Dose 50 MG; Start 01/06/17 at 21:00 Potassium Chloride 40 meq 40 meq DAILY PO ; Start 01/07/17 at 10:30 Ceftriaxone Sodium 50 ml @ 100 mls/hr Q24H IVPB ; Start 01/07/17 at 10:30 Azithromycin (Zithromax 500mg/ NS (Pmx)) 250 ml @ 250 mls/hr Q24H IVPB ; Start 01/07/17 at 11:15 Methylprednisolone Sodium Succinate (Solu-Medrol) 60 mg Q8 IV ; Start 01/07/17 at 11:45 CASH DAVALOS Jan 07, 2017 12:53
[2017-01-07] MEDS: DIGOXIN 0.125 MG TAB PO SCH (13:02)
[2017-01-07] MEDS: METHYLPREDNISOLONE 125 MG INJ IV SCH ×3 (13:02→21:01)
[2017-01-07] MEDS: AZITHROMYCIN 500MG/NS (PMX) 250 ML IVPB SCH (13:03)
[2017-01-07] MEDS: CEFTRIAXONE 1 GM/50 ML (PMX) 50 ML IVPB SCH (13:14)
--- NOTE | 2017-01-07 16:08 | PN ---
Date/Time of Note Date/Time of Note DATE: 01/07/17 TIME: 16:04 Assessment/Plan VTE Prophylaxis VTE Prophylaxis Intervention: other Lines/Catheters IV Catheter Type (from Nrs): Saline Lock Urinary Cath still in place: Yes Reason Cath still needed: urinary retention Assessment/Plan Chief Complaint/Hosp Course Assessment/Plan 1. SOB secondary to pneumonia vs CHF exacerbation, - Patient continued on IV antibiotics and bronchodilators -still increased need of O2 despite clearing of xray, ? COPD involvement, starting steroids - Pulmonology on board and recommendations appreciated. Patient has tracheobronchitis and will need to follow up as outpatient once discharged - Cardiology on board and appreciate consultation. Adjustments made to diuretics - CT scan chest performed this am showed no pleural effusions but does show patchy bibasilar opacities with peripheral interlobular septal thickening is increased in the right lower lobe and decreased in the left lower lobe when compared to prior. Now seen is a right posterior lung base 1.5 x 2.2 cm pulmonary nodule. - ECHO performed and shows EF 60%, severe pulmonary hypertension, severe 2. Acute on chronic diastolic HF - Cardiology consulted and appreciated recommendations - On Bumex PO daily - BNP 1800s 3. Tracheobronchitis - Bronchodilators - Antibiotics on board 4. Chronic atrial fibrillation - On digoxin and Cardizem - Rate controlled - INR therapeutic #hematuria -likely 2/2 to [place] manipulation and supratherapeutic warfarin levels -hold warfarin for now, restart when hematuria subsides -observed clots followed by clear/yellow urine, will monitor closely and if no urine production or continued clots, will start CBI 5. Aortic Stenosis - most likely contributing to SOB 6. acute renal failure- stable - Renally adjust medications, avoid nephrotoxins, continue monitor renal function. -nephro recs appreciated 7. COPD - bronchodilators - will attempt steroids - abx 8. PVD - wound care 9. peripheral neuropathy - continue with gabapentin 10. obesity 11. Prostate CA 12. HTN - stable - continue home medications 13. Pulmonary nodule - Will need follow up in 3 months 14. Insomnia - Will try Trazodone and titrate up dose as needed 15. Disposition - Once respiratory status back to baseline d/c back to SNF Problems: Subjective 24 Hr Interval Summary Free Text/Dictation Unchanged shortness of breath, still fairly severe Exam/Review of Systems Vital Signs Vitals Vital Signs Date Time Temp Pulse Resp B/P Pulse Ox O2 Delivery O2 Flow Rate FiO2 01/07/17 15:41 98.2 86 17 124/70 95 01/07/17 15:05 Nasal Cannula 4.0 01/05/17 01:59 21 Intake and Output 01/06/17 01/06/17 01/07/17 15:00 23:00 07:00 Intake Total 400 ml 550 ml Output Total 2400 ml 950 ml Balance -2000 ml -400 ml Exam General: Awake and alert. No acute distress HEENT: NC/AT, EOM intact, PERRL, cyanosis of bottom lip Neck: Supple with full range of motion. Lungs: Diminished breath sounds, mild rails at the lung bases Heart: Normal S1-S2, Regular rhythm and rate. No murmur, S3, or S4 Abdomen: Soft , nontender, nondistended , bowel sounds are present. No guarding no rebound tenderness , Extremities: Lateral lower extremities with wrapping bilaterally, pedal edema Neurologic: Normal mental status, speech normal, cranial nerves II through XII are intact, motor and sensory are intact, no focal weakness Skin: dry skin lower extremities, pulses intact Results Result Diagram: 01/07/17 0652 01/07/17 0652 Results 24 hrs Laboratory Tests Test 01/07/17 06:52 White Blood Count 14.2 H Red Blood Count 4.18 L Hemoglobin 14.1 Hematocrit 42.7 Mean Corpuscular Volume 102.2 H Mean Corpuscular Hemoglobin 33.7 H Mean Corpuscular Hemoglobin Concent 33.0 Red Cell Distribution Width 15.6 H Platelet Count 225 Mean Platelet Volume 10.2 Neutrophils % 71.6 Lymphocytes % 10.2 L Monocytes % 12.5 H Eosinophils % 2.7 Basophils % 0.6 Nucleated Red Blood Cells % 0.0 Neutrophils # 10.2 H Lymphocytes # 1.5 Monocytes # 1.8 H Eosinophils # 0.4 Basophils # 0.1 Nucleated Red Blood Cells # 0.0 Prothrombin Time 30.3 H Prothrombin Time Ratio 2.4 INR International Normalized Ratio 2.85 Sodium Level 145 H Potassium Level 3.2 L Chloride Level 97 Carbon Dioxide Level 39 H Anion Gap 11 Blood Urea Nitrogen 57 H Creatinine 1.43 H Glucose Level 129 Calcium Level 9.8 Phosphorus Level 3.0 Magnesium Level 2.1 Albumin 3.3 Medications Medications Current Medications Ondansetron HCl (Zofran Inj) 4 mg Q6H PRN IV NAUSEA AND/OR VOMITING; Start at 00:00 Allopurinol (Zyloprim) 300 mg DAILY PO Last administered on 01/07/17 09:34; Admin Dose 300 MG; Start 01/04/17 at 09:00 Diltiazem HCl (Cardizem) 30 mg TID PO Last administered on 01/07/17 13:13; Admin Dose 30 MG; Start 01/04/17 at 09:00 Docusate Sodium (Colace) 100 mg Q12H PO Last administered on 01/07/17 13:03; Admin Dose 100 MG; Start 01/04/17 at 00:00 Fenofibrate (Tricor) 48 mg DAILY PO Last administered on 01/07/17 09:34; Admin Dose 48 MG; Start 01/04/17 at 09:00 Tamsulosin HCl (Flomax) 0.4 mg DAILY@21 PO Last administered on 01/06/17 21: 57; Admin Dose 0.4 MG; Start 01/04/17 at 21:00 Tiotropium [place] (Spiriva) 1 inh DAILY INH Last administered on 01/07/17 09 :34; Admin Dose 1 INH; Start 01/04/17 at 09:00 Calcium/Vitamin D (Oyster Shell/ Vit-D (500/200)) 1 tab DAILY PO Last administered on 01/07/17 09:34; Admin Dose 1 TAB; Start 01/04/17 at 09:00 Digoxin (Digoxin) 0.125 mg DAILY@13 PO Last administered on 01/07/17 13:02; Admin Dose 0.125 MG; Start 01/05/17 at 13:00 Miscellaneous Information (Pending [facility] Order For Wound Care) This patient flynn... PRN PRN XX WOUND CARE; Start 01/05/17 at 04:30 Warfarin Sodium (Coumadin) 5 mg DAILY@17 PO Last administered on 01/05/17 17: 38; Admin Dose 5 MG; Start 01/05/17 at 17:00; Status Future Hold Sodium Chloride ([place]) 2 spray BID NASAL Last administered on 01/07/17 09 :35; Admin Dose 2 SPRAY; Start 01/05/17 at 11:00 Bumetanide (Bumex) 1 mg DAILY PO Last administered on 01/07/17 09:33; Admin Dose 1 MG; Start 01/07/17 at 09:00 Acetaminophen/ Hydrocodone Bitart ([place] (5/325)) 1 tab Q4H PRN PO PAIN LEVEL 4 -6 Last administered on 01/06/17 17:12; Admin Dose 1 TAB; Start 01/06/17 at 12:00 Acetaminophen/ Hydrocodone Bitart ([place] (10/325)) 1 tab Q4H PRN PO SEVERE PAIN LEVEL 7-10; Start 01/06/17 at 12:00 Trazodone HCl (Desyrel) 50 mg HS PO Last administered on 01/06/17 21:58; Admin Dose 50 MG; Start 01/06/17 at 21:00 Potassium Chloride 40 meq 40 meq DAILY PO Last administered on 01/07/17 13:02 ; Admin Dose 40 MEQ; Start 01/07/17 at 10:30 Ceftriaxone Sodium 50 ml @ 100 mls/hr Q24H IVPB Last administered on 13:14; Admin Dose 100 MLS/HR; Start 01/07/17 at 10:30 Azithromycin (Zithromax 500mg/ NS (Pmx)) 250 ml @ 250 mls/hr Q24H IVPB Last administered on 01/07/17 13:03; Admin Dose 250 MLS/HR; Start 01/07/17 at 11: 15 Methylprednisolone Sodium Succinate (Solu-Medrol) 60 mg Q8 IV Last administered on 01/07/17 13:02; Admin Dose 60 MG; Start 01/07/17 at 11:45 JAVY JUARES Jan 07, 2017 16:08
[2017-01-07] MEDS: TAMSULOSIN (SR) 0.4 MG CAP PO SCH (20:48)
[2017-01-07] MEDS: traZODone 50 MG TAB PO SCH (20:48)
[2017-01-08] VITALS (12 sets, daily range): BP systolic 93–120; BP diastolic 55–63; PULSE 85–90; RESP 16–20
[2017-01-08] MEDS: ALBUTEROL 0.083% (NEB) 2.5 MG/3 ML AMP HHN PRN (01:21)
[2017-01-08] MEDS: METHYLPREDNISOLONE 125 MG INJ IV SCH ×3 (05:33→21:15)
[2017-01-08 05:52] LABS: BASOPHIL # 0.1 10^3/ul (0.0-0.1); BASOPHILS % 0.4 % (0.0-2.0); EOSINOPHILS % 0.1 % (0.0-7.0); HEMATOCRIT 43.3 % (42.0-52.0); HEMOGLOBIN 14.5 g/dl (14.0-18.0); LYMPHOCYTES # 0.7 10^3/ul (0.8-2.9); MEAN CORPUSCULAR HEMOGLOBIN 33.8 pg (29.0-33.0); MEAN CORPUSCULAR HGB CONC 33.5 g/dl (32.0-37.0); MEAN CORPUSCULAR VOLUME 100.9 fl (82.0-101.0); MEAN PLATELET VOLUME 9.9 fl (7.4-10.4); MONOCYTE # 0.5 10^3/ul (0.3-0.9); MONOCYTES % 2.8 % (0.0-11.0); NEUTROPHIL # 15.9 10^3/ul (1.6-7.5); NEUTROPHILS % 89.7 % (39.0-77.0); PLATELET COUNT 245 10^3/UL (140-415); RED BLOOD COUNT 4.29 10^6/ul (4.70-6.10); RED CELL DISTRIBUTION WIDTH 15.2 % (11.5-14.5); WHITE BLOOD COUNT 17.8 10^3/ul (4.8-10.8)
[2017-01-08 06:14] LABS: INR 2.58; PT RATIO 2.2
[2017-01-08 06:16] LABS: CALCIUM 9.8 mg/dl (8.4-10.2); CREATININE 1.39 mg/dl (0.61-1.24)
[2017-01-08] MEDS: FENOFIBRATE 48 MG TAB PO SCH (08:42)
[2017-01-08] MEDS: SALINE 0.65% NAS 14.1 GM TUBE NASAL SCH ×5 (08:43→21:18)
[2017-01-08] MEDS: DILTIAZEM 30 MG TAB PO SCH ×3 (08:46→21:00)
[2017-01-08] MEDS: CALCIUM/VITAMIN D (500/200) TAB PO SCH (08:46)
[2017-01-08] MEDS: ALLOPURINOL 300 MG TAB PO SCH (08:47)
[2017-01-08] MEDS: TIOTROPIUM 18 MCG CAPSULE INHA DEV INH SCH (08:47)
[2017-01-08] MEDS: SALINE 0.65% 45 ML NAS SPRAY NASAL SCH ×2 (08:47→21:19)
[2017-01-08] MEDS: POTASSIUM CHLORIDE (SR) 20 MEQ TAB PO SCH (08:47)
[2017-01-08] MEDS: BUMETANIDE 1 MG TAB PO SCH (08:47)
[2017-01-08] MEDS: ALBUTEROL/IPRATROPIUM (NEB) 3 ML AMP HHN SCH ×4 (08:51→20:46)
[2017-01-08] MEDS: HYDROCODONE/APAP (5/325) TAB PO PRN ×2 (09:08→23:50)
--- NOTE | 2017-01-08 09:14 | PN ---
Date/Time of Note Date/Time of Note DATE: 01/08/17 TIME: 09:12 Assessment/Plan VTE Prophylaxis VTE Prophylaxis Intervention: other Lines/Catheters IV Catheter Type (from Nrs): Saline Lock Urinary Cath still in place: Yes Reason Cath still needed: urinary retention Assessment/Plan Chief Complaint/Hosp Course renal follow up This is a 86 year old male with a history of HTN, CHF, CPD, AFib on Digoxin and coumadin is in a assisted living facility presenting to the ED with worsening dyspnea over the past 3 days. He states he recently had his flu shot, then started to feel ill afterwards. No worsening leg swelling from his baseline. Otherwise history is limited due to respiratory distress. He does state that he is around people who are always sick at the assisted living facility. Patient has bilateral lower extremities wrapped in Yahir bandages. He has history of severe and chf. since admission he has been on bumex and metolozone with good uop He has renal failure, multiple electrolyte abnormalities and contraction alkalemia which are improving after metolozone was dc'd no significant event overnight d/w cardilogy ROS Eyes : No pain discharge or redness or change in visual acuity ENT: No pain, sore throat, congestion, congestion, dysphagia or discharge Respiratory: As per HPI Cardiovascular: No chest pain, palpitation, PND, or edema GI : no change in appetite, abdominal pain, nausea, vomiting, diarrhea, constipation, or change in the color his stool Genitourinary: No dysuria, hematuria, flank pain , discharge or CVA tenderness Musculoskeletal: No joint pain, back pain, neck pain, restricted range of motion in neck or joints Skin: No rash, bruising or hives Neuro: No headache, dizziness, syncope, seizure, focal weakness Endocrine: No polyuria, polydipsia, temperature intolerance Psych: No hallucination, depression, anxiety or suicidal ideation General: Patient is sitting in bed in no acute distress HEENT: Atraumatic, normocephalic. The pupils are equal, round and reactive. Extraocular motor are intact Neck: Supple with full range of motion. No rigidity or meningismus Chest: Nontender Lungs: Coarse breath sounds bilaterally, mild rails at the lung bases Heart: Normal S1-S2, Regular rhythm and rate. No murmur, S3, or S4 Abdomen: Soft , nontender, nondistended , bowel sounds are present. No guarding no rebound tenderness , No masses or organomegaly. No costovertebral temporal angle mass Extremities: Lateral lower extremities and Yahir bandage wrap Neurologic: Normal mental status, speech normal, cranial nerves II through XII are intact, motor and sensory are intact, no focal weakness Impression and plan: #1 Renal failure: due to hemodynamic effects of diuresis and renal hypoperfusion due to . he also had hypernatremia and contraction alkalosis. will continue to hold metolozone for now. continue bumex. s/p kcl for alkalosis and hypok #2 shortness of breath: likely multifactorial, secondary to respiratory infection versus COPD versus CHF exacerbation. chest ct and cxr reviewed. s/p diuresis. levoquin iv per IM (starting today) #3 heart failure: will benefit from acei or arb once his renal function is stable #3 chronic atrial fibrillation: EKG shows A. fib. continue AC #5 COPD: We will continue patient's home inhalers as well as prn breathing nebs. #6 thrombocytopenia - #7 severe - #8 PVD - wound care - #9 peripheral neuropathy - continue with gabapentin #10 obesity - #11 Prostate CA - monitor at this time #12 essential hypertension Problems: Exam/Review of Systems Vital Signs Vitals Vital Signs Date Time Temp Pulse Resp B/P Pulse Ox O2 Delivery O2 Flow Rate FiO2 01/08/17 08:53 73 15 97 Nasal Cannula 5.5 01/08/17 08:00 98.1 115/55 01/05/17 01:59 21 Intake and Output 01/07/17 01/07/17 01/08/17 15:00 23:00 07:00 Intake Total 900 ml 500 ml Output Total 2000 ml 650 ml Balance -1100 ml -150 ml Results Result Diagram: 01/08/17 0539 01/08/17 0538 Results 24 hrs Laboratory Tests Test 01/08/17 05:38 01/08/17 05:39 Prothrombin Time 28.0 H Prothrombin Time Ratio 2.2 INR International Normalized Ratio 2.58 Sodium Level 144 Potassium Level 4.0 Chloride Level 96 L Carbon Dioxide Level 38 H Anion Gap 14 Blood Urea Nitrogen 58 H Creatinine 1.39 H Glucose Level 196 Calcium Level 9.8 Phosphorus Level 3.0 Magnesium Level 2.0 White Blood Count 17.8 #H Red Blood Count 4.29 L Hemoglobin 14.5 Hematocrit 43.3 Mean Corpuscular Volume 100.9 Mean Corpuscular Hemoglobin 33.8 H Mean Corpuscular Hemoglobin Concent 33.5 Red Cell Distribution Width 15.2 H Platelet Count 245 Mean Platelet Volume 9.9 Neutrophils % 89.7 H Lymphocytes % 4.0 L Monocytes % 2.8 Eosinophils % 0.1 Basophils % 0.4 Nucleated Red Blood Cells % 0.0 Neutrophils # 15.9 H Lymphocytes # 0.7 L Monocytes # 0.5 Eosinophils # 0.0 Basophils # 0.1 Nucleated Red Blood Cells # 0.0 Medications Medications Current Medications Ondansetron HCl (Zofran Inj) 4 mg Q6H PRN IV NAUSEA AND/OR VOMITING; Start at 00:00 Allopurinol (Zyloprim) 300 mg DAILY PO Last administered on 01/08/17 08:47; Admin Dose 300 MG; Start 01/04/17 at 09:00 Diltiazem HCl (Cardizem) 30 mg TID PO Last administered on 01/08/17 08:46; Admin Dose 30 MG; Start 01/04/17 at 09:00 Docusate Sodium (Colace) 100 mg Q12H PO Last administered on 01/07/17 20:59; Admin Dose 100 MG; Start 01/04/17 at 00:00 Fenofibrate (Tricor) 48 mg DAILY PO Last administered on 01/08/17 08:42; Admin Dose 48 MG; Start 01/04/17 at 09:00 Tamsulosin HCl (Flomax) 0.4 mg DAILY@21 PO Last administered on 01/07/17 20: 48; Admin Dose 0.4 MG; Start 01/04/17 at 21:00 Tiotropium [place] (Spiriva) 1 inh DAILY INH Last administered on 01/08/17 08 :47; Admin Dose 1 INH; Start 01/04/17 at 09:00 Calcium/Vitamin D (Oyster Shell/ Vit-D (500/200)) 1 tab DAILY PO Last administered on 01/08/17 08:46; Admin Dose 1 TAB; Start 01/04/17 at 09:00 Digoxin (Digoxin) 0.125 mg DAILY@13 PO Last administered on 01/07/17 13:02; Admin Dose 0.125 MG; Start 01/05/17 at 13:00 Miscellaneous Information (Pending Santyl Order For Wound Care) This patient flynn... PRN PRN XX WOUND CARE; Start 01/05/17 at 04:30 Warfarin Sodium (Coumadin) 5 mg DAILY@17 PO Last administered on 01/05/17 17: 38; Admin Dose 5 MG; Start 01/05/17 at 17:00; Status Future Hold Sodium Chloride (Deep Sea) 2 spray BID NASAL Last administered on 01/08/17 08 :47; Admin Dose 2 SPRAY; Start 01/05/17 at 11:00 Bumetanide (Bumex) 1 mg DAILY PO Last administered on 01/08/17 08:47; Admin Dose 1 MG; Start 01/07/17 at 09:00 Acetaminophen/ Hydrocodone Bitart ([place] (5/325)) 1 tab Q4H PRN PO PAIN LEVEL 4 -6 Last administered on 01/08/17 09:08; Admin Dose 1 TAB; Start 01/06/17 at 12:00 Acetaminophen/ Hydrocodone Bitart ([place] (10/325)) 1 tab Q4H PRN PO SEVERE PAIN LEVEL 7-10; Start 01/06/17 at 12:00 Trazodone HCl (Desyrel) 50 mg HS PO Last administered on 01/07/17 20:48; Admin Dose 50 MG; Start 01/06/17 at 21:00 Potassium Chloride 40 meq 40 meq DAILY PO Last administered on 01/08/17 08:47 ; Admin Dose 40 MEQ; Start 01/07/17 at 10:30 Ceftriaxone Sodium 50 ml @ 100 mls/hr Q24H IVPB Last administered on 13:14; Admin Dose 100 MLS/HR; Start 01/07/17 at 10:30 Azithromycin (Zithromax 500mg/ NS (Pmx)) 250 ml @ 250 mls/hr Q24H IVPB Last administered on 01/07/17 13:03; Admin Dose 250 MLS/HR; Start 01/07/17 at 11: 15 Methylprednisolone Sodium Succinate (Solu-Medrol) 60 mg Q8 IV Last administered on 01/08/17 05:33; Admin Dose 60 MG; Start 01/07/17 at 11:45 FRANKI POWER DO Jan 08, 2017 09:14
--- NOTE | 2017-01-08 09:32 | CONS ---
Date/Time of Note Date/Time of Note DATE: 01/08/17 TIME: 09:30 Assessment/Plan Assessment/Plan Chief Complaint/Hosp Course Acute on chronic respiratory failure: Likely multifactorial. 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 Improved with diuresis and now euvolemic Chronic afib: rates controlled. 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 Feels better especially after steroids. Exam/Review of Systems Vital Signs Vitals Vital Signs Date Time Temp Pulse Resp B/P Pulse Ox O2 Delivery O2 Flow Rate FiO2 01/08/17 08:53 73 15 97 Nasal Cannula 5.5 01/08/17 08:00 98.1 115/55 01/05/17 01:59 21 Intake and Output 01/07/17 01/07/17 01/08/17 14:59 22:59 06:59 Intake Total 900 ml 500 ml Output Total 2000 ml 650 ml Balance -1100 ml -150 ml Exam Constitutional: alert, oriented Psych: nl mood/affect, no complaints Head: atraumatic, normocephalic Neck: supple, No jvd Respiratory: clear to auscultation, No crackles/rales Cardiovascular: systolic murmur (3/6 EB), No edema, No regular rate and rhythm (IRIR) Gastrointestinal: non-tender, soft Neurological: nl mental status, nl speech Results Result Diagram: 01/08/17 0539 01/08/17 0538 Results 24 hrs Laboratory Tests Test 01/08/17 05:38 01/08/17 05:39 Prothrombin Time 28.0 H Prothrombin Time Ratio 2.2 INR International Normalized Ratio 2.58 Sodium Level 144 Potassium Level 4.0 Chloride Level 96 L Carbon Dioxide Level 38 H Anion Gap 14 Blood Urea Nitrogen 58 H Creatinine 1.39 H Glucose Level 196 Calcium Level 9.8 Phosphorus Level 3.0 Magnesium Level 2.0 White Blood Count 17.8 #H Red Blood Count 4.29 L Hemoglobin 14.5 Hematocrit 43.3 Mean Corpuscular Volume 100.9 Mean Corpuscular Hemoglobin 33.8 H Mean Corpuscular Hemoglobin Concent 33.5 Red Cell Distribution Width 15.2 H Platelet Count 245 Mean Platelet Volume 9.9 Neutrophils % 89.7 H Lymphocytes % 4.0 L Monocytes % 2.8 Eosinophils % 0.1 Basophils % 0.4 Nucleated Red Blood Cells % 0.0 Neutrophils # 15.9 H Lymphocytes # 0.7 L Monocytes # 0.5 Eosinophils # 0.0 Basophils # 0.1 Nucleated Red Blood Cells # 0.0 Medications Medications Current Medications Ondansetron HCl (Zofran Inj) 4 mg Q6H PRN IV NAUSEA AND/OR VOMITING; Start at 00:00 Allopurinol (Zyloprim) 300 mg DAILY PO Last administered on 01/08/17 08:47; Admin Dose 300 MG; Start 01/04/17 at 09:00 Diltiazem HCl (Cardizem) 30 mg TID PO Last administered on 01/08/17 08:46; Admin Dose 30 MG; Start 01/04/17 at 09:00 Docusate Sodium (Colace) 100 mg Q12H PO Last administered on 01/07/17 20:59; Admin Dose 100 MG; Start 01/04/17 at 00:00 Fenofibrate (Tricor) 48 mg DAILY PO Last administered on 01/08/17 08:42; Admin Dose 48 MG; Start 01/04/17 at 09:00 Tamsulosin HCl (Flomax) 0.4 mg DAILY@21 PO Last administered on 01/07/17 20: 48; Admin Dose 0.4 MG; Start 01/04/17 at 21:00 Tiotropium [place] (Spiriva) 1 inh DAILY INH Last administered on 01/08/17 08 :47; Admin Dose 1 INH; Start 01/04/17 at 09:00 Calcium/Vitamin D (Oyster [place]/ Vit-D (500/200)) 1 tab DAILY PO Last administered on 01/08/17 08:46; Admin Dose 1 TAB; Start 01/04/17 at 09:00 Digoxin (Digoxin) 0.125 mg DAILY@13 PO Last administered on 01/07/17 13:02; Admin Dose 0.125 MG; Start 01/05/17 at 13:00 Miscellaneous Information (Pending Santyl Order For Wound Care) This patient flynn... PRN PRN XX WOUND CARE; Start 01/05/17 at 04:30 Warfarin Sodium (Coumadin) 5 mg DAILY@17 PO Last administered on 01/05/17 17: 38; Admin Dose 5 MG; Start 01/05/17 at 17:00; Status Future Hold Sodium Chloride ([place]) 2 spray BID NASAL Last administered on 01/08/17 08 :47; Admin Dose 2 SPRAY; Start 01/05/17 at 11:00 Bumetanide (Bumex) 1 mg DAILY PO Last administered on 01/08/17 08:47; Admin Dose 1 MG; Start 01/07/17 at 09:00 Acetaminophen/ Hydrocodone Bitart ([place] (5/325)) 1 tab Q4H PRN PO PAIN LEVEL 4 -6 Last administered on 01/08/17 09:08; Admin Dose 1 TAB; Start 01/06/17 at 12:00 Acetaminophen/ Hydrocodone Bitart ([place] (10/325)) 1 tab Q4H PRN PO SEVERE PAIN LEVEL 7-10; Start 01/06/17 at 12:00 Trazodone HCl (Desyrel) 50 mg HS PO Last administered on 01/07/17 20:48; Admin Dose 50 MG; Start 01/06/17 at 21:00 Potassium Chloride 40 meq 40 meq DAILY PO Last administered on 01/08/17 08:47 ; Admin Dose 40 MEQ; Start 01/07/17 at 10:30 Ceftriaxone Sodium 50 ml @ 100 mls/hr Q24H IVPB Last administered on 13:14; Admin Dose 100 MLS/HR; Start 01/07/17 at 10:30 Azithromycin (Zithromax 500mg/ NS (Pmx)) 250 ml @ 250 mls/hr Q24H IVPB Last administered on 01/07/17 13:03; Admin Dose 250 MLS/HR; Start 01/07/17 at 11: 15 Methylprednisolone Sodium Succinate (Solu-Medrol) 60 mg Q8 IV Last administered on 01/08/17t 05:33; Admin Dose 60 MG; Start 01/07/17 at 11:45 CASH DAVALOS Jan 08, 2017 09:32
[2017-01-08] MEDS: CEFTRIAXONE 1 GM/50 ML (PMX) 50 ML IVPB SCH (10:00)
--- NOTE | 2017-01-08 10:27 | CONS ---
Date/Time of Note Date/Time of Note DATE: 01/08/17 TIME: 10:25 Assessment/Plan Assessment/Plan Additional Assessment/Plan Assessment and recommendations; 1. Patient admitted with tracheobronchitis with interval improvement. 2. Chronic renal insufficiency. 3. BPH. 4. Aortic stenosis. 5. COPD. 6. Chest x-ray findings are not indicative of underlying significant congestive heart failure. Continue current supportive care. Patient has improved on current treatment regimen. Steroid dosing to be tapered in 24 hours. Consultation Date/Type/Reason Admit Date/Time Jan 03, 2017 at 23:46 Initial Consult Date 01/04/17 Type of Consultation: Pulmonary Referring Provider: FERNANDO COSTA MD 24 HR Interval Summary Free Text/Dictation Patient's condition is improving. According to him shortness of breath is improved. Any significant chest congestion. Denies any coughing or wheezing. General exam; elderly male, awake and alert. Currently in no distress. Exam/Review of Systems Vital Signs Vitals Vital Signs Date Time Temp Pulse Resp B/P Pulse Ox O2 Delivery O2 Flow Rate FiO2 01/08/17 08:53 73 15 97 Nasal Cannula 5.5 01/08/17 08:00 98.1 115/55 01/05/17 01:59 21 Intake and Output 01/07/17 01/07/17 01/08/17 15:00 23:00 07:00 Intake Total 900 ml 500 ml Output Total 2000 ml 650 ml Balance -1100 ml -150 ml Exam HEENT exam; supple neck, JVD difficult to see because of short neck. No thyromegaly. No neck masses. No lymphadenopathy. Patient does have multiple carious teeth. Chest exam; diminished but clear breath sounds. S1-S2 audible, no murmurs. Regular rhythm. Abdomen exam; soft, congruent. No organomegaly. Bowel sounds audible. Extremity exam; trace edema. OUTSOLE TACKER exam; no focal deficit. Results Result Diagram: 01/08/17 0539 01/08/17 0538 Results 24 hrs Laboratory Tests Test 01/08/17 05:38 01/08/17 05:39 Prothrombin Time 28.0 H Prothrombin Time Ratio 2.2 INR International Normalized Ratio 2.58 Sodium Level 144 Potassium Level 4.0 Chloride Level 96 L Carbon Dioxide Level 38 H Anion Gap 14 Blood Urea Nitrogen 58 H Creatinine 1.39 H Glucose Level 196 Calcium Level 9.8 Phosphorus Level 3.0 Magnesium Level 2.0 White Blood Count 17.8 #H Red Blood Count 4.29 L Hemoglobin 14.5 Hematocrit 43.3 Mean Corpuscular Volume 100.9 Mean Corpuscular Hemoglobin 33.8 H Mean Corpuscular Hemoglobin Concent 33.5 Red Cell Distribution Width 15.2 H Platelet Count 245 Mean Platelet Volume 9.9 Neutrophils % 89.7 H Lymphocytes % 4.0 L Monocytes % 2.8 Eosinophils % 0.1 Basophils % 0.4 Nucleated Red Blood Cells % 0.0 Neutrophils # 15.9 H Lymphocytes # 0.7 L Monocytes # 0.5 Eosinophils # 0.0 Basophils # 0.1 Nucleated Red Blood Cells # 0.0 Medications Medications Current Medications Ondansetron HCl (Zofran Inj) 4 mg Q6H PRN IV NAUSEA AND/OR VOMITING; Start at 00:00 Allopurinol (Zyloprim) 300 mg DAILY PO Last administered on 01/08/17 08:47; Admin Dose 300 MG; Start 01/04/17 at 09:00 Diltiazem HCl (Cardizem) 30 mg TID PO Last administered on 01/08/17 08:46; Admin Dose 30 MG; Start 01/04/17 at 09:00 Docusate Sodium (Colace) 100 mg Q12H PO Last administered on 01/07/17 20:59; Admin Dose 100 MG; Start 01/04/17 at 00:00 Fenofibrate (Tricor) 48 mg DAILY PO Last administered on 01/08/17 08:42; Admin Dose 48 MG; Start 01/04/17 at 09:00 Tamsulosin HCl (Flomax) 0.4 mg DAILY@21 PO Last administered on 01/07/17 20: 48; Admin Dose 0.4 MG; Start 01/04/17 at 21:00 Tiotropium [place] (Spiriva) 1 inh DAILY INH Last administered on 01/08/17 08 :47; Admin Dose 1 INH; Start 01/04/17 at 09:00 Calcium/Vitamin D (Oyster Shell/ Vit-D (500/200)) 1 tab DAILY PO Last administered on 01/08/17 08:46; Admin Dose 1 TAB; Start 01/04/17 at 09:00 Digoxin (Digoxin) 0.125 mg DAILY@13 PO Last administered on 01/07/17 13:02; Admin Dose 0.125 MG; Start 01/05/17 at 13:00 Miscellaneous Information (Pending Santyl Order For Wound Care) This patient flynn... PRN PRN XX WOUND CARE; Start 01/05/17 at 04:30 Warfarin Sodium (Coumadin) 5 mg DAILY@17 PO Last administered on 01/05/17 17: 38; Admin Dose 5 MG; Start 01/05/17 at 17:00; Status Future Hold Sodium Chloride ([place]) 2 spray BID NASAL Last administered on 01/08/17 08 :47; Admin Dose 2 SPRAY; Start 01/05/17 at 11:00 Bumetanide (Bumex) 1 mg DAILY PO Last administered on 01/08/17 08:47; Admin Dose 1 MG; Start 01/07/17 at 09:00 Acetaminophen/ Hydrocodone Bitart ([place] (5/325)) 1 tab Q4H PRN PO PAIN LEVEL 4 -6 Last administered on 01/08/17 09:08; Admin Dose 1 TAB; Start 01/06/17 at 12:00 Acetaminophen/ Hydrocodone Bitart ([place] (10/325)) 1 tab Q4H PRN PO SEVERE PAIN LEVEL 7-10; Start 01/06/17 at 12:00 Trazodone HCl (Desyrel) 50 mg HS PO Last administered on 01/07/17 20:48; Admin Dose 50 MG; Start 01/06/17 at 21:00 Potassium Chloride 40 meq 40 meq DAILY PO Last administered on 01/08/17 08:47 ; Admin Dose 40 MEQ; Start 01/07/17 at 10:30 Ceftriaxone Sodium 50 ml @ 100 mls/hr Q24H IVPB Last administered on 10:00; Admin Dose 100 MLS/HR; Start 01/07/17 at 10:30 Azithromycin (Zithromax 500mg/ NS (Pmx)) 250 ml @ 250 mls/hr Q24H IVPB Last administered on 01/07/17 13:03; Admin Dose 250 MLS/HR; Start 01/07/17 at 11: 15 Methylprednisolone Sodium Succinate (Solu-Medrol) 60 mg Q8 IV Last administered on 01/08/17 05:33; Admin Dose 60 MG; Start 01/07/17 at 11:45 DYLAN FARR Jan 08, 2017 10:27
[2017-01-08] MEDS: AZITHROMYCIN 500MG/NS (PMX) 250 ML IVPB SCH (10:44)
[2017-01-08] MEDS: DOCUSATE SODIUM 100 MG CAP PO SCH ×2 (12:00→23:49)
[2017-01-08] MEDS: DIGOXIN 0.125 MG TAB PO SCH (12:51)
[2017-01-08] MEDS ORDERED: POLYETHYLENE GLYCOL 17 GM PACKET PO PRN (13:00)
--- NOTE | 2017-01-08 14:06 | PN ---
Date/Time of Note Date/Time of Note DATE: 01/08/17 TIME: 14:01 Assessment/Plan VTE Prophylaxis VTE Prophylaxis Intervention: SCD's Lines/Catheters IV Catheter Type (from Nrsg): Saline Lock Urinary Cath still in place: Yes Reason Cath still needed: terminal illness/intractable pain Assessment/Plan Chief Complaint/Hosp Course Assessment/Plan #. SOB secondary to pneumonia vs COPD ex vs chf ex - Patient continued on IV antibiotics and bronchodilators -still increased need of O2 despite clearing of xray, ? COPD involvement, steroids to continue as patient's breathing has improved - Pulmonology on board and recommendations appreciated. Patient has tracheobronchitis and will need to follow up as outpatient once discharged - Cardiology on board and appreciate consultation. Adjustments made to diuretics - CT scan chest performed showed no pleural effusions but does show patchy bibasilar opacities with peripheral interlobular septal thickening is increased in the right lower lobe and decreased in the left lower lobe when compared to prior. Now seen is a right posterior lung base 1.5 x 2.2 cm pulmonary nodule. - ECHO performed and shows EF 60%, severe pulmonary hypertension, severe -baseline O2 around 3L. #. Acute on chronic diastolic HF - Cardiology consulted and appreciated recommendations - On Bumex PO daily - BNP 1800s #. Tracheobronchitis - Bronchodilators - Antibiotics on board #. Chronic atrial fibrillation - On digoxin and Cardizem - Rate controlled - INR therapeutic #hematuria -likely 2/2 to [place] manipulation and supratherapeutic warfarin levels -resolved, will restart warfarin #. Aortic Stenosis - most likely contributing to SOB #. acute renal failure- stable - Renally adjust medications, avoid nephrotoxins, continue monitor renal function. -nephro recs appreciated #. COPD - duonebs - continue steroids - abx #. PVD - wound care #. peripheral neuropathy - continue with gabapentin #. obesity #. Prostate CA #. HTN - stable - continue home medications #. Pulmonary nodule - Will need follow up in 3 months #. Insomnia - Will try Trazodone and titrate up dose as needed #. Disposition - Once respiratory status back to baseline d/c back to SNF Problems: Subjective 24 Hr Interval Summary Free Text/Dictation no more hematuria Exam/Review of Systems Vital Signs Vitals Vital Signs Date Time Temp Pulse Resp B/P Pulse Ox O2 Delivery O2 Flow Rate FiO2 01/08/17 13:45 95 16 96 Nasal Cannula 4.0 01/08/17 11:44 98.2 99/56 01/05/17 01:59 21 Intake and Output 01/07/17 01/07/17 01/08/17 14:59 22:59 06:59 Intake Total 900 ml 500 ml Output Total 2000 ml 650 ml Balance -1100 ml -150 ml Exam General: Awake and alert. No acute distress HEENT: NC/AT, EOM intact, PERRL, cyanosis of bottom lip Neck: Supple with full range of motion. Lungs: Diminished breath sounds, mild rails at the lung bases Heart: Normal S1-S2, Regular rhythm and rate. No murmur, S3, or S4 Abdomen: Soft , nontender, nondistended , bowel sounds are present. No guarding no rebound tenderness , Extremities: Lateral lower extremities with wrapping bilaterally, pedal edema Neurologic: Normal mental status, speech normal, cranial nerves II through XII are intact, motor and sensory are intact, no focal weakness Skin: dry skin lower extremities, pulses intact Results Result Diagram: 01/08/17 0539 01/08/17 0538 Results 24 hrs Laboratory Tests Test 01/08/17 05:38 01/08/17 05:39 Prothrombin Time 28.0 H Prothrombin Time Ratio 2.2 INR International Normalized Ratio 2.58 Sodium Level 144 Potassium Level 4.0 Chloride Level 96 L Carbon Dioxide Level 38 H Anion Gap 14 Blood Urea Nitrogen 58 H Creatinine 1.39 H Glucose Level 196 Calcium Level 9.8 Phosphorus Level 3.0 Magnesium Level 2.0 White Blood Count 17.8 #H Red Blood Count 4.29 L Hemoglobin 14.5 Hematocrit 43.3 Mean Corpuscular Volume 100.9 Mean Corpuscular Hemoglobin 33.8 H Mean Corpuscular Hemoglobin Concent 33.5 Red Cell Distribution Width 15.2 H Platelet Count 245 Mean Platelet Volume 9.9 Neutrophils % 89.7 H Lymphocytes % 4.0 L Monocytes % 2.8 Eosinophils % 0.1 Basophils % 0.4 Nucleated Red Blood Cells % 0.0 Neutrophils # 15.9 H Lymphocytes # 0.7 L Monocytes # 0.5 Eosinophils # 0.0 Basophils # 0.1 Nucleated Red Blood Cells # 0.0 Medications Medications Current Medications Ondansetron HCl (Zofran Inj) 4 mg Q6H PRN IV NAUSEA AND/OR VOMITING; Start at 00:00 Allopurinol (Zyloprim) 300 mg DAILY PO Last administered on 01/08/17 08:47; Admin Dose 300 MG; Start 01/04/17 at 09:00 Diltiazem HCl (Cardizem) 30 mg TID PO Last administered on 01/08/17 12:52; Admin Dose 30 MG; Start 01/04/17 at 09:00 Docusate Sodium (Colace) 100 mg Q12H PO Last administered on 01/07/17 20:59; Admin Dose 100 MG; Start 01/04/17 at 00:00 Fenofibrate (Tricor) 48 mg DAILY PO Last administered on 01/08/17 08:42; Admin Dose 48 MG; Start 01/04/17 at 09:00 Tamsulosin HCl (Flomax) 0.4 mg DAILY@21 PO Last administered on 01/07/17 20: 48; Admin Dose 0.4 MG; Start 01/04/17 at 21:00 Tiotropium [place] (Spiriva) 1 inh DAILY INH Last administered on 01/08/17 08 :47; Admin Dose 1 INH; Start 01/04/17 at 09:00 Calcium/Vitamin D (Oyster Shell/ Vit-D (500/200)) 1 tab DAILY PO Last administered on 01/08/17 08:46; Admin Dose 1 TAB; Start 01/04/17 at 09:00 Digoxin (Digoxin) 0.125 mg DAILY@13 PO Last administered on 01/08/17 12:51; Admin Dose 0.125 MG; Start 01/05/17 at 13:00 Miscellaneous Information (Pending Santyl Order For Wound Care) This patient flynn... PRN PRN XX WOUND CARE; Start 01/05/17 at 04:30 Warfarin Sodium (Coumadin) 5 mg DAILY@17 PO Last administered on 01/05/17 17: 38; Admin Dose 5 MG; Start 01/05/17 at 17:00; Status Future hold Sodium Chloride (Deep Sea) 2 spray BID NASAL Last administered on 01/08/17 08 :47; Admin Dose 2 SPRAY; Start 01/05/17 at 11:00 Bumetanide (Bumex) 1 mg DAILY PO Last administered on 01/08/17 08:47; Admin Dose 1 MG; Start 01/07/17 at 09:00 Acetaminophen/ Hydrocodone Bitart ([place] (5/325)) 1 tab Q4H PRN PO PAIN LEVEL 4 -6 Last administered on 01/08/17 09:08; Admin Dose 1 TAB; Start 01/06/17 at 12:00 Acetaminophen/ Hydrocodone Bitart ([place] (10/325)) 1 tab Q4H PRN PO SEVERE PAIN LEVEL 7-10; Start 01/06/17 at 12:00 Trazodone HCl (Desyrel) 50 mg HS PO Last administered on 01/07/17 20:48; Admin Dose 50 MG; Start 01/06/17 at 21:00 Potassium Chloride 40 meq 40 meq DAILY PO Last administered on 01/08/17 08:47 ; Admin Dose 40 MEQ; Start 01/07/17 at 10:30 Ceftriaxone Sodium 50 ml @ 100 mls/hr Q24H IVPB Last administered on 10:00; Admin Dose 100 MLS/HR; Start 01/07/17 at 10:30 Azithromycin (Zithromax 500mg/ NS (Pmx)) 250 ml @ 250 mls/hr Q24H IVPB Last administered on 01/08/17 10:44; Admin Dose 250 MLS/HR; Start 01/07/17 at 11: 15 Methylprednisolone Sodium Succinate (Solu-Medrol) 60 mg Q8 IV Last administered on 01/08/17 13:31; Admin Dose 60 MG; Start 01/07/17 at 11:45 Polyethylene Glycol (Miralax) 17 gm DAILY PRN PO CONSTIPATION Last administered on 01/08/17 12:51; Admin Dose 17 GM; Start 01/08/17 at 13:00 JAVY JUARES Jan 08, 2017 14:05
[2017-01-08] MEDS: WARFARIN 5 MG TAB PO SCH (17:11)
[2017-01-08] MEDS: traZODone 50 MG TAB PO SCH (21:15)
[2017-01-08] MEDS: TAMSULOSIN (SR) 0.4 MG CAP PO SCH (21:15)
[2017-01-09] VITALS (13 sets, daily range): BP systolic 96–135; BP diastolic 55–90; PULSE 80–97; RESP 17–20
[2017-01-09] MEDS: ALBUTEROL 0.083% (NEB) 2.5 MG/3 ML AMP HHN PRN (01:04)
[2017-01-09] MEDS: METHYLPREDNISOLONE 125 MG INJ IV SCH ×2 (05:41→14:50)
[2017-01-09 06:53] LABS: BASOPHILS % 0.2 % (0.0-2.0); HEMATOCRIT 40.4 % (42.0-52.0); HEMOGLOBIN 13.6 g/dl (14.0-18.0); LYMPHOCYTES # 0.7 10^3/ul (0.8-2.9); LYMPHOCYTES % 3.6 % (15.0-51.0); MEAN CORPUSCULAR HEMOGLOBIN 33.9 pg (29.0-33.0); MEAN CORPUSCULAR HGB CONC 33.7 g/dl (32.0-37.0); MEAN CORPUSCULAR VOLUME 100.7 fl (82.0-101.0); MONOCYTE # 0.7 10^3/ul (0.3-0.9); MONOCYTES % 3.5 % (0.0-11.0); NEUTROPHIL # 18.2 10^3/ul (1.6-7.5); NEUTROPHILS % 90.6 % (39.0-77.0); PLATELET COUNT 239 10^3/UL (140-415); RED BLOOD COUNT 4.01 10^6/ul (4.70-6.10); WHITE BLOOD COUNT 20.1 10^3/ul (4.8-10.8)
[2017-01-09 07:13] LABS: INR 2.65; PROTIME 28.6 Sec (12.2-14.2); PT RATIO 2.2
[2017-01-09 08:15] LABS: CALCIUM 9.4 mg/dl (8.4-10.2); CREATININE 1.38 mg/dl (0.61-1.24); PHOSPHORUS 4.1 mg/dl (2.5-4.9); POTASSIUM 3.7 mmol/L (3.5-5.1)
[2017-01-09] MEDS: ALBUTEROL/IPRATROPIUM (NEB) 3 ML AMP HHN SCH ×4 (08:53→20:19)
[2017-01-09] MEDS: SALINE 0.65% 45 ML NAS SPRAY NASAL SCH ×2 (09:00→20:49)
[2017-01-09] MEDS: POTASSIUM CHLORIDE (SR) 20 MEQ TAB PO SCH (09:20)
[2017-01-09] MEDS: FENOFIBRATE 48 MG TAB PO SCH (09:20)
[2017-01-09] MEDS: CALCIUM/VITAMIN D (500/200) TAB PO SCH (09:21)
[2017-01-09] MEDS: ALLOPURINOL 300 MG TAB PO SCH (09:21)
[2017-01-09] MEDS: SALINE 0.65% NAS 14.1 GM TUBE NASAL SCH ×5 (09:21→20:49)
[2017-01-09] MEDS: DILTIAZEM 30 MG TAB PO SCH ×3 (09:21→20:48)
[2017-01-09] MEDS: BUMETANIDE 1 MG TAB PO SCH (09:21)
[2017-01-09] MEDS: TIOTROPIUM 18 MCG CAPSULE INHA DEV INH SCH (09:26)
--- NOTE | 2017-01-09 09:56 | PN ---
DATE: 01/09/2017 SUBJECTIVE: The patient is stable. No events overnight. OBJECTIVE: VITAL SIGNS: Blood pressure is 123/69, temperature 98.2, pulse 86, respirations 20. HEENT: Head is normocephalic. NECK: Supple. HEART: Regular rate. LUNGS: Show diminished breath sounds at the base. ABDOMEN: Soft, nontender to palpation without rebound or guarding. EXTREMITIES: Negative for clubbing, cyanosis, no edema. DERMATOLOGIC: No rashes. MUSCULOSKELETAL: No joint effusions. NEUROLOGIC: No change in exam. MEDICATIONS: The patient's medications have been reviewed. LABORATORY DATA: White count 20.1, hemoglobin 13.6, hematocrit 40.4, platelet count 239. Sodium 14 1, potassium 3.7, BUN 79, creatinine 1.38. ASSESSMENT AND PLAN: 1. Nonoliguric acute kidney injury on top of chronic kidney disease. Etiology of acute kidney inju ry is felt to be secondary to hemodynamics. Possible diuretic therapy. The patient's diuretics wer e adjusted. Renal function has been fluctuating but appears to be overall stable. At this point, heather womack current treatment plan, supportive care, renally dose all meds. 2. Metabolic alkalosis secondary to chloride deficiency from diuretic therapy. The patient appears compensated. Continue to monitor. Consider course of Diamox. 3. Anemia. Monitor hemoglobin and hematocrit levels. 4. Mineral bone disorder. Monitor calcium and phosphorus levels. 5. Acute respiratory failure. Etiology is multifactorial secondary to chronic obstructive pulmonar y disease, congestive heart failure exacerbation. Continue current medical management. Continue an tibiotic therapy, Continue nebulizers. 7. Atrial fibrillation, continue current treatment plan. 8. Severe aortic stenosis. Continue current medical management. 9. History of peripheral vascular disease. Continue local wound care. 10. Neuropathy. Continue Neurontin. 11. History of prostate cancer. 12. History of hypertension. Dictated By: ANTHONY LUCIO/GAUTAM Conf#: [id number] DID#: [id number]
[2017-01-09] MEDS: CEFTRIAXONE 1 GM/50 ML (PMX) 50 ML IVPB SCH (10:22)
--- NOTE | 2017-01-09 10:38 | CONS ---
Date/Time of Note Date/Time of Note DATE: 01/09/17 TIME: 10:36 Assessment/Plan Assessment/Plan Chief Complaint/Hosp Course Acute on chronic respiratory failure: Likely multifactorial. 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 Improved with diuresis and now euvolemic Chronic afib: rates controlled. On coumadin Severe : not interested in anything invasive Severe pulm HTN with right heart failure: PAP 70s by echo COPD with possible exacerbation Neuropathy/functional quadriplegia -bumex 1mg PO daily, would continue as outpt -digoxin 125mcg daily -continue diltiazem -continue coumadin Problems: Consultation Date/Type/Reason Admit Date/Time Jan 03, 2017 at 23:46 Initial Consult Date 01/04/17 Type of Consultation: Cardiology Referring Provider: FERNANDO COSTA MD 24 HR Interval Summary Free Text/Dictation Doing well. No events. No complaints. Exam/Review of Systems Vital Signs Vitals Vital Signs Date Time Temp Pulse Resp B/P Pulse Ox O2 Delivery O2 Flow Rate FiO2 01/09/17 08:54 100 20 97 Nasal Cannula 2.0 01/09/17 07:17 98.2 123/69 Intake and Output 01/08/17 01/08/17 01/09/17 14:59 22:59 06:59 Intake Total 300 ml 450 ml Output Total 700 ml Balance 300 ml -250 ml Exam Constitutional: alert, oriented Psych: nl mood/affect, no complaints Head: atraumatic, normocephalic Eyes: nl conjunctiva Neck: No jvd Respiratory: clear to auscultation, No crackles/rales Cardiovascular: systolic murmur (3/6 EB), No edema, No regular rate and rhythm Gastrointestinal: non-tender, soft, No distended Neurological: nl mental status, nl speech Results Result Diagram: 01/09/17 0638 01/09/17 0638 Results 24 hrs Laboratory Tests Test 01/09/17 06:38 White Blood Count 20.1 H Red Blood Count 4.01 L Hemoglobin 13.6 L Hematocrit 40.4 L Mean Corpuscular Volume 100.7 Mean Corpuscular Hemoglobin 33.9 H Mean Corpuscular Hemoglobin Concent 33.7 Red Cell Distribution Width 15.0 H Platelet Count 239 Mean Platelet Volume 10.0 Neutrophils % 90.6 H Lymphocytes % 3.6 L Monocytes % 3.5 Eosinophils % 0.0 Basophils % 0.2 Nucleated Red Blood Cells % 0.0 Neutrophils # 18.2 H Lymphocytes # 0.7 L Monocytes # 0.7 Eosinophils # 0.0 Basophils # 0.0 Nucleated Red Blood Cells # 0.0 Prothrombin Time 28.6 H Prothrombin Time Ratio 2.2 INR International Normalized Ratio 2.65 Sodium Level 141 Potassium Level 3.7 Chloride Level 95 L Carbon Dioxide Level 38 H Anion Gap 12 Blood Urea Nitrogen 79 H Creatinine 1.38 H Glucose Level 179 Calcium Level 9.4 Phosphorus Level 4.1 Magnesium Level 2.0 Medications Medications Current Medications Ondansetron HCl (Zofran Inj) 4 mg Q6H PRN IV NAUSEA AND/OR VOMITING; Start at 00:00 Allopurinol (Zyloprim) 300 mg DAILY PO Last administered on 01/09/17 09:21; Admin Dose 300 MG; Start 01/04/17 at 09:00 Diltiazem HCl (Cardizem) 30 mg TID PO Last administered on 01/09/17 09:21; Admin Dose 30 MG; Start 01/04/17 at 09:00 Docusate Sodium (Colace) 100 mg Q12H PO Last administered on 01/08/17 23:49; Admin Dose 100 MG; Start 01/04/17 at 00:00 Fenofibrate (Tricor) 48 mg DAILY PO Last administered on 01/09/17 09:20; Admin Dose 48 MG; Start 01/04/17 at 09:00 Tamsulosin HCl (Flomax) 0.4 mg DAILY@21 PO Last administered on 01/08/17 21: 15; Admin Dose 0.4 MG; Start 01/04/17 at 21:00 Tiotropium [place] (Spiriva) 1 inh DAILY INH Last administered on 01/09/17 09 :26; Admin Dose 1 INH; Start 01/04/17 at 09:00 Calcium/Vitamin D ([place]yster [place]/ Vit-D (500/200)) 1 tab DAILY PO Last administered on 01/09/17 09:21; Admin Dose 1 TAB; Start 01/04/17 at 09:00 Digoxin (Digoxin) 0.125 mg DAILY@13 PO Last administered on 01/08/17 12:51; Admin Dose 0.125 MG; Start 01/05/17 at 13:00 Miscellaneous Information (Pending Santyl Order For Wound Care) This patient flynn... PRN PRN XX WOUND CARE; Start 01/05/17 at 04:30 Warfarin Sodium (Coumadin) 5 mg DAILY@17 PO Last administered on 01/08/17 17: 11; Admin Dose 5 MG; Start 01/05/17 at 17:00; Status Future hold Sodium Chloride ([place]) 2 spray BID NASAL Last administered on 01/08/17 21 :19; Admin Dose 2 SPRAY; Start 01/05/17 at 11:00 Bumetanide (Bumex) 1 mg DAILY PO Last administered on 01/09/17 09:21; Admin Dose 1 MG; Start 01/07/17 at 09:00 Acetaminophen/ Hydrocodone Bitart ([place] (5/325)) 1 tab Q4H PRN PO PAIN LEVEL 4 -6 Last administered on 01/08/17 23:50; Admin Dose 1 TAB; Start 01/06/17 at 12:00 Acetaminophen/ Hydrocodone Bitart ([place] (10/325)) 1 tab Q4H PRN PO SEVERE PAIN LEVEL 7-10; Start 01/06/17 at 12:00 Trazodone HCl (Desyrel) 50 mg HS PO Last administered on 01/08/17 21:15; Admin Dose 50 MG; Start 01/06/17 at 21:00 Potassium Chloride 40 meq 40 meq DAILY PO Last administered on 01/09/17 09:20 ; Admin Dose 40 MEQ; Start 01/07/17 at 10:30 Ceftriaxone Sodium 50 ml @ 100 mls/hr Q24H IVPB Last administered on 10:22; Admin Dose 100 MLS/HR; Start 01/07/17 at 10:30 Azithromycin (Zithromax 500mg/ NS (Pmx)) 250 ml @ 250 mls/hr Q24H IVPB Last administered on 01/08/17 10:44; Admin Dose 250 MLS/HR; Start 01/07/17 at 11: 15 Methylprednisolone Sodium Succinate (Solu-Medrol) 60 mg Q8 IV Last administered on 01/09/17 05:41; Admin Dose 60 MG; Start 01/07/17 at 11:45 Polyethylene Glycol (Miralax) 17 gm DAILY PRN PO CONSTIPATION Last administered on 01/08/17 12:51; Admin Dose 17 GM; Start 01/08/17 at 13:00 CASH DAVALOS Jan 09, 2017 10:38
[2017-01-09] MEDS: AZITHROMYCIN 500MG/NS (PMX) 250 ML IVPB SCH (11:12)
[2017-01-09] MEDS: DOCUSATE SODIUM 100 MG CAP PO SCH ×2 (12:26→23:39)
[2017-01-09] MEDS: DIGOXIN 0.125 MG TAB PO SCH (12:27)
--- NOTE | 2017-01-09 14:41 | CONS ---
Date/Time of Note Date/Time of Note DATE: 01/09/17 TIME: 14:40 Consult Date/Type/Reason Admit Date/Time Jan 03, 2017 at 23:46 Initial Consult Date 01/04/17 Type of Consultation: Pulmonary Ordering Provider: FERNANDO COSTA MD Subjective Still with some shortness of breath. Persistent leukocytosis. Objective Vital Signs Date Time Temp Pulse Resp B/P Pulse Ox O2 Delivery O2 Flow Rate FiO2 01/09/17 12:31 3.0 01/09/17 12:21 94 18 95 Nasal Cannula 01/09/17 11:19 97.6 112/65 Intake and Output 01/08/17 01/08/17 01/09/17 15:00 23:00 07:00 Intake Total 300 ml 450 ml Output Total 700 ml Balance 300 ml -250 ml Exam GENERAL: Chronically ill-appearing elderly gentleman in bed. VITAL SIGNS: per chart NECK: Supple. No JVD or lymphadenopathy. CARDIAC EXAM: S1, S2. No added sounds or murmurs. CHEST: diminished air entry both lung bases ABDOMEN: Soft, nontender. No guarding or rebound. EXTREMITIES: No cyanosis, clubbing, edema +1 NEUROLOGIC: Generalized weakness. Results/Medications Result Diagram: 01/09/17 0638 01/09/17 0638 Results 24 hrs Laboratory Tests Test 01/09/17 06:38 White Blood Count 20.1 H Red Blood Count 4.01 L Hemoglobin 13.6 L Hematocrit 40.4 L Mean Corpuscular Volume 100.7 Mean Corpuscular Hemoglobin 33.9 H Mean Corpuscular Hemoglobin Concent 33.7 Red Cell Distribution Width 15.0 H Platelet Count 239 Mean Platelet Volume 10.0 Neutrophils % 90.6 H Lymphocytes % 3.6 L Monocytes % 3.5 Eosinophils % 0.0 Basophils % 0.2 Nucleated Red Blood Cells % 0.0 Neutrophils # 18.2 H Lymphocytes # 0.7 L Monocytes # 0.7 Eosinophils # 0.0 Basophils # 0.0 Nucleated Red Blood Cells # 0.0 Prothrombin Time 28.6 H Prothrombin Time Ratio 2.2 INR International Normalized Ratio 2.65 Sodium Level 141 Potassium Level 3.7 Chloride Level 95 L Carbon Dioxide Level 38 H Anion Gap 12 Blood Urea Nitrogen 79 H Creatinine 1.38 H Glucose Level 179 Calcium Level 9.4 Phosphorus Level 4.1 Magnesium Level 2.0 Medications Current Medications Ondansetron HCl (Zofran Inj) 4 mg Q6H PRN IV NAUSEA AND/OR VOMITING; Start at 00:00 Allopurinol (Zyloprim) 300 mg DAILY PO Last administered on 01/09/17 09:21; Admin Dose 300 MG; Start 01/04/17 at 09:00 Diltiazem HCl (Cardizem) 30 mg TID PO Last administered on 01/09/17 12:27; Admin Dose 30 MG; Start 01/04/17 at 09:00 Docusate Sodium (Colace) 100 mg Q12H PO Last administered on 01/09/17 12:26; Admin Dose 100 MG; Start 01/04/17 at 00:00 Fenofibrate (Tricor) 48 mg DAILY PO Last administered on 01/09/17 09:20; Admin Dose 48 MG; Start 01/04/17 at 09:00 Tamsulosin HCl (Flomax) 0.4 mg DAILY@21 PO Last administered on 01/08/17 21: 15; Admin Dose 0.4 MG; Start 01/04/17 at 21:00 Tiotropium [place] (Spiriva) 1 inh DAILY INH Last administered on 01/09/17 09 :26; Admin Dose 1 INH; Start 01/04/17 at 09:00 Calcium/Vitamin D ([place]/ Vit-D (500/200)) 1 tab DAILY PO Last administered on 01/09/17 09:21; Admin Dose 1 TAB; Start 01/04/17 at 09:00 Digoxin (Digoxin) 0.125 mg DAILY@13 PO Last administered on 01/09/17 12:27; Admin Dose 0.125 MG; Start 01/05/17 at 13:00 Miscellaneous Information (Pending Santyl Order For Wound Care) This patient flynn... PRN PRN XX WOUND CARE; Start 01/05/17 at 04:30 Warfarin Sodium (Coumadin) 5 mg DAILY@17 PO Last administered on 01/08/17 17: 11; Admin Dose 5 MG; Start 01/05/17 at 17:00; Status Future hold Sodium Chloride ([place]) 2 spray BID NASAL Last administered on 01/08/17 21 :19; Admin Dose 2 SPRAY; Start 01/05/17 at 11:00 Bumetanide (Bumex) 1 mg DAILY PO Last administered on 01/09/17 09:21; Admin Dose 1 MG; Start 01/07/17 at 09:00 Acetaminophen/ Hydrocodone Bitart ([place] (5/325)) 1 tab Q4H PRN PO PAIN LEVEL 4 -6 Last administered on 01/08/17 23:50; Admin Dose 1 TAB; Start 01/06/17 at 12:00 Acetaminophen/ Hydrocodone Bitart ([place] (10/325)) 1 tab Q4H PRN PO SEVERE PAIN LEVEL 7-10; Start 01/06/17 at 12:00 Trazodone HCl (Desyrel) 50 mg HS PO Last administered on 01/08/17 21:15; Admin Dose 50 MG; Start 01/06/17 at 21:00 Potassium Chloride 40 meq 40 meq DAILY PO Last administered on 01/09/17 09:20 ; Admin Dose 40 MEQ; Start 01/07/17 at 10:30 Ceftriaxone Sodium 50 ml @ 100 mls/hr Q24H IVPB Last administered on 10:22; Admin Dose 100 MLS/HR; Start 01/07/17 at 10:30 Azithromycin (Zithromax 500mg/ NS (Pmx)) 250 ml @ 250 mls/hr Q24H IVPB Last administered on 01/09/17 11:12; Admin Dose 250 MLS/HR; Start 01/07/17 at 11: 15 Methylprednisolone Sodium Succinate (Solu-Medrol) 60 mg Q8 IV Last administered on 01/09/17 05:41; Admin Dose 60 MG; Start 01/07/17 at 11:45 Polyethylene Glycol (Miralax) 17 gm DAILY PRN PO CONSTIPATION Last administered on 01/08/17 12:51; Admin Dose 17 GM; Start 01/08/17 at 13:00 Assessment/Plan Chief Complaint/Hosp Course IMPRESSION: Acute on chronic hypoxemic respiratory failure, likely secondary to combination of: 1. Mild congestive cardiac failure. 2. Possible tracheobronchitis. 3. Probable chronic obstructive pulmonary disease exacerbation. 4. Healthcare-associated pneumonia. 5. History of severe aortic stenosis. 6. Persistent leukocytosis The patient will require 1. Continued bronchodilators. 2. Supplemental O2. 3. Continue anticoagulation. 4. Gentle diuresis. 5. Broad-spectrum antibiotics pending cultures. 6. Deep venous thrombosis and gastrointestinal prophylaxis. Julian clark. Problems: NILES GRIFFITHS MD, [facility] Jan 09, 2017 14:41
--- NOTE | 2017-01-09 15:48 | PN ---
Date/Time of Note Date/Time of Note DATE: 01/09/17 TIME: 15:44 Assessment/Plan VTE Prophylaxis VTE Prophylaxis Intervention: other Lines/Catheters IV C[facility]ter Type (from [facility]ine Lock Urinary Cath still in place: No Assessment/Plan Chief Complaint/Hosp Course Assessment/Plan #. SOB secondary to pneumonia vs COPD ex vs chf ex - Patient continued on IV antibiotics and bronchodilators -near/at home O2 requirement after steroids, probable COPD involvement, steroids to continue as patient's breathing has improved - Pulmonology on board and recommendations appreciated. Patient has tracheobronchitis and will need to follow up as outpatient once discharged - Cardiology on board and appreciate consultation. Adjustments made to diuretics - CT scan chest performed showed no pleural effusions but does show patchy bibasilar opacities with peripheral interlobular septal thickening is increased in the right lower lobe and decreased in the left lower lobe when compared to prior. Now seen is a right posterior lung base 1.5 x 2.2 cm pulmonary nodule. - ECHO performed and shows EF 60%, severe pulmonary hypertension, severe -baseline O2 around 3L. #. Acute on chronic diastolic HF - Cardiology consulted and appreciated recommendations - On Bumex PO daily - BNP 1800s on admission #. Tracheobronchitis - Bronchodilators - Antibiotics on board #. Chronic atrial fibrillation - On digoxin and Cardizem - Rate controlled - warfarin - INR therapeutic #hematuria -likely 2/2 to [place] manipulation and supratherapeutic warfarin levels -resolved, will restart warfarin #. Aortic Stenosis - most likely contributing to SOB #. chronic kidney disease- stable - Renally adjust medications, avoid nephrotoxins, continue monitor renal function. -nephro recs appreciated #. COPD - duonebs - continue steroids, will begin to taper - abx #. PVD - wound care #. peripheral neuropathy - continue with gabapentin #. obesity #. Prostate CA #. HTN - stable - continue home medications #. Pulmonary nodule - Will need follow up in 3 months #. Insomnia - Will try Trazodone and titrate up dose as needed #. Disposition - Once respiratory status back to baseline d/c back to assisted living facility - plan to DC back to assisted living facility tomorrow or day after Problems: Subjective 24 Hr Interval Summary Free Text/Dictation breathing is easier Exam/Review of Systems Vital Signs Vitals Vital Signs Date Time Temp Pulse Resp B/P Pulse Ox O2 Delivery O2 Flow Rate FiO2 01/09/17 15:10 98.0 94 20 111/90 90 01/09/17 12:31 3.0 01/09/17 12:21 Nasal Cannula Intake and Output 01/08/17 01/08/17 01/09/17 15:00 23:00 07:00 Intake Total 300 ml 450 ml Output Total 700 ml Balance 300 ml -250 ml Exam General: Awake and alert. No acute distress HEENT: NC/AT, EOM intact, PERRL, Neck: Supple with full range of motion. Lungs: Diminished breath sounds, mild rails at the lung bases Heart: Normal S1-S2, Regular rhythm and rate. No murmur, S3, or S4 Abdomen: Soft , nontender, nondistended , bowel sounds are present. No guarding no rebound tenderness , Extremities: Lateral lower extremities with wrapping bilaterally, pedal edema Neurologic: Normal mental status, speech normal, , motor and sensory are intact , no focal weakness Skin: dry skin lower extremities, pulses intact Results Result Diagram: 01/09/17 0638 01/09/17 0638 Results 24 hrs Laboratory Tests Test 01/09/17 06:38 01/09/17 14:46 White Blood Count 20.1 H Red Blood Count 4.01 L Hemoglobin 13.6 L Hematocrit 40.4 L Mean Corpuscular Volume 100.7 Mean Corpuscular Hemoglobin 33.9 H Mean Corpuscular Hemoglobin Concent 33.7 Red Cell Distribution Width 15.0 H Platelet Count 239 Mean Platelet Volume 10.0 Neutrophils % 90.6 H Lymphocytes % 3.6 L Monocytes % 3.5 Eosinophils % 0.0 Basophils % 0.2 Nucleated Red Blood Cells % 0.0 Neutrophils # 18.2 H Lymphocytes # 0.7 L Monocytes # 0.7 Eosinophils # 0.0 Basophils # 0.0 Nucleated Red Blood Cells # 0.0 Prothrombin Time 28.6 H Prothrombin Time Ratio 2.2 INR International Normalized Ratio 2.65 Sodium Level 141 Potassium Level 3.7 Chloride Level 95 L Carbon Dioxide Level 38 H Anion Gap 12 Blood Urea Nitrogen 79 H Creatinine 1.38 H Glucose Level 179 Calcium Level 9.4 Phosphorus Level 4.1 Magnesium Level 2.0 Bedside Glucose 201 Medications Medications Current Medications Ondansetron HCl (Zofran Inj) 4 mg Q6H PRN IV NAUSEA AND/OR VOMITING; Start at 00:00 Allopurinol (Zyloprim) 300 mg DAILY PO Last administered on 01/09/17 09:21; Admin Dose 300 MG; Start 01/04/17 at 09:00 Diltiazem HCl (Cardizem) 30 mg TID PO Last administered on 01/09/17 12:27; Admin Dose 30 MG; Start 01/04/17 at 09:00 Docusate Sodium (Colace) 100 mg Q12H PO Last administered on 01/09/17 12:26; Admin Dose 100 MG; Start 01/04/17 at 00:00 Fenofibrate (Tricor) 48 mg DAILY PO Last administered on 01/09/17 09:20; Admin Dose 48 MG; Start 01/04/17 at 09:00 Tamsulosin HCl (Flomax) 0.4 mg DAILY@21 PO Last administered on 01/08/17 21: 15; Admin Dose 0.4 MG; Start 01/04/17 at 21:00 Tiotropium [place] (Spiriva) 1 inh DAILY INH Last administered on 01/09/17 09 :26; Admin Dose 1 INH; Start 01/04/17 at 09:00 Calcium/Vitamin D (Oyster Shell/ Vit-D (500/200)) 1 tab DAILY PO Last administered on 01/09/17 09:21; Admin Dose 1 TAB; Start 01/04/17 at 09:00 Digoxin (Digoxin) 0.125 mg DAILY@13 PO Last administered on 01/09/17 12:27; Admin Dose 0.125 MG; Start 01/05/17 at 13:00 Miscellaneous Information (Pending Santyl Order For Wound Care) This patient flynn... PRN PRN XX WOUND CARE; Start 01/05/17 at 04:30 Warfarin Sodium (Coumadin) 5 mg DAILY@17 PO Last administered on 01/08/17 17: 11; Admin Dose 5 MG; Start 01/05/17 at 17:00; Status Future hold Sodium Chloride (Deep Sea) 2 spray BID NASAL Last administered on 01/08/17 21 :19; Admin Dose 2 SPRAY; Start 01/05/17 at 11:00 Bumetanide (Bumex) 1 mg DAILY PO Last administered on 01/09/17 09:21; Admin Dose 1 MG; Start 01/07/17 at 09:00 Acetaminophen/ Hydrocodone Bitart ([place] (5/325)) 1 tab Q4H PRN PO PAIN LEVEL 4 -6 Last administered on 01/08/17 23:50; Admin Dose 1 TAB; Start 01/06/17 at 12:00 Acetaminophen/ Hydrocodone Bitart ([place] (10/325)) 1 tab Q4H PRN PO SEVERE PAIN LEVEL 7-10; Start 01/06/17 at 12:00 Trazodone HCl (Desyrel) 50 mg HS PO Last administered on 01/08/17 21:15; Admin Dose 50 MG; Start 01/06/17 at 21:00 Potassium Chloride 40 meq 40 meq DAILY PO Last administered on 01/09/17 09:20 ; Admin Dose 40 MEQ; Start 01/07/17 at 10:30 Ceftriaxone Sodium 50 ml @ 100 mls/hr Q24H IVPB Last administered on 10:22; Admin Dose 100 MLS/HR; Start 01/07/17 at 10:30 Azithromycin (Zithromax 500mg/ NS (Pmx)) 250 ml @ 250 mls/hr Q24H IVPB Last administered on 01/09/17 11:12; Admin Dose 250 MLS/HR; Start 01/07/17 at 11: 15 Methylprednisolone Sodium Succinate (Solu-Medrol) 60 mg Q8 IV Last administered on 01/09/17 14:50; Admin Dose 60 MG; Start 01/07/17 at 11:45 Polyethylene Glycol (Miralax) 17 gm DAILY PRN PO CONSTIPATION Last administered on 01/08/17 12:51; Admin Dose 17 GM; Start 01/08/17 at 13:00 JAVY JUARES Jan 09, 2017 15:48
[2017-01-09] MEDS: WARFARIN 5 MG TAB PO SCH (17:48)
[2017-01-09] MEDS: TAMSULOSIN (SR) 0.4 MG CAP PO SCH (20:48)
[2017-01-09] MEDS: traZODone 50 MG TAB PO SCH (20:48)
[2017-01-09] MEDS: METHYLPREDNISOLONE 40 MG INJ IV SCH (22:10)
[2017-01-10] VITALS (9 sets, daily range): BP systolic 110–125; BP diastolic 56–77; PULSE 82–95; RESP 18–20
[2017-01-10] MEDS: METHYLPREDNISOLONE 40 MG INJ IV SCH (05:20)
[2017-01-10] MEDS ORDERED: NITROGLYCERIN (SL) 0.4 MG TAB SL PRN (06:30)
[2017-01-10 07:28] LABS: ABNORMAL IP MESSAGE 1; BASOPHILS % 0.3 % (0.0-2.0); HEMATOCRIT 40.3 % (42.0-52.0); HEMOGLOBIN 13.3 g/dl (14.0-18.0); LYMPHOCYTES # 0.6 10^3/ul (0.8-2.9); LYMPHOCYTES % 3.7 % (15.0-51.0); MEAN CORPUSCULAR HEMOGLOBIN 33.3 pg (29.0-33.0); MEAN PLATELET VOLUME 9.9 fl (7.4-10.4); MONOCYTE # 0.8 10^3/ul (0.3-0.9); MONOCYTES % 4.9 % (0.0-11.0); NEUTROPHIL # 13.7 10^3/ul (1.6-7.5); NEUTROPHILS % 86.4 % (39.0-77.0); PLATELET COUNT 252 10^3/UL (140-415); POSITIVE DIFF @See below; RED BLOOD COUNT 3.99 10^6/ul (4.70-6.10); RED CELL DISTRIBUTION WIDTH 14.8 % (11.5-14.5); WHITE BLOOD COUNT 15.9 10^3/ul (4.8-10.8)
[2017-01-10 08:01] LABS: CALCIUM 8.9 mg/dl (8.4-10.2); CREATININE 1.19 mg/dl (0.61-1.24); MAGNESIUM 2.2 mg/dl (1.7-2.5); PHOSPHORUS 4.5 mg/dl (2.5-4.9); POTASSIUM 3.9 mmol/L (3.5-5.1)
[2017-01-10 08:39] LABS: INR 2.86; PROTIME 30.4 Sec (12.2-14.2); PT RATIO 2.4
[2017-01-10] MEDS: ALBUTEROL/IPRATROPIUM (NEB) 3 ML AMP HHN SCH ×3 (08:40→16:46)
[2017-01-10] MEDS: TIOTROPIUM 18 MCG CAPSULE INHA DEV INH SCH (09:00)
[2017-01-10] MEDS: CEFTRIAXONE 1 GM/50 ML (PMX) 50 ML IVPB SCH (09:13)
[2017-01-10] MEDS: SALINE 0.65% NAS 14.1 GM TUBE NASAL SCH ×3 (09:13→15:11)
[2017-01-10] MEDS: SALINE 0.65% 45 ML NAS SPRAY NASAL SCH (09:13)
[2017-01-10] MEDS: FENOFIBRATE 48 MG TAB PO SCH (09:14)
[2017-01-10] MEDS: DILTIAZEM 30 MG TAB PO SCH ×2 (09:14→13:39)
[2017-01-10] MEDS: POTASSIUM CHLORIDE (SR) 20 MEQ TAB PO SCH (09:14)
[2017-01-10] MEDS: BUMETANIDE 1 MG TAB PO SCH (09:14)
[2017-01-10] MEDS: ALLOPURINOL 300 MG TAB PO SCH (09:14)
[2017-01-10] MEDS: CALCIUM/VITAMIN D (500/200) TAB PO SCH (09:16)
--- NOTE | 2017-01-10 09:23 | PN ---
DATE: 01/10/2017 SUBJECTIVE: The patient is stable. No events overnight. OBJECTIVE: VITAL SIGNS: Blood pressure is 114/74, respirations 19, pulse 100, temperature 98.2. HEENT: Head is normocephalic. NECK: Supple. HEART: Regular rate. LUNGS: Show diminished breath sounds at the base. ABDOMEN: Soft, nontender to palpation without rebound or guarding. EXTREMITIES: Negative for clubbing, cyanosis. No edema. DERMATOLOGIC: No rashes. MUSCULOSKELETAL: No joint effusions. NEUROLOGIC: No change in exam. MEDICATIONS: The patient's medications have been reviewed. LABORATORY DATA: Shows sodium 139, potassium 3.9, BUN 71, creatinine 1.19. White count 15.9, hemog lobin 13.3, hematocrit 40.3, platelet count is 252. ASSESSMENT AND PLAN: 1. Nonoliguric acute kidney injury on top of chronic kidney disease. Etiology is felt to be second kassandra to hemodynamics, possible diuretics. The patient's renal function and creatinine has been impro ving with de-escalation of diuretic therapy. At this point, continue current treatment plan, suppor tive care, renally dose all medications. 2. Metabolic alkalosis secondary to chloride deficiency, recent diuretics. Will continue to monito r. May consider Diamox if no significant improvement. 3. Anemia. Monitor hemoglobin and hematocrit levels. 4. Mineral bone disorder. Monitor calcium and phosphorus levels. 5. Acute respiratory failure secondary to chronic obstructive pulmonary disease, congestive heart f ailure. Continue current medical management. Continue current antibiotic therapy, Continue nebuliz ers. 6. Atrial fibrillation, continue current treatment plan. 7. Severe aortic stenosis. Continue current medical management. 8. History of peripheral vascular disease. Continue local wound care. 9. Neuropathy. Continue Neurontin. 10. History of prostate cancer. Dictated By: ANTHONY LUCIO/GAUTAM Conf#: [id number] DID#: [id number]
--- NOTE | 2017-01-10 09:40 | RADRPT ---
PROCEDURE: XR Chest. CLINICAL INDICATION: Pneumonia and CHF. TECHNIQUE: Chest x-ray, single view. COMPARISON: DR CHEST 01/06/2017; CT CHEST 01/04/2017. FINDINGS: The cardiac silhouette is magnified and unchanged in size. Aortic arch atherosclerotic calcification is present. Mild prominence of the pulmonary vasculature is observed. Mild bibasilar atelectatic c hanges are present. The nodular density of the right lung base seen on recent CT chest is not visua lized. There is no focal dense parenchymal consolidation. Degenerative changes of the spine are pres ent. IMPRESSION: Bibasilar atelectatic changes. Thoracic aortic atherosclerosis. Mild prominence of the pulmonary vasculature. Please refer to recent CT chest for follow up recommendations regarding the right lung base nodular density. RPTAT: HLST .Rosy Kelley MD, Date Time Electronically viewed and signed by .Rosy Kelley MD, on 01/10/2017 09:40 .T/
[2017-01-10] MEDS ORDERED: predniSONE 20 MG TAB PO SCH (10:30)
[2017-01-10] MEDS ORDERED: FAMOTIDINE 20 MG TAB PO PRN (11:00)
[2017-01-10] MEDS ORDERED: FAMOTIDINE 20 MG INJ IV ONE (11:00)
[2017-01-10] MEDS ORDERED: METHYLPREDNISOLONE (MEDROL) DOSE PACK PO SCH (11:30)
[2017-01-10] MEDS ORDERED: METHYLPREDNISOLONE 4 MG TAB PO SCH (11:30)
--- NOTE | 2017-01-10 11:58 | CONS ---
Date/Time of Note Date/Time of Note DATE: 01/10/17 TIME: 11:56 Assessment/Plan Assessment/Plan Additional Assessment/Plan Chest x-ray was reviewed from today which is showing patchy interstitial lung disease. Assessment and recommendations; 1. Patient admitted with tracheobronchitis with interval improvement. 2. Improving leukocytosis. 3. Underlying comorbidities include aortic stenosis, chronic renal insufficiency. Continue current supportive care. Consider discharge. Consultation Date/Type/Reason Admit Date/Time Jan 03, 2017 at 23:46 Initial Consult Date 01/04/17 Type of Consultation: Pulmonary Referring Provider: FERNANDO COSTA MD 24 HR Interval Summary Free Text/Dictation Patient's condition is stable. Reports decreased shortness of breath. General exam; elderly male, awake and alert, currently in no distress. Exam/Review of Systems Vital Signs Vitals Vital Signs Date Time Temp Pulse Resp B/P Pulse Ox O2 Delivery O2 Flow Rate FiO2 01/10/17 11:54 97.9 86 18 115/68 96 01/10/17 11:33 3.0 01/10/17 08:40 Nasal Cannula Intake and Output 01/09/17 01/09/17 01/10/17 15:00 23:00 07:00 Intake Total 1500 ml 120 ml Output Total 700 ml 1100 ml Balance 800 ml -980 ml Exam HEENT exam; supple neck, no JVD. No lymphadenopathy. Midline trachea. No thyromegaly. Patient has a multiple carious teeth. Chest exam; diminished but clear breath sounds. S1-S2 audible, no murmurs. Regular rhythm. Abdomen exam; soft, protuberant. No organomegaly. Nontender. Bowel sounds audible. Extremity exam; no edema. 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 Results Result Diagram: 01/10/17 0654 01/10/17 0654 Results 24 hrs Laboratory Tests Test 01/09/17 14:46 01/09/17 16:34 01/10/17 06:54 Bedside Glucose 201 Troponin I 0.024 0.027 White Blood Count 15.9 #H Red Blood Count 3.99 L Hemoglobin 13.3 L Hematocrit 40.3 L Mean Corpuscular Volume 101.0 Mean Corpuscular Hemoglobin 33.3 H Mean Corpuscular Hemoglobin Concent 33.0 Red Cell Distribution Width 14.8 H Platelet Count 252 Mean Platelet Volume 9.9 Neutrophils % 86.4 H Lymphocytes % 3.7 L Monocytes % 4.9 Eosinophils % 0.0 Basophils % 0.3 Nucleated Red Blood Cells % 0.0 Neutrophils # 13.7 H Lymphocytes # 0.6 L Monocytes # 0.8 Eosinophils # 0.0 Basophils # 0.0 Nucleated Red Blood Cells # 0.0 Prothrombin Time 30.4 H Prothrombin Time Ratio 2.4 INR International Normalized Ratio 2.86 Sodium Level 139 Potassium Level 3.9 Chloride Level 95 L Carbon Dioxide Level 36 H Anion Gap 12 Blood Urea Nitrogen 71 H Creatinine 1.19 Glucose Level 168 Calcium Level 8.9 Phosphorus Level 4.5 Magnesium Level 2.2 Medications Medications Current Medications Ondansetron HCl (Zofran Inj) 4 mg Q6H PRN IV NAUSEA AND/OR VOMITING; Start at 00:00 Allopurinol (Zyloprim) 300 mg DAILY PO Last administered on 01/10/17 09:14; Admin Dose 300 MG; Start 01/04/17 at 09:00 Diltiazem HCl (Cardizem) 30 mg TID PO Last administered on 01/10/17 09:14; Admin Dose 30 MG; Start 01/04/17 at 09:00 Docusate Sodium (Colace) 100 mg Q12H PO Last administered on 01/09/17 12:26; Admin Dose 100 MG; Start 01/04/17 at 00:00 Fenofibrate (Tricor) 48 mg DAILY PO Last administered on 01/10/17 09:14; Admin Dose 48 MG; Start 01/04/17 at 09:00 Tamsulosin HCl (Flomax) 0.4 mg DAILY@21 PO Last administered on 01/09/17 20: 48; Admin Dose 0.4 MG; Start 01/04/17 at 21:00 Tiotropium [place] (Spiriva) 1 inh DAILY INH Last administered on 01/10/17 09 :00; Admin Dose 1 INH; Start 01/04/17 at 09:00 Calcium/Vitamin D (Oyster [place]/ Vit-D (500/200)) 1 tab DAILY PO Last administered on 01/10/17 09:16; Admin Dose 1 TAB; Start 01/04/17 at 09:00 Digoxin (Digoxin) 0.125 mg DAILY@13 PO Last administered on 01/09/17 12:27; Admin Dose 0.125 MG; Start 01/05/17 at 13:00 Miscellaneous Information (Pending Santyl Order For Wound Care) This patient flynn... PRN PRN XX WOUND CARE; Start 01/05/17 at 04:30 Warfarin Sodium (Coumadin) 5 mg DAILY@17 PO Last administered on 01/09/17 17: 48; Admin Dose 5 MG; Start 01/05/17 at 17:00; Status Future hold Sodium Chloride (Deep Sea) 2 spray BID NASAL Last administered on 01/10/17 09 :13; Admin Dose 2 SPRAY; Start 01/05/17 at 11:00 Bumetanide (Bumex) 1 mg DAILY PO Last administered on 01/10/17 09:14; Admin Dose 1 MG; Start 01/07/17 at 09:00 Acetaminophen/ Hydrocodone Bitart ([place] (5/325)) 1 tab Q4H PRN PO PAIN LEVEL 4 -6 Last administered on 01/08/17 23:50; Admin Dose 1 TAB; Start 01/06/17 at 12:00 Acetaminophen/ Hydrocodone Bitart ([place] (10/325)) 1 tab Q4H PRN PO SEVERE PAIN LEVEL 7-10 Last administered on 01/10/17 10:02; Admin Dose 1 TAB; Start 01/06/17 at 12:00 Trazodone HCl (Desyrel) 50 mg HS PO Last administered on 01/09/17 20:48; Admin Dose 50 MG; Start 01/06/17 at 21:00 Potassium Chloride (Klor-Con 20) 40 meq DAILY PO Last administered on 09:14; Admin Dose 40 MEQ; Start 01/07/17 at 10:30 Polyethylene Glycol (Miralax) 17 gm DAILY PRN PO CONSTIPATION Last administered on 01/08/17 12:51; Admin Dose 17 GM; Start 01/08/17 at 13:00 Nitroglycerin (Nitroglycerin (Sl Tab) 0.4 Mg) 1 tab Q5M PRN SL ANGINA Last administered on 01/10/17 06:26; Admin Dose 1 TAB; Start 01/10/17 at 06:30 Famotidine (Pepcid) 20 mg BID PRN PO .upset stomach; Start 01/10/17 at 11:00 Azithromycin (Zithromax) 500 mg DAILY PO ; Start 01/11/17 at 09:00 Methylprednisolone (Medrol) 8 mg HS PO ; Start 01/11/17 at 21:00; Stop at 21:01 Methylprednisolone (Medrol) 4 mg HS PO ; Start 01/12/17 at 21:00; Stop at 21:01 Methylprednisolone (Medrol) 24 mg ONCE PO ; Start 01/10/17 at 11:30; Stop at 23:45 DYLAN FARR Jan 10, 2017 11:58
--- NOTE | 2017-01-10 13:34 | CONS ---
Date/Time of Note Date/Time of Note DATE: 01/10/17 TIME: 13:33 Assessment/Plan Assessment/Plan Chief Complaint/Hosp Course Acute on chronic respiratory failure: Likely multifactorial. 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 Improved with diuresis and now euvolemic Chronic afib: rates controlled. On coumadin Severe : not interested in anything invasive Severe pulm HTN with right heart failure: PAP 70s by echo COPD with possible exacerbation Neuropathy/functional quadriplegia -bumex 1mg PO daily, would continue as outpt -digoxin 125mcg daily -continue diltiazem -continue coumadin Problems: Consultation Date/Type/Reason Admit Date/Time Jan 03, 2017 at 23:46 Initial Consult Date 01/04/17 Type of Consultation: Cardiology Referring Provider: FERNANDO COTSA MD 24 HR Interval Summary Free Text/Dictation Had atypical chest pain overnight. No recurrence. Feels well. Exam/Review of Systems Vital Signs Vitals Vital Signs Date Time Temp Pulse Resp B/P Pulse Ox O2 Delivery O2 Flow Rate FiO2 01/10/17 13:09 88 20 97 Nasal Cannula 3.0 01/10/17 11:54 97.9 115/68 Intake and Output 01/09/17 01/09/17 01/10/17 15:00 23:00 07:00 Intake Total 1500 ml 120 ml Output Total 700 ml 1100 ml Balance 800 ml -980 ml Exam Constitutional: alert, oriented Psych: nl mood/affect, no complaints Head: atraumatic, normocephalic Neck: supple, No jvd Respiratory: clear to auscultation, No crackles/rales Cardiovascular: systolic murmur (3/6 EB), No edema, No regular rate and rhythm Gastrointestinal: non-tender, soft Neurological: nl mental status, nl speech Results Result Diagram: 01/10/17 0654 01/10/17 0654 Results 24 hrs Laboratory Tests Test 01/09/17 14:46 01/09/17 16:34 01/10/17 06:54 Bedside Glucose 201 Troponin I 0.024 0.027 White Blood Count 15.9 #H Red Blood Count 3.99 L Hemoglobin 13.3 L Hematocrit 40.3 L Mean Corpuscular Volume 101.0 Mean Corpuscular Hemoglobin 33.3 H Mean Corpuscular Hemoglobin Concent 33.0 Red Cell Distribution Width 14.8 H Platelet Count 252 Mean Platelet Volume 9.9 Neutrophils % 86.4 H Lymphocytes % 3.7 L Monocytes % 4.9 Eosinophils % 0.0 Basophils % 0.3 Nucleated Red Blood Cells % 0.0 Neutrophils # 13.7 H Lymphocytes # 0.6 L Monocytes # 0.8 Eosinophils # 0.0 Basophils # 0.0 Nucleated Red Blood Cells # 0.0 Prothrombin Time 30.4 H Prothrombin Time Ratio 2.4 INR International Normalized Ratio 2.86 Sodium Level 139 Potassium Level 3.9 Chloride Level 95 L Carbon Dioxide Level 36 H Anion Gap 12 Blood Urea Nitrogen 71 H Creatinine 1.19 Glucose Level 168 Calcium Level 8.9 Phosphorus Level 4.5 Magnesium Level 2.2 Medications Medications Current Medications Ondansetron HCl (Zofran Inj) 4 mg Q6H PRN IV NAUSEA AND/OR VOMITING; Start at 00:00 Allopurinol (Zyloprim) 300 mg DAILY PO Last administered on 01/10/17 09:14; Admin Dose 300 MG; Start 01/04/17 at 09:00 Diltiazem HCl (Cardizem) 30 mg TID PO Last administered on 01/10/17 09:14; Admin Dose 30 MG; Start 01/04/17 at 09:00 Docusate Sodium (Colace) 100 mg Q12H PO Last administered on 01/09/17 12:26; Admin Dose 100 MG; Start 01/04/17 at 00:00 Fenofibrate (Tricor) 48 mg DAILY PO Last administered on 01/10/17 09:14; Admin Dose 48 MG; Start 01/04/17 at 09:00 Tamsulosin HCl (Flomax) 0.4 mg DAILY@21 PO Last administered on 01/09/17 20: 48; Admin Dose 0.4 MG; Start 01/04/17 at 21:00 Tiotropium [place] (Spiriva) 1 inh DAILY INH Last administered on 01/10/17 09 :00; Admin Dose 1 INH; Start 01/04/17 at 09:00 Calcium/Vitamin D ([place]/ Vit-D (500/200)) 1 tab DAILY PO Last administered on 01/10/17 09:16; Admin Dose 1 TAB; Start 01/04/17 at 09:00 Digoxin (Digoxin) 0.125 mg DAILY@13 PO Last administered on 01/09/17 12:27; Admin Dose 0.125 MG; Start 01/05/17 at 13:00 [facility] This patient flynn... PRN PRN XX WOUND CARE; Start 01/05/17 at 04:30 Warfarin Sodium (Coumadin) 5 mg DAILY@17 PO Last administered on 01/09/17 17: 48; Admin Dose 5 MG; Start 01/05/17 at 17:00; Status Future hold Sodium Chloride (Deep [place]) 2 spray BID NASAL Last administered on 01/10/17 09 :13; Admin Dose 2 SPRAY; Start 01/05/17 at 11:00 Bumetanide (Bumex) 1 mg DAILY PO Last administered on 01/10/17 09:14; Admin Dose 1 MG; Start 01/07/17 at 09:00 Acetaminophen/ Hydrocodone Bitart ([place] (5/325)) 1 tab Q4H PRN PO PAIN LEVEL 4 -6 Last administered on 01/08/17 23:50; Admin Dose 1 TAB; Start 01/06/17 at 12:00 Acetaminophen/ Hydrocodone Bitart ([place] (10/325)) 1 tab Q4H PRN PO SEVERE PAIN LEVEL 7-10 Last administered on 01/10/17 10:02; Admin Dose 1 TAB; Start 01/06/17 at 12:00 Trazodone HCl (Desyrel) 50 mg HS PO Last administered on 01/09/17 20:48; Admin Dose 50 MG; Start 01/06/17 at 21:00 Potassium Chloride (Klor-Con 20) 40 meq DAILY PO Last administered on 09:14; Admin Dose 40 MEQ; Start 01/07/17 at 10:30 Polyethylene Glycol (Miralax) 17 gm DAILY PRN PO CONSTIPATION Last administered on 01/08/17 12:51; Admin Dose 17 GM; Start 01/08/17 at 13:00 Nitroglycerin (Nitroglycerin (Sl Tab) 0.4 Mg) 1 tab Q5M PRN SL ANGINA Last administered on 01/10/17 06:26; Admin Dose 1 TAB; Start 01/10/17 at 06:30 Famotidine (Pepcid) 20 mg BID PRN PO .upset stomach; Start 01/10/17 at 11:00 Azithromycin (Zithromax) 500 mg DAILY PO ; Start 01/11/17 at 09:00 Methylprednisolone (Medrol) 8 mg HS PO ; Start 01/11/17 at 21:00; Stop at 21:01 Methylprednisolone (Medrol) 4 mg HS PO ; Start 01/12/17 at 21:00; Stop at 21:01 Methylprednisolone (Medrol) 24 mg ONCE PO ; Start 01/10/17 at 11:30; Stop at 23:45 CASH DAVALOS Jan 10, 2017 13:34
[2017-01-10] MEDS: DOCUSATE SODIUM 100 MG CAP PO SCH (13:37)
[2017-01-10] MEDS: DIGOXIN 0.125 MG TAB PO SCH (13:38)
--- NOTE | 2017-01-10 14:54 | DS ---
Date/Time of Note Date/Time of Note DATE: 01/10/17 TIME: 14:54 Discharge Summary Admission/Discharge Info Admit Date/Time Jan 03, 2017 at 23:46 Discharge Date/Time Patient Condition: Stable Hospital Course Discharge diagnosis Shortness of breath Questionable pneumonia COPD exacerbation Mild CHF exacerbation Acute on chronic diastolic heart failure Tracheobronchitis Chronic atrial fibrillation Hematuria Aortic stenosis Chronic kidney disease COPD Peripheral vascular disease Peripheral neuropathy History of prostate cancer Hypertension Pulmonary nodule, will need follow-up in 3 months Patient is a male with a past medical history significant for severe aortic stenosis as well as COPD who presents with shortness of breath. Patient was originally thought to have decompensated heart failure with an elevated BNP , however during admission it appeared patient was suffering more from a COPD exacerbation secondary to viral versus bacterial infection. Patient was started on IV antibiotics as well as IV steroids and continue to improve and until patient was back on his home level of O2 of 3 L. Patient's medications were adjusted including discontinuing metolazone. Patient had a 1 day episode of hematuria which resolved spontaneously likely secondary to Bernstein manipulation with movement. Patient continued to improve and will be discharged with a 3 day course of additional antibiotics for questionable pneumonia as well as a Solu-Medrol Dosepak for 5 days as patient will have a taper of steroids. Patient is to continue his Bumex and warfarin and other medications. Of note patient had a CT scan of the chest which showed a 1.5 x 2.2 cm pulmonary nodule in the right posterior lung base which should have follow-up with repeat scan in 3-6 months. Patient will be transferred back to his assisted living facility. Home Meds Active Scripts Levofloxacin* (Levaquin*) 750 Mg Tablet, 750 MG PO DAILY for 5 Days, TAB Prov:CARO GASTELUM M. 04/11/16 Prednisone* (Prednisone*) 10 Mg Tab, 10 MG PO DAILY for 7 Days, TAB Prov:NIRAVCARO Evans. 04/11/16 Fenofibrate Nanocrystallized* (Fenofibrate*) 48 Mg Tablet, 48 MG PO DAILY for 30 Days, TAB Prov:CARO GASTELUM. 04/11/16 Docusate Sodium (Dok) 100 Mg Capsule, 100 MG PO Q12H for 30 Days, CAP Prov:NIRAVCARO. 04/11/16 Diltiazem Hcl* (Cardizem*) 30 Mg Tablet, 30 MG PO TID for 30 Days, TAB Prov:CARO GASTELUM. 04/11/16 Potassium Chloride* (Potassium Chloride*) 20 Meq Tablet.er, 20 MEQ PO DAILY for 30 Days, TAB.SA Prov:CARO GASTELUM. 04/11/16 Potassium Chloride* (Potassium Chloride*) 20 Meq Tablet.er, 20 MEQ PO DAILY for 30 Days, TAB.SA Prov:CARO GASTELUM . 04/11/16 Furosemide* (Furosemide*) 40 Mg Tablet, 40 MG PO DAILY for 30 Days, TAB Prov:CARO GASTELUM . 04/11/16 Digoxin* (Digox*) 125 Mcg Tablet, 0.125 MG PO Q48H for 30 Days, TAB Prov:CARO GASTELUM . 04/11/16 Reported Medications Folic Acid* (Folic Acid*) 1 Mg Tablet, 1 MG PO DAILY, TAB 01/04/17 Cranberry Extract (Cranberry) 500 Mg Capsule, 500 MG PO BID, CAP 01/04/17 Carvedilol* (Carvedilol*) 3.125 Mg Tablet, 3.125 MG PO Q12H, #60 TAB 01/04/17 Allopurinol* (Allopurinol*) 300 Mg Tablet, 300 MG PO DAILY, TAB 11/02/14 Vitamin E* (Vitamin E*) 400 Unit Capsule, 400 UNIT PO DAILY, CAP 11/02/14 Tiotropium [place]* (Spiriva*) 18 Mcg Cap.w.dev, 1 INH IH DAILY, EA 11/02/14 Metolazone* (Metolazone*) 2.5 Mg Tablet, 2.5 MG PO DAILY, TAB 11/02/14 Tamsulosin Hcl* (Flomax*) 0.4 Mg Cap.er.24h, 0.4 MG PO DAILY, CAP 11/02/14 Warfarin Sodium* (Coumadin*) 5 Mg Tablet, 5 MG PO DAILY, TAB 11/02/14 Cyanocobalamin* (Vitamin B12*) 500 Mcg Tab, 500 MCG PO DAILY, TAB 11/02/14 Calcium Carbonate-Vitamin D3 (Calcium 500 + D [place]) 1 Tab Tablet, 1 TAB PO DAILY, TAB 11/02/14 Ascorbic Acid* (Vitamin C*) 500 Mg Capsule.sa, 1000 MG PO DAILY, CAP 11/02/14 Primary Care Provider Raymond Roca Time spent on discharge: > 30 minutes Pending Labs Laboratory Tests Test 01/09/17 16:34 01/10/17 06:54 Troponin I 0.024ng/ml (0.00-0.12) 0.027ng/ml (0.00-0.12) White Blood Count 15.910^3/ul (4.8-10.8) Red Blood Count 3.9910^6/ul (4.70-6.10) Hemoglobin 13.3g/dl (14.0-18.0) Hematocrit 40.3% (42.0-52.0) Mean Corpuscular Volume 101.0fl (82.0-101.0) Mean Corpuscular Hemoglobin 33.3pg (29.0-33.0) Mean Corpuscular Hemoglobin Concent 33.0g/dl (32.0-37.0) Red Cell Distribution Width 14.8% (11.5-14.5) Platelet Count 20067^3/UL (140-415) Mean Platelet Volume 9.9fl (7.4-10.4) Neutrophils % 86.4% (39.0-77.0) Lymphocytes % 3.7% (15.0-51.0) Monocytes % 4.9% (0.0-11.0) Eosinophils % 0.0% (0.0-7.0) Basophils % 0.3% (0.0-2.0) Nucleated Red Blood Cells % 0.0/100WBC (0.0-0.0) Neutrophils # 13.710^3/ul (1.6-7.5) Lymphocytes # 0.610^3/ul (0.8-2.9) Monocytes # 0.810^3/ul (0.3-0.9) Eosinophils # 0.010^3/ul (0.0-0.5) Basophils # 0.010^3/ul (0.0-0.1) Nucleated Red Blood Cells # 0.010^3/ul (0.0-0.0) Prothrombin Time 30.4Sec (12.2-14.2) Prothrombin Time Ratio 2.4 INR International Normalized Ratio 2.86 Sodium Level 139mmol/L (135-144) Potassium Level 3.9mmol/L (3.5-5.1) Chloride Level 95mmol/L (97-110) Carbon Dioxide Level 36mmol/L (21-31) Anion Gap 12 (8-16) Blood Urea Nitrogen 71mg/dl (7-20) Creatinine 1.19mg/dl (0.61-1.24) Glucose Level 168mg/dl (70-220) Calcium Level 8.9mg/dl (8.4-10.2) Phosphorus Level 4.5mg/dl (2.5-4.9) Magnesium Level 2.2mg/dl (1.7-2.5) JAVY JUARES Jan 10, 2017 14:54
[2017-01-10] MEDS ORDERED: POTA-57 PO (14:58)
[2017-01-10] MEDS ORDERED: AZIT250T6 PO (14:58)
[2017-01-10] MEDS ORDERED: BUME1TAB18 PO (14:58)
[2017-01-11] MEDS ORDERED: METHYLPREDNISOLONE 4 MG TAB PO SCH ×4 (07:25→21:00)
[2017-01-11] MEDS ORDERED: AZITHROMYCIN 250 MG TAB PO SCH (09:00)
[2017-01-12] MEDS ORDERED: METHYLPREDNISOLONE 4 MG TAB PO SCH (21:00)
--- NOTE | 2017-01-13 16:04 | RADRPT ---
Vent Rate: 79 bpm RR Interval: 0 msec NE Interval: 0 msec QRS Duration: 108 msec QT Interval: 368 msec QTC Interval: 421 msec P-R-T [place]: 0 - 53 - -54 degrees Atrial fibrillation with premature ventricular or aberrantly conducted complexes Incomplete right bundle branch block Cannot rule out Anterior infarct , age undetermined Abnormal ECG Electronically Signed By: Ottoniel Stone [id number]
--- NOTE | 2017-01-13 16:05 | RADRPT ---
Vent Rate: 98 bpm RR Interval: 0 msec [place] Interval: 0 msec QRS Duration: 100 msec QT Interval: 290 msec QTC Interval: 370 msec P-R-T [place]: 0 - 47 - 0 degrees Atrial fibrillation with premature ventricular or aberrantly conducted complexes Incomplete right bundle branch block Cannot rule out Anterior infarct , age undetermined Abnormal ECG Electronically Signed By: Ottoniel Stone [id number]
== END 2017-01-10 17:43 | DRG 291 ==
LOC: E/R 20:49 → MS3 23:46 → TEL 01-04 22:55
PROVIDERS: ADMIT Family Medicine; ATTEND Family Medicine
PROC: 4A033R1 Measurement of Arterial Saturation, Peripheral, Percutaneous Approach (ICD-10-PCS; principal; 2017-01-03)
DX: I13.0 Hypertensive heart and chronic kidney disease with heart failure and stage 1 through stage 4 chronic kidney disease, or unspecified chronic kidney disease (principal); J18.9 Pneumonia, unspecified organism; J96.21 Acute and chronic respiratory failure with hypoxia; N17.9 Acute kidney failure, unspecified; E87.3 Alkalosis; E87.0 Hyperosmolality and hypernatremia; R53.2 Functional quadriplegia; D69.6 Thrombocytopenia, unspecified; J44.0 Chronic obstructive pulmonary disease with (acute) lower respiratory infection; I50.33 Acute on chronic diastolic (congestive) heart failure; J44.1 Chronic obstructive pulmonary disease with (acute) exacerbation; E87.8 Other disorders of electrolyte and fluid balance, not elsewhere classified; E66.01 Morbid (severe) obesity due to excess calories; Z66 Do not resuscitate; G62.9 Polyneuropathy, unspecified; I48.2 Chronic atrial fibrillation; Z68.39 Body mass index [BMI] 39.0-39.9, adult; Z88.0 Allergy status to penicillin; I73.9 Peripheral vascular disease, unspecified; R73.03 Prediabetes; I08.2 Rheumatic disorders of both aortic and tricuspid valves; I25.10 Atherosclerotic heart disease of native coronary artery without angina pectoris; I27.20 Pulmonary hypertension, unspecified; D72.829 Elevated white blood cell count, unspecified; R91.1 Solitary pulmonary nodule; J40 Bronchitis, not specified as acute or chronic; G47.00 Insomnia, unspecified; R31.9 Hematuria, unspecified; D64.9 Anemia, unspecified; N18.9 Chronic kidney disease, unspecified; Z79.01 Long term (current) use of anticoagulants; Z85.46 Personal history of malignant neoplasm of prostate; Z87.891 Personal history of nicotine dependence
CPT/HCPCS: 36415; 36600; 71010; 71250; 80048; 80053; 80069; 80162; 81001; 82550; 82553; 82803; 82962; 83036; 83605; 83735; 83880; 84100; 84443; 84484; 85025; 85610; 85730; 86140; 87040; 93005; 93306; 93970; 94640; 94644; 94664; 96374; 96375; J0456; J0692; J0696; J1940; J2060; J2920; J2930; J3370; J7030; J7050; J7509